=== PATIENT | female | born 1950 | race Caucasian/White ===

== ENCOUNTER 2024-04-27 13:45 | Outpatient (AMB) | payer MEDICARE, OTHER, SELFPAY ==
--- NOTE | 2024-04-27 14:27 | MHC.OFFVISPS ---
Intake Intake Visit Reasons: depression Medication List - Last Reconciled 04/27/24 by Mariana Medeiros, SANJUANITA clonazepam 1 mg PO BID PRN estradiol 0.01%(0.1mg/gram) vaginal ketoconazole 2% appl topical lisinopril 20 mg PO DAILY pantoprazole 20 mg PO BID pravastatin 40 mg PO DAILY vilazodone (Viibryd) 20 mg PO DAILY HPI- Psychiatric Chief Complaint: depression HPI Narrative: pt reports increased anxiety and depression; recently cat got outdoors and did not come back; pt is fearful that cat was killed by an animal [place]; she has not been able to stop crying; her is upset as well. she has been compliant with meds; she is exercising and connecting with social supports. she had knee replacement one year ago and is not in as much pain but one leg longer than the other. She is doing PT. no SI no HI Past Psychiatric History: Outpatient treatment with Christy Medeiros [phone] Past medication trials include: viibryd lexapro prozac zoloft wellbutrin pristiq- ineffective Past Mental Health History: PHP treatment in past [facility] 2017 no inpatient Subjective Subjective Subjective Medication Compliance: Yes Side effects from medications: No Review of Systems Medical Review of Systems: unchanged Mental Status Exam Mental Status Exam Patient Appearance: Well Grooomed and Appropriate Patient Orientation: Person, Place, Time and Situation Level of Consciousness: Awake Patient Behavior: Appropriate and Cooperative Mood Description: Depressed and Anxious Affect Description: Depressed, Anxious and Sad Patient Cognition Impaired: No Ability to Follow Directions: Good Speech Pattern: Clear Memory Description: Intact Hallucinations: None Delusions: Not Present Thought Process: Intact Thought Content: positive for Intact and positive for Preoccupation Judgement: Fair Assessment and Plan Assessment & Plan (1) Major depressive disorder, recurrent, moderate: Status: Acute Code(s): F33.1 - Major depressive disorder, recurrent, moderate (2) Generalized anxiety disorder with panic attacks: Status: Acute Code(s): F41.1 - Generalized anxiety disorder; F41.0 - Panic disorder [episodic paroxysmal anxiety] Plan continue medications Medications: New vilazodone (Viibryd) 20 mg PO DAILY 90 tabs 0RF clonazepam 1 mg PO BID PRN 60 tabs 2RF anxiety Counseling and coordination of Care Pt. Self Management counseling: Exercise, Maintenance-social rhythm, Mindfulness, Sleep hygiene, Behavior activation, General coping skills and Greif counseling Medication management counseling: Effectiveness, Side effects, Dosing range, Duration, Drug interaction and Adherence Diagnosis and Prognosis Counseling: Accuracy of diagnosis, Prognosis over time, Impact of diagnosis on life functions, Impact of family relationship, Problematic behaviors secondary to diagnosis and Adequacy of current interventions Details: I spent 45 minutes reviewing the record, seeing the patient and documenting in the medical record. Counseling provided to the patient/caregiver as outlined below. Addressed patient/caregiver concerns regarding current medication regime including effective adherence. Addressed patient/caregiver concerns regarding diagnosis and prognosis including accuracy of diagnosis, prognosis over time, impact of diagnosis. Addressed patient/caregiver concerns regarding impact of recent stressors. 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
--- OUTSIDE RECORDS SUMMARY | 2024-05-03 06:15 | XMS_ITS | Continuity of Care Document ---
Author Organization [facility] Address [address] [place] [id number]- [place] [facility] [place] [facility] [address] [place] [id number] Attending Physician: Tomas Ibrahim Admitting Physician: Tomas Ibrahim Referring Physician: AdmtrTomas Allergies, Adverse Reactions, Alerts Substance Reaction Severity Status Prevacid Active Vagifem Active Erythro Active PriLOSEC Active Medications acetaminophen 325 mg oral tablet 650 mg, By Mouth, Every 6 hours, May take OTC not to exceed 3000 mg/day, Refills 0, Maintenance, 01/12/23 7:46:00 EDT, Partial fill upon patient request if the prescription is for a schedule II opioid drug. Start Date: 01/12/23 Status: Ordered Aspirin Tablet 325 mg, By Mouth, 2 times a day, Refills 0, Maintenance, 01/12/23 7:46:00 EDT, Partial fill upon patient request if the prescription is for a schedule II opioid drug. Start Date: 01/12/23 Status: Ordered celecoxib 200 mg oral capsule 1 capsule = 200 mg, By Mouth, Daily, 0 Refills, Maintenance, 01/12/23 7:47:00 EDT, Capsule, Partialfill upon patient request if the prescription is for a schedule II opioid drug. Start Date: 01/12/23 Status: Ordered clonazePAM 1 mg oral tablet TAKE 1/2 TABLET BY MOUTH TWO TIMES A DAY AND TAKE ONE TABLET BY MOUTH AT BEDTIME Start Date: 12/29/22 Status: Ordered Colace Capsule 100 mg, 1, capsule, By Mouth, 2 times a day, Refills 0, Maintenance, 01/12/23 7:47:00 EDT, Partial fill upon patient request if the prescription is for a schedule II opioid drug. Start Date: 01/12/23 Status: Ordered lisinopril 20 mg oral tablet TAKE ONE TABLET BY MOUTH EVERY DAY Start Date: 12/29/22 Status: Ordered MiraLax Powder 1 pack/packet = 17 Gm, By Mouth, Daily, PRN Constipation, 0 Refills, Maintenance, 01/12/23 7:47:00 EDT, Powder, Partial fill upon patient request if the prescription is for a schedule II opioid drug. Start Date: 01/12/23 Status: Ordered pantoprazole 20 mg oral delayed release tablet TAKE TWO TABLETS BY MOUTH EVERY DAY Start Date: 12/29/22 Status: Ordered pravastatin 40 mg oral tablet 1 tablet = 40 mg, By Mouth, Daily, 0 Refills, Maintenance, 01/08/23 7:35:00 EDT, Partial fill upon patient request if the prescription is for a schedule II opioid drug. Start Date: 01/08/23 Status: Ordered senna 187 mg oral tablet 1 tablet = 8.6 mg, By Mouth, Daily at bedtime, PRN as needed for constipation, 0 Refills, Maintenance, 01/12/23 7:47:00 EDT, Tablet, Partial fill upon patient request if the prescription is for a schedule II opioid drug. Start Date: 01/12/23 Status: Ordered Viibryd 20 mg oral tablet TAKE ONE TABLET BY MOUTH EVERY DAY WITH FOOD Start Date: 12/29/22 Status: Ordered Vitamin D3 By Mouth, 0 Refills, Maintenance, 02/18/18 16:05:10 EDT Start Date: 02/18/18 Status: Ordered Problem List Condition Confirmation Course Effective Dates Status Health St atus Informant Atrophic vaginitis Confirmed Active Anxiety and depression Confirmed Active Dyspareunia, female Confirmed Active Tobacco use disorder, continuous Confirmed Active Social History Social History Type Response Tobacco Use: 4 or less cigar ettes(less than 1/4 pack)/day in last 30 days. Sex Patient Care team information Care Team Related Persons Name: HAN GATICA Address: home [address] [place] [id number]
--- OUTSIDE RECORDS SUMMARY | 2024-05-03 06:16 | XMS_ITS | Continuity of Care Document ---
Author Organization [facility] Address [address] [place] [id number]- Encounter [facility] [place] Date(s): 12/29/22 - 01/28/[address] [id number] Attending Physician: Tomas Ibrahim Admitting Physician: Tomas Ibrahim Referring Physician: [id number] Allergies, Adverse Reactions, Alerts Substance Reaction Severity [...] Related Persons Name: HAN GATICA Address: home [address] [place] [id number]
--- OUTSIDE RECORDS SUMMARY | 2024-05-03 06:16 | XMS_ITS | Continuity of Care Document ---
Author Organization [facility] Address [address] [place] [id number]- Encounter [facility] [place] Date(s): 01/11/23 - 01/12/[address] [address] Discharge Disposition: A-Transfer VNA/Home Health Attending Physician: Derick Colbert MD Admitting Physician: Derick Colbert MD Referring Physician: Derick Colbert MD Allergies, Adverse Reactions, Alerts Substance Reaction Severity Status Prevacid Active Vagifem Active PriLOSEC Active Erythro Active Medications acetaminophen 325 mg oral tablet [...] opioid drug. Start Date: 01/12/23 Status: Ordered Dilaudid Tablet 2 mg, Tablet, By Mouth, Every 4 hours, PRN for Pain , Moderate, Routine, 01/11/23 13:01:00 EDT Start Date: 01/11/23 Stop Date: 01/12/23 Status: Discontinued HYDROmorphone 2 mg oral tablet See Instructions, PRN Pain , Severe, Take 1-2 tablets By Mouth Every 4 hours, # 84 tablet, 0 Refills, Acute 01/19/23 7:42:00 EDT, 01/12/23 7:41:00 EDT, Tablet, [facility], Partial fill upon patient request if the prescription is for a sc... Start Date: 01/12/23 Stop Date: 01/19/23 Status: Ordered lisinopril 20 mg oral tablet [...] opioid drug. Start Date: 01/12/23 Status: Ordered traMADol 50 mg oral tablet See Instructions, PRN Pain , Mild, 1-2 tablet By Mouth Every 6 hours not to exceed 400 mg/day, # 56tablet, 0 Refills, Acute 01/19/23 7:41:00 EDT, 01/12/23 7:40:00 EDT, Tablet, [facility], Partial fill upon patient request if the presc... Start Date: 01/12/23 Stop Date: 01/19/23 Status: Ordered Viibryd 20 mg oral tablet [...] Active Tobacco use disorder, continuous Confirmed Active Results Radiology Reports * Exam Date Time Procedure Performing Provider Status 01/11/23 1:30 PM Knee 1 or 2 Views Left Teresa Stevenson; Vinicio (Verified) Notes: (Knee 1 or 2 Views Left) Reason For Exam: Postop RESULT: Knee 1 or 2 Views Left Knee 1 or 2 Views Left, 2 views Reason: Postop; Clinical Question(s): Other:; Implant Position; Special Instructions: To be done inPACU, No flexed knee in the lateral position. Keep leg straight; 2 Views COMPARISON: None. FINDINGS: Immediate postoperative findings following left total knee arthroplasty. Soft tissue swelling and overlying gas. No fracture. Alignment of the prosthesis appears anatomic. 2 mm of lucency between the most medial edge of the femoral prosthesis and adjacent medial femoral condyle. Overlapping external immobilizer device. IMPRESSION: Immediate postoperative findings following left total knee arthroplasty. WSN: [id number] Ordering Physician: Kenny Jerry Dictated By: Jonathan Tyler MD Dictated Date/Time: 01/11/23 4:30 pm Reviewed By: Jonathan Tyler MD Signed By: Jonathan Tyler MD Signed Date/Time: 01/11/23 4:30 pm Transcribed By: BERRY Transcribed Date/Time: 01/11/23 4:27 pm Vital Signs Most recent to oldest [Reference Range]: 1 2 3 Height 160 cm (01/12/23 10:32 AM) 160 cm (01/12/23 6:34 AM) 160 cm (01/12/23 4:18 AM) Weight 62.9 kg (01/11/23 3:55 PM) Oxygen Saturation [94-100 %] 98 % (01/12/23 10:32 AM) 99 % (01/12/23 6:34 AM) 98 % (01/12/23 4:18 AM) Pulse Rate [55-90 bpm] 62 bpm (01/12/23 10:32 AM) 62 bpm (01/12/23 6:34 AM) 62 bpm (01/12/23 4:18 AM) Body Mass Index [18.5-24.99 kg/m2] 24.57 kg/m2 (01/11/23 3:55 PM) Blood Pressure [90-138/55-84 mm Hg] 117/64mm Hg (01/12/23 10:32 AM) 153/80mm Hg *H* (01/12/23 6:34 AM) 120/72mm Hg (01/12/23 4:18 AM) Respiratory Rate [16-30 br/min] 18 br/min (01/12/23 11:11 AM) 17 br/min (01/12/23 10:32 AM) 18 br/min (01/12/23 10:27 AM) Temperature [96.8-100.4 DegF] 97.8 DegF (01/12/23 10:32 AM) 97.9 DegF (01/12/23 6:34 AM) 98.4 DegF (01/12/23 4:18 AM) Liters per Minute 6 L/min (01/11/23 12:30 PM) Mode of Delivery (Oxygen) Room air (01/12/23 10:32 AM) Room air (01/12/23 6:34 AM) Room air (01/12/23 4:18 AM) Blood pressure sites Arm, right (01/12/23 10:32 AM) Arm, right (01/12/23 6:34 AM) Arm, right (01/12/23 4:18 AM) Temperature Route Oral (01/12/23 10:32 AM) Oral (01/12/23 6:34 AM) Oral (01/12/23 4:18 AM) Dry Weight 62.9 kg (01/11/23 3:55 PM) 62.9 kg (01/11/23 9:28 AM) Dry Weight Obtained Via Standing scale (01/11/23 9:28 AM) Social History Social History Type Response Tobacco Use: 4 or less cigar ettes(less than 1/4 pack)/day in last 30 days. Sex History and physical note * Event Display: History and Physical Hospital Authored Date: [id number] * Jono PABON, Rodgerya: MODIFY Event Display: History and Physical Hospital Authored Date: [id number] SURGICAL HISTORY AND PHYSICAL DATE: 01/11/2023 PRIMARY DIAGNOSIS: Osteoarthritis of her left knee. REASON FOR ADMISSION: The patient is being admitted for left total knee arthroplasty with Dr. Trujillo 01/11/2023. HISTORY OF PRESENT ILLNESS: The patient is a 72-year-old female presenting today with left-sided knee pain. Her pain and discomfort started in 1971, where she injured her knee. She has been having anongoing pain ever since; however, significantly worse within the past 10 years. Her pain level is 4/10 in intensity at rest, increasing to 10/10 in intensity with weightbearing activities. She reports significant activity limitations, which include difficulty walking any prolonged distances, pivoting and stairs. She has difficulty getting in and out of the car and chair and transitioning from sitto stand. She does not ambulate with any assistive device at this time. She has been taking Aleve in order to manage her symptoms unfortunately with minimal effect. She is unable to kneel or squat. She has had corticosteroid injections in the past, which helped her with diminishing returns. She hasnot had any viscosupplementation. The patient uses knee strap at times in order to manage her symptoms. She states that she is now ready for left total knee arthroplasty with Dr. Colbert on 01/11/2023. PAST MEDICAL HISTORY: 1. Osteoarthritis of the left knee. 2. Hyperlipidemia. 3. Depression. 4. Anxiety. 5. Hypertension. 6. Atrophic vaginitis. 7. Dyspareunia. 8. Continuous tobacco abuse. 9. Prediabetes with preoperative A1c 6.0. PAST SURGICAL HISTORY: 1. Left knee arthroscopy. 2. Rotator cuff repair in 2004. 3. Appendectomy in 2008. CURRENT MEDICATION LIST: 1. Pravastatin 40 mg daily at bedtime. 2. Viibryd 20 mg daily in the morning, which the patient was instructed to take the morning of surgery and bring with her to the hospital. 3. Pantoprazole 20 mg daily in the morning. 4. Lisinopril 20 mg daily in the morning. 5. Vitamin D 2000 International Units daily in the morning. 6. Clonazepam 0.5 mg in the morning and 1 mg at bedtime. 7. Advil as needed for pain, which the patient has stopped in preparation for the surgery. ALLERGIES: The patient is allergic to ERYTHROMYCIN, PREVACID, PRILOSEC and VAGIFEM. 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 She is and lives at home with her . She drinks alcoholic beverages socially. She denies any use of illicit drugs. She smokes 4-5 cigarettes daily. PHYSICIANS: Her primary care provider is at [facility]. REVIEW OF SYSTEMS: The patient denies headache, dizziness or syncope. Denies fever, chills, unexplained weight loss or fatigue. Denies rash or lesions. Denies rhinorrhea, earache, sore throat or swollen glands. Denies cough, shortness of breath or wheezing. Denies chest pain, pressure, palpitationsor edema. Denies nausea, vomiting, diarrhea, constipation, or abdominal pain. Denies dysuria, urinary urgency or frequency. Denies calf pain. Denies history of blood clots in her legs. Denies numbness or tingling. Denies bruising or bleeding tendencies. PHYSICAL EXAMINATION: VITAL SIGNS: Height 63.5 inches tall, weight 137 pounds, temperature 97.3, blood pressure 115/81, pulse 77. GENERAL: The patient is alert and oriented. Normal insight, affect, and grooming. HEENT: Normocephalic. Conjunctivae pink. Sclerae are anicteric. SKIN: Intact without rash or lesions. Nails without clubbing or cyanosis. NECK: Supple. Trachea midline. No lymphadenopathy. CHEST: Lungs are clear to auscultation bilaterally. Breathing is unlabored. CARDIOVASCULAR: Heart has a regular rate and rhythm with normal S1, S2. No murmurs, rubs or gallopsappreciated. No JVD. Carotid pulses without bruits. ABDOMEN: Soft, nontender with normal bowel sounds. No hepatosplenomegaly or masses noted. No bruitsappreciated. EXTREMITIES: The patient has negative straight leg raise test bilaterally. Bilateral hips have fullrange of motion with no pain, no trochanteric tenderness. Left knee range of motion is 2-110 degrees. She has a clear valgus deformity. Knee is stable to varus and valgus stresses, anterior and posterior drawer testing, Jose L testing. No erythema, no redness. There is moderate subpatellar crepitus. Motor sensation screening is intact. Calves are supple, nontender. Ankle motion is satisfactory. Pedal pulse palpable bilaterally. Skin on her feet is intact. PREOPERATIVE DIAGNOSTIC DATA: EKG reads normal sinus rhythm at 68 beats per minute. Orthopedic x-rays demonstrate end-stage osteoarthritis of the left knee. There is [id number] articulation, subchondral sclerosis and osteophyte formation. LABORATORY DATA: CBC, coagulation studies and electrolytes within normal limits. A1c is 6.0. ASSESSMENT AND PLAN: The patient has advanced osteoarthritis of the left knee and is now scheduled for left total knee arthroplasty with Dr. Colbert on 01/11/2023. The patient was seen by the medical consultative preoperative clinic, who stated that the patient is at low risk for perioperative cardiov ascular and pulmonary complications. The patient will receive intravenous tranexamic acid. She willbe on aspirin postoperatively for DVT prophylaxis. We will monitor her point of cares and order sign scale insulin. Discharge plans will be to home the next day. The patient has been counseled regarding the risks and benefits of proposed surgery. Her questions have been answered and she acknowledges understanding. The patient wishes to proceed with surgery and has signed the consents. Prescriptions for aspirin and Celebrex were given to her at this office visit. The patient will require prescriptions for pain medications filled at [facility] upon discharge. She will receive 1 week of in-home physical therapy postoperatively. CONTACTS: Her , Jeffery, with a cell phone number of [phone]. Dictated by: Candy De La Cruz N.P. Signing Clinician: Derick Colbert M.D. Dictated: 01/06/2023 12:54:34 Transcribed: 09:10:22 AM Transcribed by: SAGE DocID: [id number] PRELIMINARY REPORT UNLESS MANUALLY/ELECTRONICALLY SIGNED Note * Event Display: Adult Preadmission Health Questionnaire Authored Date: * Event Display: Cardiac Rhythm Strips Authored Date: [id number] * Shikha Baldwin RN, I: PERFORM Event Display: Discharge/Transfer Note Hospital Authored Date: [id number] Nursing Discharge Note Entered On: 01/12/2023 13:02 EDT Performed On: 01/12/2023 13:01 EDT by Shikha Baldwin RN, I Nursing Discharge Note 2 Discharge Time : 01/12/2023 13:01 EDT Discharge Level of Care at Discharge : Homehealth/VNA Patient Left Unit Via : Wheelchair Patient Accompanied Off Unit with : Significant other DC Instructions Provided & Signed by Pt : Yes Patient Understands D/C Instructions : Yes Patient Instructions Discharge Signed : Yes Did Pt have Specialty Bed or Wound Vac : No Shikha Baldwin RN, I - 01/12/2023 13:01 EDT * Candy De La Cruz NP: VERIFY, PERFORM, SIGN Event Display: Discharge/Transfer Note Hospital Authored Date: [id number] Patient: MARIN GATICA Age: 72 years Sex: Female : 1950 Associated Diagnoses: None Author: Candy De La Cruz NP Discharge Summary Admission Date: 01/11/2023 Discharge Date: 01/12/2023 Admitting Diagnosis: Left knee osteoarthritis Discharge Diagnosis: Left knee osteoarthritis Final Diagnosis: Left knee osteoarthritis Procedure: Left total knee arthroplasty Surgeon: Dr. Derick Colbert Past Medical History: 1. Osteoarthritis of the left knee. 2. Hyperlipidemia. 3. Depression. 4. Anxiety. 5. Hypertension. 6. Atrophic vaginitis. 7. Dyspareunia. 8. Continuous tobacco abuse. 9. Prediabetes with preoperative A1c 6.0. Orthopedics: The patient is status post left knee arthroplasty. It is anticipated that she will be discharged home today pending PT, OT clearance. The patient is doing well from a surgical standpoint. Her incision is healing well. Neurovascular status is intact. Calves are supple and nontender. Thepatient is weight bearing as tolerated. Making good progress with Physical Therapy and Occupationaltherapy. Supervision with ambulation walking 30 feet, ambulating with a walker. Pain is well controlled on her current regimen, Acetaminophen 650 mg every 6 hours, Celebrex, tramadol and Dilaudid 2-4mg every 4 hours as needed . Patient is tolerating this well. She will be sent home with a prescription for this medication. Prescription: Tramadol 50 mg tablets, take 1 to 2 tablets every 6 hours as needed for mild pain, 7 days, #56 Dilaudid 2 mg tablet, 1-2 tablets every 4 hours as needed for severe pain, 7 days # 84 Hospital course: Relatively uneventful medically. Patient is voiding spontaneously. + bowel sounds. all morning bowel medications will be given in anticipation of a BM prior to discharge. No other issues. No calf tenderness. Current Medication List: Acetaminophen (acetaminophen 325 mg oral tablet) 650 Milligram By Mouth Every 6 hours May take OTC not to exceed 3000 mg/day Aspirin (Aspirin Tablet) 325 Milligram By Mouth 2 times a day Celecoxib (celecoxib 200 mg oral capsule) 1 capsule 200 Milligram By Mouth Daily Cholecalciferol (Vitamin D3) By Mouth Clonazepam (clonazePAM 1 mg oral tablet) TAKE 1/2 TABLET BY MOUTH TWO TIMES A DAY AND TAKE ONE TABLET BY MOUTH AT BEDTIME Docusate (Colace Capsule) 100 Milligram 1 capsule By Mouth 2 times a day Hydromorphone (HYDROmorphone 2 mg oral tablet) See Instructions as needed Pain , Severe Take 1-2 tablets By Mouth Every 4 hours Lisinopril (lisinopril 20 mg oral tablet) TAKE ONE TABLET BY MOUTH EVERY DAY Pantoprazole (pantoprazole 20 mg oral delayed release tablet) TAKE TWO TABLETS BY MOUTH EVERY DAY Polyethylene Glycol 3350 (MiraLax Powder) 1 pack/packet 17 gram By Mouth Daily as needed Constipation Pravastatin (pravastatin 40 mg oral tablet) 1 tab(s) 40 Milligram By Mouth Daily Senna (senna 187 mg oral tablet) 1 tab(s) 8.6 Milligram By Mouth Daily at bedtime as needed as needed for constipation Tramadol (traMADol 50 mg oral tablet) See Instructions as needed Pain , Mild 1-2 tablet By Mouth Every 6 hours not to exceed 400 mg/day vilazodone (Viibryd 20 mg oral tablet) TAKE ONE TABLET BY MOUTH EVERY DAY WITH FOOD Allergies (Active and Proposed Allergies Only) PriLOSEC (Severity: Unknown severity, Onset: Unknown) Prevacid (Severity: Unknown severity, Onset: Unknown) Vagifem (Severity: Unknown severity, Onset: Unknown) Erythro (Severity: Unknown severity, Onset: Unknown) Current Labs: Last 24 Hours Basic Metabolic Panel: Hematology: Sodium: 142 mmol/L (01/12/23) Hgb: 11.0 Gm/dL (01/12/23) Potassium (POC): 4.5 mmol/L (01/12/23) Hemoglobin A1C (Monitoring): ------ Phosphorus: ------ WBC: 10.2 k/mm3 (01/12/23) Magnesium: ------ Platelets: 296 k/mm3 (01/12/23) BUN (POC) POC Cartridge: 17 mg/dL (01/12/23) INR Level: ------ Creatinine-Blood: 0.6 mg/dL (01/12/23) Creatinine Clearance: ------ Additional - Last 24 Hours Abs. NRBC: 0.0 k/mm3 (01/12/23) Anion Gap: 10 (01/12/23) Bicarbonate Level: 26 mmol/L (01/12/23) BUN: BUN (01/12/23) Chloride: 106 mmol/L (01/12/23) Creatinine, Blood: Creatinine, Blood (01/12/23) Est Creatinine Clearance: 72.15 (01/12/23) Estimated GFR Creatinine: 95 ML/MIN/1.73 M2 (01/12/23) Glucose, POC: Glucose, POC (01/12/23) Hct: 33.5 % (01/12/23) MCH: 29.2 pg (01/12/23) MCHC: 32.8 g/dL (01/12/23) MCV: 88.9 femtoliters (01/12/23) MPV: 9.5 femtoliters (01/12/23) Nucleated RBC (Automated): 0.0 #/100 WBC'S (01/12/23) RBC: 3.77 m/mm3 (01/12/23) RDW-SD: 44.8 femtoliters (01/12/23) DVT prophylaxis ASA EC 325 mg po bid x 30 days Disposition: Anticipates being discharged today to home. Follow up at [facility] on 01/25/2023 at 10:30 am, patient is aware of this. The patient has an Aquacel dressing in place. She may shower with it and the dressing can be discontinued on POD 7. Discharge Plan Discharge Disposition Discharge: home with VNA. Home Health Face to Face I certify that this patient is under my care and that I or an allowed non- physician practitioner working with me, had a pnzu-sn-efva encounter with the patient on this date: 01/12/2023. The encounter with the patient was in whole, or in part, for the following medical condition, whichis the primary reason for home health care: Osteoarthritis of left knee. Physical Therapy: Functional mobility training, Home exercise program to strengthen, increase ROM, Falls prevention training. Homebound due to: Inability to leave home without assistance/supervision, Inability to ambulate without assistance, Pain, decreased strength, and endurance, Unsteady gait, Impaired transfers, Inability to negotiate stairs. Physician Signature: Lillian VAUGHN, Derick Baldwin RN, Shikha Roth: PERFORM Event Display: Patient Education/Instruction Authored Date: [id number] Inpatient Adult Discharge Instructions [address] [address] Name: MARIN GATICA : 1950 Visit: 01/11/2023 13:12:00 Current Date: 01/12/2023 10:39 Account: [id number] Inpatient Adult Discharge Instructions We would like to thank you for allowing us to assist you with your healthcare needs. The following includes patient education materials and information regarding your injury/illness. Our entire staffstrives to provide an excellent experience for our patients and their families. PLEASE ENSURE YOU FOLLOW-UP PER THE INSTRUCTIONS BELOW! ?? YOUR OPINION IS IMPORTANT TO US! Please complete the survey you may receive by mail or email. Your feedback will be used to make improvements to the healthcare experiences of our patients and their families. Surveys are administered by [employer] ?? If further treatment with your primary care physician or another doctor is recommended, it is important for you to keep the appointment. Call your primary care physician or return to the Emergency Department immediately if your condition worsens, fails to improve, or new symptoms develop. If you need to find a doctor, you can call [facility] for a referral at [phone] or toll free at [phone]) or log in to [email or web address].. ?? You can view and manage your care through the patient portal or by using a health care yaritza of your choosing. [employer] is a website that allows you to securely view your medical information including your hospital discharge summary, office visit summaries, medications and follow-up visits. You can also request appointments, renew medications, and request access to your medical information using a health care yaritza of your choosing, or just ask a question. You can enroll at [email or web address] or register during your next office visit. You have been discharged from [facility], Patient Care Unit: SW7. If you have any questions regarding these instructions after you leave, please call us and we will be happy to assist you. [facility] Your Care Team Attending Physician Lillian VAUGHN, Derick New Discharging Providers Jono PABON, Candy Reason for Your Visit OA LEFT KNEE AGUSTIN Your Diagnosis Osteoarthritis Osteoarthritis of left knee Tests Performed Below is a partial list of the tests performed during your hospitalization. You may have had other tests and procedures not included in this list. Please discuss all test results with your provider. BUN CBC Creatinine Electrolytes GLUCOSE POC XR Knee 1 or 2 Views Left Advance Directive . Discharge Vitals Temperature: 97.8 DegF Height: 160 cm Pulse Rate: 62 bpm Weight: 62.9 kg Respiratory Rate: 17 br/min Body Mass Index: 24.57 kg/m2 Systolic Blood Pressure: 117 mm Hg Body surface area: 1.67 Diastolic Blood Pressure: 64 mm Hg ?? Oxygen Saturation: 98 % ?? Studies Pending All tests and labs ordered during this hospital stay have been completed unless listed below. Please discuss all pending results with your provider listed above in these instructions. ?? BUN CBC COVID-19 (2019 Novel Coronavirus) PCR Creatinine Electrolytes What to do next Instructions From Your Doctor Discharge Orders You Need to Schedule the Following Appointments Follow Up with??[facility] When??Within 1 to 2 weeks Why: Pt follow-up appointments are as scheduled-01/25/2023 at 1030am, 02/10/2023 at 930am, and 05/13/2023 at 1050am Where: [address] [place] [address] [address] [place] [address]- Discharge Medications MARIN GATICA :1950 Visit Date:01/11/2023 Medications: Please continue your medications until treatment is completed or stopped by your provider. Medications not listed below should be discontinued. Discuss any questions related to medications with your provider. What How Much When Instructions Next Dose New Acetaminophen (acetaminophen 325 mg oral tablet) 650 Milligram Oral Every 6 hours May take OTC not to exceed 3000 mg/ day ?? New Aspirin (Aspirin Tablet) 325 Milligram Oral Twice a day New Celecoxib (celecoxib 200 mg oral capsule) 1 capsule Oral Daily New Docusate (Colace Capsule) 100 Milligram Oral Twice a day New Hydromorphone (HYDROmorphone 2 mg oral tablet) See instructions Take 1-2 tablets By Mouth Every 4 hours ?? Pickup at [facility] New Polyethylene Glycol 3350 (MiraLax Powder) 17 gram Oral Daily as needed for Constipation New Senna (senna 187 mg oral tablet) 1 tab(s) Oral Daily at Bedtime as needed for as needed for constipation New Tramadol (traMADol 50 mg oral tablet) See instructions 1-2 tablet By Mouth Every 6 hours not to exceed 400 mg/ day ?? Pickup at [facility] 3 Unchanged Cholecalciferol (Vitamin D3) Oral Unchanged Clonazepam (clonazePAM 1 mg oral tablet) TAKE 1/ 2 TABLET BY MOUTH TWO TIMES A DAY AND TAKE ONE TABLET BY MOUTH AT BEDTIME ?? Unchanged Lisinopril (lisinopril 20 mg oral tablet) TAKE ONE TABLET BY MOUTH EVERY DAY ?? Unchanged Pantoprazole (pantoprazole 20 mg oral delayed release tablet) TAKE TWO TABLETS BY MOUTH EVERY DAY ?? Unchanged Pravastatin (pravastatin 40 mg oral tablet) 1 tab(s) Oral Daily Unchanged vilazodone (Viibryd 20 mg oral tablet) TAKE ONE TABLET BY MOUTH EVERY DAY WITH FOOD ?? Pharmacy Information [facility]: [address], [place] [id number] [phone] ?? What When Comments Stop Taking Gabapentin (gabapentin 100 mg oral capsule) TAKE ONE CAPSULE BY MOUTH THREE TIMES A DAY ?? Stop Taking HydrOXYzine (hydrOXYzine hydrochloride 25 mg oral tablet) TAKE ONE TABLET BY MOUTH THREE TIMES A DAY NEEDED ITCHING ?? Test Results Below is a partial list of the most recent Laboratory test results done prior to this discharge. You may have had other tests and procedures not included in this list. Please discuss all test resultswith your provider. Est Creatinine Clearance - 72.15 mL/min (01/12/2023) BUN (01/12/2023) ???BUN - 17 mg/dL CBC (01/12/2023) ???WBC - 10.2 k/mm3???RBC - 3.77 m/mm3???Hgb - 11.0 Gm/dL???Hct - 33.5 %???MCV - 88.9 femtoliters???MCH - 29.2 pg???MCHC - 32.8 g/dL???Platelet Count - 296 k/mm3???RDW-SD - 44.8 femtoliters???MPV - 9.5 femtoliters???Nucleated RBC (Automated) - 0.0 #/100 WBC'S???Abs. NRBC - 0.0 k/mm3 Creatinine (01/12/2023) ???Creatinine-Blood - 0.6 mg/dL???Estimated GFR Creatinine - 95 ML/MIN/1.73 M2 Electrolytes (01/12/2023) ???Sodium - 142 mmol/L???Potassium - 4.5 mmol/L???Chloride - 106 mmol/L???Bicarbonate Level - 26 mmol/L???Anion Gap - 10 GLUCOSE POC (01/12/2023) ???Glucose, POC - 126 mg/dL Allergies (NKA means No Known Allergies) Erythro Prevacid PriLOSEC Vagifem Problems Active Problems??(4) Anxiety and depression?? Atrophic vaginitis?? Dyspareunia, female?? Tobacco use disorder, continuous?? Education Materials Below is the list of Educational Leaflet Providered with your Discharge Instructions. Total Knee Replacement Discharge Instructions?? Aspirin Oral Tablet?? Valuables and Belongings I fully understand and agree that [facility] accepts no responsibility for all my personal property including clothing, toilet articles, radios, jewelry, dentures, hearing aids, rings, money, or any other property that is in my possession or is brought to me after admission. I understand certain valuables may be placed in a hospital safe for a short period of time. I understand that the hospital is not liable for loss or damage due to accident, fire, or other natural occurrence while said property is in the safe. I accept full responsibility for any personal property that I keep with me, and will not hold the hospital responsible in case of loss or disappearance. I acknowledge that i have been encouraged to send valuables and belongings home. ?? Review of Valuable and Belonging List: With patient Disposition of Belongings: Other: To PACU Date for Pt to Sign Valuables/Belongings: 01/11/23 16:04:00 ?? Other Discharge Information ? Case Management Discharge Plan?? Discharge Plan?? Discharge Agency Information?? Discharge Level of Care at Discharge: Homehealth/VNA Name of Agency #1: Mike IGLESIAS ?? Agency [facility]1: [phone] ?? Service Categories #1: Physical Therapy ?? Service Comments #1: Mike IGLESIAS will contact you to set up a visit time after discharge. Please call [phone] if you don't hear form them. ?? Pulmonary Rehab Status?? Pulmonary Rehab Discharge Status?? CPAP/BiPAP Mask Type: Pillows CPAP/BiPAP Mask Size: Small Respiratory Rate: 17 br/min ? Common Emergency Awareness Tips IS IT A STROKE? Act FAST and Check for these signs: FACE Does the face look uneven? ARM Does one arm drift down? SPEECH Does their speech sound strange? TIME Call at any sign of stroke ?? Heart Attack Signs Chest discomfort: Most heart attacks involve discomfort in the center of the chest and lasts more than a few minutes, or goes away and comes back. It can feel like uncomfortable pressure, squeezing, fullness or pain. Discomfort in upper body: Symptoms can include pain or discomfort in one or both arms, back, neck, jaw or stomach. Shortness of breath: With or without discomfort. Other signs: Breaking out in a cold sweat, nausea, or lightheaded. Remember, MINUTES DO MATTER. If you experience any of these heart attack warning signs, call to get immediate medical attention! ?? Smoking can increase your chances of developing chronic health problems and can cause harmful effects to other family members in your house. If you smoke, you are strongly encouraged to quit. Please call [facility] Link at [phone] or [phone] ([phone]) or log in to [email or web address] for referrals to smoking cessation programs. ?? 291 Suicide & Crisis Lifeline is available 05/04 if you or someone you know needs to find a reason to keep living. By calling 133 you'll be connected to a skilled, trained counselor at a crisis center in your area. INPATIENT DISCHARGE INSTRUCTIONS SIGNATURE PAGE MARIN GATICA Location:[facility] Registration Date and Time:01/11/2023 13:12 EDT I MARIN GATICA, have received the above patient education materials/instructions and have verbalized understanding. If ambulance or transport services are being used I further acknowledge being given a choice of service. ?? If you need to contact me, please call me at this number: . Patient/Director Of Development And Marketing Name: Patient/Director Of Development And Marketing Signature: Relationship to Patient: Witness Name/Signature: Date: * Baldwin RN, Shikha Roth: PERFORM Event Display: Patient Education Leaflets Authored Date: Total Knee Replacement Discharge Instructions ?? 667 Total Knee Replacement Discharge Instructions ??? Please read and review your Total Knee Replacement Book for detailed information ??? Your appetite may be decreased but try to maintain a good balanced diet ?? Ice and elevation ?Ice is important to help keep swelling down. ?Keep elevated as much as possible. ?Ice the knee 4 times a day for 20 minutes each time. Be sure not to put the ice/ice pack directly on your skin. Use a dish towel or something similar between the ice and your skin. ??? Moving ? Get up and walk frequently. ??? Do 20 ankle pumps every hour. ??? Complete your exercises 4times a day, bending and straightening your knee ??? Begin exercises the evening you go home ??? Moving is especially important. This helps to prevent blood clots. Take short frequent walks. ? Wear your knee brace when walking until your surgeon or physical therapist tells you to stop. ??? You may sleep with or without the brace and sleep anyway you are comfortable. ??? Place a pillow underthe ankle/lower leg when lying down to help with extension of your knee. ??? Do not put a pillow under your knee ??? Continue to move your foot up and down, this exercise helps to prevent blood clotsand to help reduce swelling in your knee ??? No driving until approved by your surgeon ?? Incision ?Your incision is closed with absorbable stitches and surgical glue. ?The dressing iswaterproof. You may shower the next day. ??? You may develop some discoloration around your incision (yellowish or bruising) ??? Your dressing will stay on for 1-2 weeks ?You cannot go in a bath, pool, ocean, pond, gordillo or jacuzzi for 6 weeks. This is to reduce your risk of infection ? You may have some numbness around the incision. This is normal and will improve with time. Some patients have numbness that does not completely go away. ?? When to call the Surgeon?CALL [phone] ?If you have shortness of breath or chest pain, call 911 or go to the nearest emergency department. ??? If you have drainage and/or redness around your wound. ?If you have a fever greater than 101.5 (38.5 degrees Celsius). ?If you have persistent calf pain or swelling (This couldbe a blood clot). ??? If your pain is worsening. ? If you have any difficulty with urination or burning with urination ? * Denny GARZA, Shikha Roth: PERFORM Event Display: Patient Education Leaflets Authored Date: [id number] Aspirin Oral Tablet ?? 15953-0 Aspirin Oral Tablet Brands: [employer] Aspirin, [employer] Aspirin Uses This medicine is used for the following purposes: ??? fever ??? heart attack ??? heart disease ??? inflammatory disease ??? pain ??? prevent blood clots ??? prevent stroke ??? stroke ??? prevent heart attack ?? Instructions Sit or stand upright for 10 minutes after taking the medicine. Do not lie down. Swallow with a full glass (8 oz) of water unless your doctor gives you different instructions. You may take with food to prevent stomach upset. Keep the medicine at room temperature. Avoid heat and direct light. If you are using this medicine regularly, it is important to take each dose of medicine on time. Keep taking the medicine even if you feel well. If you forget to take a dose on time, take it as soon as you remember. If it is almost time for thenext dose, do not take the missed dose. Return to your normal schedule. Do not take 2 doses at one time. Drug interactions can change how medicines work or increase risk for side effects. Tell your healthcare providers about all medicines taken. Include prescription and [id number] medicines, vitamins, and herbal medicines. Speak with your doctor or pharmacist before starting or stopping any medicine. Tell your doctor if symptoms do not get better or if they get worse. Talk to your doctor before taking other medicines, including aspirins and ibuprofen containing products. Speak to your doctor about which medicines are safe to use while you are on this medicine. ?? Cautions IMPORTANT: Children and teenagers should not use medications containing aspirin for cold and flu symptoms or chickenpox. Tell your doctor and pharmacist if you ever had an allergic reaction to a medicine. There is an increased risk of bleeding while on this medicine, please tell your doctor or nurse if you notice any excessive bleeding or bruising. Do not use the medication any more than instructed. If you drink more than a few alcoholic beverages each day, ask your doctor whether you should be onthis medicine. Avoid smoking while on this medicine. Smoking may increase your risk for stomach bleeding. Contact your doctor if you notice a change in the amount or darkening of your urine. Tell the doctor or pharmacist if you are , planning to be , or . Do not breastfeed while on this medicine. This medicine can pass through breast milk to the baby. This medicine can hurt a new baby in the womb. If you become while on this medicine, tell your doctor immediately. Your doctor may switch you to a different medicine. ?? Side Effects The following is a list of some common side effects from this medicine. Please speak with your doctor about what you should do if you experience these or other side effects. ??? stomach upset or abdominal pain If you have any of the following side effects, you may be getting too much medicine. Please contactyour doctor to let them know about these side effects. ??? ringing in the ears Call your doctor or get medical help right away if you notice any of these more serious side effects: ??? severe or persistent abdominal pain ??? bleeding that is severe or takes longer to stop ??? coughing up blood or vomit that looks like coffee grounds ??? fever ??? swelling in the neck or throat ??? shortness of breath ??? dark, tarry stool ??? urinating less often A few people may have an allergic reaction to this medicine. Symptoms can include difficulty breathing, skin rash, itching, swelling, or severe dizziness. If you notice any of these symptoms, seek medical help quickly. ?? Extra Please speak with your doctor, nurse, or pharmacist if you have any questions about this medicine. ?? [email or web address].Delpor/[email or web address]/fdbpem/3 IMPORTANT NOTE: This document tells you briefly how to take your medicine, but it does not tell youall there is to know about it. Your doctor or pharmacist may give you other documents about your medicine. Please talk to them if you have any questions. Always follow their advice. There is a more complete description of this medicine available in [place]. Scan this code on your smartphone or tablet or use the web address below. You can also ask your pharmacist for a printout. If you have any questions, please ask your pharmacist. The display and use of this drug information is subject to Terms of Use. Copyright(c) 2022 [employer]. ?? [employer]. All rights reserved. This information is not intended as a substitute for professional medical care. Always follow your healthcare professional's instructions. ?? Hospital Progress note * Shikha Baldwin RN, I: PERFORM, SIGN, VERIFY Event Display: Progress Note Hospital Authored Date: [id number] Patient: MARIN GATICA Age: 72 years Sex: Female : 1950 Associated Diagnoses: None Author: Shikha Baldwin RN, I Findings Problem Related to Alteration in Comfort : Alteration in Comfort/new 01/12/2023 8:00 EDT Alteration in Comfort Related to Surgery Goals & Outcomes: Comfort Pt will report acceptable level of comfort & pain control, Pt will state importance of adhering to pain strategy regime, Pt will demonstrate necessary skills to manage pain, Non-verbal indicators will indicate comfort/pain control Interventions Implemented: Comfort Assess pain using appropriate pain scale/tools Goals/Interventions, Comfort Yes Comfort, Problem Start 01/11/2023 20:00 Reviewed plan with, Comfort Patient Patient Progression, Comfort Pt progressing according to plan Comfort, Problem Ongoing Yes . Alteration in Musculoskeletal : Alteration in Musculoskeletal Func/new 01/12/2023 8:00 EDT Alteration in Musculoskeletal Related to Mobility, Orthopedic Procedure, Total joint replacement, Other: LEFT TOTAL KNEE REPLACEMENT DR COLBERT 01/11/23 Goals & Outcomes, Musculoskeletal Affected extremity will maintain color/motion/sensation, Pt able to perform ADL's to best of ability, Pt demonstrates precautions/exercise/ transfers per protocol, Pt will ambulate safely with assistive device, Pt will be free from complications of immobility, Pt will demonstrate ability to participate in ADL's, Pt will report acceptable level of comfort/painrelief Interventions, Musculoskeletal Monitor patients ambulation status, monitor Color/Motion/Sensation, Assist with repositioning, Encourage deep breathing & coughing exercises, Notify MD immediately if tissue perfusion deteriorates, Obtain assistive devices as needed, Teach & Encourage use of Incentive spirometer, Teach Pt/caregiver on ADL's & adaptive equipment, Teach Pt/caregiver on exercises, Teach pt/caregiver on use of pain scale, Teach Pt/caregiver complications of immobility, Teach Pt/caregiver techniques to increase mobility Goals/Interventions, Musculoskeletal Yes Musculoskeletal, Problem Start 01/11/2023 16:13 Reviewed Plan with, Musculoskeletal Patient Patient Progression, Musculoskeletal Pt progressing according to plan . Narrative/Incidental Pt alert and oriented x3. Lungs cta and pt using incentive spirometer as instructed. Abdomen soft, non-tender with +bs, tolerating po well, LBM 4/30, +flatus. Pt voiding large amounts cyu in bathroom. Will continue to monitor pain level and musculoskeletal status. Refer to biophysical assessment for further details.. Evaluation P#1-Left total knee replacement surgery I: as per plan of care E: Pt reporting pain /10 this am, dilaudid 2mg po and tylenol as per orders, + effect on pain. Immobilizer on and ice applied. Left knee with aquacel dressing intact, +pp, +cms and strong d/p flexion. Compression boots and ASA for DVT proph. OOB with min assist and walker. Plan home when cleared by OT/PT. . * Jaydon Soto: PERFORM, SIGN, VERIFY, SIGN, MODIFY Event Display: Progress Note Hospital Authored Date: Patient: MARIN GATICA Age: 72 years Sex: Female : 1950 Associated Diagnoses: None Author: Jaydon Soto Findings Problem Related to Alteration in Comfort : Alteration in Comfort/new 01/11/2023 20:00 EDT Alteration in Comfort Related to Surgery Goals & Outcomes: Comfort Pt will report acceptable level of comfort & pain control, Pt will state importance of adhering to pain strategy regime, Pt will demonstrate necessary skills to manage pain, Non-verbal indicators will indicate comfort/pain control Interventions Implemented: Comfort Assess pain using appropriate pain scale/tools, Assess aggravating factors & prevent them accordingly, Assess alleviating factors & promote them accordingly Goals/Interventions, Comfort Yes Comfort, Problem Start 01/11/2023 20:00 Reviewed plan with, Comfort Patient Patient Progression, Comfort Pt progressing according to plan Comfort, Problem Ongoing Yes . Alteration in Musculoskeletal : Alteration in Musculoskeletal Func/new 01/11/2023 20:00 EDT Alteration in Musculoskeletal Related to Mobility, Orthopedic Procedure, Total joint replacement, Other: LEFT TOTAL KNEE REPLACEMENT DR COLBERT 01/11/23 Goals & Outcomes, Musculoskeletal Affected extremity will maintain color/motion/sensation, Pt able to perform ADL's to best of ability, Pt demonstrates precautions/exercise/ transfers per protocol, Pt will ambulate safely with assistive device, Pt will be free from complications of immobility, Pt will demonstrate ability to participate in ADL's, Pt will report acceptable level of comfort/painrelief Interventions, Musculoskeletal Monitor patients ambulation status, monitor Color/Motion/Sensation, Assist with repositioning, Encourage deep breathing & coughing exercises, Notify MD immediately if tissue perfusion deteriorates, Obtain assistive devices as needed, Teach & Encourage use of Incentive spirometer, Teach Pt/caregiver on ADL's & adaptive equipment, Teach Pt/caregiver on exercises, Teach pt/caregiver on use of pain scale, Teach Pt/caregiver complications of immobility, Teach Pt/caregiver techniques to increase mobility, Teach Pt/caregiver on safety precautions, Apply iceto injured extremity for first 48 hours, monitor CMS of injured extremity, Elevate injured extremity, Maintain proper alignment of injured extremity, Ezequiel location of distal pulse, rebeca. if doppler used, Incision care as ordered, Mcneal Pt/caregiver to Total Knee Replacement protocol Goals/Interventions, Musculoskeletal Yes Musculoskeletal, Problem Start 01/11/2023 16:13 Reviewed Plan with, Musculoskeletal Patient Patient Progression, Musculoskeletal Pt progressing according to plan . Nursing Data Vital Signs : VITAL SIGNS SECTION 01/11/2023 18:32 EDT Temperature 98.4 DegF Temperature Route Oral Pulse Rate 66 bpm Respiratory Rate 18 br/min Systolic Blood Pressure 147 mm Hg H Diastolic Blood Pressure 81 mm Hg Blood pressure sites Arm, left Mean Arterial Pressure 103 mm Hg Pulse Pressure 66 mm Hg Oxygen Saturation 95 % Mode of Delivery (Oxygen) Room air . Evaluation P: As per nursing care plan(s) listed above: I: See interventions listed in care plan above E: Patient A&Ox4, denies any chest pain or SOB. Lung clear throughout, saturating in the 90s onRA. Reports 5/10 left knee pain, PRN 2mg PO Dilaudid administered along with PO Tylenol with positive effect. +CMS, +D/P, and +PP noted to both lower extremities. Aquacel dressing to left knee remains c/d/i, ice applied to knee on/off throughout shift. Voiding clear urine without difficulty, last BM 01/11. CPAP used while asleep. OOB with 1 assist using walker, immobilizer used during ambulation.Patient educated and encouraged to use IS and perform D/P exercises throughout shift. C-boots applied to both lower extremities, on ASA for DVT prophylaxis. BED alarm activated for safety. Fall prevention & safety education provided to patient. Patient educated on how to use call walter and instructed to not get out of bed without calling for assistance first using call walter. Bed in a low-locked position. Call walter along with personal belongings are within patient reach. Will continue to monitor and report any changes to MD.... * Shikha Baldwin RN, I: PERFORM, SIGN, VERIFY Event Display: Progress Note Hospital Authored Date: Patient: MARIN GATICA Age: 72 years Sex: Female : 1950 Associated Diagnoses: None Author: Shikha Baldwin RN, I Findings Problem Related to Alteration in Musculoskeletal : Alteration in Musculoskeletal Func/new 01/11/2023 16:00 EDT Alteration in Musculoskeletal Related to Orthopedic Procedure, Total joint replacement Goals & Outcomes, Musculoskeletal Affected extremity will maintain color/motion/sensation, Pt able to perform ADL's to best of ability, Pt demonstrates precautions/exercise/ transfers per protocol, Pt will ambulate safely with assistive device, Pt will be free from complications of immobility, Pt will demonstrate ability to participate in ADL's, Pt will report acceptable level of comfort/painrelief Interventions, Musculoskeletal Monitor patients ambulation status, monitor Color/Motion/Sensation, Assist with repositioning, Encourage deep breathing & coughing exercises, Notify MD immediately if tissue perfusion deteriorates, Obtain assistive devices as needed, Teach & Encourage use of Incentive spirometer, Teach Pt/caregiver on ADL's & adaptive equipment, Teach Pt/caregiver on exercises, Teach pt/caregiver on use of pain scale, Teach Pt/caregiver complications of immobility BH Goals/Interventions, Musculoskeletal Yes Musculoskeletal, Problem Start 01/11/2023 16:13 Reviewed Plan with, Musculoskeletal Patient Patient Progression, Musculoskeletal Pt progressing according to plan . Narrative/Incidental Pt admitted from pacu alert and oriented x3. Lungs cta and pt using incentive spirometer as instructed with good effort, pt reports use of CPAP at home, will order and place pt on capnography at night. Abdomen soft, non-tender with +bs, tolerating po well, LBM 4/30. Pt voiding large amounts cyu without difficulty in bathroom. Will continue to monitor pain level and musculoskeletal status. Refer to biophysical assessment for further details. . Evaluation Pt rating pain on arrival from pacu, ice applied and pt refusing pain medication at this time. Leftknee with aquacel dressing intact, +pp, +cms and strong dorsi/plantar flexion noted, pt ambulated from stretcher to bathroom/bed without difficulty, steady with walker. Compression boots and ASA for DVT proph. . XR Knee - left 1 or 2 Views * BHSPowerscribe , CIS S: TRANSCRIBE Jonathan Tyler MD: VERIFY Event Display: Result: Authored Date: Knee 1 or 2 Views Left, 2 views Reason: Postop; Clinical Question(s): Other:; Implant Position; Special Instructions: To be done inPACU, No flexed knee in the lateral position. Keep leg straight; 2 Views COMPARISON: None. FINDINGS: Immediate postoperative findings following left total knee arthroplasty. Soft tissue swelling and overlying gas. No fracture. Alignment of the prosthesis appears anatomic. 2 mm of lucency between the most medial edge of the femoral prosthesis and adjacent medial femoral condyle. Overlapping external immobilizer device. IMPRESSION: Immediate postoperative findings following left total knee arthroplasty. WSN: [id number] Ordering Physician: Kenny Jerry Dictated By: Jonathan Tyler MD Dictated Date/Time: 01/11/23 4:30 pm Reviewed By: Jonathan Tyler MD Signed By: Jonathan Tyler MD Signed Date/Time: 01/11/23 4:30 pm Transcribed By: BERRY Transcribed Date/Time: 01/11/23 4:27 pm Patient Care team information Care Team Related Persons Name: JEFFERY GATICA Address: home [address] [place] [id number]
== END 2024-04-27 14:35 | disposition home or self-care (01) ==
LOC: HO.HOP 13:45
PROVIDERS: PCP Nurse Practitioner Primary Care; Visit Provider Clinical Nurse Specialist Psychiatric/Mental Health
DX: F33.1 Major depressive disorder, recurrent, moderate (principal); F41.1 Generalized anxiety disorder; F41.0 Panic disorder [episodic paroxysmal anxiety]
CPT/HCPCS: 90833; 99214

== ENCOUNTER → 2024-04-27 13:45 | Outpatient (BNVA) | payer MEDICARE, OTHER, SELFPAY | PROVIDERS: PCP Nurse Practitioner Primary Care; Visit Provider Clinical Nurse Specialist Psychiatric/Mental Health | DX: F33.1 Major depressive disorder, recurrent, moderate (principal); F41.1 Generalized anxiety disorder; F41.0 Panic disorder [episodic paroxysmal anxiety] | CPT/HCPCS: 99212 ==

== ENCOUNTER 2024-05-25 13:36 | Outpatient (AMB) | payer MEDICARE, OTHER, SELFPAY ==
--- NOTE | 2024-05-25 13:40 | MHC.OFFVISPS ---
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 she continues to exercise; many of her friends are not available right now which effects her mood. she is sleeping 7 hours most nights. Past Psychiatric History: Outpatient treatment with Christy Medeiros [id number] Past medication trials include: viibryd lexapro prozac zoloft wellbutrin pristiq- ineffective Past Mental Health History: PHP treatment in past [facility] 2017 no inpatient Subjective Subjective Subjective Medication Compliance: Yes Side effects from medications: No Review of Systems Medical Review of Systems: unchanged Mental Status Exam Mental Status Exam Patient Appearance: Well Grooomed and Appropriate Patient Orientation: Person, Place, Time and Situation Level of Consciousness: Awake, Appropriate and Alert Patient Behavior: Appropriate and Cooperative Mood Description: Calm Affect Description: Calm Patient Cognition Impaired: No Ability to Follow Directions: Good Speech Pattern: Clear and Coherent Memory Description: Intact Hallucinations: None Delusions: Not Present Thought Process: Intact and Goal Oriented Thought Content: positive for Intact and positive for Goal Oriented Judgement: Good Assessment and Plan Assessment & Plan (1) Generalized anxiety disorder with panic attacks: Status: Acute Code(s): F41.1 - Generalized anxiety disorder; F41.0 - Panic disorder [episodic paroxysmal anxiety] (2) Major depressive disorder, recurrent, moderate: Status: Acute Code(s): F33.1 - Major depressive disorder, recurrent, moderate Plan conintue medications as is no refills needed today CBT to address anxiety and depression problem solving ther apy to increase social supports/activities Counseling and coordination of Care Pt. Self Management counseling: Maintenance-social rhythm, Mindfulness, Mod caffeine/ETOH intake, Sleep hygiene, Behavior activation, General coping skills and Problem solving Medication management counseling: Effectiveness, Side effects, Dosing range, Duration, Drug interaction and Adherence Diagnosis and Prognosis Counseling: Accuracy of diagnosis, Prognosis over time, Impact of diagnosis on life functions, Impact of family relationship, Problematic behaviors secondary to diagnosis and Adequacy of current interventions Details: I spent 45 minutes reviewing the record, seeing the patient and documenting in the medical record. Counseling provided to the patient/caregiver as outlined below. Addressed patient/caregiver concerns regarding current medication regime including effective adherence. Addressed patient/caregiver concerns regarding diagnosis and prognosis including accuracy of diagnosis, prognosis over time, impact of diagnosis. Addressed patient/caregiver concerns regarding impact of recent stressors. 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
== END 2024-05-25 14:15 | disposition home or self-care (01) ==
LOC: HO.HOP 13:36
PROVIDERS: PCP Nurse Practitioner Primary Care; Visit Provider Clinical Nurse Specialist Psychiatric/Mental Health
DX: F41.1 Generalized anxiety disorder (principal); F41.0 Panic disorder [episodic paroxysmal anxiety]; F33.1 Major depressive disorder, recurrent, moderate
CPT/HCPCS: 90833; 99214

== ENCOUNTER → 2024-05-25 13:36 | Outpatient (BNVA) | payer MEDICARE, OTHER, SELFPAY | PROVIDERS: PCP Nurse Practitioner Primary Care; Visit Provider Clinical Nurse Specialist Psychiatric/Mental Health | DX: F33.1 Major depressive disorder, recurrent, moderate (principal); F41.1 Generalized anxiety disorder; F41.0 Panic disorder [episodic paroxysmal anxiety] | CPT/HCPCS: 99212 ==

== ENCOUNTER 2024-06-22 13:38 | Outpatient (AMB) | payer MEDICARE, OTHER, SELFPAY ==
--- NOTE | 2024-06-22 14:00 | MHC.OFFVISPS ---
Intake Intake Visit Reasons: depression Design Specialist Required: No Medication List - Last Reconciled 06/22/24 by Mariana Medeiros, SANJUANITA clonazepam 1 mg PO BID PRN estradiol 0.01%(0.1mg/gram) vaginal ketoconazole 2% appl topical lisinopril 20 mg PO DAILY pantoprazole 20 mg PO BID pravastatin 40 mg PO DAILY vilazodone (Viibryd) 20 mg PO DAILY HPI- Psychiatric Chief Complaint: depression HPI Narrative: Patient is struggling with some anxiety and depression but feels it is manageable she is staying busy she is making sure she exercises daily and socializing frequently. This time of year is difficult for her given the holidays and still grieving the loss of her parents she is compliant with meds no SI or HI and she is functioning well. Past Psychiatric History: Outpatient treatment with Christy Medeiros [id number] Past medication trials include: viibryd lexapro prozac zoloft wellbutrin pristiq- ineffective Past Mental Health History: PHP treatment in past [facility] 2017 no inpatient Subjective Subjective Subjective Medication Compliance: Yes Side effects from medications: No Review of Systems Medical Review of Systems: unchanged Mental Status Exam Mental Status Exam Patient Appearance: Well Grooomed Patient Orientation: Person, Place, Time and Situation Level of Consciousness: Awake and Alert Patient Behavior: Appropriate and Cooperative Mood Description: Anxious and Sad Affect Description: Anxious Patient Cognition Impaired: No Ability to Follow Directions: Good Speech Pattern: Clear Memory Description: Intact Hallucinations: None Delusions: Not Present Thought Process: Intact Thought Content: positive for Intact Judgement: Good Assessment and Plan Assessment & Plan (1) Generalized anxiety disorder with panic attacks: Status: Acute Code(s): F41.1 - Generalized anxiety disorder; F41.0 - Panic disorder [episodic paroxysmal anxiety] (2) Major depressive disorder, recurrent, moderate: Status: Acute Code(s): F33.1 - Major depressive disorder, recurrent, moderate Plan continue current meeication no changes Counseling and coordination of Care Pt. Self Management counseling: Exercise, Maintenance-social rhythm, Nutrition education and improvement, Sleep hygiene, Behavior activation and General coping skills Diagnosis and Prognosis Counseling: Accuracy of diagnosis, Prognosis over time, Impact of diagnosis on life functions, Impact of family relationship, Problematic behaviors secondary to diagnosis and Adequacy of current interventions Details: I spent [] minutes reviewing the record, seeing the patient and documenting in the medical record. Counseling provided to the patient/caregiver as outlined below. Addressed patient/caregiver concerns regarding current medication regime including effective adherence. Addressed patient/caregiver concerns regarding diagnosis and prognosis including accuracy of diagnosis, prognosis over time, impact of diagnosis. Addressed patient/caregiver concerns regarding impact of recent stressors. 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
== END 2024-06-22 14:15 | disposition home or self-care (01) ==
LOC: HO.HOP 13:38
PROVIDERS: PCP Nurse Practitioner Primary Care; Visit Provider Clinical Nurse Specialist Psychiatric/Mental Health
DX: F41.1 Generalized anxiety disorder (principal); F41.0 Panic disorder [episodic paroxysmal anxiety]; F33.1 Major depressive disorder, recurrent, moderate
CPT/HCPCS: 90833; 99214

== ENCOUNTER → 2024-06-22 13:38 | Outpatient (BNVA) | payer MEDICARE, OTHER, SELFPAY | PROVIDERS: PCP Nurse Practitioner Primary Care; Visit Provider Clinical Nurse Specialist Psychiatric/Mental Health | DX: F44.1 Dissociative fugue (principal); F41.0 Panic disorder [episodic paroxysmal anxiety]; F33.1 Major depressive disorder, recurrent, moderate | CPT/HCPCS: 99212 ==

== ENCOUNTER 2024-07-27 11:27 | Outpatient (AMB) | payer MEDICARE, OTHER, SELFPAY ==
--- NOTE | 2024-07-27 12:06 | A.OFFPSYCH_ITS ---
Intake Intake Visit Reasons: depression Supervisor Travel Information Center Required: No Medication List - Last Reconciled 07/27/24 by Mariana Medeiros, SANJUANITA clonazepam 1 mg PO BID PRN estradiol 0.01%(0.1mg/gram) vaginal ketoconazole 2% appl topical lisinopril 20 mg PO DAILY pantoprazole 20 mg PO BID pravastatin 40 mg PO DAILY vilazodone (Viibryd) 20 mg PO DAILY HPI- Psychiatric Chief Complaint: depression HPI Narrative: stable overall'some increased sadness as this is season her father ; she frequently has more sadness in July. pt is active socially and with family; exercises 5-7 days a week. takes meds consistently; no SI or Hi Past Psychiatric History: Outpatient treatment with Christy Medeiros [phone] Past medication trials include: viibryd lexapro prozac zoloft wellbutrin pristiq- ineffective Past Mental Health History: PHP treatment in past [facility] 2017 no inpatient Subjective Subjective Subjective Medication Compliance: Yes Side effects from medications: No Review of Systems Medical Review of Systems: unchanged Mental Status Exam Mental Status Exam Patient Appearance: Well Grooomed and Appropriate Patient Orientation: Person, Place, Time and Situation Level of Consciousness: Awake, Appropriate and Alert Patient Behavior: Appropriate, Cooperative and Good Eye Contact Mood Description: Sad Affect Description: Sad Patient Cognition Impaired: No Ability to Follow Directions: Good Speech Pattern: Clear Memory Description: Intact Hallucinations: None Delusions: Not Present Thought Process: Intact and Goal Oriented Thought Content: positive for Goal Oriented Judgement: Good Assessment and Plan Assessment & Plan (1) Generalized anxiety disorder with panic attacks: Status: Acute Code(s): F41.1 - Generalized anxiety disorder; F41.0 - Panic disorder [episodic paroxysmal anxiety] (2) Major depressive disorder, recurrent, moderate: Status: Acute Code(s): F33.1 - Major depressive disorder, recurrent, moderate Plan continue vilazodone and clonazepam return in 4 weeks Medications: Refilled vilazodone (Viibryd) 20 mg PO DAILY 90 tabs 1RF Counseling and coordination of Care Pt. Self Management counseling: Exercise, Maintenance-social rhythm, Mod caffeine/ETOH intake, Sleep hygiene, Behavior activation, General coping skills and Problem solving Medication management counseling: Effectiveness, Side effects, Dosing range, Duration, Drug interaction and Adherence Diagnosis and Prognosis Counseling: Accuracy of diagnosis, Prognosis over time, Impact of diagnosis on life functions, Impact of family relationship, Problematic behaviors secondary to diagnosis and Adequacy of current interventions Details: I spent 40 minutes reviewing the record, seeing the patient and documenting in the medical record. Counseling provided to the patient/caregiver as outlined below. Addressed patient/caregiver concerns regarding current medication regime including effective adherence. Addressed patient/caregiver concerns regarding diagnosis and prognosis including accuracy of diagnosis, prognosis over time, impact of diagnosis. Addressed patient/caregiver concerns regarding impact of recent stressors. 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
== END 2024-07-27 12:11 | disposition home or self-care (01) ==
LOC: HO.HOP 11:27
PROVIDERS: PCP Nurse Practitioner Primary Care; Visit Provider Clinical Nurse Specialist Psychiatric/Mental Health
DX: F41.1 Generalized anxiety disorder (principal); F41.0 Panic disorder [episodic paroxysmal anxiety]; F33.1 Major depressive disorder, recurrent, moderate
CPT/HCPCS: 90833; 99214

== ENCOUNTER → 2024-07-27 11:27 | Outpatient (BNVA) | payer MEDICARE, OTHER, SELFPAY | PROVIDERS: PCP Nurse Practitioner Primary Care; Visit Provider Clinical Nurse Specialist Psychiatric/Mental Health | DX: F41.1 Generalized anxiety disorder (principal); F41.0 Panic disorder [episodic paroxysmal anxiety]; F33.1 Major depressive disorder, recurrent, moderate; Z71.89 Other specified counseling | CPT/HCPCS: 99212 ==

== ENCOUNTER 2024-08-25 13:40 | Outpatient (AMB) | payer MEDICARE, OTHER, SELFPAY ==
--- NOTE | 2024-08-25 13:47 | MHC.OFFVISPS ---
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: No Medication List - Last Reconciled 08/25/24 by Mariana Medeiros, SANJUANITA clonazepam 1 mg PO BID PRN estradiol 0.01%(0.1mg/gram) vaginal ketoconazole 2% appl topical lisinopril 20 mg PO DAILY pantoprazole 20 mg PO BID pravastatin 40 mg PO DAILY Viibryd (vilazodone) 20 mg PO DAILY NS HPI- Psychiatric Chief Complaint: depression HPI Narrative: Pt reports mood stable; she has had some down days but overall coping well; she has had someincreased anxiety episodically; approximately 3 days a week she wakes with anxiety; she says it doesn't last long and goes away once she gets out of bed and gets busy. She is exercising regularly. she is sleeping well. 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 she is using magnesium cream which helps. PHQ9= 4 and GAD7 = 5. No SI or HI Past Psychiatric History: Outpatient treatment with Christy Medeiros [phone] Past medication trials include: viibryd lexapro prozac zoloft wellbutrin pristiq- ineffective Past Mental Health History: PHP treatment in past [facility] 2017 no inpatient Subjective Subjective Subjective Medication Compliance: Yes Side effects from medications: No Review of Systems Medical Review of Systems: unchanged Mental Status Exam Mental Status Exam Patient Appearance: Well Grooomed and Appropriate Patient Orientation: Person, Place, Time and Situation Level of Consciousness: Awake and Appropriate Patient Behavior: Appropriate, Cooperative and Anxious Mood Description: Happy and Anxious Affect Description: Cheerful and Anxious Patient Cognition Impaired: No Ability to Follow Directions: Good Speech Pattern: Clear and Appropriate Memory Description: Intact Hallucinations: None Delusions: Not Present Thought Process: Intact Thought Content: positive for Intact Judgement: Good Assessment and Plan Assessment & Plan (1) Generalized anxiety disorder with panic attacks: Status: Acute Code(s): F41.1 - Generalized anxiety disorder; F41.0 - Panic disorder [episodic paroxysmal anxiety] (2) Major depressive disorder, recurrent, moderate: Status: Acute Code(s): F33.1 - Major depressive disorder, recurrent, moderate Plan continue medications below return in 6 weeks Medications: Refilled clonazepam 1 mg PO BID PRN 60 tabs 2RF anxiety Viibryd (vilazodone) brand medically necessary/no substitutions 20 mg PO DAILY 90 tabs 1RF NS clonazepam 1 mg PO BID PRN 60 tabs 2RF anxiety Counseling and coordination of Care Details: I spent [] minutes reviewing the record, seeing the patient and documenting in the medical record. Counseling provided to the patient/caregiver as outlined below. Addressed patient/caregiver concerns regarding current medication regime including effective adherence. Addressed patient/caregiver concerns regarding diagnosis and prognosis including accuracy of diagnosis, prognosis over time, impact of diagnosis. Addressed patient/caregiver concerns regarding impact of recent stressors. 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
== END 2024-08-25 15:14 | disposition home or self-care (01) ==
LOC: HO.HOP 13:40
PROVIDERS: PCP Nurse Practitioner Primary Care; Visit Provider Clinical Nurse Specialist Psychiatric/Mental Health
DX: F41.1 Generalized anxiety disorder (principal); F41.0 Panic disorder [episodic paroxysmal anxiety]; F33.1 Major depressive disorder, recurrent, moderate
CPT/HCPCS: 99214

== ENCOUNTER → 2024-08-25 13:40 | Outpatient (BNVA) | payer MEDICARE, OTHER, SELFPAY | PROVIDERS: PCP Nurse Practitioner Primary Care; Visit Provider Clinical Nurse Specialist Psychiatric/Mental Health | DX: F41.1 Generalized anxiety disorder (principal); F41.0 Panic disorder [episodic paroxysmal anxiety]; F33.1 Major depressive disorder, recurrent, moderate; Z71.89 Other specified counseling | CPT/HCPCS: 99212 ==

== ENCOUNTER → 2024-10-06 13:33 | Outpatient (BNVA) | payer MEDICARE, OTHER, SELFPAY | PROVIDERS: PCP Nurse Practitioner Primary Care; Visit Provider Clinical Nurse Specialist Psychiatric/Mental Health | DX: F41.1 Generalized anxiety disorder (principal); F41.0 Panic disorder [episodic paroxysmal anxiety]; F33.1 Major depressive disorder, recurrent, moderate | CPT/HCPCS: 99212 ==

== ENCOUNTER 2024-11-03 11:04 | Outpatient (AMB) | payer MEDICARE, OTHER, SELFPAY ==
--- NOTE | 2024-11-03 11:10 | A.OFFPSYCH_ITS ---
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 Worried about family memebers. coping well overall; med compliant. no side effects. Past Psychiatric History: Outpatient treatment with Christy Medeiros [phone] Past medication trials include: viibryd lexapro prozac zoloft wellbutrin pristiq- ineffective Past Mental Health History: PHP treatment in past [facility] 2017 no inpatient Subjective Subjective Subjective Medication Compliance: Yes Side effects from medications: No Review of Systems Medical Review of Systems: unchanged Mental Status Exam Mental Status Exam Patient Appearance: Well Grooomed and Appropriate Patient Orientation: Person, Place, Time and Situation Level of Consciousness: Awake, Appropriate and Alert Patient Behavior: Appropriate and Cooperative Mood Description: Anxious Affect Description: Anxious Patient Cognition Impaired: No Ability to Follow Directions: Good Speech Pattern: Clear and Appropriate Hallucinations: None Delusions: Not Present Thought Process: Intact and Goal Oriented Thought Content: positive for Intact and positive for Goal Oriented Judgement: Good Assessment and Plan Assessment & Plan (1) Generalized anxiety disorder with panic attacks: Status: Acute Code(s): F41.1 - Generalized anxiety disorder; F41.0 - Panic disorder [episodic paroxysmal anxiety] (2) Major depressive disorder, recurrent, moderate: Status: Acute Code(s): F33.1 - Major depressive disorder, recurrent, moderate Plan continue viibryd and clonazepam return in 6-8 weeks Counseling and coordination of Care Pt. Self Management counseling: Maintenance-social rhythm, Med illness tx adherence, Mindfulness, Mod caffeine/ETOH intake, Nutrition education and improvement, Sleep hygiene, Behavior activation, General coping skills and Problem solving Medication management counseling: Effectiveness, Side effects, Dosing range, Duration, Drug interaction and Adherence Diagnosis and Prognosis Counseling: Accuracy of diagnosis, Prognosis over time, Impact of diagnosis on life functions, Impact of family relationship, Problematic behaviors secondary to diagnosis and Adequacy of current interventions Details: I spent 30 minutes reviewing the record, seeing the patient and documenting in the medical record. Counseling provided to the patient/caregiver as outlined below. Addressed patient/caregiver concerns regarding current medication regime including effective adherence. Addressed patient/caregiver concerns regarding diagnosis and prognosis including accuracy of diagnosis, prognosis over time, impact of diagnosis. Addressed patient/caregiver concerns regarding impact of recent stressors. 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
--- OUTSIDE RECORDS SUMMARY | 2024-11-03 12:11 | XMS_ITS | Data Portability ---
Author Organization [place] - [facility], , [facility] Address [address] [place] [address] Assessment No assessment recorded. Plan of Treatment Reminders Order Date Submit Date Provider Last Modified By Organization Details Last Modified Time Details Appointments None record ed. Lab None record ed. Referral None record ed. Procedures None record ed. Surgeries None record ed. Imaging None record ed. Medication Orders None record ed. Patient TargetsNo targets recorded. Patient Instructions Encounter Date Encounter Id Patient Instructions Last Modified By Organization Details Last Modified Time 12/31/2015 [id number] RX given for glasses and contact lenses Will get trials of new cl rX to insure improved vision, use readers over lenses for reading Prevention of macular degeneration discussed(family history)??includi ng UV protection, heart healthy diet and no smoking-advised to try to quit smoking jmerlin Not available 12/31/2015 17:15:10 01/12/2017 [id number] Prescription given for contact lenses Rewetting drops as needed for left eye Continue present care with contact lenses. Follow up 1 year or sooner as needed. jmerlin Not available 01/12/2017 10:51:58 Reason for Referral None Reported. Results Created Date Observation Date Name Description Value Unit Range Abnormal Flag Note LastModifiedBy Organization Detail LastModifiedTime 02/23/2002/23/2009 CBC WBC 9.7 K/??? L 4.6-10 .2 Not Available [address], [address], 02/23/2009 16:37:40 02/23/20 09 02/23/2009 CBC lymph # 1.7 K/??? L 0.6-3. 4 Not Available [address], [address], 02/23/2009 16:37:40 02/23/20 09 02/23/2009 CBC mid # 0.4 K/??? L 0.0-1. 8 Not Available [address], [address], 02/23/2009 16:37:40 02/23/20 09 02/23/2009 CBC gran # 7.6 K/??? L 2.0-6. 9 high Not Available [address], [address], 02/23/2009 16:37:40 02/23/20 09 02/23/2009 CBC lymph % 17.5 % 10.0-5 0.0 Not Available [address], [address], 02/23/2009 16:37:40 02/23/20 09 02/23/2009 CBC mid % 4.0 % 0.1-24 .0 Not Available [address], [address], 02/23/2009 16:37:40 02/23/20 09 02/23/2009 CBC gran % 78.5 % 37.0-8 0.0 Not Available [address], [address], 02/23/2009 16:37:40 02/23/20 09 02/23/2009 CBC RBC 4.74 M/??? L 4.04-5 .48 Not Available [address], [address], 02/23/2009 16:37:40 02/23/2002/23/2009 CBC HGB 13.5 g/dL 12.2-1 6.2 Not Available [address], [address], 02/23/2009 16:37:40 02/23/20 09 02/23/2009 CBC HCT 40.3 % 37.7-4 7.9 Not Available [address], [address], 02/23/2009 16:37:40 02/23/20 09 02/23/2009 CBC MCV 85.1 ???L 80.0-9 7.0 Not Available [address], [address], 02/23/2009 16:37:40 02/23/20 09 02/23/2009 CBC MCH 28.5 pg 27.0-3 1.2 Not Available [address], [address], 02/23/2009 16:37:40 02/23/20 09 02/23/2009 CBC MCHC 33.5 g/dL 31.8-3 5.4 Not Available [address], [address], 02/23/2009 16:37:40 02/23/20 09 02/23/2009 CBC plt 340.0 K/??? L 142.0- 424.0 Not Available [address], [address], 02/23/2009 16:37:40 02/23/20 09 02/23/2009 CBC RDW 12.9 % 11.6-1 4.8 Not Available [address], [address], 02/23/2009 16:37:40 02/23/20 09 02/23/2009 CBC _MPV 0.0 Not Available [address], [address], 02/23/2009 16:37:40 02/23/20 09 02/25/2009 compr ehens heath metab olic panel glucose 88 mg/dL 70-100 clini hui refer ence range s fasti ng gluco se <100 mg/dL = angella l fasti ng gluco se; 100-1 25 mg/dL = ifg (impa ired fasti ng gluco se); >126 mg/dL = provi siona l diagn osis of diabe evelyn (conf irm by celsa dickerson on A day.) Not Available [address], [address], 02/25/2009 08:42:39 02/23/20 09 02/25/2009 compr ehens heath metab olic panel BUN 7 mg/dL 7-18 Not Available [address], [address], 02/25/2009 08:42:39 02/23/20 09 02/25/2009 compr ehens heath metab olic panel creatinine 0.6 mg/dL 0.8-1. 3 low Not Available [address], [address], 02/25/2009 08:42:39 02/23/20 09 02/25/2009 compr ehens heath metab olic panel B/C 11.7 ratio Not Available [address], [address], 02/25/2009 08:42:39 02/23/20 09 02/25/2009 compr ehens heath metab olic panel GFR 115.8 mL/mi n recom richard d GFR by the natio nal kidne y found ation >60 mL/mi n/1.7 3M2 - angella l <60 mL/mi n/1.7 3M2 - chron ic kidne y disea se <15 mL/mi n/1.7 3M2 - kidne y failu re Not Available [address], [address], 02/25/2009 08:42:39 02/23/20 09 02/25/2009 compr ehens heath metab olic panel GFR - if 133.2 mL/mi n for afric an ameri can patie nts: resul ts multi plied by 1.21 Not Available [address], [address], 02/25/2009 08:42:39 02/23/20 09 02/25/2009 compr ehens heath metab olic panel sodium 142 mmol/ L 136-14 5 Not Available [address], [address], 02/25/2009 08:42:39 02/23/20 09 02/25/2009 compr ehens heath metab olic panel potassium 4.3 mmol/ L 3.5-5. 1 Not Available [address], [address], 02/25/2009 08:42:39 02/23/20 09 02/25/2009 compr ehens heath metab olic panel chloride 102 mmol/ L 96-107 Not Available [address], [address], 02/25/2009 08:42:39 02/23/20 09 02/25/2009 compr ehens heath metab olic panel _anion gap 10.0 Not Available [address], [address], 02/25/2009 08:42:39 02/23/20 09 02/25/2009 compr ehens heath metab olic panel CO2 30 mmol/ L 21-32 Not Available [address], [address], 02/25/2009 08:42:39 02/23/20 09 02/25/2009 compr ehens heath metab olic panel calcium 9.3 mg/dL 8.5-10 .3 Not Available [address], [address], 02/25/2009 08:42:39 02/23/20 09 02/25/2009 compr ehens heath metab olic panel total protein 7.6 g/dL 6.4-8. 2 Not Available [address], [address], 02/25/2009 08:42:39 02/23/20 09 02/25/2009 compr ehens heath metab olic panel albumin 4.4 g/dL 3.4-5. 0 Not Available [address], [address], 02/25/2009 08:42:39 02/23/20 09 02/25/2009 compr ehens heath metab olic panel globulin 3.2 g/dL Not Available [address], [address], 02/25/2009 08:42:39 02/23/20 09 02/25/2009 compr ehens heath metab olic panel A/G 1.4 ratio 0.8-2. 0 Not Available [address], [address], 02/25/2009 08:42:39 02/23/20 09 02/25/2009 compr ehens heath metab olic panel total bilirubin 1.00 mg/dL 0.00-1 .00 Not Available [address], [address], 02/25/2009 08:42:39 02/23/20 09 02/25/2009 compr ehens heath metab olic panel AST 19 U/L 15-37 Not Available [address], [address], 02/25/2009 08:42:39 02/23/20 09 02/25/2009 compr ehens heath metab olic panel ALT 33 U/L 30-65 Not Available [address], [address], 02/25/2009 08:42:39 02/23/20 09 02/25/2009 compr ehens heath metab olic panel alk. phos. 76 U/L 50-136 Not Available [address], [address], 02/25/2009 08:42:39 02/23/20 09 02/25/2009 amyla se amylase 43 U/L 25-115 Not Available [address], [address], 02/25/2009 08:42:44 02/23/20 09 02/25/2009 CBC w/dif f segs 72 % Not Available [address], [address], 02/25/2009 08:58:41 02/23/20 09 02/25/2009 CBC w/dif f bands 4 % Not Available [address], [address], 02/25/2009 08:58:41 02/23/20 09 02/25/2009 CBC w/dif f lymph 20 % Not Available [address], [address], 02/25/2009 08:58:41 02/23/20 09 02/25/2009 CBC w/dif f mono 2 % Not Available [address], [address], 02/25/2009 08:58:41 02/23/20 09 02/25/2009 CBC w/dif f abilio. lymph 2 % Not Available [address], [address], 02/25/2009 08:58:41 02/23/20 09 02/26/2009 trans gluta larry e Ab (iga) , tissu e tissue transglutami nase, IgA 1.5 U/mL 0.0-15 .0 Not Available [address], [address], 02/26/2009 17:57:22 02/23/20 09 02/26/2009 gliad in Ab panel anti-gliadin IgG 2 U/mL 0-45 <45 U/mL - negat heath 45-55 U/mL - equiv ocal >=55 U/mL - posit heath Not Available [address], [address], 02/26/2009 17:57:29 02/23/20 09 02/26/2009 gliad in Ab panel anti-gliadin IgA 23 U/mL 0-45 <45 U/mL - negat heath 45-55 U/mL - equiv ocal >=55 U/mL - posit heath Not Available [address], [address], 02/26/2009 17:57:29 Result Notes None recorded. 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 Procedures Surgical History Date Name Laterality Status Provider Name and Address Organization Details Recorded Time 04/01/20 22 Solomon - Colonoscopy completed Tony Carbajal MD [address] [place] [address], [phone], [facility] 04/01/2022 09:52:05 01/13/20 17 Contact Lens Re-eval completed Nabil Gould, STACY [address] [place], [address], [facility] 01/12/2017 10:51:01 12/31/19 16 Smoking cessation counseling completed Nabil Gould OD [address] [place], [address], [facility] 12/31/2015 17:18:51 12/31/19 16 Refraction completed Nabil Gould OD [address] [place], [address], [facility] 12/31/2015 16:10:21 12/31/19 16 Contact Lens Re-eval completed Nabil Gould OD [address] [facility], [place], [address], [facility] 12/31/2015 17:12:55 03/13/20 09 completed Not Available [facility] 1 06:05:52 04/11/20 08 completed Not Available [facility] 1 06:05:52 Imaging Results None recorded. Procedure Notes None recorded. Medical Equipment None Reported. Allergies Allergen ID Allergen Name Allergen Category Reaction Reaction Severity Criticality Documentation Date Start Date Code Code System Note Provider Name and Address Organization Details Recorded Time 742380 Prilosec medicatio n other Not available Not available 03/30/202227643 5 RxNorm KAYLA Perez, [facility] 2 15:52:46 164557 Prevacid medicatio n other Not available Not available 03/30/2022 20755 RxNoKAYLA Wallace, [facility] 2 15:52:00 Medications Name Sig Start Date Stop Date Status Note LastModified by Organization Details LastModified Time amoxicillin 500 mg capsule TAKE 4 CAPSULES BY MOUTH ONCE DIRECTED PRIOR TO DENTAL WORK active Not Available Not Available Not Available azithromycin 250 mg tablet active Not Available Not Available Not Available pravastatin 40 mg tablet TAKE ONE TABLET BY MOUTH EVERY EVENING active Not Available Not Available No t Available fluconazole 150 mg tablet TAKE 1 TABLET FOR 1 DOSE active Not Available Not Available No t Available lisinopril 20 mg tablet TAKE ONE TABLET BY MOUTH EVERY DAY active Not Available Not Available No t Available ondansetron HCl 4 mg tablet TAKE ONE TABLET BY MOUTH EVERY 12 HOURS NEEDED FOR NAUSEA AND VOMITING active Not Available Not Available No t Available clonazepam 0.5 mg tablet TAKE 1 TABLET BY MOUTH TWICE A DAY AND 2 TABLETS AT BEDTIME active Not Available Not Available No t Available clonazepam 1 mg tablet TAKE 1/2 TABLET BY MOUTH TWICE A DAY AND 1 TABLET AT BEDTIME active Not Available Not Available No t Available tretinoin 0.05 % topical cream APPLY TO FACE IN THE EVENING FOLLOW WITH MOISTURIZER active Not Available Not Available Not Available pantoprazole 20 mg tablet,delay ed release TAKE TWO TABLETS BY MOUTH EVERY DAY active Not Available Not Available No t Available benzonatate 100 mg capsule TAKE ONE CAPSULE BY MOUTH THREE TIMES A DAY NEEDED active Not Available Not Available No t Available pantoprazole 40 mg tablet,delay ed release TAKE ONE TABLET BY MOUTH EVERY DAY active Not Available Not Available No t Available estradiol 0.01% (0.1 mg/gram) vaginal cream PLACE 2 GRAMS VAGINALLY 2 TIMES PER WEEK active Not Available Not Available No t Available ketoconazole 2 % topical cream active Not Available Not Available Not Available amoxicillin 875 mg-potassium clavulanate 125 mg tablet TAKE ONE TABLET BY MOUTH TWICE A DAY FOR 10 DAYS active Not Available Not Available No t Available Premarin 0.625 mg/gram vaginal cream USE EXTERNALLY 2 TIMES WEEKLY active Not Available Not Available No t Available Vitamin D active Not Available Not Sofie ilable Not Available lisinopril active Not Available Not Av ailable Not Available pravastatin active Not Available Not A vailable Not Available desvenlafaxi ne succinate ER 50 mg tablet,exten ded release 24 hr TAKE 1 TABLET BY MOUTH EVERY DAY active Not Available Not Available No t Available diclofenac 1 % topical gel active Not Available Not Available Not Available Viibryd 10 mg tablet TAKE ONE TABLET BY MOUTH EVERY DAY active Not Available Not Available No t Available Viibryd 20 mg tablet TAKE ONE TABLET BY MOUTH EVERY DAY WITH FOOD active Not Available Not Available No t Available vilazodone active Not Available Not Av ailable Not Available Pristiq 25 mg tablet,exten ded release TAKE 1 TABLET BY MOUTH EVERY DAY active Not Available Not Available No t Available Vitals None Recorded Social History None recorded. Functional Status None recorded. Mental Status None recorded. Family History Nothing Reported. Medical History No medical history recorded. Gynecological HistoryNo gynecological history recorded. Obstetrics History GPAL:G 0 P 0 0 0 0 Past Encounters Encounter ID Performer Location Encounter Start Date Encounter Closed Date Diagnosis/Indication Diagnosis SNOMED-CT Code Diagnosis ICD10 Code Diagnosis Note [id number] Physical Therapy, [address] [address] 03/09/2007 11:55:52 03/09/2007 12:24:38 [id number] Physical Therapy, [address] [address] 03/23/2007 10:24:40 03/23/2007 10:36:11 [id number] Physical Therapy, [address] [address] 04/06/2007 10:05:46 04/06/2007 10:06:09 [id number] [facility], [address] [address] 04/11/2008 09:33:32 04/13/2008 07:36:05 [id number] [facility] - [address] [address] 02/22/2009 14:03:04 02/22/2009 14:03:13 [id number] [facility], [address] [address] 03/13/2009 08:14:34 03/13/2009 14:23:47 [id number] Nabil Gould, OD [facility], [address] [address] 12/31/2015 15:08:55 12/31/2015 16:15:07 Prescription, fitting and dispensing of contact lens 1665004 Z46.0 New CL RX BIOFINITY TORIC 8.7/14.5 -4.25-1.75 x010/-4.00 -1.67w608 Astigmatism 29052460 H52 .223 Myopia 38693812 H52.13 Presbyopia 17433191 H52. 4 Tobacco user 093793914 Z 72.0 [id number] Nabil Gould, OD [facility], [address] [address] 01/12/2017 09:45:54 01/12/2017 10:56:14 Fitting of contact lens 324761870 Z46.0 Good comfort fit and vision with contact lenses [id number] Sakina Mcgovern RN [facility], [address] [address] 04/01/2022 08:32:32 04/01/2022 14:14:13 [id number] Rani Jack RN Endoscopy , [address] [address] 03/15/2024 07:08:11 03/15/2024 10:41:33 Health Concerns Section Related Observation LastModified by Organization Detai ls LastModified Time None Recorded Concern Status LastModified by Organization Details LastModified Time None Recorded Advance Directives Directive None Recorded Payers Encounter Date Sequence Insurance Name Policy Number Policy Franz Covered Member ID Franz Member ID Guarantor Name 02/22/2009 2 [facility] - NAVIGATOR (PPO) [id number] Jeffery Mann [id number] Cheyenne Johnek 03/13/2009 2 [facility] [employer] - NAVIGATOR (PPO) [id number] Edward P Stahelek [id number] Cheyenne A Stahelek 12/31/2015 2 [facility] - NAVIGATOR (PPO) [id number] Edward P Stahelek [id number] Cheyenne A Stahelek 01/12/2017 2 [facility] - NAVIGATOR (PPO) [id number] Edward P Stahelek [id number] Cheyenne A Stahelek 04/01/2022 2 [facility] - NAVIGATOR (PPO) [id number] Edward P Stahelek [id number] Cheyenne A Stahelek 04/01/2022 1 MED[place]: [facility] [employer] Cheyenne Fisher Staglendaek [id number] Cheyenne Fisher Staglendaek Notes Date Note Type Note Provider Name and Address Organization Details Recorded Time 12/31/2015 text/html Comprehensive Ey e ExamReported bypatient.Quality:1 year exam; no blurred vision Location:bilateralC ontact Lens ExamReported bypatient.Current Contact Lens:Comfilcon A (Biofinity) 8.7 14.5 -4.50-2.54x078 -4.50-1.62z124 Frequency:sometimes (3-4x/week) Replacement Schedule:monthly Modifying Facotrs:does not sleep in CL Solution:Multipurpo seNotes:Used to wear RGP lenses. These are the first soft lenses' ON awakening feels FB sensation OS upper lid-goes away on its own Nabil Gould OD [address] [place] [address], [address], [facility] 12/31/2015 17:21:17 01/12/2017 text/html Contact Lens ExamReported bypatient.Current Contact Lens:Biofinity Toric OD -4.25 -1.75 X010 OS -4.00 -1.75 X170 Quality:no blurred vision with current contact lenses; comfortable Frequency:daily Replacement Schedule:monthly Modifying Facotrs:does not sleep in CL Solution:Biotrue Average Wearing Time (hrs):8 hours Nabil Gould OD [address] [place], [address], [facility] 01/12/2017 10:52:46 OBGyn Episode No OBEpisode recorded.
--- OUTSIDE RECORDS SUMMARY | 2024-11-03 12:11 | XMS_ITS | Data Portability ---
Author Organization [facility], Endoscopy, [facility] Address [address] [place] [phone] Assessment No assessment recorded. Plan of Treatment Reminders Order Date Submit Date Provider Last Modified By Organization Details Last Modified Time Details Appointments None record ed. Lab None record ed. Referral None record ed. Procedures None record ed. Surgeries None record ed. Imaging None record ed. Medication Orders None record ed. Patient TargetsNo targets recorded. Patient InstructionsNo instructions recorded. Reason for Referral None Reported. Results Created Date Observation Date Name Description Value Unit Range Abnormal Flag Note LastModifiedBy Organization Detail LastModifiedTime Result Notes None recorded. Procedures Surgical History Date Name Laterality Status Provider Name and Address Organization Details Recorded Time 4 Solomon - Upper Endoscopy completed Tony Carbajal MD [address] [place] [address], [phone] 03/15/2024 08:14:50 Imaging Results None recorded. Procedure Notes None recorded. Medical Equipment None Reported. Allergies Allergen ID Allergen Name Allergen Category Reaction Reaction Severity Criticality Documentation Date Start Date Code Code System Note Provider Name and Address Organization Details Recorded Time 521894 Prilosec medicatio n other Not available Not available 03/14/2024 84192 5 RxNorm ukn rxn Delilah Herndon RN [facility], [facility] 4 12:15:39 Medications Name Sig Start Date Stop Date Status Note LastModified by Organization Details LastModified Time lorazepam active Not Available Not Sofie ilable Not Available Vitamin D active Not Available Not Sofie ilable Not Available lisinopril active Not Available Not Av ailable Not Available pravastatin active Not Available Not A vailable Not Available Vagifem active Not Available Not Avail able Not Available Viibryd active Not Available Not Avail able Not Available prochlorperazine active Not Available Not Available Not Available Vitals None Recorded Social History None recorded. Functional Status None recorded. Mental Status None recorded. Family History Nothing Reported. Medical History No medical history recorded. Gynecological HistoryNo gynecological history recorded. Obstetrics History GPAL:G 0 P 0 0 0 0 Past Encounters Encounter ID Performer Location Encounter Start Date Encounter Closed Date Diagnosis/Indication Diagnosis SNOMED-CT Code Diagnosis ICD10 Code Diagnosis Note [id number] Physical Therapy, [address] [place] [address] 03/09/2007 11:55:52 03/09/2007 12:24:38 [id number] Physical Therapy, [address] [place] [address] 03/23/2007 10:24:40 03/23/2007 10:36:11 [id number] Physical Therapy, [address] [place] [address] 04/06/2007 10:05:46 04/06/2007 10:06:[id number] [place] [address] 04/11/2008 09:33:32 04/13/2008 07:36:05 [id number] LAB - [address] [place] [address] 02/22/2009 14:03:04 02/22/2009 14:03:[id number] [facility], [address] [place] [address] 03/13/2009 08:14:34 03/13/2009 14:23:47 [id number] Nabil Gould, OD [facility], [address] [place] [address] 12/31/2015 15:08:55 12/31/2015 16:15:07 [id number] Nabil Gould, OD [facility], [address] [place] [address] 01/12/2017 09:45:54 01/12/2017 10:56:14 [id number] [address] [facility], [address] [place] [address] 04/01/2022 08:32:32 04/01/2022 14:14:13 [id number] Rani Jack RN Endoscopy , [address] [place] [address] 03/15/2024 07:08:11 03/15/2024 10:41:33 Health Concerns Section Related Observation LastModified by Organization Detai ls LastModified Time None Recorded Concern Status LastModified by Organization Details LastModified Time None Recorded Advance Directives Directive None Recorded Payers Encounter Date Sequence Insurance Name Policy Number Policy Franz Covered Member ID Franz Member ID Guarantor Name 03/15/2024 1 [place]ICARE [place]: [employer] Cheyenne Mann [id number] Cheyenne Mann 03/15/2024 2 [facility] - PLAN 1 (MEDICARE SUPPLEMENT) [id number] Cheyenne Mann [id number] Cheyenne Mann OBGyn Episode No OBEpisode recorded.
== END 2024-11-03 16:53 | disposition home or self-care (01) ==
LOC: HO.HOP 11:04
PROVIDERS: PCP Nurse Practitioner Primary Care; Visit Provider Clinical Nurse Specialist Psychiatric/Mental Health
DX: F41.1 Generalized anxiety disorder (principal); F41.0 Panic disorder [episodic paroxysmal anxiety]; F33.1 Major depressive disorder, recurrent, moderate
CPT/HCPCS: 99214

== ENCOUNTER → 2024-11-03 11:04 | Outpatient (BNVA) | payer MEDICARE, OTHER, SELFPAY | PROVIDERS: PCP Nurse Practitioner Primary Care; Visit Provider Clinical Nurse Specialist Psychiatric/Mental Health | DX: F41.1 Generalized anxiety disorder (principal); F41.0 Panic disorder [episodic paroxysmal anxiety]; F33.1 Major depressive disorder, recurrent, moderate | CPT/HCPCS: 99212 ==

== ENCOUNTER 2024-12-11 13:08 | Outpatient (AMB) | payer MEDICARE, OTHER, SELFPAY ==
--- NOTE | 2024-12-11 13:22 | MHC.OFFVISPS ---
Intake Intake Visit Reasons: depression Policy Cancellation Clerk Required: No Medication List - Last Reconciled 12/11/24 by Mariana Medeiros, SANJUANITA clonazepam 1 mg PO BID PRN estradiol 0.01%(0.1mg/gram) vaginal ketoconazole 2% appl topical lisinopril 20 mg PO DAILY pantoprazole 20 mg PO BID pravastatin 40 mg PO DAILY Viibryd (vilazodone) 20 mg PO DAILY NS HPI- Psychiatric Chief Complaint: depression HPI Narrative: pt reports mood stable; some anxiety at times and some transient sadness in relation to others suffering. Pt also report at times has a flare up with his PTSD and he is irritable and harsh with her - she says he is seeing someone for the PTSH and his moodiness does not last long. she is socializing. she is exercising. she has chronic knee pain which is difficult . no SI or HI; sleep intact Past Psychiatric History: Outpatient treatment with Christy Medeiros [phone] Past medication trials include: viibryd lexapro prozac zoloft wellbutrin pristiq- ineffective Past Mental Health History: PHP treatment in past [facility] 2017 no inpatient Subjective Subjective Subjective Medication Compliance: Yes Side effects from medications: No Review of Systems Medical Review of Systems: unchanged Mental Status Exam Mental Status Exam Patient Appearance: Well Grooomed and Appropriate Patient Orientation: Person, Place, Time and Situation Level of Consciousness: Awake Patient Behavior: Appropriate Mood Description: Anxious Affect Description: Anxious Patient Cognition Impaired: No Ability to Follow Directions: Good Speech Pattern: Clear and Appropriate Memory Description: Intact Hallucinations: None Delusions: Not Present Thought Process: Intact and Goal Oriented Thought Content: positive for Intact and positive for Goal Oriented Judgement: Good Assessment and Plan Assessment & Plan (1) Generalized anxiety disorder with panic attacks: Status: Acute Code(s): F41.1 - Generalized anxiety disorder; F41.0 - Panic disorder [episodic paroxysmal anxiety] (2) Major depressive disorder, recurrent, moderate: Status: Acute Code(s): F33.1 - Major depressive disorder, recurrent, moderate Counseling and coordination of Care Pt. Self Management counseling: Maintenance-social rhythm, Nutrition education and improvement and General coping skills Medication management counseling: Effectiveness, Side effects, Dosing range, Duration, Drug interaction and Adherence Diagnosis and Prognosis Counseling: Accuracy of diagnosis, Impact of family relationship and Adequacy of current interventions Details: I spent 35 minutes reviewing the record, seeing the patient and documenting in the medical record. Counseling provided to the patient/caregiver as outlined below. Addressed patient/caregiver concerns regarding current medication regime including effective adherence. Addressed patient/caregiver concerns regarding diagnosis and prognosis including accuracy of diagnosis, prognosis over time, impact of diagnosis. Addressed patient/caregiver concerns regarding impact of recent stressors. 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
== END 2024-12-11 15:28 | disposition home or self-care (01) ==
LOC: HO.HOP 13:09
PROVIDERS: PCP Nurse Practitioner Primary Care; Visit Provider Clinical Nurse Specialist Psychiatric/Mental Health
DX: F41.1 Generalized anxiety disorder (principal); F41.0 Panic disorder [episodic paroxysmal anxiety]; F33.1 Major depressive disorder, recurrent, moderate
CPT/HCPCS: 99214

== ENCOUNTER → 2024-12-11 13:08 | Outpatient (BNVA) | payer MEDICARE, OTHER, SELFPAY | PROVIDERS: PCP Nurse Practitioner Primary Care; Visit Provider Clinical Nurse Specialist Psychiatric/Mental Health | DX: F33.1 Major depressive disorder, recurrent, moderate (principal); F41.1 Generalized anxiety disorder; F41.0 Panic disorder [episodic paroxysmal anxiety]; Z71.89 Other specified counseling | CPT/HCPCS: 99212 ==

== ENCOUNTER 2025-01-08 13:38 | Outpatient (AMB) | payer MEDICARE, OTHER, SELFPAY ==
--- NOTE | 2025-01-08 13:52 | A.OFFPSYCH_ITS ---
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 Medication List - Last Reconciled 01/08/25 by Mariana Medeiros, SANJUANITA clonazepam 1 mg PO BID PRN estradiol 0.01%(0.1mg/gram) vaginal ketoconazole 2% appl topical lisinopril 20 mg PO DAILY pantoprazole 20 mg PO BID pravastatin 40 mg PO DAILY Viibryd (vilazodone) 20 mg PO DAILY NS HPI- Psychiatric Chief Complaint: depression HPI Narrative: pt here for follow up on depression and anxiety symptoms are moderate; pt feels she can manage sheis excising and socializing no medical changes Past Psychiatric History: Outpatient treatment with Christy Medeiros [phone] Past medication trials include: viibryd lexapro prozac zoloft wellbutrin pristiq- ineffective Past Mental Health History: PHP treatment in past [facility] 2017 no inpatient Mental Status Exam Mental Status Exam Patient Appearance: Well Grooomed Patient Orientation: Person, Place, Time and Situation Level of Consciousness: Awake Patient Behavior: Appropriate Mood Description: Calm and Sad Affect Description: Calm and Sad Patient Cognition Impaired: No Ability to Follow Directions: Good Speech Pattern: Clear Memory Description: Intact Hallucinations: None Delusions: Not Present Thought Process: Intact Thought Content: positive for Intact Judgement: Good Assessment and Plan Assessment & Plan (1) Generalized anxiety disorder with panic attacks: Status: Acute Code(s): F41.1 - Generalized anxiety disorder; F41.0 - Panic disorder [episodic paroxysmal anxiety] (2) Major depressive disorder, recurrent, moderate: Status: Acute Code(s): F33.1 - Major depressive disorder, recurrent, moderate Plan conitnue medications as is follow up in 4 weeks Counseling and coordination of Care Pt. Self Management counseling: Exercise, Maintenance-social rhythm, Mod caffeine/ETOH intake, Nutrition education and improvement and Sleep hygiene Medication management counseling: Effectiveness, Side effects, Dosing range, Duration and Drug interaction Diagnosis and Prognosis Counseling: Accuracy of diagnosis, Prognosis over time, Impact of diagnosis on life functions, Impact of family relationship and Adequacy of current interventions Details: I spent 35 minutes reviewing the record, seeing the patient and documenting in the medical record. Counseling provided to the patient/caregiver as outlined below. Addressed patient/caregiver concerns regarding current medication regime including effective adherence. Addressed patient/caregiver concerns regarding diagnosis and prognosis including accuracy of diagnosis, prognosis over time, impact of diagnosis. Addressed patient/caregiver concerns regarding impact of recent stressors. 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
--- OUTSIDE RECORDS SUMMARY | 2025-01-08 16:18 | XMS_ITS | Data Portability ---
Author Organization [facility], Endoscopy, [facility] [place] Address [address] [place] [address] Assessment No assessment recorded. Plan of Treatment [...] - Upper Endoscopy completed Tony Carbajal MD [address] [place] [address], [phone] [place], [place] 03/15/2024 08:14:50 Imaging Results None recorded. Procedure Notes None recorded. Medical Equipment None Reported. Allergies Allergen ID Allergen Name Allergen Category Reaction Reaction Severity Criticality Documentation Date Start Date Code Code System Note Provider Name and Address Organization Details Recorded Time 554051 Prilosec medicatio n other Not available Not available 03/14/2024 01258 5 RxNorm ukn rxn Delilah Herndon RN [facility], [facility] 4 12:15:39 Medications Name Sig Start Date [...] SNOMED-CT Code Diagnosis ICD10 Code Diagnosis Note [id number] Physical Therapy, [address] [place] [address] 03/09/2007 11:55:52 03/09/2007 12:24:38 [id number] Physical Therapy, [address] [place] [address] 03/23/2007 10:24:40 03/23/2007 10:36:11 [id number] Physical Therapy, [address] [place] [address] 04/06/2007 10:05:46 04/06/2007 10:06:[id number] [place] [address] 04/11/2008 09:33:32 04/13/2008 07:36:05 [id number] LAB - [address] [place] [address] 02/22/2009 14:03:04 02/22/2009 14:03:13 [id number] [facility], [address] [place] [address] 03/13/2009 08:14:34 03/13/2009 14:23:47 [id number] Nabil Gould, OD Eye Care, [address] [place] [address] 12/31/2015 15:08:55 12/31/2015 16:15:07 [id number] Nabil Gould, OD Eye Care, [address] [place] [address] 01/12/2017 09:45:54 01/12/2017 10:56:14 [id number] Sakina Mcgovern RN [facility], [address] [place] [address] 04/01/2022 08:32:32 04/01/2022 14:14:13 [id number] Rani Jack RN Endoscopy , [address] [place] [address] 03/15/2024 07:08:11 03/15/2024 10:41:33 Health Concerns Section Related Observation LastModified by Organization Detai ls LastModified Time None Recorded Concern Status LastModified by Organization Details LastModified Time None Recorded Advance Directives Directive None Recorded Payers Encounter Date Sequence Insurance Name Policy Number Policy Franz Covered Member ID Franz Member ID Guarantor Name 03/15/2024 1 [place]: [employer] Cheyenne Mann [id number] Cheyenne Mann 03/15/2024 2 [facility] - PLAN 1 (MEDICARE SUPPLEMENT) [id number] Cheyenne Mann [id number] Cheyenne Mann OBGyn Episode No OBEpisode recorded.
--- OUTSIDE RECORDS SUMMARY | 2025-01-08 16:18 | XMS_ITS | Data Portability ---
Author Organization [facility], , [facility] Address [address] [place] [address] Assessment No assessment recorded. Plan of Treatment [...] By Organization Details Last Modified Time 12/31/2015 [id number] RX given for glasses and contact lenses Will get trials of new cl rX to insure improved vision, use readers over lenses for reading Prevention of macular degeneration discussed(family history)? ? ?including UV protection, heart healthy diet and no smoking-advised to try to quit smoking jmerlin Not available 12/31/2015 17:15:10 01/12/2017 [id number] Prescription given for contact lenses Rewetting drops as needed for left eye Continue present care with contact lenses. Follow up 1 year or sooner as needed. jmerlin Not available 01/12/2017 10:51:58 Reason for Referral None Reported. Results Created Date Observation Date Name Description Value Unit Range Abnormal Flag Note LastModifiedBy Organization Detail LastModifiedTime 02/23/2002/23/2009 CBC WBC 9.7 K/?L 4.6-10 .2 Not Available [address], [address], 02/23/2009 16:37:40 02/23/20 09 02/23/2009 CBC lymph # 1.7 K/?L 0.6-3. 4 Not Available [address], [address], 02/23/2009 16:37:40 02/23/20 09 02/23/2009 CBC mid # 0.4 K/?L 0.0-1. 8 Not Available [address], [address], 02/23/2009 16:37:40 02/23/2002/23/2009 CBC gran # 7.6 K/?L 2.0-6. 9 high Not Available [address], [address], 02/23/2009 16:37:40 02/23/2002/23/2009 CBC lymph % 17.5 % 10.0-5 0.0 Not Available [address], [address], 02/23/2009 16:37:40 02/23/2002/23/2009 CBC mid % 4.0 % 0.1-24 .0 Not Available [address], [address], 02/23/2009 16:37:40 02/23/2002/23/2009 CBC gran % 78.5 % 37.0-8 0.0 Not Available [address], [address], 02/23/2009 16:37:40 02/23/2002/23/2009 CBC RBC 4.74 M/?L 4.04-5 .48 Not Available [address], [address], 02/23/2009 16:37:40 02/23/2002/23/2009 CBC HGB 13.5 g/dL 12.2-1 6.2 Not Available [address], [address], 02/23/2009 16:37:40 02/23/2002/23/2009 CBC HCT 40.3 % 37.7-4 7.9 Not Available [address], [address], 02/23/2009 16:37:40 02/23/2002/23/2009 CBC MCV 85.1 ?L 80.0-9 7.0 Not Available [address], [address], 02/23/2009 16:37:40 02/23/2002/23/2009 CBC MCH 28.5 pg 27.0-3 1.2 Not Available [address], [address], 02/23/2009 16:37:40 02/23/2002/23/2009 CBC MCHC 33.5 g/dL 31.8-3 5.4 Not Available [address], [address], 02/23/2009 16:37:40 02/23/2002/23/2009 CBC plt 340.0 K/?L 142.0- 424.0 Not Available [address], [address], 02/23/2009 16:37:40 02/23/2002/23/2009 CBC RDW 12.9 % 11.6-1 4.8 Not Available [address], [address], 02/23/2009 16:37:40 02/23/2002/23/2009 CBC _MPV 0.0 Not Available [address], [address], 02/23/2009 16:37:40 02/23/2002/25/2009 compr ehens heath metab olic panel glucose 88 mg/dL 70-100 clini hui refer ence range s fasti ng gluco se <100 mg/dL = angella l fasti ng gluco se; 100-1 25 mg/dL = ifg (impa ired fasti ng gluco se); >126 mg/dL = provi siona l diagn osis of diabe evelyn (conf irm by celsa dickerson on A .) Not Available [address], [address], 02/25/2009 08:42:39 02/23/20 09 02/25/2009 compr ehens heath metab olic panel BUN 7 mg/dL 7-18 Not Available [address], [address], 02/25/2009 08:42:39 02/23/20 09 02/25/2009 compr ehens heath metab olic panel creatinine 0.6 mg/dL 0.8-1. 3 low Not Available [address], [address], 02/25/2009 08:42:39 02/23/2002/25/2009 compr ehens heath metab olic panel B/C 11.7 ratio Not Available [address], [address], 02/25/2009 08:42:39 02/23/20 09 02/25/2009 compr ehens heath metab olic panel GFR 115.8 mL/mi n recom richard d GFR by the natio nal kidne y found ation >60 mL/mi n/1.7 3M2 - angella l <60 mL/mi n/1.7 3M2 - chron ic kidne y disea se <15 mL/mi n/1.7 3M2 - kidne y failu re Not Available [address], [address], 02/25/2009 08:42:39 02/23/20 09 02/25/2009 compr ehens heath metab olic panel GFR - if 133.2 mL/mi n for afric an ameri can patie nts: resul ts multi plied by 1.21 Not Available [address], [address], 02/25/2009 08:42:39 02/23/20 09 02/25/2009 compr ehens heath metab olic panel sodium 142 mmol/ L 136-14 5 Not Available [address], [address], 02/25/2009 08:42:39 02/23/20 09 02/25/2009 compr ehens heath metab olic panel potassium 4.3 mmol/ L 3.5-5. 1 Not Available [address], [address], 02/25/2009 08:42:39 02/23/20 09 02/25/2009 compr ehens heath metab olic panel chloride 102 mmol/ L 96-107 Not Available [address], [address], 02/25/2009 08:42:39 02/23/20 09 02/25/2009 compr ehens heath metab olic panel _anion gap 10.0 Not Available [address], [address], 02/25/2009 08:42:39 02/23/20 09 02/25/2009 compr ehens heath metab olic panel CO2 30 mmol/ L 21-32 Not Available [address], [address], 02/25/2009 08:42:39 02/23/20 09 02/25/2009 compr ehens heath metab olic panel calcium 9.3 mg/dL 8.5-10 .3 Not Available [address], [address], 02/25/2009 08:42:39 02/23/20 09 02/25/2009 compr ehens heath metab olic panel total protein 7.6 g/dL 6.4-8. 2 Not Available [address], [address], 02/25/2009 08:42:39 02/23/20 09 02/25/2009 compr ehens heath metab olic panel albumin 4.4 g/dL 3.4-5. 0 Not Available [address], [address], 02/25/2009 08:42:39 02/23/20 09 02/25/2009 compr ehens heath metab olic panel globulin 3.2 g/dL Not Available [address], [address], 02/25/2009 08:42:39 02/23/20 09 02/25/2009 compr ehens heath metab olic panel A/G 1.4 ratio 0.8-2. 0 Not Available [address], [address], 02/25/2009 08:42:39 02/23/20 09 02/25/2009 compr ehens heath metab olic panel total bilirubin 1.00 mg/dL 0.00-1 .00 Not Available [address], [address], 02/25/2009 08:42:39 02/23/20 09 02/25/2009 compr ehens heath metab olic panel AST 19 U/L 15-37 Not Available [address], [address], 02/25/2009 08:42:39 02/23/20 09 02/25/2009 compr ehens heath metab olic panel ALT 33 U/L 30-65 Not Available [address], [address], 02/25/2009 08:42:39 02/23/20 09 02/25/2009 compr ehens heath metab olic panel alk. phos. 76 U/L 50-136 Not Available [address], [address], 02/25/2009 08:42:39 02/23/20 09 02/25/2009 amyla se amylase 43 U/L 25-115 Not Available [address], [address], 02/25/2009 08:42:44 02/23/20 09 02/25/2009 CBC w/dif f segs 72 % Not Available [address], [address], 02/25/2009 08:58:41 02/23/20 09 02/25/2009 CBC w/dif f bands 4 % Not Available [address], [address], 02/25/2009 08:58:41 02/23/20 09 02/25/2009 CBC w/dif f lymph 20 % Not Available [address], [address], 02/25/2009 08:58:41 02/23/20 09 02/25/2009 CBC w/dif f mono 2 % Not Available [address], [address], 02/25/2009 08:58:41 02/23/20 09 02/25/2009 CBC w/dif f abilio. lymph 2 % Not Available [address], [address], 02/25/2009 08:58:41 02/23/20 09 02/26/2009 trans gluta larry e Ab (iga) , tissu e tissue transglutami nase, IgA 1.5 U/mL 0.0-15 .0 Not Available [address], [address], 02/26/2009 17:57:22 02/23/20 09 02/26/2009 gliad in Ab panel anti-gliadin IgG 2 U/mL 0-45 <45 U/mL - negat heath 45-55 U/mL - equiv ocal >=55 U/mL - posit heath Not Available [address], [address], 02/26/2009 17:57:29 02/23/20 09 02/26/2009 gliad in Ab panel anti-gliadin IgA 23 U/mL 0-45 <45 U/mL - negat heath 45-55 U/mL - equiv ocal >=55 U/mL - posit heath Not Available [address], [address], 02/26/2009 17:57:29 Result Notes None recorded. 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 Procedures Surgical History Date Name Laterality Status Provider Name and Address Organization Details Recorded Time 04/01/20 22 Solomon - Colonoscopy completed Tony Carbajal MD [address] [place] [address], [phone], [facility] 04/01/2022 09:52:05 01/13/20 17 Contact Lens Re-eval completed Nabil Gould OD [address] [place] [address], [phone], [facility] 01/12/2017 10:51:01 12/31/19 16 Smoking cessation counseling completed Nabil Gould OD [address] [place] [address], [phone], [facility] 12/31/2015 17:18:51 12/31/19 16 Refraction completed Nabil Gould OD [address] [place] [address], [phone], [facility] 12/31/2015 16:10:21 12/31/19 16 Contact Lens Re-eval completed Nabil Gould, OD [address] [facility], [place], [address], [facility] 12/31/2015 17:12:55 03/13/20 09 completed Not Available [facility] 1 06:05:52 04/11/20 08 completed Not Available [facility] 1 06:05:52 Imaging Results None recorded. Procedure Notes None recorded. Medical Equipment None Reported. Allergies Allergen ID Allergen Name Allergen Category Reaction Reaction Severity Criticality Documentation Date Start Date Code Code System Note Provider Name and Address Organization Details Recorded Time 216520 Prilosec medicatio n other Not available Not available 03/30/2022 13228 5 RxNorm KAYLA Perez, [facility] 2 15:52:46 338953 Prevacid medicatio n other Not available Not available 03/30/2022 47354 RxKAYLA Mooney, [facility] 2 15:52:00 Medications Name Sig Start Date [...] SNOMED-CT Code Diagnosis ICD10 Code Diagnosis Note [id number] Physical Therapy, [address] [address] 03/09/2007 11:55:52 03/09/2007 12:24:38 [id number] Physical Therapy, [address] [address] 03/23/2007 10:24:40 03/23/2007 10:36:11 [id number] Physical Therapy, [address] [address] 04/06/2007 10:05:46 04/06/2007 10:06:09 [id number] [facility], [address] [address] 04/11/2008 09:33:32 04/13/2008 07:36:05 [id number] [facility] - [address] [address] 02/22/2009 14:03:04 02/22/2009 14:03:13 [id number] [facility], [address] [address] 03/13/2009 08:14:34 03/13/2009 14:23:47 [id number] Nabil Gould, OD Eye Care, [address] [address] 12/31/2015 15:08:55 12/31/2015 16:15:07 Prescription, fitting and dispensing of contact lens 3823910 Z46.0 New CL RX BIOFINITY TORIC 8.7/14.5 -4.25-1.75 x010/-4.00 -1.70r210 Astigmatism 33648047 H52 .223 Myopia 71079297 H52.13 Presbyopia 83205608 H52. 4 Tobacco user 799709223 Z 72.0 [id number] Nabil Gould, OD Eye Care, [address] [address] 01/12/2017 09:45:54 01/12/2017 10:56:14 Fitting of contact lens 510179637 Z46.0 Good comfort fit and vision with contact lenses [id number] Sakina Mcgovern RN [facility], [address] [address] 04/01/2022 08:32:32 04/01/2022 14:14:13 [id number] Rani Jack RN Endoscopy , [address] [address] 03/15/2024 07:08:11 03/15/2024 10:41:33 Health Concerns Section Related Observation LastModified by Organization Detai ls LastModified Time None Recorded Concern Status LastModified by Organization Details LastModified Time None Recorded Advance Directives Directive None Recorded Payers Encounter Date Sequence Insurance Name Policy Number Policy Franz Covered Member ID Franz Member ID Guarantor Name 02/22/2009 2 [facility] - NAVIGATOR (PPO) [id number] Edward P Stahelek [id number] Cheyenne A Stahelek 03/13/2009 2 [facility] PL[facility] - NAVIGATOR (PPO) [id number] Edward P Stahelek [id number] Cheyenne A Stahelek 12/31/2015 2 [facility] HEALTH PLAN - NAVIGATOR (PPO) [id number] Edward P Stahelek [id number] Cheyenne A Stahelek 01/12/2017 2 [facility] HEALTH PLAN - NAVIGATOR (PPO) [id number] Edward P Stahelek [id number] Cheyenne A Stahelek 04/01/2022 2 [facility] PLAN - NAVIGATOR (PPO) [id number] Edward P Stahelek [id number] Cheyenne A Stahelek 04/01/2022 1 MEDICARE B-[place]: [employer] Cheyenne A Stahelek [id number] Cheyenne A Stahelek Notes Date Note Type Note Provider Name and Address Organization Details Recorded Time 12/31/2015 text/html Comprehensive Ey e ExamReported bypatient.Quality:1 year exam; no blurred vision Location:bilateralC ontact Lens ExamReported bypatient.Current Contact Lens:Comfilcon A (Biofinity) 8.7 14.5 -4.50-2.04b509 -4.50-1.28z216 Frequency:sometimes (3-4x/week) Replacement Schedule:monthly Modifying Facotrs:does not sleep in CL Solution:Multipurpo seNotes:Used to wear RGP lenses. These are the first soft lenses' ON awakening feels FB sensation OS upper lid-goes away on its own Nabil Gould, OD [address] [place], [address], [facility] 12/31/2015 17:21:17 01/12/2017 text/html Contact Lens ExamReported bypatient.Current Contact Lens:Biofinity Toric OD -4.25 -1.75 X010 OS -4.00 -1.75 X170 Quality:no blurred vision with current contact lenses; comfortable Frequency:daily Replacement Schedule:monthly Modifying Facotrs:does not sleep in CL Solution:Biotrue Average Wearing Time (hrs):8 hours Nabil Gould OD [address] [facility], [place], [address], [facility] 01/12/2017 10:52:46 OBGyn Episode No OBEpisode recorded.
== END 2025-01-08 14:17 | disposition home or self-care (01) ==
LOC: HO.HOP 13:38
PROVIDERS: PCP Nurse Practitioner Primary Care; Visit Provider Clinical Nurse Specialist Psychiatric/Mental Health
DX: F41.1 Generalized anxiety disorder (principal); F41.0 Panic disorder [episodic paroxysmal anxiety]; F33.1 Major depressive disorder, recurrent, moderate
CPT/HCPCS: 99214

== ENCOUNTER → 2025-01-08 13:38 | Outpatient (BNVA) | payer MEDICARE, OTHER, SELFPAY | PROVIDERS: PCP Nurse Practitioner Primary Care; Visit Provider Clinical Nurse Specialist Psychiatric/Mental Health | DX: F41.1 Generalized anxiety disorder (principal); F41.0 Panic disorder [episodic paroxysmal anxiety]; F33.1 Major depressive disorder, recurrent, moderate; Z71.89 Other specified counseling | CPT/HCPCS: 99212 ==

== ENCOUNTER 2025-02-06 13:51 | Outpatient (AMB) | payer MEDICARE, OTHER, SELFPAY ==
--- NOTE | 2025-02-06 13:37 | MHC.OFFVISPS ---
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 Medication List - Last Reconciled 02/06/25 by Mariana Medeiros, SANJUANITA clonazepam 1 mg PO BID PRN estradiol 0.01%(0.1mg/gram) vaginal ketoconazole 2% appl topical lisinopril 20 mg PO DAILY pantoprazole 20 mg PO BID pravastatin 40 mg PO DAILY Viibryd (vilazodone) 20 mg PO DAILY NS HPI- Psychiatric Chief Complaint: depression HPI Narrative: Pt reports increase in symptomspt reports struggling with knee pain increase GI upset related to anxiety and stress no SI or HI Past Psychiatric History: Outpatient treatment with Christy Medeiros [phone] Past medication trials include: viibryd lexapro prozac zoloft wellbutrin pristiq- ineffective Past Mental Health History: PHP treatment in past [facility] 2016 no inpatient Subjective Subjective Subjective Medication Compliance: Yes Side effects from medications: No Review of Systems Medical Review of Systems: unchanged Mental Status Exam Mental Status Exam Patient Appearance: Well Grooomed Patient Orientation: Person, Place, Time and Situation Level of Consciousness: Awake and Appropriate Patient Behavior: Appropriate Mood Description: Anxious and Sad Affect Description: Anxious and Sad Patient Cognition Impaired: No Ability to Follow Directions: Good Speech Pattern: Clear Memory Description: Intact Hallucinations: None Delusions: Not Present Thought Process: Intact and Rumination Thought Content: positive for Intact and positive for Preoccupation Judgement: Fair Assessment and Plan Assessment & Plan (1) Generalized anxiety disorder with panic attacks: Status: Acute Code(s): F41.1 - Generalized anxiety disorder; F41.0 - Panic disorder [episodic paroxysmal anxiety] (2) Major depressive disorder, recurrent, moderate: Status: Acute Code(s): F33.1 - Major depressive disorder, recurrent, moderate Medications: Refilled clonazepam 1 mg PO BID PRN 60 tabs 2RF anxiety Viibryd (vilazodone) brand medically necessary/no substitutions 20 mg PO DAILY 90 tabs 1RF NS clonazepam 1 mg PO BID PRN 60 tabs 2RF anxiety Viibryd (vilazodone) brand medically necessary/no substitutions 20 mg PO DAILY 90 tabs 1RF NS Counseling and coordination of Care Pt. Self Management counseling: Exercise, Mindfulness, Nutrition education and improvement, Sleep hygiene and Problem solving Medication management counseling: Effectiveness, Side effects, Dosing range, Duration, Drug interaction and Adherence Diagnosis and Prognosis Counseling: Accuracy of diagnosis, Prognosis over time, Impact of diagnosis on life functions, Impact of family relationship, Problematic behaviors secondary to diagnosis and Adequacy of current interventions Details: 35I spent minutes reviewing the record, seeing the patient and documenting in the medical record. Counseling provided to the patient/caregiver as outlined below. Addressed patient/caregiver concerns regarding current medication regime including effective adherence. Addressed patient/caregiver concerns regarding diagnosis and prognosis including accuracy of diagnosis, prognosis over time, impact of diagnosis. Addressed patient/caregiver concerns regarding impact of recent stressors. 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
--- OUTSIDE RECORDS SUMMARY | 2025-02-06 14:06 | XMS_ITS | Data Portability ---
Author Organization [place] - [facility], , [facility] Address [address] [place] [address] Assessment No assessment recorded. Plan of Treatment [...] By Organization Details Last Modified Time 12/31/2015 [id number] RX given for glasses and contact lenses Will get trials of new cl rX to insure improved vision, use readers over lenses for reading Prevention of macular degeneration discussed(family history) including UV protection, heart healthy diet and no smoking-advised to try to quit smoking jmerlin Not available 12/31/2015 17:15:10 01/12/2017 [id number] Prescription given for contact lenses Rewetting drops as needed for left eye Continue present care with contact lenses. Follow up 1 year or sooner as needed. jmerlin Not available 01/12/2017 10:51:58 Reason for Referral None Reported. Results Created Date Observation Date Name Description Value Unit Range Abnormal Flag Note LastModifiedBy Organization Detail LastModifiedTime 02/23/20 09 02/23/2009 CBC WBC 9.7 K/?L 4.6-10 .2 Not Available [address], [address], 02/23/2009 16:37:40 02/23/20 09 02/23/2009 CBC lymph # 1.7 K/?L 0.6-3. 4 Not Available [address], [address], 02/23/2009 16:37:40 02/23/20 09 02/23/2009 CBC mid # 0.4 K/?L 0.0-1. 8 Not Available [address], [address], 02/23/2009 16:37:40 02/23/20 09 02/23/2009 CBC gran # 7.6 K/?L 2.0-6. 9 high Not Available [address], [address], 02/23/2009 16:37:40 02/23/2002/23/2009 CBC lymph % 17.5 % 10.0-5 0.0 Not Available [address], [address], 02/23/2009 16:37:40 02/23/2002/23/2009 CBC mid % 4.0 % 0.1-24 .0 Not Available [address], [address], 02/23/2009 16:37:40 02/23/2002/23/2009 CBC gran % 78.5 % 37.0-8 0.0 Not Available [address], [address], 02/23/2009 16:37:40 02/23/2002/23/2009 CBC RBC 4.74 M/?L 4.04-5 .48 Not Available [address], [address], 02/23/2009 16:37:40 02/23/2002/23/2009 CBC HGB 13.5 g/dL 12.2-1 6.2 Not Available [address], [address], 02/23/2009 16:37:40 02/23/2002/23/2009 CBC HCT 40.3 % 37.7-4 7.9 Not Available [address], [address], 02/23/2009 16:37:40 02/23/2002/23/2009 CBC MCV 85.1 ?L 80.0-9 7.0 Not Available [address], [address], 02/23/2009 16:37:40 02/23/2002/23/2009 CBC MCH 28.5 pg 27.0-3 1.2 Not Available [address], [address], 02/23/2009 16:37:40 02/23/2002/23/2009 CBC MCHC 33.5 g/dL 31.8-3 5.4 Not Available [address], [address], 02/23/2009 16:37:40 02/23/2002/23/2009 CBC plt 340.0 K/?L 142.0- 424.0 Not Available [address], [address], 02/23/2009 16:37:40 02/23/2002/23/2009 CBC RDW 12.9 % 11.6-1 4.8 Not Available [address], [address], 02/23/2009 16:37:40 02/23/2002/23/2009 CBC _MPV 0.0 Not Available [address], [address], 02/23/2009 16:37:40 02/23/2002/25/2009 compr ehens heath metab [...] celsa dickerson on A .) Not Available [address], [address], 02/25/2009 08:42:39 02/23/20 09 02/25/2009 compr ehens heath metab olic panel BUN 7 mg/dL 7-18 Not Available [address], [address], 02/25/2009 08:42:39 02/23/20 09 02/25/2009 compr ehens heath metab olic panel creatinine 0.6 mg/dL 0.8-1. 3 low Not Available [address], [address], 02/25/2009 08:42:39 02/23/2002/25/2009 compr ehens heath metab olic panel B/C 11.7 ratio Not Available [address], [address], 02/25/2009 08:42:39 02/23/20 09 02/25/2009 compr ehens heath metab olic panel GFR 115.8 mL/mi n recom richard d GFR by the natio nal kidne y found ation >60 mL/mi n/1.7 3M2 - angella l <60 mL/mi n/1.7 3M2 - chron ic kidne y disea se <15 mL/mi n/1.7 3M2 - kidne y failu re Not Available [address], [address], 02/25/2009 08:42:39 02/23/20 09 02/25/2009 compr ehens heath metab olic panel GFR - if 133.2 mL/mi n for afric an ameri can patie nts: resul ts multi plied by 1.21 Not Available [address], [address], 02/25/2009 08:42:39 02/23/20 09 02/25/2009 compr ehens heath metab olic panel sodium 142 mmol/ L 136-14 5 Not Available [address], [address], 02/25/2009 08:42:39 02/23/20 09 02/25/2009 compr ehens heath metab olic panel potassium 4.3 mmol/ L 3.5-5. 1 Not Available [address], [address], 02/25/2009 08:42:39 02/23/20 09 02/25/2009 compr ehens heath metab olic panel chloride 102 mmol/ L 96-107 Not Available [address], [address], 02/25/2009 08:42:39 02/23/20 09 02/25/2009 compr ehens heath metab olic panel _anion gap 10.0 Not Available [address], [address], 02/25/2009 08:42:39 02/23/20 09 02/25/2009 compr ehens heath metab olic panel CO2 30 mmol/ L 21-32 Not Available [address], [address], 02/25/2009 08:42:39 02/23/20 09 02/25/2009 compr ehens heath metab olic panel calcium 9.3 mg/dL 8.5-10 .3 Not Available [address], [address], 02/25/2009 08:42:39 02/23/20 09 02/25/2009 compr ehens heath metab olic panel total protein 7.6 g/dL 6.4-8. 2 Not Available [address], [address], 02/25/2009 08:42:39 02/23/20 09 02/25/2009 compr ehens heath metab olic panel albumin 4.4 g/dL 3.4-5. 0 Not Available [address], [address], 02/25/2009 08:42:39 02/23/20 09 02/25/2009 compr ehens heath metab olic panel globulin 3.2 g/dL Not Available [address], [address], 02/25/2009 08:42:39 02/23/20 09 02/25/2009 compr ehens heath metab olic panel A/G 1.4 ratio 0.8-2. 0 Not Available [address], [address], 02/25/2009 08:42:39 02/23/20 09 02/25/2009 compr ehens heath metab olic panel total bilirubin 1.00 mg/dL 0.00-1 .00 Not Available [address], [address], 02/25/2009 08:42:39 02/23/20 09 02/25/2009 compr ehens heath metab olic panel AST 19 U/L 15-37 Not Available [address], [address], 02/25/2009 08:42:39 02/23/20 09 02/25/2009 compr ehens heath metab olic panel ALT 33 U/L 30-65 Not Available [address], [address], 02/25/2009 08:42:39 02/23/20 09 02/25/2009 compr ehens heath metab olic panel alk. phos. 76 U/L 50-136 Not Available [address], [address], 02/25/2009 08:42:39 02/23/20 09 02/25/2009 amyla se amylase 43 U/L 25-115 Not Available [address], [address], 02/25/2009 08:42:44 02/23/20 09 02/25/2009 CBC w/dif f segs 72 % Not Available [address], [address], 02/25/2009 08:58:41 02/23/20 09 02/25/2009 CBC w/dif f bands 4 % Not Available [address], [address], 02/25/2009 08:58:41 02/23/20 09 02/25/2009 CBC w/dif f lymph 20 % Not Available [address], [address], 02/25/2009 08:58:41 02/23/20 09 02/25/2009 CBC w/dif f mono 2 % Not Available [address], [address], 02/25/2009 08:58:41 02/23/20 09 02/25/2009 CBC w/dif f abilio. lymph 2 % Not Available [address], [address], 02/25/2009 08:58:41 02/23/20 09 02/26/2009 trans gluta larry e Ab (iga) , tissu e tissue transglutami nase, IgA 1.5 U/mL 0.0-15 .0 Not Available [address], [address], 02/26/2009 17:57:22 02/23/20 09 02/26/2009 gliad in Ab panel anti-gliadin IgG 2 U/mL 0-45 <45 U/mL - negat heath 45-55 U/mL - equiv ocal >=55 U/mL - posit heath Not Available [address], [address], 02/26/2009 17:57:29 02/23/20 09 02/26/2009 gliad in Ab panel anti-gliadin IgA 23 U/mL 0-45 <45 U/mL - negat heath 45-55 U/mL - equiv ocal >=55 U/mL - posit heath Not Available [address], [address], 02/26/2009 17:57:29 Result Notes None recorded. 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 Procedures Surgical History Date Name Laterality Status Provider Name and Address Organization Details Recorded Time 04/01/20 22 Solomon - Colonoscopy completed Tony Carbajal MD [address] [place] [address], [address], [facility] 04/01/2022 09:52:05 01/13/20 17 Contact Lens Re-eval completed Nabil Gould OD [address] [place] [address], [address], [facility] 01/12/2017 10:51:01 12/31/19 16 Smoking cessation counseling completed Nabil Gould OD [address] [place], [address], [facility] 12/31/2015 17:18:51 12/31/19 16 Refraction completed Nabil Gould OD [address] [place] [address], [address], [facility] 12/31/2015 16:10:21 12/31/19 16 Contact Lens Re-eval completed Nabil Gould, OD [address] [place] [address], [place], [address], [facility] 12/31/2015 17:12:55 03/13/20 09 completed Not Available [facility] 1 06:05:52 04/11/20 08 completed Not Available [facility] 1 06:05:52 Imaging Results None recorded. Procedure Notes None recorded. Medical Equipment None Reported. Allergies Allergen ID Allergen Name Allergen Category Reaction Reaction Severity Criticality Documentation Date Start Date Code Code System Note Provider Name and Address Organization Details Recorded Time 184308 Prilosec medicatio n other Not available Not available 03/30/2022 51248 5 RxNorm KAYLA Perez, [facility] 2 15:52:46 020465 Prevacid medicatio n other Not available Not available 03/30/2022 [id number] KAYLA Ross, [facility] 2 15:52:00 Medications Name Sig [...] SNOMED-CT Code Diagnosis ICD10 Code Diagnosis Note [id number] Michelle Fu, OT [facility], [address] [address] 03/09/2007 11:55:52 03/09/2007 12:24:38 [id number] Michelle Fu, OT Physical Therapy, [address] [address] 03/23/2007 10:24:40 03/23/2007 10:36:11 [id number] Michelle Fu, OT Physical Therapy, [address] [address] 04/06/2007 10:05:46 04/06/2007 10:06:09 [id number] SLIME PANTOJA MD [facility], [address] [address] 04/11/2008 09:33:32 04/13/2008 07:36:05 [id number] [facility] - [address] [address] 02/22/2009 14:03:04 02/22/2009 14:03:13 [id number] ROSHNISLIME MD [facility], [address] [address] 03/13/2009 08:14:34 03/13/2009 14:23:47 [id number] Nabil Gould, OD [facility], [address] [address] 12/31/2015 15:08:55 12/31/2015 16:15:07 Prescription, fitting and dispensing of contact lens 8475164 Z46.0 New CL RX [employer] TORIC 8.7/14.5 -4.25-1.75 x010/-4.00 -1.18a027 Astigmatism 50178245 H52 .223 Myopia 04450361 H52.13 Presbyopia 68978021 H52. 4 Tobacco user 365544571 Z 72.0 [id number] Nabil Gould, OD [facility], [address] [address] 01/12/2017 09:45:54 01/12/2017 10:56:14 Fitting of contact lens 903939795 Z46.0 Good comfort fit and vision with contact lenses [id number] Tony Carbajal MD [facility], [address] [address] 04/01/2022 08:32:32 04/01/2022 14:14:13 [id number] Tony Carbajal MD Endoscopy , [address] [address] 03/15/2024 07:08:11 03/15/2024 10:41:33 Health Concerns Section Related Observation LastModified by Organization Detai ls LastModified Time None Recorded Concern Status LastModified by Organization Details LastModified Time None Recorded Advance Directives Directive None Recorded Payers Encounter Date Sequence Insurance Name Policy Number Policy Franz Covered Member ID Franz Member ID Guarantor Name 02/22/2009 2 [facility] (O) [id number] Edward P Stahelek [id number] Cheyenne A Stahelek 03/13/2009 2 [facility] (PPO) [id number] Edward P Stahelek [id number] Cheyenne A Stahelek 12/31/2015 2 [facility] (PPO) [id number] Edward P Stahelek [id number] Cheyenne A Stahelek 01/12/2017 2 [facility] (O) [id number] Edward P Stahelek [id number] Cheyenne A Stahelek 04/01/2022 2 [facility] (O) [id number] Edward P Stahelek [id number] Cheyenne A Stahelek 04/01/2022 1 MEDICARE [place]: [facility] [employer] Cheyenne Fisher Stahelek [id number] Cheyenne A Stahelek Notes Date Note Type Note Provider Name and Address Organization Details Recorded Time 12/31/2015 text/html Comprehensive Ey e ExamReported bypatient.Quality:1 year exam; no blurred vision Location:bilateralC ontact Lens ExamReported bypatient.Current Contact Lens:Comfilcon A (Biofinity) 8.7 14.5 -4.50-2.98c205 -4.50-1.09l315 Frequency:sometimes (3-4x/week) Replacement Schedule:monthly Modifying Facotrs:does not sleep in CL Solution:Multipurpo seNotes:Used to wear RGP lenses. These are the first soft lenses' ON awakening feels FB sensation OS upper lid-goes away on its own Nabil Gould, OD [address] [place] [address], [place], [address], [facility] 12/31/2015 17:21:17 01/12/2017 text/html Contact Lens ExamReported bypatient.Current Contact Lens:Biofinity Toric OD -4.25 -1.75 X010 OS -4.00 -1.75 X170 Quality:no blurred vision with current contact lenses; comfortable Frequency:daily Replacement Schedule:monthly Modifying Facotrs:does not sleep in CL Solution:Biotrue Average Wearing Time (hrs):8 hours Nabil Gould, OD [address] [place] [address], [place], [address], [facility] 01/12/2017 10:52:46 OBGyn Episode No OBEpisode recorded.
== END 2025-02-06 15:15 | disposition home or self-care (01) ==
LOC: HO.HOP 13:51
PROVIDERS: PCP Nurse Practitioner Primary Care; Visit Provider Clinical Nurse Specialist Psychiatric/Mental Health
DX: F41.1 Generalized anxiety disorder (principal); F41.0 Panic disorder [episodic paroxysmal anxiety]; F33.1 Major depressive disorder, recurrent, moderate
CPT/HCPCS: 99214

== ENCOUNTER → 2025-02-06 13:51 | Outpatient (BNVA) | payer MEDICARE, OTHER, SELFPAY | PROVIDERS: PCP Nurse Practitioner Primary Care; Visit Provider Clinical Nurse Specialist Psychiatric/Mental Health | DX: F41.1 Generalized anxiety disorder (principal); F41.0 Panic disorder [episodic paroxysmal anxiety]; F33.1 Major depressive disorder, recurrent, moderate | CPT/HCPCS: 99212 ==

== ENCOUNTER 2025-03-13 10:06 | Outpatient (AMB) | payer MEDICARE, OTHER, SELFPAY ==
--- OUTSIDE RECORDS SUMMARY | 2025-03-08 23:59 | XMS_ITS | Continuity of Care Document ---
Author Organization [facility] Address [address] [place] [address] Encounter BVT Date(s): 03/08/25 - 03/08/25 [facility] [address] [place] [address] [place] [address] Discharge Disposition: Home or Self Care Encounter Type: Historical Assessment and Plan Future Appointments
--- NOTE | 2025-03-13 10:14 | A.OFFPSYCH_ITS ---
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 difficulty with motivation. she has had more nausea; but saw her jacquard card lacer who made some changes which helped. pt reports still struggling with knee pain but has appt to see soecialist next week. denies SI or HI Past Psychiatric History: Outpatient treatment with Christy Medeiros [phone] Past medication trials include: viibryd lexapro prozac zoloft wellbutrin pristiq- ineffective Past Mental Health History: PHP treatment in past [facility] 2017 no inpatient Subjective Subjective Subjective Medication Compliance: Yes Side effects from medications: No Review of Systems Medical Review of Systems: unchanged Mental Status Exam Mental Status Exam Patient Appearance: Well Grooomed Patient Orientation: Person, Place, Time and Situation Level of Consciousness: Awake and Appropriate Patient Behavior: Appropriate Mood Description: Anxious and Sad Affect Description: Anxious and Sad Patient Cognition Impaired: No Ability to Follow Directions: Good Speech Pattern: Clear Memory Description: Intact Hallucinations: None Delusions: Not Present Thought Process: Intact and Rumination Thought Content: positive for Intact and positive for Preoccupation Judgement: Fair Assessment and Plan Assessment & Plan (1) Major depressive disorder, recurrent, moderate: Status: Acute Code(s): F33.1 - Major depressive disorder, recurrent, moderate (2) Generalized anxiety disorder with panic attacks: Status: Acute Code(s): F41.1 - Generalized anxiety disorder; F41.0 - Panic disorder [episodic paroxysmal anxiety] Plan continue meds below return in 4 weeks Medications: Refilled clonazepam 1 mg PO BID PRN 60 tabs 2RF anxiety Viibryd (vilazodone) brand medically necessary/no substitutions 20 mg PO DAILY 90 tabs 1RF NS Counseling and coordination of Care Pt. Self Management counseling: Exercise, Mindfulness, Nutrition education and improvement, Sleep hygiene and Problem solving Medication management counseling: Effectiveness, Side effects, Dosing range, Duration, Drug interaction and Adherence Diagnosis and Prognosis Counseling: Accuracy of diagnosis, Prognosis over time, Impact of diagnosis on life functions, Impact of family relationship, Problematic behaviors secondary to diagnosis and Adequacy of current interventions Details: I spent 45 minutes reviewing the record, seeing the patient and documenting in the medical record. Counseling provided to the patient/caregiver as outlined below. Addressed patient/caregiver concerns regarding current medication regime including effective adherence. Addressed patient/caregiver concerns regarding diagnosis and prognosis including accuracy of diagnosis, prognosis over time, impact of diagnosis. Addressed patient/caregiver concerns regarding impact of recent stressors. 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
--- OUTSIDE RECORDS SUMMARY | 2025-03-13 11:11 | XMS_ITS | Data Portability ---
Author Organization [place] - [facility], , [facility] Address [address] [place] [address] Assessment No assessment recorded. Plan of Treatment [...] By Organization Details Last Modified Time 12/31/2015 [id number] RX given for glasses and contact lenses Will get trials of new cl rX to insure improved vision, use readers over lenses for reading Prevention of macular degeneration discussed(family history) including UV protection, heart healthy diet and no smoking-advised to try to quit smoking jmerlin Not available 12/31/2015 17:15:10 01/12/2017 [id number] Prescription given for contact lenses Rewetting drops as needed for left eye Continue present care with contact lenses. Follow up 1 year or sooner as needed. jmerlin Not available 01/12/2017 10:51:58 Reason for Referral None Reported. Results Created Date Observation Date Name Description Value Unit Range Abnormal Flag Note LastModifiedBy Organization Detail LastModifiedTime 02/23/2002/23/2009 CBC WBC 9.7 K/ L 4.6-10 .2 Not Available [address], [address], 02/23/2009 16:37:40 02/23/20 09 02/23/2009 CBC lymph # 1.7 K/ L 0.6-3. 4 Not Available [address], [address], 02/23/2009 16:37:40 02/23/20 09 02/23/2009 CBC mid # 0.4 K/ L 0.0-1. 8 Not Available [address], [address], 02/23/2009 16:37:40 02/23/20 09 02/23/2009 CBC gran # 7.6 K/ L 2.0-6. 9 high Not Available [address], [address], 02/23/2009 16:37:40 02/23/20 09 02/23/2009 CBC lymph % 17.5 % 10.0-5 0.0 Not Available [address], [address], 02/23/2009 16:37:40 02/23/20 09 02/23/2009 CBC mid % 4.0 % 0.1-24 .0 Not Available [address], [address], 02/23/2009 16:37:40 02/23/20 09 02/23/2009 CBC gran % 78.5 % 37.0-8 0.0 Not Available [address], [address], 02/23/2009 16:37:40 02/23/20 09 02/23/2009 CBC RBC 4.74 M/ L 4.04-5 .48 Not Available [address], [address], 02/23/2009 16:37:40 02/23/20 09 02/23/2009 CBC HGB 13.5 g/dL 12.2-1 6.2 Not Available [address], [address], 02/23/2009 16:37:40 02/23/20 09 02/23/2009 CBC HCT 40.3 % 37.7-4 7.9 Not Available [address], [address], 02/23/2009 16:37:40 02/23/20 09 02/23/2009 CBC MCV 85.1 L 80.0-9 7.0 Not Available [address], [address], 02/23/2009 16:37:40 02/23/20 09 02/23/2009 CBC MCH 28.5 pg 27.0-3 1.2 Not Available [address], [address], 02/23/2009 16:37:40 02/23/20 09 02/23/2009 CBC MCHC 33.5 g/dL 31.8-3 5.4 Not Available [address], [address], 02/23/2009 16:37:40 02/23/20 09 02/23/2009 CBC plt 340.0 K/ L 142.0- 424.0 Not Available [address], [address], 02/23/2009 16:37:40 02/23/20 09 02/23/2009 CBC RDW 12.9 % 11.6-1 4.8 Not Available [address], [address], 02/23/2009 16:37:40 02/23/20 09 02/23/2009 CBC _MPV 0.0 Not Available [address], [address], 02/23/2009 16:37:40 02/23/20 09 02/25/2009 compr ehens heath metab olic panel glucose 88 mg/dL 70-100 clini hui refer ence range s fasti ng gluco se <100 mg/dL = angella l fasti ng gluco se; 100-1 25 mg/dL = ifg (impa ired fasti ng gluco se); >126 mg/dL = provi siona l diagn osis of diabe evelyn (conf irm by repea t testi ng on A diffe rent day.) Not Available [address], [address], 02/25/2009 08:42:39 02/23/20 09 02/25/2009 compr ehens heath metab olic panel BUN 7 mg/dL 7-18 Not Available [address], [address], 02/25/2009 08:42:39 02/23/20 09 02/25/2009 compr ehens heath metab olic panel creatinine 0.6 mg/dL 0.8-1. 3 low Not Available [address], [address], 02/25/2009 08:42:39 02/23/20 09 02/25/2009 compr ehens heath metab olic panel B/C 11.7 ratio Not Available [address], [address], 02/25/2009 08:42:39 02/23/20 09 02/25/2009 compr ehens heath metab olic panel GFR 115.8 mL/mi n recom richard d GFR by the natio nal kidne y found ation >60 mL/mi n/1.7 3M2 - angella l <60 mL/mi n/1.7 3M2 - chron ic kidne y disea se <15 mL/mi n/1.7 3M2 - kidne y failu re Not Available [address], [address], 02/25/2009 08:42:39 02/23/20 09 02/25/2009 compr ehens heath metab olic panel GFR - if 133.2 mL/mi n for afric an ameri can patie nts: resul ts multi plied by 1.21 Not Available [address], [address], 02/25/2009 08:42:39 02/23/20 09 02/25/2009 compr ehens heath metab olic panel sodium 142 mmol/ L 136-14 5 Not Available [address], [address], 02/25/2009 08:42:39 02/23/20 09 02/25/2009 compr ehens heath metab olic panel potassium 4.3 mmol/ L 3.5-5. 1 Not Available [address], [address], 02/25/2009 08:42:39 02/23/20 09 02/25/2009 compr ehens heath metab olic panel chloride 102 mmol/ L 96-107 Not Available [address], [address], 02/25/2009 08:42:39 02/23/2002/25/2009 compr ehens heath metab olic panel _anion gap 10.0 Not Available [address], [address], 02/25/2009 08:42:39 02/23/2002/25/2009 compr ehens heath metab olic panel CO2 30 mmol/ L 21-32 Not Available [address], [address], 02/25/2009 08:42:39 02/23/20 09 02/25/2009 compr ehens heath metab olic panel calcium 9.3 mg/dL 8.5-10 .3 Not Available [address], [address], 02/25/2009 08:42:39 02/23/2002/25/2009 compr ehens heath metab olic panel total protein 7.6 g/dL 6.4-8. 2 Not Available [address], [address], 02/25/2009 08:42:39 02/23/2002/25/2009 compr ehens heath metab olic panel albumin 4.4 g/dL 3.4-5. 0 Not Available [address], [address], 02/25/2009 08:42:39 02/23/20 09 02/25/2009 compr ehens heath metab olic panel globulin 3.2 g/dL Not Available [address], [address], 02/25/2009 08:42:39 02/23/20 09 02/25/2009 compr ehens heath metab olic panel A/G 1.4 ratio 0.8-2. 0 Not Available [address], [address], 02/25/2009 08:42:39 02/23/20 09 02/25/2009 compr ehens heath metab olic panel total bilirubin 1.00 mg/dL 0.00-1 .00 Not Available [address], [address], 02/25/2009 08:42:39 02/23/20 09 02/25/2009 compr ehens heath metab olic panel AST 19 U/L 15-37 Not Available [address], [address], 02/25/2009 08:42:39 02/23/20 09 02/25/2009 compr ehens heath metab olic panel ALT 33 U/L 30-65 Not Available [address], [address], 02/25/2009 08:42:39 02/23/20 09 02/25/2009 compr ehens heath metab olic panel alk. phos. 76 U/L 50-136 Not Available [address], [address], 02/25/2009 08:42:39 02/23/20 09 02/25/2009 amyla se amylase 43 U/L 25-115 Not Available [address], [address], 02/25/2009 08:42:44 02/23/20 09 02/25/2009 CBC w/dif f segs 72 % Not Available [address], [address], 02/25/2009 08:58:41 02/23/20 09 02/25/2009 CBC w/dif f bands 4 % Not Available [address], [address], 02/25/2009 08:58:41 02/23/20 09 02/25/2009 CBC w/dif f lymph 20 % Not Available [address], [address], 02/25/2009 08:58:41 02/23/20 09 02/25/2009 CBC w/dif f mono 2 % Not Available [address], [address], 02/25/2009 08:58:41 02/23/20 09 02/25/2009 CBC w/dif f abilio. lymph 2 % Not Available [address], [address], 02/25/2009 08:58:41 02/23/20 09 02/26/2009 trans gluta larry e Ab (iga) , tissu e tissue transglutami nase, IgA 1.5 U/mL 0.0-15 .0 Not Available [address], [address], 02/26/2009 17:57:22 02/23/20 09 02/26/2009 gliad in Ab panel anti-gliadin IgG 2 U/mL 0-45 <45 U/mL - negat heath 45-55 U/mL - equiv ocal >=55 U/mL - posit heath Not Available [address], [address], 02/26/2009 17:57:29 02/23/20 09 02/26/2009 gliad in Ab panel anti-gliadin IgA 23 U/mL 0-45 <45 U/mL - negat heath 45-55 U/mL - equiv ocal >=55 U/mL - posit heath Not Available [address], [address], 02/26/2009 17:57:29 Result Notes None recorded. 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 Procedures Surgical History Date Name Laterality Status Provider Name and Address Organization Details Recorded Time 04/01/20 22 Solomon - Colonoscopy completed Tony Carbajal MD [address] [place] [address], [phone], [facility] [place] 04/01/2022 09:52:05 01/13/20 17 Contact Lens Re-eval completed Nabil Gould OD [address] [place] [address], [phone], [facility] [place] 01/12/2017 10:51:01 12/31/19 16 Smoking cessation counseling completed Nabil Gould OD [address] [place] [address], [phone], [facility] [place] 12/31/2015 17:18:51 12/31/19 16 Refraction completed Nabil Gould OD [address] [place] [address], [phone], [facility] [place] 12/31/2015 16:10:21 12/31/19 16 Contact Lens Re-eval completed Nabil Gould OD [address] [place] [address], [phone], [facility] [place] 12/31/2015 17:12:55 03/13/20 09 completed Not Available [facility] 1 06:05:52 04/11/20 08 completed Not Available [facility] 1 06:05:52 Imaging Results None recorded. Procedure Notes None recorded. Medical Equipment None Reported. Allergies Allergen ID Allergen Name Allergen Category Reaction Reaction Severity Criticality Documentation Date Start Date Code Code System Note Provider Name and Address Organization Details Recorded Time 23160915 Prilosec medicatio n other Not available Not available 03/30/202244032 5 RxNorm jeanette Mcgovern RN null, [facility] 2 15:52:46 289770 Prevacid medicatio n other Not available Not available 03/30/2022 43553 RxNochanning Mcgovern RN null, [facility] 2 15:52:00 Medications Name Sig Start Date [...] SNOMED-CT Code Diagnosis ICD10 Code Diagnosis Note [id number] Michelle Fu, OT Physical Therapy, [address] [address] 03/09/2007 11:55:52 03/09/2007 12:24:38 [id number] Michelle Fu OT Physical Therapy, [address] [address] 03/23/2007 10:24:40 03/23/2007 10:36:11 [id number] Michelle Fu OT Physical Therapy, [address] [address] 04/06/2007 10:05:46 04/06/2007 10:06:09 [id number] SLIME PANTOJA MD ASP, [address] [address] 04/11/2008 09:33:32 04/13/2008 07:36:05 [id number] [facility] [place] [facility] - [address] [address] 02/22/2009 14:03:04 02/22/2009 14:03:13 [id number] SLIME PANTOJA MD [facility], [address] [address] 03/13/2009 08:14:34 03/13/2009 14:23:47 [id number] Nabil Gould, OD [facility] Care, [address] [address] 12/31/2015 15:08:55 12/31/2015 16:15:07 Prescription, fitting and dispensing of contact lens 1448855 Z46.0 New CL RX [employer] TORIC 8.7/14.5 -4.25-1.75 x010/-4.00 -1.12y842 Astigmatism 64297344 H52 .223 Myopia 95420523 H52.13 Presbyopia 78239766 H52. 4 Tobacco user 846067975 Z 72.0 [id number] Nabil Gould, OD [facility] Care, [address] [address] 01/12/2017 09:45:54 01/12/2017 10:56:14 Fitting of contact lens 157385842 Z46.0 Good comfort fit and vision with contact lenses [id number] Tony Carbajal MD ASP, [address] [address] 04/01/2022 08:32:32 04/01/2022 14:14:13 [id number] Tony Carbajal MD Endoscopy , [address] [address] 03/15/2024 07:08:11 03/15/2024 10:41:33 Health Concerns Section Related Observation LastModified by Organization Detai ls LastModified Time None Recorded Concern Status LastModified by Organization Details LastModified Time None Recorded Advance Directives Directive None Recorded Payers Insurance Date Sequence Insurance Name Policy Number Policy Franz Covered Member ID Franz Member ID Guarantor Name 03/21/2024 2 [facility] - PLAN 1 (MEDICARE SUPPLEMENT) [id number] Cheyenne Fisher Stahelek [id number] Cheyenne Fisher Stahelek 01/08/2017 [facility]ERLY [facility] (VISION) Jeffery Staglendaek [id number] Cheyenne Fisher Stahelek 01/08/2017 [employer] [facility] Edisis Stahelek [id number] Cheyenne Fisher Stahelek 03/15/2024 1 MEDICARE B-[place]: [facility] Cheyenne Fisher Stahelek [id number] Cheyenne Fisher Stahelek 02/23/2024 2 [facility] (PP[facility]) [id number] Jeffery Zurita Stahelek [id number] Cheyenne Fisher Staglendaek Notes Date Note Type Note Provider Name and Address Organization Details Recorded Time 12/31/2015 text/html Comprehensive Ey e ExamReported bypatient.Quality:1 year exam; no blurred vision Location:bilateralC ontact Lens ExamReported bypatient.Current Contact Lens:Comfilcon A (Biofinity) 8.7 14.5 -4.50-2.03u621 -4.50-1.94h375 Frequency:sometimes (3-4x/week) Replacement Schedule:monthly Modifying Facotrs:does not sleep in CL Solution:Multipurpo seNotes:Used to wear RGP lenses. These are the first soft lenses' ON awakening feels FB sensation OS upper lid-goes away on its own Nabil Gould OD [address] [place] [address], [phone], [facility] [place] 12/31/2015 17:21:17 01/12/2017 text/html Contact Lens ExamReported bypatient.Current Contact Lens:Biofinity Toric OD -4.25 -1.75 X010 OS -4.00 -1.75 X170 Quality:no blurred vision with current contact lenses; comfortable Frequency:daily Replacement Schedule:monthly Modifying Facotrs:does not sleep in CL Solution:Biotrue Average Wearing Time (hrs):8 hours Nabil Gould OD [address] [place], [address], [facility] [place] 01/12/2017 10:52:46 OBGyn Episode No OBEpisode recorded.
== END 2025-03-13 10:45 | disposition home or self-care (01) ==
LOC: HO.HOP 10:06
PROVIDERS: PCP Nurse Practitioner Primary Care; Visit Provider Clinical Nurse Specialist Psychiatric/Mental Health
DX: F33.1 Major depressive disorder, recurrent, moderate (principal); F41.1 Generalized anxiety disorder; F41.0 Panic disorder [episodic paroxysmal anxiety]
CPT/HCPCS: 90833; 99214

== ENCOUNTER → 2025-03-13 10:06 | Outpatient (BNVA) | payer MEDICARE, OTHER, SELFPAY | PROVIDERS: PCP Nurse Practitioner Primary Care; Visit Provider Clinical Nurse Specialist Psychiatric/Mental Health | DX: F33.1 Major depressive disorder, recurrent, moderate (principal); F41.0 Panic disorder [episodic paroxysmal anxiety]; F41.1 Generalized anxiety disorder; Z79.899 Other long term (current) drug therapy | CPT/HCPCS: 99212 ==

== ENCOUNTER 2025-04-10 10:35 | Outpatient (AMB) | payer MEDICARE, OTHER, SELFPAY ==
--- NOTE | 2025-04-10 10:43 | MHC.OFFVISPS ---
Intake Intake Visit Reasons: depression Community Outreach Director Required: No Medication List - Last Reconciled 04/10/25 by Mariana Medeiros, SAVINGS TELLER clonazepam 1 mg PO BID PRN estradiol 0.01%(0.1mg/gram) vaginal ketoconazole 2% appl topical lisinopril 20 mg PO DAILY pantoprazole 20 mg PO BID pravastatin 40 mg PO DAILY Viibryd (vilazodone) 20 mg PO DAILY NS HPI- Psychiatric Chief Complaint: depression HPI Narrative: Pt reports some anxiety but overall feeling better PHQ9=6 RADHIKA&=6. pt reports still struggling with knee pain has knee replacement scheduled fro 05/22/25 denies SI or HI Past Psychiatric History: Outpatient treatment with Christy Medeiros [phone] Past medication trials include: viibryd lexapro prozac zoloft wellbutrin pristiq- ineffective Past Mental Health History: PHP treatment in past [facility] 2016 no inpatient Subjective Subjective Subjective Medication Compliance: Yes Side effects from medications: No Review of Systems Medical Review of Systems: unchanged Mental Status Exam Mental Status Exam Patient Appearance: Well Grooomed Patient Orientation: Person, Place, Time and Situation Level of Consciousness: Awake and Appropriate Patient Behavior: Appropriate Mood Description: Anxious and Sad Affect Description: Anxious and Sad Patient Cognition Impaired: No Ability to Follow Directions: Good Speech Pattern: Clear Memory Description: Intact Hallucinations: None Delusions: Not Present Thought Process: Intact and Rumination Thought Content: positive for Intact and positive for Preoccupation Judgement: Fair Assessment and Plan Assessment & Plan (1) Major depressive disorder, recurrent, moderate: Status: Acute Code(s): F33.1 - Major depressive disorder, recurrent, moderate (2) Generalized anxiety disorder with panic attacks: Status: Acute Code(s): F41.1 - Generalized anxiety disorder; F41.0 - Panic disorder [episodic paroxysmal anxiety] Plan continue viibryd 20mg daily and clonazepam 1mg BID prn anxiety return in 4 weeks Medications: Refilled clonazepam 1 mg PO BID PRN 60 tabs 2RF anxiety Counseling and coordination of Care Pt. Self Management counseling: Exercise, Mindfulness, Nutrition education and improvement, Sleep hygiene and Problem solving Medication management counseling: Effectiveness, Side effects, Dosing range, Duration, Drug interaction and Adherence Diagnosis and Prognosis Counseling: Accuracy of diagnosis, Prognosis over time, Impact of diagnosis on life functions, Impact of family relationship, Problematic behaviors secondary to diagnosis and Adequacy of current interventions Details: I spent 45 minutes reviewing the record, seeing the patient and documenting in the medical record. Counseling provided to the patient/caregiver as outlined below. Addressed patient/caregiver concerns regarding current medication regime including effective adherence. Addressed patient/caregiver concerns regarding diagnosis and prognosis including accuracy of diagnosis, prognosis over time, impact of diagnosis. Addressed patient/caregiver concerns regarding impact of recent stressors. 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
--- OUTSIDE RECORDS SUMMARY | 2025-04-10 11:40 | XMS_ITS | Data Portability ---
Author Organization [place] - [facility], , [facility] Address [address] [place] [address] Assessment No assessment recorded. Plan of Treatment [...] By Organization Details Last Modified Time 12/31/2015 [id number] RX given for glasses and contact lenses Will get trials of new cl rX to insure improved vision, use readers over lenses for reading Prevention of macular degeneration discussed(family history) including UV protection, heart healthy diet and no smoking-advised to try to quit smoking jmerlin Not available 12/31/2015 17:15:10 01/12/2017 [id number] Prescription given for contact lenses Rewetting drops as needed for left eye Continue present care with contact lenses. Follow up 1 year or sooner as needed. jmerlin Not available 01/12/2017 10:51:58 Reason for Referral None Reported. Results Created Date Observation Date Name Description Value Unit Range Abnormal Flag Note LastModifiedBy Organization Detail LastModifiedTime 02/23/2002/23/2009 CBC WBC 9.7 K/ L 4.6-10 .2 Not Available [address], [address], 02/23/2009 16:37:40 02/23/20 09 02/23/2009 CBC lymph # 1.7 K/ L 0.6-3. 4 Not Available [address], [address], 02/23/2009 16:37:40 02/23/20 09 02/23/2009 CBC mid # 0.4 K/ L 0.0-1. 8 Not Available [address], [address], 02/23/2009 16:37:40 02/23/20 09 02/23/2009 CBC gran # 7.6 K/ L 2.0-6. 9 high Not Available [address], [address], 02/23/2009 16:37:40 02/23/20 09 02/23/2009 CBC lymph % 17.5 % 10.0-5 0.0 Not Available [address], [address], 02/23/2009 16:37:40 02/23/20 09 02/23/2009 CBC mid % 4.0 % 0.1-24 .0 Not Available [address], [address], 02/23/2009 16:37:40 02/23/20 09 02/23/2009 CBC gran % 78.5 % 37.0-8 0.0 Not Available [address], [address], 02/23/2009 16:37:40 02/23/20 09 02/23/2009 CBC RBC 4.74 M/ L 4.04-5 .48 Not Available [address], [address], 02/23/2009 16:37:40 02/23/20 09 02/23/2009 CBC HGB 13.5 g/dL 12.2-1 6.2 Not Available [address], [address], 02/23/2009 16:37:40 02/23/20 09 02/23/2009 CBC HCT 40.3 % 37.7-4 7.9 Not Available [address], [address], 02/23/2009 16:37:40 02/23/20 09 02/23/2009 CBC MCV 85.1 L 80.0-9 7.0 Not Available [address], [address], 02/23/2009 16:37:40 02/23/20 09 02/23/2009 CBC MCH 28.5 pg 27.0-3 1.2 Not Available [address], [address], 02/23/2009 16:37:40 02/23/20 09 02/23/2009 CBC MCHC 33.5 g/dL 31.8-3 5.4 Not Available [address], [address], 02/23/2009 16:37:40 02/23/20 09 02/23/2009 CBC plt 340.0 K/ L 142.0- 424.0 Not Available [address], [address], 02/23/2009 16:37:40 02/23/20 09 02/23/2009 CBC RDW 12.9 % 11.6-1 4.8 Not Available [address], [address], 02/23/2009 16:37:40 02/23/20 09 02/23/2009 CBC _MPV 0.0 Not Available [address], [address], 02/23/2009 16:37:40 02/23/20 09 02/25/2009 compr ehens [...] on A diffe rent day.) Not Available [address], [address], 02/25/2009 08:42:39 02/23/20 09 02/25/2009 compr ehens heath metab olic panel BUN 7 mg/dL 7-18 Not Available [address], [address], 02/25/2009 08:42:39 02/23/20 09 02/25/2009 compr ehens heath metab olic panel creatinine 0.6 mg/dL 0.8-1. 3 low Not Available [address], [address], 02/25/2009 08:42:39 02/23/20 09 02/25/2009 compr ehens heath metab olic panel B/C 11.7 ratio Not Available [address], [address], 02/25/2009 08:42:39 02/23/20 09 02/25/2009 compr ehens heath metab olic panel GFR 115.8 mL/mi n recom richard d GFR by the natio nal kidne y found ation >60 mL/mi n/1.7 3M2 - angella l <60 mL/mi n/1.7 3M2 - chron ic kidne y disea se <15 mL/mi n/1.7 3M2 - kidne y failu re Not Available [address], [address], 02/25/2009 08:42:39 02/23/20 09 02/25/2009 compr ehens heath metab olic panel GFR - if 133.2 mL/mi n for afric an ameri can patie nts: resul ts multi plied by 1.21 Not Available [address], [address], 02/25/2009 08:42:39 02/23/20 09 02/25/2009 compr ehens heath metab olic panel sodium 142 mmol/ L 136-14 5 Not Available [address], [address], 02/25/2009 08:42:39 02/23/20 09 02/25/2009 compr ehens heath metab olic panel potassium 4.3 mmol/ L 3.5-5. 1 Not Available [address], [address], 02/25/2009 08:42:39 02/23/20 09 02/25/2009 compr ehens heath metab olic panel chloride 102 mmol/ L 96-107 Not Available [address], [address], 02/25/2009 08:42:39 02/23/2002/25/2009 compr ehens heath metab olic panel _anion gap 10.0 Not Available [address], [address], 02/25/2009 08:42:39 02/23/2002/25/2009 compr ehens heath metab olic panel CO2 30 mmol/ L 21-32 Not Available [address], [address], 02/25/2009 08:42:39 02/23/20 09 02/25/2009 compr ehens heath metab olic panel calcium 9.3 mg/dL 8.5-10 .3 Not Available [address], [address], 02/25/2009 08:42:39 02/23/2002/25/2009 compr ehens heath metab olic panel total protein 7.6 g/dL 6.4-8. 2 Not Available [address], [address], 02/25/2009 08:42:39 02/23/2002/25/2009 compr ehens heath metab olic panel albumin 4.4 g/dL 3.4-5. 0 Not Available [address], [address], 02/25/2009 08:42:39 02/23/20 09 02/25/2009 compr ehens heath metab olic panel globulin 3.2 g/dL Not Available [address], [address], 02/25/2009 08:42:39 02/23/20 09 02/25/2009 compr ehens heath metab olic panel A/G 1.4 ratio 0.8-2. 0 Not Available [address], [address], 02/25/2009 08:42:39 02/23/20 09 02/25/2009 compr ehens heath metab olic panel total bilirubin 1.00 mg/dL 0.00-1 .00 Not Available [address], [address], 02/25/2009 08:42:39 02/23/20 09 02/25/2009 compr ehens heath metab olic panel AST 19 U/L 15-37 Not Available [address], [address], 02/25/2009 08:42:39 02/23/20 09 02/25/2009 compr ehens heath metab olic panel ALT 33 U/L 30-65 Not Available [address], [address], 02/25/2009 08:42:39 02/23/20 09 02/25/2009 compr ehens heath metab olic panel alk. phos. 76 U/L 50-136 Not Available [address], [address], 02/25/2009 08:42:39 02/23/20 09 02/25/2009 amyla se amylase 43 U/L 25-115 Not Available [address], [address], 02/25/2009 08:42:44 02/23/20 09 02/25/2009 CBC w/dif f segs 72 % Not Available [address], [address], 02/25/2009 08:58:41 02/23/20 09 02/25/2009 CBC w/dif f bands 4 % Not Available [address], [address], 02/25/2009 08:58:41 02/23/20 09 02/25/2009 CBC w/dif f lymph 20 % Not Available [address], [address], 02/25/2009 08:58:41 02/23/20 09 02/25/2009 CBC w/dif f mono 2 % Not Available [address], [address], 02/25/2009 08:58:41 02/23/20 09 02/25/2009 CBC w/dif f abilio. lymph 2 % Not Available [address], [address], 02/25/2009 08:58:41 02/23/20 09 02/26/2009 trans gluta larry e Ab (iga) , tissu e tissue transglutami nase, IgA 1.5 U/mL 0.0-15 .0 Not Available [address], [address], 02/26/2009 17:57:22 02/23/20 09 02/26/2009 gliad in Ab panel anti-gliadin IgG 2 U/mL 0-45 <45 U/mL - negat heath 45-55 U/mL - equiv ocal >=55 U/mL - posit heath Not Available [address], [address], 02/26/2009 17:57:29 02/23/20 09 02/26/2009 gliad in Ab panel anti-gliadin IgA 23 U/mL 0-45 <45 U/mL - negat heath 45-55 U/mL - equiv ocal >=55 U/mL - posit heath Not Available [address], [address], 02/26/2009 17:57:29 Result Notes None recorded. 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 Procedures Surgical History Date Name Laterality Status Provider Name and Address Organization Details Recorded Time 04/01/20 22 Solomon - Colonoscopy completed Tony Carbajal MD [address] [place] [address], [address], [facility] 04/01/2022 09:52:05 01/13/20 17 Contact Lens Re-eval completed Nabil Gould OD [address] [place] [address], [address], [facility] 01/12/2017 10:51:01 12/31/19 16 Smoking cessation counseling completed Nabil Gould OD [address] [place] [address], [address], [facility] 12/31/2015 17:18:51 12/31/19 16 Refraction completed Nabil Gould OD [address] [place] [address], [address], [facility] 12/31/2015 16:10:21 12/31/19 16 Contact Lens Re-eval completed Nabil oGuld OD [address] [place] [address], [address], [facility] 12/31/2015 17:12:55 03/13/20 09 completed Not Available [facility] 1 06:05:52 04/11/20 08 completed Not Available [facility] 1 06:05:52 Imaging Results None recorded. Procedure Notes None recorded. Medical Equipment None Reported. Allergies Allergen ID Allergen Name Allergen Category Reaction Reaction Severity Criticality Documentation Date Start Date Code Code System Note Provider Name and Address Organization Details Recorded Time 23160915 Prilosec medicatio n other Not available Not available 03/30/202250894 5 RxNorm jeanette Mcgovern RN null, [facility] 2 15:52:46 406246 Prevacid medicatio n other Not available Not available 03/30/2022 72731 RxNochanning Mcgovern RN null, [facility] 2 15:52:00 Medications Name Sig Start Date [...] SNOMED-CT Code Diagnosis ICD10 Code Diagnosis Note [id number] Michelle Fu, OT Physical Therapy, [address] [address] 03/09/2007 11:55:52 03/09/2007 12:24:38 [id number] Michelle Fu OT Physical Therapy, [address] [address] 03/23/2007 10:24:40 03/23/2007 10:36:11 [id number] Michelle Fu OT Physical Therapy, [address] [address] 04/06/2007 10:05:46 04/06/2007 10:06:09 [id number] SLIME PANTOJA MD ASP, [address] [address] 04/11/2008 09:33:32 04/13/2008 07:36:05 [id number] [facility] - [address] [address] 02/22/2009 14:03:04 02/22/2009 14:03:13 [id number] SLIME PANTOJA MD [facility], [address] [address] 03/13/2009 08:14:34 03/13/2009 14:23:47 [id number] Nabil Gould, OD [facility] Care, [address] [address] 12/31/2015 15:08:55 12/31/2015 16:15:07 Prescription, fitting and dispensing of contact lens 6583434 Z46.0 New CL RX [employer] [facility]ORIC 8.7/14.5 -4.25-1.75 x010/-4.00 -1.52e540 Astigmatism 96070128 H52 .223 Myopia 69477899 H52.13 Presbyopia 90290752 H52. 4 Tobacco user 701204232 Z 72.0 [id number] Nabil Gould, OD [facility] Care, [address] [address] 01/12/2017 09:45:54 01/12/2017 10:56:14 Fitting of contact lens 868051628 Z46.0 Good comfort fit and vision with contact lenses [id number] Tony Carbajal MD ASP, [address] [address] 04/01/2022 08:32:32 04/01/2022 14:14:13 [id number] Tony Carbajal MD Endoscopy , [address] [address] 03/15/2024 07:08:11 03/15/2024 10:41:33 Health Concerns Section Related Observation LastModified by Organization Detai ls LastModified Time None Recorded Concern Status LastModified by Organization Details LastModified Time None Recorded Advance Directives Directive None Recorded Payers Insurance Date Sequence Insurance Name Policy Number Policy Franz Covered Member ID Franz Member ID Guarantor Name 03/21/2024 2 [facility] - PLAN 1 (MEDICARE SUPPLEMENT) [id number] Cheyenne Mann [id number] Cheyenne Mann 01/08/[address] [facility] (VISION) Jeffery Mann [id number] Cheyenne Mann 01/08/2017 [employer] Jeffery Mann [id number] Cheyenne Fisher Staapoorva 03/15/2024 1 MEDICARE B-[place]: [facility] Cheyenne Mann [id number] Cheyenne Mann 02/23/[address] [facility] (PPO) [id number] Jeffery Mann [id number] Cheyenne Mann OBGyn Episode No OBEpisode recorded.
--- OUTSIDE RECORDS SUMMARY | 2025-04-10 11:40 | XMS_ITS | Clinical Summary ---
Author Organization [facility] Address [facility] [place] [address] Care Team Providers Care Slate Cutter Operator Name Role Phone Unavailable Primary Care Provider Unavailabl e Encounters Date Type Department Care Team Description 03/21/2025 Interpretation Only [address] [address] William Goodman MD Pain in right knee; Pain in right knee from Last 3 Months Social History Tobacco Use Types Packs/Day Years Used Date Smoking Tobacco: Never Assessed Comments Unknown Sex and Gender Information Value Date Recorded Sex Assigned at Not on file Legal Sex Female 1:58 PM EDT Gender Identity Not on file Sexual Orientation Not on file Plan of Treatment Health Maintenance Due Date Last Done Comments CT Colonography 1952 Colonoscopy 1952 Colorectal Cancer Screening 1952 FIT DNA 1952 FIT 1952 Sigmoidoscopy (10 year) with FIT yearly 1952 Sigmoidoscopy 1952 Hepatitis C Screening 1970 Tetanus/Diphtheria/Pertussis Vaccines (1 - Tdap) 09/03 Breast Cancer Share Decision Needed 1992 Breast Cancer screening 1992 Pneumoccocal Vaccine: 50+ (1 of 1 - PCV) 2002 Zoster vaccine (1 of 2) 2002 Advance Directive 2007 Bone Density Scan 2017 Covid-19 Vaccine (1 - 2023- season) 2024 Influenza (Flu) vaccine (1 o f 1 - Influenza standard series) 05/14/2025 Procedures Procedure Name Priority Date/Time Associated Diagnosis Comments XR KNEE 4 OR MORE VIEWS RIGHT Routine 03/21/2025 11:58 AM EDT Pain in right knee from Last 3 Months Results * XR Knee 4 or more views Right (03/21/2025 11:58 AM EDT) PT CLASS O RAD ADMITDTTM [id number] [facility] PT RAD INFO [id number]^MEREDITH Y^WILLIAM RAD EXAM DESC [id number]^XR Knee 4 Views w/ Patella Right^RIS [facility] WORKSTATION ID [id number] [facility] Anatomical Region Laterality Modality Knee Right Radiographic Debra ging 03/21/2025 11:5 8 AM EDT Impressions 03/21/2025 5:15 PM EDT Moderate osteoarthropathy of the knee. I have personally reviewed the image(s) and the resident's interpretation and agree with the findings, Christy Valdes MD at 03/21/2025 5:15 PM Thank you for letting us participate in the care of this patient. If you are a health care provider and have any questions regarding this report, please contact the number below. For patients who have questions please contact the health progressive care nurse that requested your imaging first. Electronically signed by: Christy Valdes MD, [facility] ([phone]), at 03/21/2025 5:15 PM Narrative 03/21/2025 5:15 PM EDT EXAMINATION: XR Knee 4 Views w/ Patella Right CLINICAL HISTORY: right knee pain;M25.561 Pain in right knee (as entered by ordering provider in the order requisition) TECHNIQUE: AP, lateral, sunrise, Patel views of the right knee. COMPARISON: None FINDINGS: No acute fracture. Moderate medial knee joint space narrowing with osteophytes, subchondral cysts and sclerosis. No malalignment . Small effusion. Peripheral vascular calcifications. No focal soft tissue abnormalities. Procedure Note Christy Valdes MD - 03/21/2025 EXAMINATION: XR Knee 4 Views w/ Patella Right CLINICAL HISTORY: right knee pain;M25.561 Pain in right knee (as entered by ordering provider in the order requisition) TECHNIQUE: AP, lateral, sunrise, Patel views of the right knee. COMPARISON: None FINDINGS: No acute fracture. Moderate medial knee joint space narrowing withosteophytes, subchondral cysts and sclerosis. No malalignment . Small effusion.Peripheral vascular calcifications. No focal soft tissue abnormalities. IMPRESSION Moderate osteoarthropathy of the knee. I have personally reviewed the image(s) and the resident's interpretationand agree with the findings, Christy Valdes MD at 03/21/2025 5:15 PM Thank you for letting us participate in the care of this patient. If youare a health care provider and have any questions regarding this report,please contact the number below. For patients who have questions please contactthe health progressive care nurse that requested your imaging first. Electronically signed by: Christy Valdes MD, [facility]([phone]), at 03/21/2025 5:15 PM us William Goodman MD IMG DX ORDERABLES Final Result from Last 3 Months Insurance MEDICARE [place] [id number]
--- OUTSIDE RECORDS SUMMARY | 2025-04-10 11:40 | XMS_ITS | Encounter Summary ---
Author Organization [facility] Address [address] [place] [address] Phone Care Team Providers Care Emerging Technologies Director Name Role Phone Tamika Tesfaye CNP Primary Care Provider + Tamika Villalta ANTISQUEAK APPLIER Unavailable [phone] Encounter Details Date Type Department Care Team (Late st Contact Info) Description 07/12/2024 Procedure Pass [facility] - [address] [place] [address] Social History Tobacco Use Types Packs/Day Years Used Date Smoking Tobacco: Former Cigarettes 0.3 51.4 S tarted: 12/02/1973 Smokeless Tobacco: Never Comments:was a light smoker. Quit for many years intermittently Alcohol Use Standard Drinks/Week Comments Not Currently 0 (1 standard drink = 0.6 oz pur e alcohol) occasionally Child or Family Care Answer Date Record ed Do you have problems with on e of the following making it difficult for you to work, study, or receive health care? No 09/24/2023 Education Answer Date Recorded Are you interested in more education? Not on nikos e 03/09/2023 Are you concerned about learning? Not on file 03/09/2023 No 03/09/2023 No 03/09/2023 Food Answer Date Recorded Within the past 6 months we worried whether our food would run out before we got money to buy more. Never True 09/24/2023 Within the past 6 months the food we bought just didn't last and we didn't have enough money to get more. Never True Residential Stability Answer Date Recor ded What is your housing situation today? I have lucia red 09/24/2023 How many times have you move d in the past 12 months? Zero (I did not move) 09/24/2023 Paying for Meds Answer Date Recorded Do you have trouble paying for medicines? No 09/24/2023 Paying Utility Bills Answer Date Record ed Do you have trouble paying your heating or elect ricity bill? No 09/24/2023 Transportation Answer Date Recorded Has the lack of transportati on kept you from medical appointments or from getting medications? No 09/24/2023 Unemployment Answer Date Recorded Are you currently unemployed or working on a part-time or temporary basis, and looking for work? No 02/25/2021 Digital Access Answer Date Recorded No 09/24/2023 Yes 09/24/2023 Do you have reliable internet access at home? Ye s 09/24/2023 Do you have a device (e.g., phone, tablet, computer) with a working camera? Yes 09/24/2023 Intimate Partner Violence Answer Date R ecorded Are you denied basic needs s uch as food, clothing, or medical care? No 09/24/2023 In the past 12 months have y ou been in a relationship with a person who hurts, threatens, or tries to control you? No 09/24/2023 Are you denied basic needs s uch as food, clothing, or medical care? No 09/24/2023 In the past 12 months have y ou been in a relationship with a person who hurts, threatens, or tries to control you? No 09/24/2023 Comments No Sex and Gender Information Value Date Recorded Sex Assigned at Female 11/24/2020 7:42 AM EDT Legal Sex Female 9:59 PM EDT Gender Identity Female 11/24/2020 7:42 AM EDT Sexual Orientation Not on file documented as of this encounter Plan of Treatment Upcoming Encounters Date Type Department Care Team ([facility] st Contact Info) Description 04/16/2025 2:30 PM EDT Office Visit [facility] [address] [place] [address] Tamika Villalta, TONY [address] [facility], [address] [place] [address] 05/24/2025 10:00 AM EDT Office Visit [facility] [address] [place] [address] William Goodman MD [address], [place] [id number] Jazmyn Gabriel, PT [address] [place] [address] 05/28/2025 10:15 AM EDT Office Visit [facility] [address] [place] [address] William Goodman MD [address] [place] [phone] Jazmyn Gabriel, PT [address] [place] [address] 05/31/2025 10:00 AM EDT Office Visit [facility] [address] [place] [address] William Goodman MD [address], [place] [phone] Jazmyn Gabriel, PT [address] [place] [address] 06/04/2025 10:15 AM EDT Office Visit [facility] [address] [place] [address] William Goodman MD [address] [place] [address] Jazmyn Gabriel, PT [address] [place] [address] 06/07/2025 10:00 AM EDT Office Visit [facility] [address] [place] [address] William Goodman MD [address], [place] [phone] Jazmyn Gabriel, PT [address] [place] [address] 06/11/2025 10:15 AM EDT Office Visit [facility] [address] [place] [address] William Goodman MD [address] [place] [phone] Jazmyn Gabriel, PT [address] [place] [address] 06/14/2025 10:00 AM EDT Office Visit [facility] [address] [place] [address] William Goodman MD [address] [place] [phone] Jazmyn Gabriel, PT [address] [place] [address] 06/18/2025 10:15 AM EDT Office Visit [facility] [address] [place] [address] William Goodman MD [address] [place] [id number] Jazmyn Gabriel, PT [address] [place] [address] 06/21/2025 10:00 AM EDT Office Visit [facility] [address] [place] [address] William Goodman MD [address] [place] [address] Jazmyn Gabriel, PT [address] [place] [address] 06/28/2025 10:00 AM EDT Office Visit [facility] [address] [place] [address] William Goodman MD [address] [place] [address] Jazmyn Gabriel, PT [address] [place] [address] documented as of this encounter Visit Diagnoses Not on filedocumented in this encounter Additional Health Concerns Assessment Noted Time PHQ-2 Depression Total Score: 2 09/24/19 24 7:07 AM EST documented as of this encounter Care Teams Emerging Technologies Director Relationship Specialty Start Date End Date Tamika Villalta CNP [address] [facility] [address] [place] [address] PCP - General Family Medicine 09/18/22 Tamika Villalta CNP [address] [facility] [address] [place] [address] Insurance Assigned Provider 12/17/24 documented as of this encounter Additional Source Comments The information contained in this document represents components of the legal health record. It is not the complete legal health record.[facility]
== END 2025-04-10 11:11 | disposition home or self-care (01) ==
LOC: HO.HOP 10:35
PROVIDERS: PCP Nurse Practitioner Primary Care; Visit Provider Clinical Nurse Specialist Psychiatric/Mental Health
DX: F33.1 Major depressive disorder, recurrent, moderate (principal); F41.1 Generalized anxiety disorder; F41.0 Panic disorder [episodic paroxysmal anxiety]
CPT/HCPCS: 90833; 99213

== ENCOUNTER → 2025-04-10 10:35 | Outpatient (BNVA) | payer MEDICARE, OTHER, SELFPAY | PROVIDERS: PCP Nurse Practitioner Primary Care; Visit Provider Clinical Nurse Specialist Psychiatric/Mental Health | DX: F33.1 Major depressive disorder, recurrent, moderate (principal); F41.1 Generalized anxiety disorder; F41.0 Panic disorder [episodic paroxysmal anxiety] | CPT/HCPCS: 99212 ==

== ENCOUNTER 2025-05-15 11:39 | Outpatient (AMB) | payer MEDICARE, OTHER, SELFPAY ==
--- NOTE | 2025-05-15 12:12 | MHC.OFFVISPS ---
Intake Intake Visit Reasons: depression Cap Machine Operator Required: No Medication List - Last Reconciled 05/15/25 by Mariana Medeiros, TAPPING MACHINE OPERATOR AUTOMATIC clonazepam 1 mg PO BID PRN estradiol 0.01%(0.1mg/gram) vaginal ketoconazole 2% appl topical lisinopril 20 mg PO DAILY pantoprazole 20 mg PO BID pravastatin 40 mg PO DAILY Viibryd (vilazodone) 20 mg PO DAILY NS HPI- Psychiatric Chief Complaint: depression HPI Narrative: Pt reports some anxiety but overall feeling better PHQ9=5 RADHIKA&=5 pt reports still struggling with knee pain has knee replacement scheduled fro 05/22/25 feels hopeful about surgery and increased mobility denies SI or HI Past Psychiatric History: Outpatient treatment with Christy Medeiros [phone] Past medication trials include: viibryd lexapro prozac zoloft wellbutrin pristiq- ineffective Past Mental Health History: PHP treatment in past [facility] 2017 no inpatient Subjective Subjective Subjective Medication Compliance: Yes Side effects from medications: No Review of Systems Medical Review of Systems: unchanged Mental Status Exam Mental Status Exam Patient Appearance: Well Grooomed Patient Orientation: Person, Place, Time and Situation Level of Consciousness: Awake and Appropriate Patient Behavior: Appropriate Mood Description: Anxious and Sad Affect Description: Anxious and Sad Patient Cognition Impaired: No Ability to Follow Directions: Good Speech Pattern: Clear Memory Description: Intact Hallucinations: None Delusions: Not Present Thought Process: Intact and Rumination Thought Content: positive for Intact and positive for Preoccupation Judgement: Fair Assessment and Plan Assessment & Plan (1) Major depressive disorder, recurrent, moderate: Status: Acute Code(s): F33.1 - Major depressive disorder, recurrent, moderate (2) Generalized anxiety disorder with panic attacks: Status: Acute Code(s): F41.1 - Generalized anxiety disorder; F41.0 - Panic disorder [episodic paroxysmal anxiety] Plan continue viibryd 20mg daily and clonazepam 1mg BID prn anxiety return in 4 weeks Medications: Refilled Viibryd (vilazodone) brand medically necessary/no substitutions 20 mg PO DAILY 90 tabs 1RF NS clonazepam 1 mg PO BID PRN 60 tabs 2RF anxiety Counseling and coordination of Care Pt. Self Management counseling: Exercise, Mindfulness, Nutrition education and improvement, Sleep hygiene and Problem solving Medication management counseling: Effectiveness, Side effects, Dosing range, Duration, Drug interaction and Adherence Diagnosis and Prognosis Counseling: Accuracy of diagnosis, Prognosis over time, Impact of diagnosis on life functions, Impact of family relationship, Problematic behaviors secondary to diagnosis and Adequacy of current interventions Details: I spent 45 minutes reviewing the record, seeing the patient and documenting in the medical record. Counseling provided to the patient/caregiver as outlined below. Addressed patient/caregiver concerns regarding current medication regime including effective adherence. Addressed patient/caregiver concerns regarding diagnosis and prognosis including accuracy of diagnosis, prognosis over time, impact of diagnosis. Addressed patient/caregiver concerns regarding impact of recent stressors. 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
--- OUTSIDE RECORDS SUMMARY | 2025-05-15 13:12 | XMS_ITS | Encounter Summary ---
Author Organization [facility] Address [address] [place] [address] Phone Care Team Providers Care Bus Trolley And Taxi Instructor Name Role Phone Tamika Villalta CNP Primary Care Provider + Tamika Villalta MACHINE I ENGRAVER Unavailable [phone] Reason for Referral * Physical Therapy (Routine) - Closed Specialty Diagnoses / Procedures Referred By Aleyx reid Referred To Contact Physical Therapy Diagnoses Encounter for rehabilitation Derick Snyder MD [address] [employer] [address] [address] Phone: tel: fax: [address] [address] Phone: tel: Referral ID Status Reason Start Date Expiration Date Visits Re quested Visits Authorized [id number] Closed 05/14/2023 05/13/2024 99 99 Encounter Details Date Type Department Care Team (Latest Contact Info) Description 05/14/2023 Transcribe Orders [facility] [address] [place] [address] Derick Snyder MD 300 Related Content Database (RCDb)[employer] [address] [place] [address] Encounter for rehabilitation (Primary Dx) Social History Tobacco Use Types Packs/Day Years Used Date Smoking Tobacco: Every Day Cigarettes 0.3 51.4 Started: 12/02/1973 Smokeless Tobacco: Never Comments:3 cigarettes/day Alcohol Use Standard Drinks/Week Comments Not Currently 0 (1 standard drink = 0.6 oz pur e alcohol) occasionally Child or Family Care Answer Date Record ed Do you have problems with on e of the following making it difficult for you to work, study, or receive health care? No 02/25/2021 Education Answer Date Recorded Are you interested in more education? Not on nikos e 03/09/2023 Are you concerned about learning? Not on file 03/09/2023 No 03/09/2023 No 03/09/2023 Food Answer Date Recorded Within the past 6 months we worried whether our food would run out before we got money to buy more. Never True 02/25/2021 Within the past 6 months the food we bought just didn't last and we didn't have enough money to get more. Never True Residential Stability Answer Date Recor ded What is your housing situation today? I have lucia red 02/25/2021 How many times have you move d in the past 12 months? Zero (I did not move) 02/25/2021 06 Are you worried that in t he next 2 months, you may not have your own housing to live in? No 02/25/2021 Paying for Meds Answer Date Recorded Do you have trouble paying for medicines? No 02/25/2021 Paying Utility Bills Answer Date Record ed Do you have trouble paying your heating or elect ricity bill? No 02/25/2021 Transportation Answer Date Recorded Has the lack of transportati on kept you from medical appointments or from getting medications? No 02/25/2021 Unemployment Answer Date Recorded Are you currently unemployed or working on a part-time or temporary basis, and looking for work? No 02/25/2021 Digital Access Answer Date Recorded No 02/08/2023 No 02/08/2023 Reliable internet access at home? Not on file 02/08/2023 Device with a working camera? Not on file Comments No Sex and Gender Information Value Date Recorded Sex Assigned at Female 11/24/2020 7:42 AM EDT Legal Sex Female 9:59 PM EDT Gender Identity Female 11/24/2020 7:42 AM EDT Sexual Orientation Not on file documented as of this encounter Plan of Treatment Upcoming Encounters Date Type Department Care Team (Late st Contact Info) Description 05/24/2025 10:00 AM EDT Office Visit [facility] [address] [place] [address] William Goodman MD [address] [place] [address] Jazmyn Gabriel, PT [address] [place] [address] 05/28/2025 10:15 AM EDT Office Visit [facility] [address] [place] [address] William Goodman MD [address] [place] [phone] Jazmyn Gabriel, PT [address] [place] [address] 05/31/2025 10:00 AM EDT Office Visit [facility] [address] [place] [address] William Goodman MD [address] [place], [place] [phone] Jazmyn Gabriel, PT [address] [place] [address] 06/04/2025 10:15 AM EDT Office Visit [facility] [address] [place] [address] William Goodman MD [address] [place] [address] Jazmyn Gabriel, PT [address] [place] [address] 06/07/2025 10:00 AM EDT Office Visit [facility] [address] [place] [address] William Goodman MD [address] [place], [place] [phone] Jazmyn Gabriel, PT [address] [place] [address] 06/11/2025 10:15 AM EDT Office Visit [facility] [address] [place] [address] William Goodman MD [address] [place] [phone] Jazmyn Gabriel, PT [address] [place] [address] 06/14/2025 10:00 AM EDT Office Visit [facility] [address] [place] [address] William Goodman MD [address] [place] [phone] Jazmyn Gabriel, PT [address] [place] [address] 06/18/2025 10:15 AM EDT Office Visit [facility] [address] [place] [address] William Goodman MD [address] [place] [address] Jazmyn Gabriel, PT [address] [place] [address] 06/21/2025 10:00 AM EDT Office Visit [facility] [address] [place] [address] William Godoman MD [address] [place] [address] Jazmyn Gabriel, PT [address] [place] [address] 06/28/2025 10:00 AM EDT Office Visit [facility] [address] [place] [address] William Goodman MD [address] [place] [address] Jazmyn Gabriel, PT [address] [place] [address] Scheduled Referrals Name Type Priority Associated Diagnoses Orde r Schedule Ambulatory referral to [facility] Physical Therapy Outpatient Referral Routine Encounter for rehabilitation Ordered: 05/14/2023 documented as of this encounter Visit Diagnoses Diagnosis Encounter for rehabilitation- Primary documented in this encounter Additional Health Concerns Assessment Noted Time PHQ-2 Depression Total Score: 2 11/10/19 23 7:32 AM EST documented as of this encounter Care Teams Bus Trolley And Taxi Instructor Relationship Specialty Start Date End Date Tamkia Villalta CNP [address] [place] [address] 7 [place] [address] PCP - General Family Medicine 09/18/22 Tamika Villalta CNP [address] [place] [address] 7 [place] [address] Insurance Assigned Provider 12/17/24 documented as of this encounter Additional Source Comments The information contained in this document represents components of the legal health record. It is not the complete legal health record.[facility]
--- OUTSIDE RECORDS SUMMARY | 2025-05-15 13:12 | XMS_ITS | Encounter Summary ---
Author Organization [facility] Address [address] [place] [address] Phone Care Team Providers Care Field Reporter Name Role Phone Tamika Tesfaye CNP Primary Care Provider + Tamika Villalta WET PROCESS MILLER Unavailable [phone] Encounter Details Date Type Department Care Team (Late st Contact Info) Description 07/12/2024 Procedure Pass [facility] - [address] [place] [address] Social History Tobacco Use Types Packs/Day Years [...] Description 05/24/2025 10:00 AM EDT Office Visit [facility] [address] [place] [address] William Goodman MD 17 [place] [address] Jazmyn Gabriel, PT [address] [place] [address] 05/28/2025 10:15 AM EDT Office Visit [facility] [address] [place] [address] William Goodman MD 17 [place] [address] Jazmyn Gabriel, PT [address] [place] [address] 05/31/2025 10:00 AM EDT Office Visit [facility] [address] [place] [address] William Goodman MD [address] [place] [address] Jazmyn Gabriel, PT [address] [place] [address] 06/04/2025 10:15 AM EDT Office Visit [facility] [address] [place] [address] William Goodman MD [address] [place] [address] Jazmyn Gabriel, PT [address] [place] [address] 06/07/2025 10:00 AM EDT Office Visit [facility] [address] [place] [address] William Goodman MD [address] [place] [address] Jazmyn Gabriel, PT [address] [place] [address] [email or web address] 06/11/2025 10:15 AM EDT Office Visit [facility] [address] [place] [address] William Goodman MD [address] [place] [address] Jazmyn Gabriel, PT [address] [place] [address] [email or web address] 06/14/2025 10:00 AM EDT Office Visit [facility] [address] [place] [address] William Goodman MD [address] [place] [address] Jazmyn Gabriel, PT [address] [place] [address] [email or web address] 06/18/2025 10:15 AM EDT Office Visit [facility] [address] [place] [address] William Goodman MD [address] [place] [address] Jazmyn Gabriel, PT [address] [place] [address] [email or web address] 06/21/2025 10:00 AM EDT Office Visit [facility] [address] [place] [address] William Goodman MD [address] [place] [address] Jazmyn Gabriel, PT [address] [place] [address] 06/28/2025 10:00 AM EDT Office Visit [facility] [address] [place] [address] William Goodman MD [address] [place] [address] Jazmyn Gabriel, PT [address] [place] [address] documented as of this encounter Visit Diagnoses Not on filedocumented in this encounter Additional Health Concerns Assessment Noted Time PHQ-2 Depression Total Score: 2 09/24/19 24 7:07 AM EST documented as of this encounter Care Teams Field Reporter Relationship Specialty Start Date End Date Tamika Villalta CNP [address] [place] [address], [facility] [address] [place] [address] PCP - General Family Medicine 09/18/22 Tamika Villalta CNP [address] [place] [address], [facility] [address] [place] [address] Insurance Assigned Provider 12/17/24 documented as of this encounter Additional Source Comments The information contained in this document represents components of the legal health record. It is not the complete legal health record.[facility]
--- OUTSIDE RECORDS SUMMARY | 2025-05-15 13:12 | XMS_ITS | Encounter Summary ---
Author Organization [facility] Address [address] [place] [address] Phone Care Team Providers Care Pulp Mixer Name Role Phone Josette Juarez MD Primary Care Provider Josette Juarez MD Unavailable [phone] Andreia Kincaid MD Primary Care Provider Andreia Kincaid MD Unavailable [phone] Tamika Villalta CNP Primary Care Provider + Josette Juarez MD Unavailable [phone] Tamika Villalta CNP Unavailable [phone] Encounter Details Date Type Department Care Team (Late st Contact Info) Description 06/14/2018 Transcribe Orders [address] [place] [address] Josette Juarez MD [address] [place] [address] Loss of hair (Primary Dx) Social History Tobacco Use Types Packs/Day Years Used Date Smoking Tobacco: Never Assessed Comments No Sex and Gender Information Value Date Recorded Sex Assigned at Female 11/24/2020 7:42 AM EDT Legal Sex Female 9:59 PM EDT Gender Identity Female 11/24/2020 7:42 AM EDT Sexual Orientation Not on file documented as of this encounter Plan of Treatment Upcoming Encounters Date Type Department Care Team (Late st Contact Info) Description 05/24/2025 10:00 AM EDT Office Visit [facility] [address] [place] [address] William Goodman MD [address] [place], [place] [phone] Jazmyn Gabriel, PT [address] [place] [address] 05/28/2025 10:15 AM EDT Office Visit [facility] [address] [place] [address] William Goodman MD [address] [place], [place] [phone] Jazmyn Gabriel, PT [address] [place] [address] 05/31/2025 10:00 AM EDT Office Visit [facility] [address] [place] [address] William Goodman MD [address] [place], [place] [phone] Jazmyn Gabriel, PT [address] [place] [address] 06/04/2025 10:15 AM EDT Office Visit [facility] [address] [place] [address] William Goodman MD [address] [place] [address] Jazmyn Gabriel, PT [address] [place] [address] 06/07/2025 10:00 AM EDT Office Visit [facility] [address] [place] [address] William Goodman MD [address] [place], [place] [phone] Jazmyn Gabriel, PT [address] [place] [address] 06/11/2025 10:15 AM EDT Office Visit [facility] [address] [place] [address] William Goodman MD [address] [place], [place] [phone] Jazmyn Gabriel, PT [address] [place] [address] 06/14/2025 10:00 AM EDT Office Visit [facility] [address] [place] [address] William Goodman MD [address] [place], [place] [phone] Jazmyn Gabriel, PT [address] [place] [address] 06/18/2025 10:15 AM EDT Office Visit [facility] [address] [place] [address] William Goodman MD [address] [place] [address] Jazmyn Gabriel, PT [address] [place] [address] 06/21/2025 10:00 AM EDT Office Visit [facility] [address] [place] [address] William Goodman MD [address] [place] [address] Jazmyn Gabriel, PT [address] [place] [address] [email or web address] 06/28/2025 10:00 AM EDT Office Visit [facility] [address] [place] [address] William Goodman MD [address] [place] [address] Jazmyn Gabriel, PT [address] [place] [address] [email or web address] documented as of this encounter Results * TSH with reflex (06/14/2018 1:59 PM EDT) TSH 1.46 0.27 - 4.20 uIU/mL [facility] Blood 06/14/2018 1:59 PM EDT 06/14/2018 2:01 PM EDT us Josette Juarez MD LAB BLOOD ORDERABLES Final R esult [address] [address] documented in this encounter Visit Diagnoses Diagnosis Loss of hair- Primary Unspecified alopecia documented in this encounter Additional Health Concerns Infection Onset Date Last Indicated Resolved Time CoV-Presumed 08/27/2022 08/27/2022 09/17/2022 1:22 AM EST CoV-Risk Comment:Per Ambulatory Triage Form 10/22/2022 10/22/202211/02 1:24 AM EST documented as of this encounter Care Teams Pulp Mixer Relationship Specialty Start Date End Date Josette Juarez MD [address] [place] [address] [email or web address] PCP - General Internal Medicine 09/20/17 12/24/20 Andreia Kincaid MD [address] [place] [address] [email or web address] PCP - General Family Medicine 12/25/20 09/17/22 Tamika Villalta CNP [address] [place] [address] [address] [place] [address] [email or web address] PCP - General Family Medicine 09/18/22 Josette Juarez MD [address] [place] [address] [email or web address] Insurance Assigned Provider 06/22/20 04/19/21 Andreia Kincaid MD [address] [place] [address] [email or web address] Insurance Assigned Provider 04/19/21 10/17/22 Josette Juarez MD [address] [place] [address] [email or web address] Insurance Assigned Provider 11/21/22 01/16/23 Tamika Villalta CNP [address] [place] [address] 7 [place] [address] [email or web address] Insurance Assigned Provider 12/17/24 documented as of this encounter Additional Source Comments The information contained in this document represents components of the legal health record. It is not the complete legal health record.[facility]
--- OUTSIDE RECORDS SUMMARY | 2025-05-15 13:12 | XMS_ITS | Encounter Summary ---
Author Organization [facility] Address [address] [place] [address] Phone Care Team Providers Care Nuclear Operator Name Role Phone Josette Juarez MD Primary Care Provider Josette Juarez MD Unavailable Andreia Kincaid MD Primary Care Provider [phone] Andreia Kincaid MD Unavailable [phone] Tamika Villalta CNP Primary Care Provider + Josette Juarez MD Unavailable [phone] Tamika Villalta CNP Unavailable [phone] Encounter Details Date Type Department Care Team (Latest Contact Info) Description 10/12/2017 Transcribe Orders [address] [place] [address] Josette Juarez MD [address] [place] [address] Hyperlipidemia, unspecified hyperlipidemia type (Primary Dx); Impaired fasting glucose; Vitamin D deficiency Social History Tobacco Use Types Packs/Day Years [...] Description 05/24/2025 10:00 AM EDT Office Visit [facility] [address] [place] [address] William Goodman MD 17 [place] [address] Jazmyn Gabriel, PT [address] [place] [address] 05/28/2025 10:15 AM EDT Office Visit [facility] [address] [place] [address] William Goodman MD [address] [place], [place] [phone] Jazmyn Gabriel, PT [address] [place] [address] 05/31/2025 10:00 AM EDT Office Visit [facility] [address] [place] [address] William Goodman MD [address] [place] [address] Jazmyn Gabriel, PT [address] [place] [address] 06/04/2025 10:15 AM EDT Office Visit [facility] [address] [place] [address] William Goodman MD [address] [place] [address] Jazmyn Gabriel, PT [address] [place] [address] 06/07/2025 10:00 AM EDT Office Visit [facility] [address] [place] [address] William Goodman MD [address] [place] [address] Jazmyn Gabriel, PT [address] [place] [address] 06/11/2025 10:15 AM EDT Office Visit [facility] [address] [place] [address] William Goodman MD [address] [place], [place] [phone] Jazmyn Gabriel, PT [address] [place] [address] 06/14/2025 10:00 AM EDT Office Visit [facility] [address] [place] [address] William Goodman MD [address] [place] [address] Jazmyn Gabriel, PT [address] [place] [address] 06/18/2025 10:15 AM EDT Office Visit [facility] [address] [place] [address] William Goodman MD [address] [place] [address] Jazmyn Gabriel, PT [address] [place] [address] 06/21/2025 10:00 AM EDT Office Visit [facility] [address] [place] [address] William Goodman MD [address] [place] [address] Jazmyn Gabriel, PT [address] [place] [address] [email or web address] 06/28/2025 10:00 AM EDT Office Visit [facility] [address] [place] [address] William Goodman MD [address] [place] [address] Jazmyn Gabriel, PT [address] [place] [address] [email or web address] documented as of this encounter Results * 25-OH vitamin D (10/12/2017 8:28 AM EST) 25 OH VIT D (TOTAL) 54 30 - 1,000 ng/mL [facility] Blood 10/12/2017 8:28 AM EST 10/12/2017 8:32 AM EST Josette Juarez MD LAB BLOOD ORDERABLES Final R esult [address] [address] * Comprehensive metabolic panel (10/12/2017 8:28 AM EST) SODIUM 142 133 - 146 mmol/L [facility] POTASSIUM 3.8 3.3 - 5.1 mmol/L [facility] CHLORIDE 101 96 - 108 mmol/L [facility] CO2 29 21 - 35 mmol/L [facility] BUN 13 6 - 19 mg/dL [facility] CREATININE 0.60 0.5 - 1.5 mg/dL [facility] GLUCOSE 95 70 - 99 mg/dL [facility] ALBUMIN 4.3 3.9 - 4.8 g/dL [facility] TOTAL PROTEIN 7.2 6.5 - 8.0 g/dL [facility] CALCIUM 9.3 8.4 - 10.3 mg/dL [facility] ALKALINE PHOSPHATASE 81 39 - 117 U/L [facility] TOTAL BILIRUBIN 0.7 0 - 1.2 mg/dL [facility] AST 23 0 - 37 U/L [facility] ALT 28 0 - 40 U/L [facility] GLOBULIN 2.9 1 - 4.8 g/dL [facility] EGFR >60 >60 mL/min/1.7 3m2 [facility] Comment:Abnormal if <60. If patient is -[place], multiply the result by 1.21. ANION GAP 16 10 - 20 mmol/L [facility] Blood 10/12/2017 8:28 AM EST 10/12/2017 8:32 AM EST Josette uJarez MD LAB BLOOD ORDERABLES Final R esult [facility] [address] [place], [place] [id number] * (ABNORMAL) Lipid panel (10/12/2017 8:28 AM EST) HDL 71 mg/dL [facility] Comment: Interpretation: Risk Level Females Decreased >55mg/dL Average 50-55 mg/dL Increased <50 mg/dL CHOLESTEROL 238 0 - 240 mg/dL [facility] TRIGLYCERIDES 82 30 - 160 mg/dL [facility] LDL 151(H) 50 - 129 mg/dL [facility] Comment: LDL levels in terms of risk for coronary heart disease: <100 mg/dL: Optimal 100-129 mg/dL: Near or above optimal 130-159 mg/dL: Borderline high 160-189 mg/dL: High >190 mg/dL: Very High CARDIAC RISK RATIO 3.4 3.3 - 4.4 [facility] Blood 10/12/2017 8:28 AM EST 10/12/2017 8:32 AM EST Josette Juarez MD LAB BLOOD ORDERABLES Final R esult [facility] [address] [place] [address] documented in this encounter Visit Diagnoses Diagnosis Hyperlipidemia, unspecified hyperlipidemia type- Primary Impaired fasting glucose Vitamin D deficiency documented in this encounter Additional Health Concerns Infection Onset Date Last Indicated Resolved Time CoV-Presumed 08/27/2022 08/27/2022 09/17/2022 1:22 AM EST CoV-Risk Comment:Per Ambulatory Triage Form 10/22/2022 10/22/202211/02 1:24 AM EST documented as of this encounter Care Teams Nuclear Operator Relationship Specialty Start Date End Date Josette Juarez MD [address] [place] [address] 1 [place] [address] [email or web address] PCP - General Internal Medicine 09/20/17 12/24/20 Andreia Kincaid MD [address] [place] [address] [email or web address] PCP - General Family Medicine 12/25/20 09/17/22 Tamika Villalta CNP [address] [place] [address] 7 [place] [address] [email or web address] PCP - General Family Medicine 09/18/22 Josette Juarez MD [address] [place] [address] [email or web address] Insurance Assigned Provider 06/22/20 04/19/21 Andreia Kincaid MD [address] [place] [address] [email or web address] Insurance Assigned Provider 04/19/21 10/17/22 Josette Juarez MD [address] [place] [address] [email or web address] Insurance Assigned Provider 11/21/22 01/16/23 Tamika Villalta CNP [address] [place] [address] 7 [place] [address] [email or web address] Insurance Assigned Provider 12/17/24 documented as of this encounter Additional Source Comments The information contained in this document represents components of the legal health record. It is not the complete legal health record.[facility]
--- OUTSIDE RECORDS SUMMARY | 2025-05-15 13:12 | XMS_ITS | Encounter Summary ---
Author Organization [facility] Address [address] [place] [address] Phone Care Team Providers Care Milk Truck Driver Name Role Phone Mukeshchula Tesfaye CNP Primary Care Provider + Tamika Villalta AWARD MACHINE OPERATOR Unavailable [phone] Encounter Details Date Type Department Care Team (Late st Contact Info) Description 04/17/2025 Orders Only [facility] Medicine [address] [place] [address] Provider, MD Dory [address] [place] [address] Social History Tobacco Use Types Packs/Day Years [...] Description 05/24/2025 10:00 AM EDT Office Visit [facility] [address] [place] [address] William Goodman MD 17 [place] [address] Jazmyn Gabriel, PT [address] [place] [address] [email or web address] 05/28/2025 10:15 AM EDT Office Visit [facility] [address] [place] [address] William Goodman MD [address] [place] [address] Jazmyn Gabriel, PT [address] [place] [address] [email or web address] 05/31/2025 10:00 AM EDT Office Visit [facility] [address] [place] [address] William Goodman MD [address] [place] [address] Jazmyn Gabriel, PT [address] [place] [address] [email or web address] 06/04/2025 10:15 AM EDT Office Visit [facility] [address] [place] [address] William Goodman MD [address] [place] [address] Jazmyn Gabriel, PT [address] [place] [address] [email or web address] 06/07/2025 10:00 AM EDT Office Visit [facility] [address] [place] [address] William Goodman MD [address] [place] [address] Jazmyn Gabriel, PT [address] [place] [address] [email or web address] 06/11/2025 10:15 AM EDT Office Visit [facility] [address] [place] [address] William Goodman MD [address] [place] [address] Jazmyn Gabriel, PT [address] [place] [address] [email or web address] 06/14/2025 10:00 AM EDT Office Visit [facility] [address] [place] [address] William Goodman MD [address] [place] [address] Jazmyn Gabriel, PT [address] [place] [address] [email or web address] 06/18/2025 10:15 AM EDT Office Visit [facility] [address] [place] [address] William Goodman MD [address] [place] [address] Jazmyn Gabriel, PT [address] [place] [address] [email or web address] 06/21/2025 10:00 AM EDT Office Visit [facility] [address] [place] [address] William Goodman MD [address] [place] [address] Jazmyn Gabriel, PT [address] [place] [address] [email or web address] 06/28/2025 10:00 AM EDT Office Visit [facility] [address] [place] [address] William Goodman MD [address] [place] [address] Jazmyn Gabriel, PT [address] [place] [address] [email or web address] documented as of this encounter Procedures Procedure Name Priority Date/Time Associated Diagnosis Comments OUTSIDE LAB Routine 04/17/2025 12:57 PM EDT documented in this encounter Results * Outside Lab (04/17/2025 12:57 PM EDT) us Historical Provider LAB BLOOD ORDERABLES Monica l Result documented in this encounter Visit Diagnoses Not on filedocumented in this encounter Additional Health Concerns Assessment Noted Time PHQ-2 Depression Total Score: 2 01/27/20 25 2:54 PM EDT documented as of this encounter Care Teams Milk Truck Driver Relationship Specialty Start Date End Date Tamika Villalta CNP [address] [place] [address] 7 [place] [address] PCP - General Family Medicine 09/18/22 Tamika Villalta CNP [address] [place] [address] 7 [place] [address] Insurance Assigned Provider 12/17/24 documented as of this encounter Additional Source Comments The information contained in this document represents components of the legal health record. It is not the complete legal health record.[facility]
--- OUTSIDE RECORDS SUMMARY | 2025-05-15 13:12 | XMS_ITS | Encounter Summary ---
Author Organization [facility] Address [address] [place], [place] [phone] Phone Care Team Providers Care Stitching Machine Setter Name Role Phone Josette Juarez MD Primary Care Provider Josette Juarez MD Unavailable [phone] Andreia Kincaid MD Primary Care Provider Andreia Kincaid MD Unavailable [phone] Tamika Villalta CNP Primary Care Provider + Josette Juarez MD Unavailable Tamika Villalta CNP Unavailable [phone] Encounter Details Date Type Department Care Team (Late st Contact Info) Description 09/20/[address] [facility] Department [address] [place] [address] Josette Juarez MD [address] [place] [address] [email or web address] Breast [email or web address] Social History Tobacco Use Types Packs/Day Years [...] Encounters Date Type Department Care Team (Late Contact Info) Description 05/24/2025 10:00 AM EDT Office Visit [facility] [address] [place] [address] William Goodman MD [address] [place] [address] Jazmyn Gabriel, PT [address] [place] [address] [email or web address] 05/28/2025 10:15 AM EDT Office Visit [facility] [address] [place] [address] William Goodman MD [address] [place] [address] Jazmyn Gabriel, PT [address] [place] [address] [email or web address] 05/31/2025 10:00 AM EDT Office Visit [facility] [address] [place] [address] William Goodman MD [address] [place] [address] Jazmyn Gabriel, PT [address] [place] [address] [email or web address] 06/04/2025 10:15 AM EDT Office Visit [facility] [address] [place] [address] William Goodman MD [address] [place] [address] Jazmyn Gabriel, PT [address] [place] [address] 06/07/2025 10:00 AM EDT Office Visit [facility] [address] [place] [address] William Goodman MD [address] [place] [address] Jazmyn Gabriel, PT [address] [place] [address] [email or web address] 06/11/2025 10:15 AM EDT Office Visit [facility] [address] [place] [address] William Goodman MD [address] [place], [place] [id number] Jazmyn Gabriel, PT [address] [place] [address] [email or web address] 06/14/2025 10:00 AM EDT Office Visit [facility] [address] [place] [address] William Goodman MD [address] [place] [address] Jazmyn Gabriel, PT [address] [place] [address] [email or web address] 06/18/2025 10:15 AM EDT Office Visit [facility] [address] [place] [address] William Goodman MD [address] [place] [address] Jazmyn Gabriel, PT [address] [place] [address] [email or web address] 06/21/2025 10:00 AM EDT Office Visit [facility] [address] [place] [address] William Goodman MD [address] [place] [address] Jazmyn Gabriel, PT [address] [place] [address] 06/28/2025 10:00 AM EDT Office Visit [facility] [address] [place] [address] William Goodman MD [address] [place] [address] Jazmyn Gabriel, PT [address] [place] [address] [email or web address] documented as of this encounter Results * BI MAMMOGRAM SCREENING WITH TOMOSYNTHESIS WITH CAD (BILATERAL) (10/05/2017 2:28 PM EST) Anatomical Region Laterality Modality Breast Left, Breast Right, Breast Bilateral Bila teral Mammography 10/05/2017 4:16 PM EST Impressions 10/05/2017 4:22 PM EST No mammographic signs of malignancy. Annual screening is recommended. BI-RADS CATEGORY: 1 - Negative. DENSITY: The breast tissue is heterogeneously dense, an appearance which lowers the sensitivity of mammography. POS - CDHMAMA Narrative 10/05/2017 4:22 PM EST Bilateral mammography is performed in conjunction with computed aided detection. 3-D tomography along with 2-D C view imaging was also performed. Comparison made to previous dated as far back as 11/12/2010 and as recent as 07/30/2016. No suspicious masses, areas of architectural distortion or suspicious microcalcifications. Procedure Note Tao Ontiveros MD - 10/05/2017 Bilateral mammography is performed in conjunction with computed aideddetection. 3-D tomography along with 2-D C view imaging was alsoperformed. Comparison made to previous dated as far back as 11/12/2010 andas recent as 07/30/2016. No suspicious masses, areas of architectural distortion or suspiciousmicrocalcifications. IMPRESSION: No mammographic signs of malignancy. Annual screening is recommended. BI-RADS CATEGORY: 1 - Negative. DENSITY: The breast tissue is heterogeneously dense, an appearance whichlowers the sensitivity of mammography. POS - CDHMAMA Josette Juarez MD IMG MG EXAMS Final Result documented in this encounter Visit Diagnoses Diagnosis Breast screening Breast screening, unspecified Breast screening Breast screening, unspecified documented in this encounter Additional Health Concerns Infection Onset Date Last Indicated Resolved Time CoV-Presumed 08/27/2022 08/27/2022 09/17/2022 1:22 AM EST CoV-Risk Comment:Per Ambulatory Triage Form 10/22/2022 10/22/202211/02 1:24 AM EST documented as of this encounter Care Teams Stitching Machine Setter Relationship Specialty Start Date End Date Josette Juarez MD [address] [place] [address] 1 [place] [address] [email or web address] PCP - General Internal Medicine 09/20/17 12/24/20 Andreia Kincaid MD [address] [place] [address] [email or web address] PCP - General Family Medicine 12/25/20 09/17/22 Tamika Villalta CNP [address] [place] [address] [address] [place] [address] PCP - General Family Medicine 09/18/22 Josette Juarez MD [address] [place] [address] [email or web address] Insurance Assigned Provider 06/22/20 04/19/21 Andreia Kincaid MD [address] [place] [address] [email or web address] Insurance Assigned Provider 04/19/21 10/17/22 Josette Juarez MD [address] [place] [address] [email or web address] Insurance Assigned Provider 11/21/22 01/16/23 Tamika Villalta CNP [address] [place] [address] [address] [place] [address] [email or web address] Insurance Assigned Provider 12/17/24 documented as of this encounter Additional Source Comments The information contained in this document represents components of the legal health record. It is not the complete legal health record.[facility]
--- OUTSIDE RECORDS SUMMARY | 2025-05-15 13:12 | XMS_ITS | Encounter Summary ---
Author Organization [facility] Address [address] [place] [address] Phone Care Team Providers Care Agile Scrum Coach Name Role Phone Tamika Tesfaye CNP Primary Care Provider + Tamika Villalta DOCUMENT CONTROL CLERK Unavailable [phone] Encounter Details Date Type Department Care Team (Late st Contact Info) Description 09/25/2024 Procedure Pass [facility], [address] [place] [address] Social History Tobacco Use Types Packs/Day Years Used Date Smoking Tobacco: Former Cigarettes 0.3 51.4 S tarted: 12/02/1973 Smokeless Tobacco: Never Comments:3 cigarettes/day Alcohol [...] on file documented as of this encounter Last Filed Vital Signs Vital Sign Reading Time Taken Comments Blood Pressure - - Pulse - - Temperature - - Respiratory Rate - - Oxygen Saturation - - Inhaled Oxygen Concentration - - Weight 59 kg (130 lb) 09/26/2024 6:11 PM EST Height 160 cm (5' 3 ) 09/26/2024 6:11 PM EST Body Mass Index 23.03 09/26/2024 6:11 PM EST documented in this encounter Plan of Treatment Upcoming Encounters Date Type Department Care Team (Late st Contact Info) Description 05/24/2025 10:00 AM EDT Office Visit [facility] [address] [place] [address] William Goodman MD [address] [place] [address] Jazmyn Gabriel, PT 21 [place] [address] 05/28/2025 10:15 AM EDT Office Visit [facility] [address] [place] [address] William Goodman MD [address] [place] [id number] Jazmyn Gabriel, PT [address] [place] [address] 05/31/2025 10:00 AM EDT Office Visit [facility] [address] [place] [address] William Goodman MD [address] [place] [address] Jazmyn Gabriel, PT [address] [place] [address] 06/04/2025 10:15 AM EDT Office Visit [facility] [address] [place] [address] William Goodman MD [address] [place] [address] Jazmyn Gabriel, PT [address] [place] [address] 06/07/2025 10:00 AM EDT Office Visit [facility] [address] [place] [address] William Goodman MD [address] [place] [id number] Jazmyn Gabriel, PT [address] [place] [address] 06/11/2025 10:15 AM EDT Office Visit [facility] [address] [place] [address] William Goodman MD [address] [place] [id number] Jazmyn Gabriel, PT [address] [place] [address] 06/14/2025 10:00 AM EDT Office Visit [facility] [address] [place] [address] William Goodman MD [address] [place] [id number] Jazmyn Gabriel, PT [address] [place] [address] 06/18/2025 10:15 AM EDT Office Visit [facility] [address] [place] [address] William Goodman MD [address] [place] [address] Jazmyn Gabriel, PT [address] [place] [address] 06/21/2025 10:00 AM EDT Office Visit [facility] [address] [place] [address] William Goodman MD [address] [place] [address] Jazmyn Gabriel, PT [address] [place] [address] 06/28/2025 10:00 AM EDT Office Visit [facility] [address] [place] [address] William Goodman MD [address] [place] [address] Jazmyn Gabriel, PT [address] [place] [address] documented as of this encounter Visit Diagnoses Not on filedocumented in this encounter Additional Health Concerns Assessment Noted Time PHQ-2 Depression Total Score: 2 09/24/19 24 7:07 AM EST documented as of this encounter Care Teams Agile Scrum Coach Relationship Specialty Start Date End Date Tamika Villalta CNP [address] [place] [address] 7 [place] [address] PCP - General Family Medicine 09/18/22 Tamika Villalta CNP [address] [place] [address] 7 [place] [address] Insurance Assigned Provider 12/17/24 documented as of this encounter Additional Source Comments The information contained in this document represents components of the legal health record. It is not the complete legal health record.[facility]
--- OUTSIDE RECORDS SUMMARY | 2025-05-15 13:12 | XMS_ITS | Encounter Summary ---
Author Organization [facility] Address [address] [place] [address] Phone Care Team Providers Care Supervisory Forester Name Role Phone Josette Juarez MD Primary Care Provider Josette Juarez MD Unavailable Andreia Kincaid MD Primary Care Provider [phone] Andreia Kincaid MD Unavailable [phone] Tamika Villalta CNP Primary Care Provider + Josette Juarez MD Unavailable [phone] Tamika Villalta CNP Unavailable [phone] Encounter Details Date Type Department Care Team (Late st Contact Info) Description 07/15/2018 Transcribe Orders [address] [place] [address] Josette Juarez MD [address] [place] [address] Restless legs (Primary Dx) Social History Tobacco Use Types [...] Description 05/24/2025 10:00 AM EDT Office Visit [facility] [address] [place] [address] William Goodman MD [address] [place], [place] [phone] Jazmyn Gabriel, PT [address] [place] [address] 05/28/2025 10:15 AM EDT Office Visit [facility] [address] [place] [address] William Goodman MD [address] [place], [place] [phone] Jazmyn Gabriel, PT [address] [place] [address] 05/31/2025 10:00 AM EDT Office Visit [facility] [address] [place] [address] William Goodman MD [address] [place], [place] [phone] Jazmyn Gabriel, PT [address] [place] [address] 06/04/2025 10:15 AM EDT Office Visit [facility] [address] [place] [address] William Goodman MD [address] [place] [address] Jazmyn Gabriel, PT [address] [place] [address] 06/07/2025 10:00 AM EDT Office Visit [facility] [address] [place] [address] William Goodman MD [address] [place], [place] [phone] Jazmyn Gabriel, PT [address] [place] [address] 06/11/2025 10:15 AM EDT Office Visit [facility] [address] [place] [address] William Goodman MD [address] [place], [place] [phone] Jazmyn Gabriel, PT [address] [place] [address] 06/14/2025 10:00 AM EDT Office Visit [facility] [address] [place] [address] William Goodman MD [address] [place], [place] [phone] Jazmyn Gabriel, PT [address] [place] [address] 06/18/2025 10:15 AM EDT Office Visit [facility] [address] [place] [address] William Goodman MD [address] [place] [address] Jazmyn Gabriel, PT [address] [place] [address] 06/21/2025 10:00 AM EDT Office Visit [facility] [address] [place] [address] William Goodman MD [address] [place] [address] Jazmyn Gabriel, PT [address] [place] [address] 06/28/2025 10:00 AM EDT Office Visit [facility] [address] [place] [address] William Goodman MD [address] [place] [address] Jazmyn Gabriel, PT [address] [place] [address] [email or web address] documented as of this encounter Results * Ferritin (07/15/2018 8:17 AM EDT) FERRITIN 50 13 - 150 ug/L [facility] Blood 07/15/2018 8:17 AM EDT 07/15/2018 8:19 AM EDT Josette Juarez MD LAB BLOOD ORDERABLES Final R esult [address] [address] * Basic metabolic panel (07/15/2018 8:17 AM EDT) SODIUM 143 133 - 146 mmol/L [facility] CHLORIDE 103 96 - 108 mmol/L [facility] POTASSIUM 4.1 3.3 - 5.1 mmol/L [facility] CO2 30 21 - 35 mmol/L [facility] BUN 9 6 - 19 mg/dL [facility] CREATININE 0.60 0.5 - 1.5 mg/dL [facility] GLUCOSE 96 70 - 99 mg/dL [facility] CALCIUM 9.2 8.4 - 10.3 mg/dL [facility] EGFR 96 >59 mL/min/1.7 3m2 [facility] Comment:If patient is black, multiply result by 1.159. Estimated glomerular filtration rate calculated using the CKD-EPI equation. ANION GAP 14 10 - 20 mmol/L [facility] Blood 07/15/2018 8:17 AM EDT 07/15/2018 8:19 AM EDT us Josette Juarez MD LAB BLOOD ORDERABLES Final R esult [facility] [address] [place] [address] documented in this encounter Visit Diagnoses Diagnosis Restless legs- Primary Restless legs syndrome (RLS) documented in this encounter Additional Health Concerns Infection Onset Date Last Indicated Resolved Time CoV-Presumed 08/27/2022 08/27/2022 09/17/2022 1:22 AM EST CoV-Risk Comment:Per Ambulatory Triage Form 10/22/2022 10/22/202211/02 1:24 AM EST documented as of this encounter Care Teams Supervisory Forester Relationship Specialty Start Date End Date Josette Juarez MD [address] [place] [address] 1 [place] [address] [email or web address] PCP - General Internal Medicine 09/20/17 12/24/20 Andreia Kincaid MD [address] [place] [address] [email or web address] PCP - General Family Medicine 12/25/20 09/17/22 Tamika Villalta CNP [address] [place] [address] 7 [place] [address] [email or web address] PCP - General Family Medicine 09/18/22 Josette Juarez MD [address] [place] [address] [email or web address] Insurance Assigned Provider 06/22/20 04/19/21 Andreia Kincaid MD [address] [place] [address] [email or web address] Insurance Assigned Provider 04/19/21 10/17/22 Josette Juarez MD [address] [place] [address] [email or web address] Insurance Assigned Provider 11/21/22 01/16/23 Tamika Villalta CNP [address] [place] [address] 7 [place] [address] [email or web address] Insurance Assigned Provider 12/17/24 documented as of this encounter Additional Source Comments The information contained in this document represents components of the legal health record. It is not the complete legal health record.[facility]
--- OUTSIDE RECORDS SUMMARY | 2025-05-15 13:13 | XMS_ITS | Encounter Summary ---
Author Organization [facility] Address [address] [place] [address] Phone Care Team Providers Care Painter Barrel Name Role Phone Josette Juarez MD Primary Care Provider [phone] Josette Juarez MD Unavailable [phone] Andreia Kincaid MD Primary Care Provider Andreia Kincaid MD Unavailable [phone] Tamika Villalta CNP Primary Care Provider + Josette Juarez MD Unavailable [phone] Tamika Villalta CNP Unavailable [phone] Encounter Details Date Type Department Care Team (Late Contact Info) Description 10/09/2019 Ancillary Orders [facility], X-Ray - [address] [place] [address] Josette Juarez MD [address] [place] [address] Low back pain, unspecified back pain laterality, unspecified chronicity, unspecified whether sciatica present Social History Tobacco Use Types Packs/Day Years [...] Description 05/24/2025 10:00 AM EDT Office Visit [facility] [address] [place] [address] William Goodman MD [address] [place], [place] [phone] Jazmyn Gabriel, PT [address] [place] [address] 05/28/2025 10:15 AM EDT Office Visit [facility] [address] [place] [address] William Goodman MD [address] [place] [phone] Jazmyn Gabriel, PT [address] [place] [address] 05/31/2025 10:00 AM EDT Office Visit [facility] [address] [place] [address] William Goodman MD [address] [place] [phone] Jazmyn Gabriel, PT [address] [place] [address] 06/04/2025 10:15 AM EDT Office Visit [facility] [address] [place] [address] William Goodman MD [address] [place] [address] Jazmyn Gabriel, PT [address] [place] [address] 06/07/2025 10:00 AM EDT Office Visit [facility] [address] [place] [address] William Goodman MD [address] [place] [address] Jazmyn Gabriel, PT [address] [place] [address] 06/11/2025 10:15 AM EDT Office Visit [facility] [address] [place] [address] William Goodman MD [address] [place] [phone] Jazmyn Gabriel, PT [address] [place] [address] 06/14/2025 10:00 AM EDT Office Visit [facility] [address] [place] [address] William Goodman MD [address] [place] [phone] Jazmyn Gabriel, PT [address] [place] [address] 06/18/2025 10:15 AM EDT Office Visit [facility] [address] [place] [address] William Goodman MD [address] [place] [address] Jazmyn Gabriel, PT [address] [place] [address] 06/21/2025 10:00 AM EDT Office Visit [facility] [address] [place] [address] William Goodman MD [address] [place] [address] Jazmyn Gabriel, PT [address] [place] [address] [email or web address] 06/28/2025 10:00 AM EDT Office Visit [facility] [address] [place] [address] William Goodman MD [address] [place] [address] Jazmyn Gabriel, PT [address] [place] [address] documented as of this encounter Results * XR Sacrum and Coccyx (10/09/2019 4:01 PM EST) Anatomical Region Laterality Modality L-spine Radiographic Debra ging 10/09/2019 6:49 PM EST Impressions 10/09/2019 6:52 PM EST Anterior dislocation of the third coccygeal segment. POS - [id number] Narrative 10/09/2019 6:52 PM EST EXAM: XR SACRUM AND COCCYX HISTORY: xr lumbar COMPARISON: Blank FINDINGS: On the lateral view, the third coccygeal segment appears anteriorly displaced. No definite sacral fracture. Procedure Note Sarika Rg MD - 10/09/2019 EXAM: XR SACRUM AND COCCYX HISTORY: xr lumbar COMPARISON: Blank FINDINGS: On the lateral view, the third coccygeal segment appearsanteriorly displaced. No definite sacral fracture. IMPRESSION: Anterior dislocation of the third coccygeal segment. POS - [id number] us Josette Juarez MD IMG XR SPINE Final Result * XR LUMBOSACRAL SPINE 4 OR MORE VIEWS (10/09/2019 4:00 PM EST) Anatomical Region Laterality Modality L-spine Radiographic Debra ging 10/09/2019 4:05 PM EST Impressions 10/09/2019 4:22 PM EST Overall, little change evident from 10/21/201112. Grade 1 spondylolisthesis of L4 on L5 likely due to severe facet arthropathy at L4-L5. Similar scoliosis. POS - [id number] Narrative 10/09/2019 4:22 PM EST HISTORY: Low back pain. COMPARISON: CT abdomen/pelvis 10/21/2011. VIEWS: AP, lateral and bilateral oblique views. FINDINGS: Scoliotic curvature (convexity to the left in the lumbar region, appears very similar to 10/21/2011. There is a rotary component. No compression fractures. Approximately 8 mm of spondylolisthesis of L4 on L5 which appears similar to 10/21/2011. No other subluxations. Severe facet arthropathy at L4-L5 and, to a lesser extent at the other levels. Mild disc space narrowing at L3-L4 and L4-L5. Procedure Note Tao Ontiveros MD - 10/09/2019 HISTORY: Low back pain. COMPARISON: CT abdomen/pelvis 10/21/2011. VIEWS: AP, lateral and bilateral oblique views. FINDINGS: Scoliotic curvature (convexity to the left in the lumbar region, appearsvery similar to 10/21/2011. There is a rotary component. No compression fractures. Approximately 8 mm of spondylolisthesis of L4 onL5 which appears similar to 10/21/2011. No other subluxations. Severe facet arthropathy at L4-L5 and, to a lesser extent at the otherlevels. Mild disc space narrowing at L3-L4 and L4-L5. IMPRESSION: Overall, little change evident from 10/21/201112. Grade 1 spondylolisthesis ofL4 on L5 likely due to severe facet arthropathy at L4-L5. Similarscoliosis. POS - [id number] Josette Juarez MD IMG XR SPINE Final Result documented in this encounter Visit Diagnoses Diagnosis Low back pain, unspecified back pain laterality, unspecified chronicity, unspecified whether sciatica present Low back pain, unspecified back pain laterality, unspecified chronicity, unspecified whether sciatica present Low back pain, unspecified back pain laterality, unspecified chronicity, unspecified whether sciatica present documented in this encounter Additional Health Concerns Infection Onset Date Last Indicated Resolved Time CoV-Presumed 08/27/2022 08/27/2022 09/17/2022 1:22 AM EST CoV-Risk Comment:Per Ambulatory Triage Form 10/22/2022 10/22/202211/02 1:24 AM EST documented as of this encounter Care Teams Painter Barrel Relationship Specialty Start Date End Date Josette Juarez MD [address] [place] [address] 1 [place] [address] [email or web address] PCP - General Internal Medicine 09/20/17 12/24/20 Andreia Kincaid MD [address] [place] [address] [email or web address] PCP - General Family Medicine 12/25/20 09/17/22 Tamika Villalta CNP [address] [place] [address] 7 [place] [address] [email or web address] PCP - General Family Medicine 09/18/22 Josette Juarez MD [address] [place] [address] [email or web address] Insurance Assigned Provider 06/22/20 04/19/21 Andreia Kincaid MD [address] [place] [address] [email or web address] Insurance Assigned Provider 04/19/21 10/17/22 Josette Juarez MD [address] [place] [address] [email or web address] Insurance Assigned Provider 11/21/22 01/16/23 Tamika Villalta CNP [address] [place] [address] [address] [place] [address] [email or web address] Insurance Assigned Provider 12/17/24 documented as of this encounter Additional Source Comments The information contained in this document represents components of the legal health record. It is not the complete legal health record.[facility]
--- OUTSIDE RECORDS SUMMARY | 2025-05-15 13:13 | XMS_ITS | Clinical Summary ---
Author Organization [facility] Address [facility] [place] [address] Care Team Providers Care Lacquer Spray Booth Operator Name Role Phone Unavailable Primary Care Provider Unavailabl e Encounters Date Type Department Care Team Description 05/02/2025 Interpretation Only [address] [address] William Goodman MD Unilateral primary osteoarthritis, right knee 03/21/2025 Interpretation Only [address] [place] [address] William Goodman MD Pain in right [...] Screening 1970 Tetanus/Diphtheria/Pertussis Vaccines (1 - Tdap) 1971 Breast Cancer Share Decision Needed 1992 Breast Cancer screening 1992 Pneumoccocal Vaccine: 50+ (1 of 1 - PCV) 2002 Zoster vaccine (1 of 2) 2002 Advance Directive 2007 Bone Density Scan 2017 Covid-19 Vaccine ( season) 2024, 11/27/2020 Influenza (Flu) vaccine (1 o f 1 - Influenza standard series) 05/14/2025 Procedures Procedure Name Priority Date/Time Associated Diagnosis Comments CT LOWER EXTREMITY WO CONTRAST RIGHT Routine 05/02/2025 9:19 AM EDT Unilateral primary osteoarthritis, right knee XR KNEE 4 OR MORE VIEWS RIGHT Routine 03/21/2025 11:58 AM EDT Pain in right knee from Last 3 Months Results * CT Lower Extremity wo Contrast Right (Standard) (05/02/2025 9:19 AM EDT) PT CLASS O RAD ADMITDTTM [id number] RAD PT RAD INFO [id number]^MEREDITH Y^WILLIAM RAD EXAM DESC CTLOEXWOR^CT Lower Extremity w/o Contrast Right^RIS [facility] WORKSTATION ID [id number] [facility] Anatomical Region Laterality Modality Hip, Leg, Knee, Thigh, Ankle, Foot Right Computed Tomography 05/02/2025 9:19 AM EDT Impressions 05/02/2025 5:[address] images obtained for preoperative planning 2. Right knee osteoarthritis. Thank you for letting us participate in the care of this patient. If you are a health care provider and have any questions regarding this report, please contact the number below. For patients who have questions please contact the health health care recruiter that requested your imaging first. Narrative 05/02/2025 5:00 PM EDT EXAMINATION: CT Lower Extremity w/o Contrast Right CLINICAL HISTORY: right knee DJD - preop planning;M17.11 Unilateral primary osteoarthritis, right knee TECHNIQUE: Unenhanced CT examination of the right lower extremity for preoperative planning. COMPARISON: Radiographs right knee 03/21/2025 FINDINGS: Dust Box Worker images: Left total knee arthroplasty. Bone/joints: No acute osseous abnormality. Right hip shows osteoarthropathy with joint space loss, subchondral sclerosis and osteophytes Right knee tricompartmental osteoarthritis with predominance in medial compartment. Small knee effusion. Woodward's cyst. Axial images of ankle shows no acute findings. Calcifications of the distal posterior tibialis tendon compatible with degeneration/tendinosis. There is osseous remodeling of the medial navicular bone. Soft tissues: Unremarkable. Partially imaged intrapelvic contents: Unremarkable. Procedure Note Job Sosa MD - 05/02/2025 EXAMINATION: CT Lower Extremity w/o Contrast Right CLINICAL HISTORY: right knee DJD - preop planning;M17.11 Unilateralprimary osteoarthritis, right knee TECHNIQUE: Unenhanced CT examination of the right lower extremity for preoperative planning. COMPARISON: Radiographs right knee 03/21/2025 FINDINGS: Dust Box Worker images: Left total knee arthroplasty. Bone/joints: No acute osseous abnormality. Right hip shows osteoarthropathy with joint space loss, subchondralsclerosis and osteophytes Right knee tricompartmental osteoarthritis with predominance in medial compartment. Small knee effusion. Woodward's cyst. Axial images of ankle shows no acute findings. Calcifications of thedistal posterior tibialis tendon compatible with degeneration/tendinosis. Thereis osseous remodeling of the medial navicular bone. Soft tissues: Unremarkable. Partially imaged intrapelvic contents: Unremarkable. IMPRESSION 1. CT images obtained for preoperative planning 2. Right knee osteoarthritis. Thank you for letting us participate in the care of this patient. If youare a health care provider and have any questions regarding this report,please contact the number below. For patients who have questions please contactthe health health care recruiter that requested your imaging first. us William Goodman MD IMG CT ORDERABLES Final Result * XR Knee 4 or more views Right (03/21/2025 11:58 AM EDT) PT CLASS O RAD ADMITDTTM [id number] RAD PT RAD INFO [id number]^MEREDITH Y^WILLIAM RAD EXAM DESC [id number]^XR Knee 4 Views w/ Patella Right^[facility] WORKSTATION ID [id number] DH RAD Anatomical Region Laterality Modality Knee Right Radiographic [...] who have questions please contact the health health care recruiter that requested your imaging first. Electronically signed by: Christy Valdes MD, [facility] ([phone]), at 03/21/2025 5:15 PM Narrative 03/21/2025 5:15 [...] patients who have questions please contactthe health health care recruiter that requested your imaging first. us William Goodman MD IMG DX ORDERABLES Final Result from Last 3 Months Insurance [place] [id number]
--- OUTSIDE RECORDS SUMMARY | 2025-05-15 13:13 | XMS_ITS | Encounter Summary ---
Author Organization [facility] Address [address] [place] [address] Phone Care Team Providers Care Earth Science Technician Name Role Phone Josette Juarez MD Primary Care Provider Josette Juarez MD Unavailable [phone] Andreia Kincaid MD Primary Care Provider [phone] Andreia Kincaid MD Unavailable [phone] Tamika Villalta CNP Primary Care Provider + Josette Juarez MD Unavailable [phone] Tamika Villalta CNP Unavailable [phone] Encounter Details Date Type Department Care Team (Latest Contact Info) Description 09/18/2020 Transcribe Orders [address] [place] [address] Josette Juarez MD 25 [place] [address] Hyperlipidemia, unspecified hyperlipidemia type (Primary Dx) Social History Tobacco Use Types [...] Description 05/24/2025 10:00 AM EDT Office Visit [facility] [address] [place] [address] William Goodman MD 17 [place], [place] [phone] Jazmyn Gabriel, PT 21 [place] [address] 05/28/2025 10:15 AM EDT Office Visit [facility] [address] [place] [address] William Goodman MD 17 [place], [place] [phone] Jazmyn Gabriel, PT 21 [place] [address] 05/31/2025 10:00 AM EDT Office Visit [facility] [address] [place] [address] William Goodman MD 17 [place], [place] [phone] Jazmyn Gabriel, PT 21 [place] [address] 06/04/2025 10:15 AM EDT Office Visit [facility] [address] [place] [address] William Goodman MD [address] [place] [address] Jazmyn Gabriel, PT 21 [place] [address] 06/07/2025 10:00 AM EDT Office Visit [facility] [address] [place] [address] William Goodman MD 17 [place], [place] [phone] Jazmyn Gabriel, PT 21 [place] [address] 06/11/2025 10:15 AM EDT Office Visit [facility] [address] [place] [address] William Goodman MD 17 [place], [place] [phone] Jazmyn Gabriel, PT 21 [place] [address] 06/14/2025 10:00 AM EDT Office Visit [facility] [address] [place] [address] William Goodman MD 17 [place], [place] [phone] Jazmyn Gabriel, PT 21 [place] [address] 06/18/2025 10:15 AM EDT Office Visit [facility] [address] [place] [address] William Goodman MD [address] [place] [address] Jazmyn Gabriel, PT 21 [place] [address] 06/21/2025 10:00 AM EDT Office Visit [facility] [address] [place] [address] William Goodman MD 17 [place] [address] Jazmyn Gabriel, PT 21 [place] [address] 06/28/2025 10:00 AM EDT Office Visit [facility] [address] [place] [address] William Goodman MD 17 [place] [address] Jazmyn Gabriel, PT 21 [place] [address] [email or web address] documented as of this encounter Results * (ABNORMAL) Lipid panel (09/18/2020 8:28 AM EST) HDL 73 mg/dL [facility] Comment: Interpretation <40 mg/dL: Low HDL cholesterol (major risk factor for CHD) Greater than or equal to 60 mg/dL: High HDL cholesterol ( negative risk factor for CHD) HDL - cholesterol is affected by a number of factors, e.g. smoking, excerise, hormones, sex and age. CHOLESTEROL 192 0 - 240 mg/dL [facility] TRIGLYCERIDES 74 30 - 160 mg/dL [facility] LDL 104 50 - 129 mg/dL [facility] Comment: LDL levels in terms of risk for coronary heart disease: <100 mg/dL: Optimal 100-129 mg/dL: Near or above optimal 130-159 mg/dL: Borderline high 160-189 mg/dL: High >190 mg/dL: Very High CARDIAC RISK RATIO 2.6(L) 3.3 - 4.4 C [facility] Blood 09/18/2020 8:28 AM EST 09/18/2020 8:30 AM EST us Josette Juarez MD LAB BLOOD ORDERABLES Final R esult [facility] [address] [place] [address] documented in this encounter Visit Diagnoses Diagnosis Hyperlipidemia, unspecified hyperlipidemia type- Primary documented in this encounter Additional Health Concerns Infection Onset Date Last Indicated Resolved Time CoV-Presumed 08/27/2022 08/27/2022 09/17/2022 1:22 AM EST CoV-Risk Comment:Per Ambulatory Triage Form 10/22/2022 10/22/202211/02 1:24 AM EST documented as of this encounter Care Teams Earth Science Technician Relationship Specialty Start Date End Date Josette Juarez MD [address] [place] [address] 1 [place] [address] [email or web address] PCP - General Internal Medicine 09/20/17 12/24/20 Andreia Kincaid MD [address] [place] [address] [email or web address] PCP - General Family Medicine 12/25/20 09/17/22 Tamika Villalta CNP [address] [place] [address] 7 [place] [address] [email or web address] PCP - General Family Medicine 09/18/22 Josette Juarez MD [address] [place] [address] [email or web address] Insurance Assigned Provider 06/22/20 04/19/21 Andreia Kincaid MD [address] [place] [address] [email or web address] Insurance Assigned Provider 04/19/21 10/17/22 Josette Juarez MD [address] [place] [address] [email or web address] Insurance Assigned Provider 11/21/22 01/16/23 Tamika Villalta CNP [address] [place] [address] 7 [place] [address] [email or web address] Insurance Assigned Provider 12/17/24 documented as of this encounter Additional Source Comments The information contained in this document represents components of the legal health record. It is not the complete legal health record.[facility]
--- OUTSIDE RECORDS SUMMARY | 2025-05-15 13:13 | XMS_ITS | Encounter Summary ---
Author Organization [facility] Address [address] [place] [address] Phone Care Team Providers Care Switch Adjuster Name Role Phone Josette Juarez MD Primary Care Provider Josette Juarez MD Unavailable Andreia Kincaid MD Primary Care Provider [phone] Andreia Kincaid MD Unavailable [phone] Tamika Villalta CNP Primary Care Provider + Josette Juarez MD Unavailable [phone] Tamika Villalta CNP Unavailable [phone] Encounter Details Date Type Department Care Team (Latest Contact Info) Description 04/26/2020 Transcribe Orders [address] [place] [address] Josette Juarez MD 25 [place] [address] Hypertension, unspecified type (Primary Dx); Hyperlipidemia, unspecified hyperlipidemia type; Fatigue, unspecified type; Vitamin D deficiency Social History Tobacco Use [...] Description 05/24/2025 10:00 AM EDT Office Visit [facility] [address] [place] [address] William Goodman MD 17 [place] [address] Jazmyn Gabriel, PT 21 [place] [address] 05/28/2025 10:15 AM EDT Office Visit [facility] [address] [place] [address] William Goodman MD [address] [place] [phone] Jazmyn Gabriel, PT 21 [place] [address] [email or web address] 05/31/2025 10:00 AM EDT Office Visit [facility] [address] [place] [address] William Goodman MD [address] [place] [address] Jazmyn Gabriel, PT 21 [place] [address] 06/04/2025 10:15 AM EDT Office Visit [facility] [address] [place] [address] William Goodman MD [address] [place] [address] Jazmyn Gabriel, PT 21 [place] [address] 06/07/2025 10:00 AM EDT Office Visit [facility] [address] [place] [address] William Goodman MD 17 [place] [address] Jazmyn Gabriel, PT 21 [place] [address] 06/11/2025 10:15 AM EDT Office Visit [facility] [address] [place] [address] William Goodman MD [address] [place] [phone] Jazmyn Gabriel, PT 21 [place] [address] 06/14/2025 10:00 AM EDT Office Visit [facility] [address] [place] [address] William Goodman MD [address] [place] [address] Jazmyn Gabriel, PT 21 [place] [address] 06/18/2025 10:15 AM EDT Office Visit [facility] [address] [place] [address] William Goodman MD [address] [place] [address] Jazmyn Gabriel, PT 21 [place] [address] 06/21/2025 10:00 AM EDT Office Visit [facility] [address] [place] [address] William Goodman MD 17 [place] [address] Jazmyn Gabriel, PT 21 [place] [address] 06/28/2025 10:00 AM EDT Office Visit [facility] [address] [place] [address] William Goodman MD 17 [place] [address] Jazmyn Gabriel, PT 21 [place] [address] documented as of this encounter Results * Vitamin B12 (04/26/2020 8:01 AM EDT) VITAMIN B12 553 232 - 1,245 pg/mL [facility] Blood 04/26/2020 8:01 AM EDT 04/26/2020 8:06 AM EDT Josette Juarez MD LAB BLOOD ORDERABLES Final R esult Performing Organization Address City/State/[facility] Co de Phone Number [address] [phone] * Folate (04/26/2020 8:01 AM EDT) FOLIC ACID 14.3 4.2 - 19.9 ng/mL [facility] Blood 04/26/2020 8:01 AM EDT 04/26/2020 8:06 AM EDT Josette Juarez MD LAB BLOOD ORDERABLES Final R esult Performing Organization Address City/State/[facility] Co de Phone Number [address] [address] * TSH with reflex (04/26/2020 8:01 AM EDT) Pathologist [facility] TSH 1.92 0.27 - 4.20 uIU/mL [facility] Blood 04/26/2020 8:01 AM EDT 04/26/2020 8:06 AM EDT Josette Juarez MD LAB BLOOD ORDERABLES Final R esult Performing Organization Address [facility] Co de Phone Number [address] [address] * 25-OH vitamin D (04/26/2020 8:01 AM EDT) 25 [place] VIT D (TOTAL) 47 30 - 60 ng/mL [facility] Blood 04/26/2020 8:01 AM EDT 04/26/2020 8:06 AM EDT Josette Juarez MD LAB BLOOD ORDERABLES Final R [facility] Performing Organization Address [facility] Co de Phone Number [address] [address] * (ABNORMAL) Lipid panel (04/26/2020 8:01 AM EDT) HDL 70 mg/dL [facility] Comment: Interpretation <40 mg/dL: Low HDL cholesterol (major risk factor for CHD) Greater than or equal to 60 mg/dL: High HDL cholesterol ( negative risk factor for CHD) HDL - cholesterol is affected by a number of factors, e.g. smoking, excerise, hormones, sex and age. CHOLESTEROL 238 0 - 240 mg/dL [facility] TRIGLYCERIDES 63 30 - 160 mg/dL [facility] LDL 155(H) 50 - 129 mg/dL [facility] Comment: LDL levels in terms of risk for coronary heart disease: <100 mg/dL: Optimal 100-129 mg/dL: Near or above optimal 130-159 mg/dL: Borderline high 160-189 mg/dL: High >190 mg/dL: Very High CARDIAC RISK RATIO 3.4 3.3 - 4.4 C [facility] Blood 04/26/2020 8:01 AM EDT 04/26/2020 8:06 AM EDT Josette Juarez MD LAB BLOOD ORDERABLES Final R esult Performing Organization Address City/[facility]/ZIP Co de Phone Number [address] [address] * (ABNORMAL) Comprehensive metabolic panel (04/26/2020 8:01 AM EDT) SODIUM 140 133 - 146 mmol/L [facility] POTASSIUM 4.3 3.3 - 5.1 mmol/L [facility] CHLORIDE 103 96 - 108 mmol/L [facility] CO2 27 21 - 35 mmol/L [facility] BUN 17 6 - 19 mg/dL [facility] CREATININE 0.60 0.5 - 1.5 mg/dL [facility] GLUCOSE 103(H) 70 - 99 mg/dL [facility] ALBUMIN 4.3 3.9 - 4.8 g/dL [facility] TOTAL PROTEIN 6.8 6.5 - 8.0 g/dL [facility] CALCIUM 9.2 8.4 - 10.3 mg/dL [facility] ALKALINE PHOSPHATASE 57 39 - 117 U/L [facility] TOTAL BILIRUBIN 0.6 0.0 - 1.2 mg/dL [facility] AST 24 0 - 37 U/L [facility] ALT 21 0 - 40 U/L [facility] GLOBULIN 2.5 1 - 4.8 g/dL [facility] EGFR 94 >59 mL/min/1.7 3m2 [facility] Comment:Estimated glomerular filtration rate calculated using the CKD-EPI equation. ANION GAP 14 10 - 20 mmol/L [facility] Blood 04/26/2020 8:01 AM EDT 04/26/2020 8:06 AM EDT Josette Juarez MD LAB BLOOD ORDERABLES Final R esult Performing Organization Address City/[facility] Co de Phone Number [address] [address] * CBC (04/26/2020 8:01 AM EDT) WBC 4.36 4.00 - 11.00 K/uL [facility] Comment:Note Reference Range updates to all CBC and Differential results. RBC 4.39 3.72 - 5.30 M/uL [facility] HGB 12.8 11.4 - 15.9 g/dL [facility] Comment:Note updated Referen ce Ranges for all CBC and Differential results. HCT 38.6 34.2 - 46.8 % [facility] PLT 296 140 - 430 K/uL [facility] MCV 87.9 78.0 - 97.0 fL [facility] MCH 29.2 25.0 - 33.0 pg [facility] MCHC 33.2 32.0 - 36.0 g/dL [facility] RDW 12.6 11.0 - 16.0 % [facility] MPV 9.5 8.4 - 12.8 [facility] NRBC 0.00 0 /100 WBCs [facility] ABSOLUTE NRBC 0.00 0 K/uL [facility] Blood 04/26/2020 8:01 AM EDT 04/26/2020 8:06 AM EDT Josette Juarez MD LAB BLOOD ORDERABLES Final R esult Performing Organization Address [facility] Co de Phone Number [address] [address] documented in this encounter Visit Diagnoses Diagnosis Hypertension, unspecified type- Primary Hyperlipidemia, unspecified hyperlipidemia type Fatigue, unspecified type Vitamin D deficiency documented in this encounter Additional Health Concerns Infection Onset Date Last Indicated Resolved Time CoV-Presumed 08/27/2022 08/27/2022 09/17/2022 1:22 AM EST CoV-Risk Comment:Per Ambulatory Triage Form 10/22/2022 10/22/202211/02 1:24 AM EST documented as of this encounter Care Teams Switch Adjuster Relationship Specialty Start Date End Date Josette Juarez MD [address] [place] [address] 1 [place] [address] [email or web address] PCP - General Internal Medicine 09/20/17 12/24/20 Andreia Kincaid MD [address] [place] [address] [email or web address] PCP - General Family Medicine 12/25/20 09/17/22 Tamika Villalta, MARKETING DEVELOPER [address] [place] [address] 7 [place] [address] [email or web address] PCP - General Family Medicine 09/18/22 Josette Juarez MD [address] [place] [address] [email or web address] Insurance Assigned Provider 06/22/20 04/19/21 Andreia Kincaid MD [address] [place] [address] [email or web address] Insurance Assigned Provider 04/19/21 10/17/22 Josette Juarez MD [address] [place] [address] [email or web address] Insurance Assigned Provider 11/21/22 01/16/23 Tamika Villalta, TONY [address] [place] [address] 7 [place] [address] [email or web address] Insurance Assigned Provider 12/17/24 documented as of this encounter Additional Source Comments The information contained in this document represents components of the legal health record. It is not the complete legal health record.[facility]
--- OUTSIDE RECORDS SUMMARY | 2025-05-15 13:13 | XMS_ITS | Encounter Summary ---
Author Organization [facility] Address [address] [place] [address] Phone Care Team Providers Care Nuclear Technician Name Role Phone Josette Juarez MD Primary Care Provider Josette Juarez MD Unavailable [phone] Andreia Kincaid MD Primary Care Provider Andreia Kincaid MD Unavailable [phone] Tamika Villalta CNP Primary Care Provider + Josette Juarez MD Unavailable [phone] Tamika Villalta CNP Unavailable [phone] Encounter Details Date Type Department Care Team (Late st Contact Info) Description 04/25/2019 Transcribe Orders [address] [place] [address] Josette Juarez MD [address] [place] [address] Numbness (Primary Dx) Social History Tobacco Use Types [...] Description 05/24/2025 10:00 AM EDT Office Visit [facility] [address] [place] [address] William Goodman MD 17 [place], [place] [phone] Jazmyn Gabriel, PT 21 [place] [address] 05/28/2025 10:15 AM EDT Office Visit [facility] [address] [place] [address] William Goodman MD [address] [place], [place] [phone] Jazmyn Gabriel, PT [address] [place] [address] 05/31/2025 10:00 AM EDT Office Visit [facility] [address] [place] [address] William Goodman MD [address] [place], [place] [phone] Jazmyn Gabriel, PT 21 [place] [address] 06/04/2025 10:15 AM EDT Office Visit [facility] [address] [place] [address] William Goodman MD [address] [place] [address] Jazmyn Gabriel, PT 21 [place] [address] 06/07/2025 10:00 AM EDT Office Visit [facility] [address] [place] [address] William Goodman MD [address] [place] [address] Jazmyn Gabriel, PT [address] [place] [address] 06/11/2025 10:15 AM EDT Office Visit [facility] [address] [place] [address] William Goodman MD [address] [place], [place] [phone] Jazmyn Gabriel, PT [address] [place] [address] 06/14/2025 10:00 AM EDT Office Visit [facility] [address] [place] [address] William Goodman MD [address] [place] [address] Jazmyn Gabriel, PT [address] [place] [address] 06/18/2025 10:15 AM EDT Office Visit [facility] [address] [place] [address] William Goodman MD [address] [place] [address] Jazmyn Gabriel, PT [address] [place] [address] 06/21/2025 10:00 AM EDT Office Visit [facility] [address] [place] [address] William Goodman MD 17 [facility] [place] [address] Jazmyn Gabriel, PT [address] [place] [address] 06/28/2025 10:00 AM EDT Office Visit [facility] [address] [place] [address] William Goodman MD [address] [place] [address] Jazmyn Gabriel, PT [address] [place] [address] documented as of this encounter Results * TSH with reflex (04/25/2019 2:43 PM EDT) TSH 1.74 0.27 - 4.20 uIU/mL [facility] Blood 04/25/2019 2:43 PM EDT 04/25/2019 2:46 PM EDT Josette Juarez MD LAB BLOOD ORDERABLES Final R esult [address] [address] * LFTs (hepatic panel) (04/25/2019 2:43 PM EDT) ALKALINE PHOSPHATASE 68 39 - 117 U/L [facility] TOTAL BILIRUBIN 0.5 0.0 - 1.2 mg/dL [facility] DIRECT BILIRUBIN <0.2 0 - 0.3 mg/dL [facility] Bilirubin (Indirect) NOT CALCULATED 0 - 1.5 mg/dL [facility] AST 35 0 - 37 U/L [facility] ALT 34 0 - 40 U/L [facility] TOTAL PROTEIN 7.0 6.5 - 8.0 g/dL [facility] ALBUMIN 4.5 3.9 - 4.8 g/dL [facility] GLOBULIN 2.5 1 - 4.8 g/dL [facility] A/G Ratio 1.80 1.00 - 4.80 RATIO [facility] Blood 04/25/2019 2:43 PM EDT 04/25/2019 2:46 PM EDT Josette Juarez MD LAB BLOOD ORDERABLES Final R esult [address] [address] * Magnesium (04/25/2019 2:43 PM EDT) MAGNESIUM 1.9 1.6 - 2.6 mg/dL [facility] Blood 04/25/2019 2:43 PM EDT 04/25/2019 2:46 PM EDT us Josette Juarez MD LAB BLOOD ORDERABLES Final R esult Performing Organization Address [facility]/ZIP Co de Phone Number [address] [address] * Folate (04/25/2019 2:43 PM EDT) FOLIC ACID 12.4 4.2 - 19.9 ng/mL [facility] Blood 04/25/2019 2:43 PM EDT 04/25/2019 2:46 PM EDT Josette Juarez MD LAB BLOOD ORDERABLES Final R esult Performing Organization Address City/[facility]/ZIP Co de Phone Number [address] [address] * Vitamin B12 (04/25/2019 2:43 PM EDT) VITAMIN B12 686 232 - 1,245 pg/mL [facility] Blood 04/25/2019 2:43 PM EDT 04/25/2019 2:46 PM EDT us Josette Juarez MD LAB BLOOD ORDERABLES Final R esult [facility] [address] [place] [address] * (ABNORMAL) CBC and differential (04/25/2019 2:43 PM EDT) WBC 6.57 3.40 - 11.20 K/uL [facility] RBC 4.32 3.80 - 4.80 M/uL [facility] HGB 13.1 12.0 - 15.0 g/dL [facility] HCT 38.0 36.0 - 46.0 % [facility] PLT 332 130 - 400 K/uL [facility] MCV 88.0 79.0 - 98.0 fL [facility] MCH 30.3 27.0 - 34.8 pg [facility] MCHC 34.5 31.5 - 36.0 g/dL [facility] RDW 12.7 10.8 - 14.6 % [facility] MPV 9.3(L) 9.4 - 12.4 fl [facility] NRBC 0.00 0.00 /100 WBCs [facility] ABSOLUTE NRBC 0.00 0.00 K/uL [facility] DIFF METHOD Auto [facility] NEUTS 61.2 45.30 - 77.70 % [facility] LYMPHS 29.1 12.30 - 39.70 % [facility] MONOS 8.5 4.10 - 12.80 % [facility] EOS 0.5 0 - 7.2 % [facility] BASOS 0.5 0 - 2.80 % [facility] Granulocytes, immature (%) 0.2 0.0 - 0.9 % [facility] ABSOLUTE NEUTS 4.03 1.40 - 7.70 K/uL [facility] ABSOLUTE LYMPHS 1.91 0.60 - 3.20 K/uL [facility] ABSOLUTE MONOS 0.56 0.11 - 0.59 K/uL [facility] ABSOLUTE EOS 0.03 0.01 - 0.50 K/uL [facility] ABSOLUTE BASOS 0.03 0.00 - 0.08 K/uL [facility] Granulocytes, immature 0.01 0.00 - 0.05 K/uL [facility] Blood 04/25/2019 2:43 PM EDT 04/25/2019 2:46 PM EDT us Josette Juarez MD LAB BLOOD ORDERABLES Final R esult [facility] [address] [place] [address] documented in this encounter Visit Diagnoses Diagnosis Numbness- Primary Disturbance of skin sensation documented in this encounter Additional Health Concerns Infection Onset Date Last Indicated Resolved Time CoV-Presumed 08/27/2022 08/27/2022 09/17/2022 1:22 AM EST CoV-Risk Comment:Per Ambulatory Triage Form 10/22/2022 10/22/202211/02 1:24 AM EST documented as of this encounter Care Teams Nuclear Technician Relationship Specialty Start Date End Date Josette Juarez MD [address] [place] [address] 1 [place] [address] [email or web address] PCP - General Internal Medicine 09/20/17 12/24/20 Andreia Kincaid MD [address] [place] [address] [email or web address] PCP - General Family Medicine 12/25/20 09/17/22 Tamika Villalta CNP [address] [place] [address] [address] [place] [address] [email or web address] PCP - General Family Medicine 09/18/22 Josette Juarez MD [address] [place] [address] [email or web address] Insurance Assigned Provider 06/22/20 04/19/21 Andreia Kincaid MD [address] [place] [address] [email or web address] Insurance Assigned Provider 04/19/21 10/17/22 Josette Juarez MD [address] [place] [address] [email or web address] Insurance Assigned Provider 11/21/22 01/16/23 Tamika Villalta CNP [address] [place] [address] 7 [place] [address] [email or web address] Insurance Assigned Provider 12/17/24 documented as of this encounter Additional Source Comments The information contained in this document represents components of the legal health record. It is not the complete legal health record.[facility]
--- OUTSIDE RECORDS SUMMARY | 2025-05-15 13:13 | XMS_ITS | Encounter Summary ---
Author Organization [facility] Address [address] [place] [address] Phone Care Team Providers Care Grocery Carrier Name Role Phone Andreia Kincaid MD Primary Care Provider [phone] Andreia Kincaid MD Unavailable [phone] Tamika Villalta CNP Primary Care Provider + Josette Juarez MD Unavailable [phone] Tamika Villalta CNP Unavailable [phone] Encounter Details Date Type Department Care Team (Late st Contact Info) Description 10/09/2021 Procedure Pass [facility] - [address] [place] [address] Social History Tobacco Use Types Packs/Day Years Used Date Smoking Tobacco: Every Day Cigarettes Started: 12/02/1973 Smokeless Tobacco: Never Child or Family Care Answer Date Record ed Do you have problems with on e of the following making it difficult for you to work, study, or receive health care? No 02/25/2021 Education Answer Date Recorded Are you interested in help w ith more adult education (for example, completing high school, GED, job training, learning the Finnish language, technical skills, or developing parenting skills)? No 02/25/2021 Food Answer Date Recorded Within the past [...] basis, and looking for work? No 02/25/2021 Comments No Sex and Gender Information Value Date Recorded Sex Assigned at Female 11/24/2020 7:42 AM EDT Legal Sex Female 9:59 PM EDT Gender Identity Female 11/24/2020 7:42 AM EDT Sexual Orientation Not on file documented as of this encounter Plan of Treatment Upcoming Encounters Date Type Department Care Team (Late st Contact Info) Description 05/24/2025 10:00 AM EDT Office Visit [facility] [address] [place] [address] William Goodman MD 17 [place] [address] Jazmyn Gabriel, PT 21 [place] [address] 05/28/2025 10:15 AM EDT Office Visit [facility] [address] [place] [address] William Goodman MD 17 [place] [address] Jazmyn Gabriel, PT [address] [place] [address] [email or web address] 05/31/2025 10:00 AM EDT Office Visit [facility] [address] [place] [address] William Goodman MD 17 [place], [place] [id number] Jazmyn Gabriel, PT 21 [place] [address] 06/04/2025 10:15 AM EDT Office Visit [facility] [address] [place] [address] William Goodman MD 17 [place], [place] [id number] Jazmyn Gabriel, PT [address] [place] [address] [email or web address] 06/07/2025 10:00 AM EDT Office Visit [facility] [address] [place] [address] William Goodman MD 17 [place], [place] [id number] Jazmyn Gabriel, PT [address] [place] [address] 06/11/2025 10:15 AM EDT Office Visit [facility] [address] [place] [address] William Goodman MD 17 [place] [address] Jazmyn Gabriel, PT [address] [place] [address] [email or web address] 06/14/2025 10:00 AM EDT Office Visit [facility] [address] [place] [address] William Goodman MD [address] [place], [place] [id number] Jazmyn Gabriel, PT [address] [place] [address] [email or web address] 06/18/2025 10:15 AM EDT Office Visit [facility] [address] [place] [address] William Goodman MD [address] [place] [id number] Jazmyn Gabriel, PT [address] [place] [address] [email or web address] 06/21/2025 10:00 AM EDT Office Visit [facility] [address] [place] [address] William Goodman MD 17 [place], [place] [id number] Jazmyn Gabriel, PT [address] [place] [address] 06/28/2025 10:00 AM EDT Office Visit [facility] 21 [place] [address] William Goodman MD 17 [place] [address] Jazmyn Gabriel, PT [address] [place] [address] [email or web address] documented as of this encounter Visit Diagnoses Not on filedocumented in this encounter Additional Health Concerns Infection Onset Date Last Indicated Resolved Time CoV-Presumed 08/27/2022 08/27/2022 09/17/2022 1:22 AM EST CoV-Risk Comment:Per Ambulatory Triage Form 10/22/2022 10/22/202211/02 1:24 AM EST Assessment Noted Time PHQ-2 Depression Total Score: 2 10/09/19 7:43 AM EST documented as of this encounter Care Teams Grocery Carrier Relationship Specialty Start Date End Date Andreia Kincaid MD [email or web address] PCP - General Family Medicine 12/25/20 09/17/22 Tamika Villalta CNP [address] [place] [address] 7 [place] [address] [email or web address] PCP - General Family Medicine 09/18/22 Andreia Kincaid MD [address] [place] [address] [email or web address] Insurance Assigned Provider 04/19/21 10/17/22 Josette Juarez MD [address] [place] [address] [email or web address] Insurance Assigned Provider 11/21/22 01/16/23 Tamika Villalta CNP [address] [place] [address] 7 [place] [address] [email or web address] Insurance Assigned Provider 12/17/24 documented as of this encounter Additional Source Comments The information contained in this document represents components of the legal health record. It is not the complete legal health record.[facility]
--- OUTSIDE RECORDS SUMMARY | 2025-05-15 13:13 | XMS_ITS | Encounter Summary ---
Author Organization [facility] Address [address] [place], [place] [phone] Phone Care Team Providers Care Electronic Warfare Operator Name Role Phone Josette Juarez MD Primary Care Provider Josette Juarez MD Unavailable Andreia Kincaid MD Primary Care Provider Andreia Kincaid MD Unavailable [phone] Tamika Villalta CNP Primary Care Provider + Josette Juarez MD Unavailable Tamika Villalta CNP Unavailable Encounter Details Date Type Department Care Team (Late st Contact Info) Description 02/03/2019 Ancillary Orders [facility] Scan - [address] [address] Josette Juarez MD [address] [place] [address] Social History Tobacco Use Types Packs/Day Years [...] Description 05/24/2025 10:00 AM EDT Office Visit [facility] [address] [place] [address] William Goodman MD 17 [place], [place] [phone] Jazmyn Gabriel, PT 21 [place] [address] 05/28/2025 10:15 AM EDT Office Visit [facility] [address] [place] [address] William Goodman MD 17 [place], [place] [id number] Jamzyn Gabriel, PT 21 [place] [address] 05/31/2025 10:00 AM EDT Office Visit [facility] [address] [place] [address] William Goodman MD [address] [place] [id number] Jazmyn Gabriel, PT 21 [place] [address] 06/04/2025 10:15 AM EDT Office Visit [facility] [address] [place] [address] William Goodman MD [address] [place] [address] Jazmyn Gabriel, PT 21 [place] [address] 06/07/2025 10:00 AM EDT Office Visit [facility] [address] [place] [address] William Goodman MD 17 [place], [place] [phone] Jazmyn Gabriel, PT [address] [place] [address] 06/11/2025 10:15 AM EDT Office Visit [facility] [address] [place] [address] William Goodman MD 17 [place], [place] [phone] Jazmyn Gabriel, PT 21 [place] [address] 06/14/2025 10:00 AM EDT Office Visit [facility] [address] [place] [address] William Goodman MD 17 [place], [place] [phone] Jazmyn Gabriel, PT [address] [place] [address] 06/18/2025 10:15 AM EDT Office Visit [facility] [address] [place] [address] William Goodman MD 17 [place] [address] Jazmyn Gabriel, PT 21 [place] [address] 06/21/2025 10:00 AM EDT Office Visit [facility] [address] [place] [address] William Goodman MD 17 [place] [address] Jazmyn Gabriel, PT 21 [place] [address] [email or web address] 06/28/2025 10:00 AM EDT Office Visit [facility] [address] [place] [address] William Goodman MD 17 [place] [address] Jazmyn Gabriel, PT [address] [place] [address] [email or web address] documented as of this encounter Visit Diagnoses Not on filedocumented in this encounter Additional Health Concerns Infection Onset Date Last Indicated Resolved Time CoV-Presumed 08/27/2022 08/27/2022 09/17/2022 1:22 AM EST CoV-Risk Comment:Per Ambulatory Triage Form 10/22/2022 10/22/202211/02 1:24 AM EST documented as of this encounter Care Teams Electronic Warfare Operator Relationship Specialty Start Date End Date Josette Juarez MD [address] [place] [address] 1 [place] [address] [email or web address] PCP - General Internal Medicine 09/20/17 12/24/20 Andreia Kincaid MD [address] [place] [address] [email or web address] PCP - General Family Medicine 12/25/20 09/17/22 Tamika Villalta CNP [address] [place] [address] 7 [place] [address] [email or web address] PCP - General Family Medicine 09/18/22 Josette Juarez MD [address] [place] [address] [email or web address] Insurance Assigned Provider 06/22/20 04/19/21 Andreia Kincaid MD [address] [place] [address] [email or web address] Insurance Assigned Provider 04/19/21 10/17/22 Josette Juarez MD [address] [place] [address] [email or web address] Insurance Assigned Provider 11/21/22 01/16/23 Tamika Villalta CNP [address] [place] [address] [address] [place] [address] [email or web address] Insurance Assigned Provider 12/17/24 documented as of this encounter Additional Source Comments The information contained in this document represents components of the legal health record. It is not the complete legal health record.[facility]
--- OUTSIDE RECORDS SUMMARY | 2025-05-15 13:13 | XMS_ITS | Encounter Summary ---
Author Organization [facility] Address [address] [place] [address] Phone Care Team Providers Care Anesthesia Associate Name Role Phone Josette Juarez MD Primary Care Provider Josette Juarez MD Unavailable Andreia Kincaid MD Primary Care Provider Andreia Kincaid MD Unavailable [phone] Tamika Villalta CNP Primary Care Provider + Josette Juarez MD Unavailable [phone] Tamika Villalta CNP Unavailable [phone] Encounter Details Date Type Department Care Team (Late st Contact Info) Description 11/04/2018 Transcribe Orders [address] [place] [address] Josette Juarez MD 25 [place] [address] Hypertension, unspecified type (Primary Dx) Social History Tobacco Use [...] Description 05/24/2025 10:00 AM EDT Office Visit [facility] [address] [place] [address] William Goodman MD [address] [place], [place] [phone] Jazmyn Gabriel, PT 21 [place] [address] 05/28/2025 10:15 AM EDT Office Visit [facility] [address] [place] [address] William Goodman MD [address] [place], [place] [id number] Jazmyn Gabriel, PT [address] [place] [address] 05/31/2025 10:00 AM EDT Office Visit [facility] [address] [place] [address] William Goodman MD [address] [place], [place] [phone] Jazmyn Gabriel, PT [address] [place] [address] 06/04/2025 10:15 AM EDT Office Visit [facility] [address] [place] [address] William Goodman MD [address] [place] [address] Jazmyn Gabriel, PT [address] [place] [address] 06/07/2025 10:00 AM EDT Office Visit [facility] [address] [place] [address] William Goodman MD [address] [place], [place] [phone] Jazmyn Gabriel, PT [address] [place] [address] 06/11/2025 10:15 AM EDT Office Visit [facility] [address] [place] [address] William Goodman MD [address] [place], [place] [phone] Jazmyn Gabriel, PT [address] [place] [address] 06/14/2025 10:00 AM EDT Office Visit [facility] [address] [place] [address] William Goodman MD [address] [place], [place] [phone] Jazmyn Gabriel, PT [address] [place] [address] 06/18/2025 10:15 AM EDT Office Visit [facility] [address] [place] [address] William Goodman MD [address] [place] [address] Jazmyn Gabriel, PT [address] [place] [address] 06/21/2025 10:00 AM EDT Office Visit [facility] [address] [place] [address] William Goodman MD [address] [place] [address] Jazmyn Gabriel, PT [address] [place] [address] 06/28/2025 10:00 AM EDT Office Visit [facility] [address] [place] [address] William Goodman MD [address] [place] [address] Jazmyn Gabriel, PT [address] [place] [address] [email or web address] documented as of this encounter Results * (ABNORMAL) Basic metabolic panel (11/04/2018 12:21 PM EST) SODIUM 143 133 - 146 mmol/L [facility] CHLORIDE 102 96 - 108 mmol/L [facility] POTASSIUM 4.0 3.3 - 5.1 mmol/L [facility] CO2 31 21 - 35 mmol/L [facility] BUN 13 6 - 19 mg/dL [facility] CREATININE 0.70 0.5 - 1.5 mg/dL [facility] GLUCOSE 129(H) 70 - 99 mg/dL [facility] CALCIUM 9.3 8.4 - 10.3 mg/dL [facility] EGFR 90 >59 mL/min/1.7 3m2 [facility] Comment:If patient is black, multiply result by 1.159. Estimated glomerular filtration rate calculated using the CKD-EPI equation. ANION GAP 14 10 - 20 mmol/L [facility] Blood 11/04/2018 12:2 1 PM EST 11/04/2018 12:23 PM EST Josette Juarez MD LAB BLOOD ORDERABLES Final R esult [facility] [address] [place] [address] documented in this encounter Visit Diagnoses Diagnosis Hypertension, unspecified type- Primary documented in this encounter Additional Health Concerns Infection Onset Date Last Indicated Resolved Time CoV-Presumed 08/27/2022 08/27/2022 09/17/2022 1:22 AM EST CoV-Risk Comment:Per Ambulatory Triage Form 10/22/2022 10/22/202211/02 1:24 AM EST documented as of this encounter Care Teams Anesthesia Associate Relationship Specialty Start Date End Date Josette Juarez MD [address] [place] [address] 1 [place] [address] [email or web address] PCP - General Internal Medicine 09/20/17 12/24/20 Andreia Kincaid MD [address] [place] [address] [email or web address] PCP - General Family Medicine 12/25/20 09/17/22 Tamika Villalta CNP [address] [place] [address] 7 [place] [address] [email or web address] PCP - General Family Medicine 09/18/22 Josette Juarez MD [address] [place] [address] [email or web address] Insurance Assigned Provider 06/22/20 04/19/21 Andreia Kincaid MD [address] [place] [address] [email or web address] Insurance Assigned Provider 04/19/21 10/17/22 Josette Juarez MD [address] [place] [address] [email or web address] Insurance Assigned Provider 11/21/22 01/16/23 Tamika Villalta CNP [address] [place] [address], [address] [place] [address] [email or web address] Insurance Assigned Provider 12/17/24 documented as of this encounter Additional Source Comments The information contained in this document represents components of the legal health record. It is not the complete legal health record.[facility]
--- OUTSIDE RECORDS SUMMARY | 2025-05-15 13:13 | XMS_ITS | Encounter Summary ---
Author Organization [facility] Address [address] [place] [address] Phone Care Team Providers Care Beveller Operator Name Role Phone Josette Jaurez MD Primary Care Provider Josette Juarez MD Unavailable Andreia Kincaid MD Primary Care Provider [phone] Andreia Kincaid MD Unavailable [phone] Tamika Villalta CNP Primary Care Provider + Josette Juarez MD Unavailable [phone] Tamika Villalta CNP Unavailable [phone] Encounter Details Date Type Department Care Team (Late st Contact Info) Description 06/14/2020 Procedure Pass [facility] - [address] [place] [address] Social History Tobacco Use Types Packs/Day Years [...] Description 05/24/2025 10:00 AM EDT Office Visit [facility] [address] [place] [address] William Goodman MD 17 [place] [address] Jazmyn Gabriel, PT 21 [place] [address] 05/28/2025 10:15 AM EDT Office Visit [facility] [address] [place] [address] William Goodman MD 17 [place] [address] Jazmyn Gabriel, PT [address] [place] [address] 05/31/2025 10:00 AM EDT Office Visit [facility] [address] [place] [address] William Goodman MD [address] [place] [address] Jazmyn Gabriel, PT [address] [place] [address] 06/04/2025 10:15 AM EDT Office Visit [facility] [address] [place] [address] William Goodman MD [address] [place] [address] Jazmyn Gabriel, PT [address] [place] [address] 06/07/2025 10:00 AM EDT Office Visit [facility] [address] [place] [address] William Goodman MD [address] [place] [address] Jazmyn Gabriel, PT [address] [place] [address] 06/11/2025 10:15 AM EDT Office Visit [facility] [address] [place] [address] William Goodman MD 17 [place] [address] Jazmny Gabriel, PT [address] [place] [address] 06/14/2025 10:00 AM EDT Office Visit [facility] [address] [place] [address] William Goodman MD [address] [place] [address] Jazmyn Gabriel, PT [address] [place] [address] 06/18/2025 10:15 AM EDT Office Visit [facility] [address] [place] [address] William Goodman MD [address] [place] [address] Jazmyn Gabriel, PT 21 [place] [address] 06/21/2025 10:00 AM EDT Office Visit [facility] [address] [place] [address] William Goodman MD [address] [place] [address] Jazmyn Gabriel, PT [address] [place] [address] [email or web address] 06/28/2025 10:00 AM EDT Office Visit [facility] [address] [place] [address] William Goodman MD 17 [place] [address] Jazmyn Gabriel, PT [address] [place] [address] [email or web address] documented as of this encounter Visit Diagnoses Not on filedocumented in this encounter Additional Health Concerns Infection Onset Date Last Indicated Resolved Time CoV-Presumed 08/27/2022 08/27/2022 09/17/2022 1:22 AM EST CoV-Risk Comment:Per Ambulatory Triage Form 10/22/2022 10/22/202211/02 1:24 AM EST documented as of this encounter Care Teams Beveller Operator Relationship Specialty Start Date End Date Josette Juarez MD [address] [place] [address] [email or web address] PCP - General Internal Medicine 09/20/17 12/24/20 Andreia Kincaid MD [address] [place] [address] [email or web address] PCP - General Family Medicine 12/25/20 09/17/22 Tamika Villalta CNP [address] [place] [address] [email or web address] PCP - General Family Medicine 09/18/22 Josette Juarez MD 25 [place] [address] [email or web address] Insurance Assigned Provider 06/22/20 04/19/21 Andreia Kincaid MD [address] [place] [address] [email or web address] Insurance Assigned Provider 04/19/21 10/17/22 Josette Juarez MD 25 [place] [address] [email or web address] Insurance Assigned Provider 11/21/22 01/16/23 Tamika Villalta CNP [address] [place] [address] 7 [place] [address] [email or web address] Insurance Assigned Provider 12/17/24 documented as of this encounter Additional Source Comments The information contained in this document represents components of the legal health record. It is not the complete legal health record.[facility]
--- OUTSIDE RECORDS SUMMARY | 2025-05-15 13:13 | XMS_ITS | Clinical Summary ---
Author Organization [facility] Address [address] [place] [phone] Phone Care Team Providers Care Digester Hand Name Role Phone Tamika Villalta CNP Primary Care Provider + Tamika Villalta COVERSTITCH MACHINE OPERATOR Unavailable [phone] Allergies Active Allergy Reactions Criticality Noted Date Comments Erythromycin Asthenia High 12/02/2020 Patient stated that this allergy is from a long time ago and may not be relevant any longer Lansoprazole Asthenia High 12/02/2020 Omeprazole Asthenia High 12/02/2020 Medications vilazodone (VIIBRYD) 20 mg Tab Take 20 mg by mouth daily. Active cholecalciferol (VITAMIN D3) 2,000 unit capsule Take 1,000 Units by mouth daily. Active tretinoin (RETIN-A) 0.05 % cream Apply topically 2 (two) times a week. 2 Active clonazePAM (KLONOPIN) 1 MG tablet TAKE 1/2 TABLET BY MOUTH TWO TIMES A DAY AND 1 TABLET AT BEDTIME DAILY 90 tablet 3 4 Active pravastatin (PRAVACHOL) 40 MG tabletIndication s:Hyperlipemia TAKE ONE TABLET BY MOUTH EVERY EVENING 90 tablet 3 5 Active pantoprazole (PROTONIX) 20 MG tabletIndication s:Medication refill TAKE TWO TABLETS BY MOUTH EVERY DAY 180 tablet 3 5 Active lisinopril (PRINIVIL,ZESTRI L) 20 MG tabletIndication s:Essential hypertension TAKE ONE TABLET BY MOUTH EVERY MORNING 90 tablet 3 5 Active conjugated estrogens (PREMARIN) vaginal cream Active estradioL (ESTRACE) 0.01 % (0.1 mg/gram) vaginal creamIndications :Vaginal atrophy PLACE 2 GRAMS VAGINALLY TWICE A WEEK 42.5 g 5 Active famotidine (PEPCID) 20 MG tablet Take 20 mg by mouth nightly at bedtime. Active triamcinolone acetonide 0.1 % cream APPLY TWO TIMES A DAY TO AFFECTED AREA S) OF TRUNK X 2 WEEKS, TAKE 1 WEEK OFF, FOLLOW WITH MOISTURIZER, REPEAT NEEDED - NOT FOR USE ON FA 5 Active ondansetron (ZOFRAN) 4 MG tablet Take 1 tablet (4 mg total) by mouth every 12 (twelve) hours as needed for nausea. 15 tablet 4 04/20/20 25 Discontin ued(No longer taking) ketoconazole 2 % cream Apply topically daily. 15 g 4 04/20/20 25 Discontin ued(No longer taking) benzonatate (TESSALON) 100 MG capsule 04/20/20 25 Discontin ued(No longer taking) Active Problems Problem Noted Date Diagnosed Date Gastroesophageal reflux disease without esophagi tis 04/20/2025 Tinea pedis of both feet 03/13/2024 Assessment & Plan (04/05/2024 11:12 AM EDT): Assessment & Plan Tinea Pedis: Improvement in itching and redness after three weeks of antifungal treatment. Some residual redness and moisture between toes. -Continue antifungal cream. -Encouraged to keep feet dry and change socks frequently. Assessment & Plan (03/13/2024 12:08 PM EDT): Tinea Pedis (Athlete's Foot): Red, itchy rash between toes for a couple of weeks. Some improvement with hydrocortisone. No pain, but occasional sharp sensation. Likely due to increased exercise and consistent sock use. -Prescribe Ketoconazole cream, apply once daily. -Advise to keep area dry, especially after exercise and showering. Remove sweaty socks promptly. Other insomnia 01/11/2024 Flatulence 11/30/2023 Assessment & Plan (11/30/2023 2:00 PM EDT): No alarm symptoms. We did discuss low FODMAPs diet. She can try taking a daily probiotic as well. Can continue gas-x as needed. If dietary changes not effective can refer to GI. 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 She is stopped the gabapentin and is managing this symptomatically. I gave her guidance regarding timeline on when this should improve and to call if this does not continue to improve week to week. She understands and agrees with this plan. Rash and other nonspecific skin eruption 023 Assessment & Plan (04/05/2024 11:12 AM EDT): Chest Rash: Persistent for a couple of weeks. No significant improvement with hydrocortisone. Rash worsens after showering, possibly due to water temperature or water hardness. -Advise to reduce shower water temperature and avoid direct water contact on chest. -Consider stronger steroid if no improvement. -Patient has a dermatology appointment scheduled for end of April. Assessment & Plan (12/01/2022 10:49 AM EDT): I diagnosed Cheyenne with a fungal rash of the lower abdominal fold and I wrote a prescription for nystatin powder-to be applied as directed. She will call if this does not improve or if this gets worse. Annual physical exam 11/13/2022 Assessment & Plan (09/28/2023 11:58 AM EST): In typical health. No concerning findings on exam, no care gaps to address. Assessment & Plan (11/13/2022 11:25 AM EST): Reports good health, I don't feel like I'm 72 . No care gaps to address today. Subacute cough 10/22/2022 Assessment & Plan (10/22/2022 4:27 PM EST): Cheyenne presents for a persistent cough. I believe she has a lower lung infection based on her lung sounds. I treated her with doxycycline today-to be taken as directed. I gave her guidance regarding side effects and also gave guidance regarding additional symptomatic management. She will call if things get worse or if there are any other issues or concerns. She understands and agrees. Burning tongue 09/21/2022 Assessment & Plan (09/21/2022 5:23 PM EST): Exam without evidence of thrush or stomatitis. We will check B12 and some other labs. Urged smoking cessation. Anxiety and depression 12/02/2020 Overview (05/18/2023): Followed by psychiatry On Vybrid, klonopin, hydroxyzine Assessment & Plan (05/18/2023 9:53 AM EDT): She is stable. Cont current treatment. Assessment & Plan (12/01/2022 10:48 AM EDT): Cheyenne has anxiety and depression. She is taking her medication as directed and it does help but she notes that she gets flareups from time to time. I gave her support and guidance. She sees a therapist. She will call if things get worse. She understands and agrees. Sleep apnea 12/02/2020 Overview (12/02/2020): cpap Assessment & Plan (05/18/2023 10:03 AM EDT): No acute issue. Referred to sleep medicine for gen fu as its been several yrs since evaluated and she is requesting fu. Essential hypertension 12/02/2020 Overview (05/18/2023): On lisinopril Assessment & Plan (01/26/2025 4:17 PM EDT): Continue with current regimen of lisinopril. Patient with no concerns today. BP 110/68. Assessment & Plan (09/28/2023 12:06 PM EST): Well controlled on 20mg lisinopril, would like go decrease. We did discuss her BP is likely well managed due to her medications. Continue current dosing. Assessment & Plan (05/18/2023 9:52 AM EDT): Well controlled. No side effects. Continue. Assessment & Plan (11/13/2022 11:26 AM EST): Has been having blood pressure checked at the [facility], reports she is always less than 120s/80s. Continue current management. Hyperlipemia 12/02/2020 Assessment & Plan (09/28/2023 12:14 PM EST): We did discuss that for better cardiac protection LDL should be <100 if not <70. She is not interested in changing her medication dosing at this time. Is working on diet and exercise. Will recheck lipids in 6 months. OA (osteoarthritis) of knee 12/02/2020 Assessment & Plan (11/13/2022 11:24 AM EST): Has been dealing with chronic pain. Is seeing ortho next week to discuss knee replacement. Tobacco abuse 12/02/2020 Assessment & Plan (11/13/2022 11:25 AM EST): Has been cutting down slowly. Denies that she has ever been a heavy smoker. Spondylolisthesis Scoliosis of thoracolumbar spine Resolved Problems Problem Noted Date Diagnosed Date Resolved Date Other insomnia 10/05/2023 01/11/2024 Encounters Date Type Department Care Team Description 04/20/2025 11:20 AM EDT Office Visit [facility] [address] [place] [address] Hiram England MD Pre-operative examination (Primary Dx); Primary osteoarthritis of right knee; Essential hypertension; Gastroesophageal reflux disease without esophagitis 04/17/2025 Orders Only [facility] [address] [place] [address] ProviderDory MD 04/04/2025 10:45 AM EDT Office Visit [facility] [address] [place] [address] Eminence, Kailechula Marry, COVERSTITCH MACHINE OPERATOR Dill, Walt Lise, EMERGENCY TELECOMMUNICATIONS DISPATCHER Pain in left leg (Primary Dx) 04/02/2025 1:45 PM EDT Office Visit [facility] [address] [place] [address] Pawan, Kaileen Tesfaye, COVERSTITCH MACHINE OPERATOR Laurenitis, Urbano, PT Pain in left leg (Primary Dx) 03/28/2025 1:00 PM EDT Office Visit [facility] [address] [place] [address] Eminence, Kaileen Tesfaye, COVERSTITCH MACHINE OPERATOR Dill, Walt Lise, EMERGENCY TELECOMMUNICATIONS DISPATCHER Pain in left leg (Primary Dx) 03/26/2025 3:15 PM EDT Office Visit [facility] [address] [place] [address] Pawan, Kaileen Tesfaye, COVERSTITCH MACHINE OPERATOR Laurenitis, Urbano, PT Pain in left leg (Primary Dx) 03/26/2025 Refill [facility] [address] [place] [address] Renée Suazo, [facility] Medication Refill 03/22/2025 Transcribe Orders [facility] [address] [place] [address] William Goodman MD Encounter for rehabilitation (Primary Dx) 03/21/2025 9:15 AM EDT Office Visit [facility] [address] [place] [address] Eminence, Kailechula Marry, COVERSTITCH MACHINE OPERATOR Dill, Walt Lise, EMERGENCY TELECOMMUNICATIONS DISPATCHER Pain in left leg (Primary Dx) 03/19/2025 10:00 AM EDT Office Visit [facility] [address] [place] [address] Eminence, Kailechula Marry, COVERSTITCH MACHINE OPERATOR Dill, Walt DiamondKenzie, EMERGENCY TELECOMMUNICATIONS DISPATCHER Pain in left leg (Primary Dx) 03/14/2025 11:15 AM EDT Office Visit [facility] [address] [place] [address] Tamika Villalta, COVERSTITCH MACHINE OPERATOR Urbano Guillory, PT Pain in left leg (Primary Dx) 03/02/2025 11:00 AM EDT Office Visit [facility] [address] [place] [address] Tamika Villalta, COVERSTITCH MACHINE OPERATOR Kahlil, Urbano, PT Pain in left leg (Primary Dx) 02/21/2025 9:45 AM EDT Office Visit [facility] [address] [place] [address] Tamika Villalta, COVERSTITCH MACHINE OPERATOR Urbano Guillory, PT Pain in left leg (Primary Dx) 02/21/2025 Plan of Care Documentation [facility] [address] [place] [address] from Last 3 Months Immunizations Immunization Administration Dates Next Due COVID-19 (Pre-07/05) Laurie Vaccine, rS-Ad26, PF 11/27/2020 Hepatitis A, Adult 09/18/2018 Influenza High-Dose Quadriva lent Preservative Free IM 07/21/2022 Influenza High-Dose Trivalen t Preservative Free IM 07/19/2024 Influenza Quadrivalent Adjuv anted Preservative Free IM 05/26/2023,07/02/2021,06/14/2020 Influenza Quadrivalent MDCK Preservative Free IM 07/31/2018 Influenza Quadrivalent Preservative Free IM 07/14 Influenza Trivalent Adjuvant ed Preservative free IM 07/14/2019 Influenza, Unspecified Formulation 05/17/2023 Pneumococcal conjugate PCV13 07/31/2014 Pneumococcal polysaccharide PPSV23 10/09/2021 Td (adult),2 Lf Tetanus Toxo id, PF, Adsorbed 09/21/2022,01/18/2007 Zoster recombinant 12/14/2023,06/23/2023 Family History Medical History Relation Comments Alcohol abuse Brother Heart attack Father 58 Rheumatic heart disease Father Lymphoma Mother Rheumatoid arthritis Mother Relation Status Comments Brother Father Mother Social History Tobacco Use Types Packs/Day Years Used Date Smoking Tobacco: Former Cigarettes 0.3 51.4 S tarted: 12/02/1973 Smokeless Tobacco: Never Tobacco Cessation:Counseling Given: Not Answered Comments:was a light smoker. Quit for many [...] your housing situation today? I have lucia sing 09/24/2023 How many times have you move [...] AM EDT Sexual Orientation Not on file Last Filed Vital Signs Vital Sign Reading Time Taken Comments Blood Pressure 110/64 04/20/2025 11:15 AM EDT Pulse 65 04/20/2025 11:15 AM EDT Temperature 36.2 C (97.1 F) 04/20/2025 11:15 AM EDT Respiratory Rate 18 03/13/2024 11:52 AM EDT Oxygen Saturation 98% 04/20/2025 11:15 AM EDT Inhaled Oxygen Concentration - - Weight 64 kg (141 lb) 04/20/2025 11:15 AM EDT Height 160 cm (5' 2.99 ) 04/20/2025 11:15 AM EDT Body Mass Index 24.98 04/20/2025 11:15 AM EDT Plan of Treatment Upcoming Encounters Date Type Department Care Team (Late st Contact Info) Description 05/24/2025 10:00 AM EDT Office Visit [facility] [address] [place] [address] William Goodman MD [address] [place] [address] Jazmyn Gabriel, PT [address] [place] [address] 05/28/2025 10:15 AM EDT Office Visit [facility] [address] [place] [address] William Goodman MD [address] [place] [address] Jazmyn Gabriel, PT [address] [place] [address] [email or web address] 05/31/2025 10:00 AM EDT Office Visit [facility] [address] [place] [address] William Goodman MD [address] [place], [place] [id number] Jazmyn Gabriel, PT [address] [place] [address] [email or web address] 06/04/2025 10:15 AM EDT Office Visit [facility] [address] [place] [address] William Goodman MD [address] [place] [address] Jazmyn Gabriel, PT [address] [place] [address] [email or web address] 06/07/2025 10:00 AM EDT Office Visit [facility] [address] [place] [address] William Goodman MD [address] [place] [address] Jazmyn Gabriel, PT [address] [place] [address] [email or web address] 06/11/2025 10:15 AM EDT Office Visit [facility] [address] [place] [address] William Goodman MD [address] [place], [place] [id number] Jazmyn Gabriel, PT [address] [place] [address] [email or web address] 06/14/2025 10:00 AM EDT Office Visit [facility] [address] [place] [address] William Goodman MD [address] [place], [place] [id number] Jazmyn Gabriel, PT [address] [place] [address] [email or web address] 06/18/2025 10:15 AM EDT Office Visit [facility] [address] [place] [address] William Goodman MD [address] [place] [id number] Jazmyn Gabriel, PT [address] [place] [address] [email or web address] 06/21/2025 10:00 AM EDT Office Visit [facility] [address] [place] [address] William Goodman MD [address] [place], [place] [phone] Jazmyn Gabriel, PT [address] [place] [address] [email or web address] 06/28/2025 10:00 AM EDT Office Visit [facility] [address] [place] [address] William Goodman MD [address] [place] [address] Jazmyn Gabriel, PT [address] [place] [address] [email or web address] Health Maintenance Due Date Last Done Comments SMOKING Hx and SMOKELESS TOBACCO SCREENING 1965 COLOGUARD 1997 FIT TEST 1997 FOBT 1997 SIGMOIDOSCOPY 1997 VIRTUAL COLONOSCOPY 1997 INFLUENZA VACCINE (#1) 2025 , 05/26/2023, 05/17/2023, Additional history exists COVID-19 VACCINE ( season) 2025 07/19/2024, 09/22/2023, 06/12/2022, Additional history exists CREATININE LEVEL 08/02/2025 08/02/2024, , 08/15/2023, Additional history exists POTASSIUM LEVEL 08/02/2025 08/02/2024, 04/14, 08/15/2023, Additional history exists BLOOD PRESSURE 10/21/2025 04/20/2025 DEPRESSION SCREENING 01/26/2026 01/26/2025 MAMMOGRAM 12/20/2026 12/20/2024, 03/0 09/2021, 08/26/2020, Additional history exists RSV VACCINE (1 - 1-dose 75+ series) 2027 LIPID PANEL 05/02/2029 05/02/2024, 01/0 12/2023, 10/29/2021, Additional history exists COLONOSCOPY 04/01/2032 04/01/2022, 11/12/2011 COLORECTAL CANCER SCREENING 04/01/2032 Adult Td,Tdap Booster 09/21/2032 09/21/2022, 007 HEPATITIS C SCREENING Completed 08/16/2015 OSTEOPOROSIS SCREENING INITIAL (ONE-TIME) Completed 10/13/2016 HEPATITIS A VACCINES Aged Out 09/18/2018 No long er eligible based on patient's age to complete this topic PNEUMOCOCCAL VACCINES (50+ years) Completed 10/09/2021, 07/31/2014 ZOSTER VACCINES Completed 12/14/2023, 06/23/2023 HIB VACCINES Aged Out No longer eligi ble based on patient's age to complete this topic MENINGOCOCCAL VACCINES (ACWY) Aged Out No longer eligible based on patient's age to complete this topic MENINGOCOCCAL VACCINES (B) Aged Out N o longer eligible based on patient's age to complete this topic Medical Devices Not on file Procedures Procedure Name Priority Date/Time Associated Diagnosis Comments ECG 12-LEAD Routine 04/20/2025 11:28 AM EDT Pre-operative examination Primary osteoarthritis of right knee OUTSIDE LAB Routine 04/17/2025 12:57 PM EDT BI MAMMOGRAM SCREENING WITH TOMOSYNTHESIS WITH CAD (BILATERAL) Routine 12/20/2024 2:17 PM EDT Visit for screening mammogram COMPREHENSIVE METABOLIC PANEL Routine 08/02/2024 3:19 PM EST Tingling of both feet LIPID PANEL Routine 05/02/2024 2:19 PM EDT Hyperlipidemia, unspecified hyperlipidemia type HM COLONOSCOPY FOR RESULT ENTRY ONLY Routine 04/01/2022 OUTSIDE BONE DENSITY SCREENING Routine 10/13/2016 OUTSIDE HEPATITIS C VIRUS SCREENING Routine 08/16/2015 from Last 3 Months or Most Recently Relevant to Health Maintenance Results * ECG 12-LEAD (04/20/2025 11:28 AM EDT) Narrative EXTERNAL NON-INTERFACED REF LAB - 04/20/2025 11:28 AM EDT Type of EKG: Standard. Global ([id number]). us Hiram England MD ECG ORDERABLES Final Result EXTERNAL NON-INTERFACED REF LAB * Outside Lab (04/17/2025 12:57 PM EDT) us Historical Provider LAB BLOOD ORDERABLES Monica westfall Result * BI MAMMOGRAM SCREENING WITH TOMOSYNTHESIS WITH CAD (BILATERAL) (12/20/2024 2:17 PM EDT) Anatomical Region Laterality Modality Breast Left, Breast Right, Breast Bilateral Bila teral Mammography 12/20/2024 3:16 PM EDT Impressions 12/20/2024 3:17 PM EDT No mammographic evidence of malignancy in either breast. Annual screening mammography is recommended. BI-RADS 1 NEGATIVE The patient will be notified of the results and recommendations. Narrative 12/20/2024 3:17 PM EDT BI MAMMOGRAM SCREENING WITH TOMOSYNTHESIS WITH CAD (BILATERAL) Additional patient information: Screening. COMPARISON: Comparison is made with relevant prior imaging. Breast composition: The breasts are heterogeneously dense, which may obscure small masses. FINDINGS: No abnormal masses, suspicious calcifications, or other significant findings are identified mammographically in either breast. Tamika Villalta COVERSTITCH MACHINE OPERATOR IMG MG EXAMS Final Re sult * Comprehensive metabolic panel (08/02/2024 3:19 PM EST) SODIUM 142 133 - 146 mmol/L [facility] POTASSIUM 4.2 3.3 - 5.1 mmol/L [facility] CHLORIDE 104 96 - 108 mmol/L [facility] CO2 29 21 - 35 mmol/L [facility] BUN 13 6 - 19 mg/dL [facility] CREATININE 0.80 0.5 - 1.5 mg/dL [facility] GLUCOSE 80 70 - 99 mg/dL [facility] ALBUMIN 4.5 3.9 - 4.8 g/dL [facility] TOTAL PROTEIN 7.3 6.5 - 8.0 g/dL [facility] CALCIUM 9.6 8.4 - 10.3 mg/dL [facility] ALKALINE PHOSPHATASE 85 39 - 117 U/L [facility] TOTAL BILIRUBIN 0.7 0.0 - 1.2 mg/dL [facility] AST 26 0 - 37 U/L [facility] ALT 21 0 - 40 U/L [facility] GLOBULIN 2.8 1 - 4.8 g/dL [facility] EGFR 79 >59 mL/min/1.7 3m2 [facility] Comment:Estimated glomerular filtration rate calculated using the CKD-EPI refit equation. ANION GAP 13 10 - 20 mmol/L [facility] Blood 08/02/2024 3:19 PM EST 08/02/2024 3:27 PM EST [employer]rowd[employer]y [employer] COVERSTITCH MACHINE OPERATOR LAB BLOOD ORDERABLES Fin al Result Performing Organization Address City/[facility]/ZIP Co de Phone Number [address] [address] * (ABNORMAL) Lipid panel (05/02/2024 2:19 PM EDT) HDL 67 mg/dL [facility] Comment: Interpretation <40 mg/dL: Low HDL cholesterol (major risk factor for CHD) Greater than or equal to 60 mg/dL: High HDL cholesterol ( negative risk factor for CHD) HDL - cholesterol is affected by a number of factors, e.g. smoking, excerise, hormones, sex and age. CHOLESTEROL 186 0 - 240 mg/dL [facility] TRIGLYCERIDES 103 30 - 160 mg/dL [facility] LDL 98 50 - 129 mg/dL [facility] Comment: LDL levels in terms of risk for coronary heart disease: <100 mg/dL: Optimal 100-129 mg/dL: Near or above optimal 130-159 mg/dL: Borderline high 160-189 mg/dL: High >190 mg/dL: Very High CARDIAC RISK RATIO 2.8(L) 3.3 - 4.4 C [facility] Blood 05/02/2024 2:19 PM EDT 05/02/2024 2:27 PM EDT [employer]row[employer]y [employer] COVERSTITCH MACHINE OPERATOR LAB BLOOD ORDERABLES Fin al Result Performing Organization Address City/[facility]/ZIP Co de Phone Number [address] [address] * HM COLONOSCOPY FOR RESULT ENTRY ONLY (04/01/2022) Historical Provider HEALTH MAINTENANCE Edited Result - Final * OUTSIDE BONE DENSITY SCREENING (10/13/2016) BONE DENSITY SCREENING - EXTERNAL osteopenia Historical Provider HEALTH MAINTENANCE Final Result * Outside Hepatitis C Virus Screening (08/16/2015) Hepatitis C Screening - External Neg Historical Provider LAB BLOOD ORDERABLES Monica l Result from Last 3 Months or Most Recently Relevant to Health Maintenance Insurance MEDICARE PART A & B [facility] MEDICARE SUPPLEMENT MEDICARE PART A & B MEDICARE SUPPLEMENT MEDICARE PART A & B MEDICARE PART A & B MEDICARE PART A & B MEDICARE SUPPLEMENT [facility] Address: [place] [address] MEDICARE PART A & B MEDICARE PART A & B [id number] [place] [address] MEDICARE SUPPLEMENT MEDICARE PART A & B [facility] MEDICARE SUPPLEMENT MEDICARE PART A & B [facility] MEDICARE SUPPLEMENT Care Teams Digester Hand Relationship Specialty Start Date End Date Tamika Villalta CNP [address] [place] [address] [address] [place] [address] [email or web address] PCP - General Family Medicine 09/18/22 Tamika Villalta CNP [address] [place] [address], [facility] [address] [place] [address] [email or web address] Insurance Assigned Provider 12/17/24 Additional Source Comments The information contained in this document represents components of the legal health record. It is not the complete legal health record.[facility]
--- OUTSIDE RECORDS SUMMARY | 2025-05-15 13:13 | XMS_ITS | Encounter Summary ---
Author Organization [facility] Address [address] [place] [address] Phone Care Team Providers Care Video Game Designer Name Role Phone Josette Juarez MD Primary Care Provider Josette Juarez MD Unavailable Andreia Kincaid MD Primary Care Provider [phone] Andreia Kincaid MD Unavailable [phone] Tamika Villalta CNP Primary Care Provider + Josette Juarez MD Unavailable [phone] Tamika Villalta CNP Unavailable [phone] Encounter Details Date Type Department Care Team (Latest Contact Info) Description 08/14/2020 Transcribe Orders [address] [place] [address] Josette Juarez MD [address] [place] [address] Hyperlipidemia, unspecified hyperlipidemia type (Primary Dx) Social [...] Description 05/24/2025 10:00 AM EDT Office Visit [facility] [address] [place] [address] William Goodman MD [address] [place], [place] [id number] Jazmyn Gabriel, PT [address] [place] [address] 05/28/2025 10:15 AM EDT Office Visit [facility] [address] [place] [address] William Goodman MD [address] [place], [place] [id number] Jazmyn Gabriel, PT [address] [place] [address] 05/31/2025 10:00 AM EDT Office Visit [facility] [address] [place] [address] William Goodman MD [address], [place] [id number] Jazmyn Gabriel, PT [address] [place] [address] 06/04/2025 10:15 AM EDT Office Visit [facility] [address] [place] [address] William Goodman MD [address] [place] [address] Jazmyn Gabriel, PT [address] [place] [address] 06/07/2025 10:00 AM EDT Office Visit [facility] [address] [place] [address] William Goodman MD [address] [place], [place] [phone] Jazmyn Gabriel, PT [address] [place] [address] 06/11/2025 10:15 AM EDT Office Visit [facility] [address] [place] [address] William Goodman MD [address], [place] [phone] Jazmyn Gabriel, PT [address] [place] [address] 06/14/2025 10:00 AM EDT Office Visit [facility] [address] [place] [address] William Goodman MD [address] [place], [place] [phone] Jazmyn Gabriel, PT [address] [place] [address] 06/18/2025 10:15 AM EDT Office Visit [facility] [address] [place] [address] William Goodman MD [address] [place] [address] Jazmyn Gabriel, PT [address] [place] [address] 06/21/2025 10:00 AM EDT Office Visit [facility] [address] [place] [address] William Goodman MD [address] [place] [address] Harvey Jazmyn, PT [address] [place] [address] 06/28/2025 10:00 AM EDT Office Visit [facility] [address] [place] [address] William Goodman MD [address] [place] [address] Jazmyn Gabriel, PT [address] [place] [address] [email or web address] documented as of this encounter Results * (ABNORMAL) Lipid panel (08/14/2020 7:36 AM EST) HDL 68 mg/dL [facility] Comment: Interpretation <40 mg/dL: Low HDL cholesterol (major risk factor for CHD) Greater than or equal to 60 mg/dL: High HDL cholesterol ( negative risk factor for CHD) HDL - cholesterol is affected by a number of factors, e.g. smoking, excerise, hormones, sex and age. CHOLESTEROL 201 0 - 240 mg/dL [facility] TRIGLYCERIDES 79 30 - 160 mg/dL [facility] LDL 117 50 - 129 mg/dL [facility] Comment: LDL levels in terms of risk for coronary heart disease: <100 mg/dL: Optimal 100-129 mg/dL: Near or above optimal 130-159 mg/dL: Borderline high 160-189 mg/dL: High >190 mg/dL: Very High CARDIAC RISK RATIO 3.0(L) 3.3 - 4.4 C [facility] Blood 08/14/2020 7:36 AM EST 08/14/2020 7:39 AM EST us Josette Juarez MD LAB BLOOD ORDERABLES Final R esult Performing Organization Address [facility]/ZIP Co de Phone Number [address] [address] * CPK (creatine kinase) (08/14/2020 7:36 AM EST) CREATINE KINASE 63 21 - 215 U/L [facility] Blood 08/14/2020 7:36 AM EST 08/14/2020 7:39 AM EST Josette Juarez MD LAB BLOOD ORDERABLES Final R esult Performing Organization Address [facility] Co de Phone Number [address] [address] * Aspartate aminotransferase (AST) (08/14/2020 7:36 AM EST) AST 25 0 - 37 U/L [facility] Blood 08/14/2020 7:36 AM EST 08/14/2020 7:39 AM EST Josette Juarez MD LAB BLOOD ORDERABLES Final R esult Performing Organization Address [facility] Co de Phone Number [address] [address] * Alanine aminotransferase (ALT) (08/14/2020 7:36 AM EST) ALT 16 0 - 40 U/L [facility] Blood 08/14/2020 7:36 AM EST 08/14/2020 7:39 AM EST Josette Juarez MD LAB BLOOD ORDERABLES Final R esult Performing Organization Address [facility] Co de Phone Number [address] [address] documented in this encounter Visit Diagnoses Diagnosis Hyperlipidemia, unspecified hyperlipidemia type- Primary documented in this encounter Additional Health Concerns Infection Onset Date Last Indicated Resolved Time CoV-Presumed 08/27/2022 08/27/2022 09/17/2022 1:22 AM EST CoV-Risk Comment:Per Ambulatory Triage Form 10/22/2022 10/22/202211/02 1:24 AM EST documented as of this encounter Care Teams Video Game Designer Relationship Specialty Start Date End Date Josette Juarez MD [address] [place] [address] 1 [place] [address] [email or web address] PCP - General Internal Medicine 09/20/17 12/24/20 Andreia Kincaid MD [address] [place] [address] [email or web address] PCP - General Family Medicine 12/25/20 09/17/22 Tamika Villalta, TONY [address] [place] [address] 7 [place] [address] [email or web address] PCP - General Family Medicine 09/18/22 Josette Juarez MD [address] [place] [address] [email or web address] Insurance Assigned Provider 06/22/20 04/19/21 Andreia Kincaid MD [address] [place] [address] [email or web address] Insurance Assigned Provider 04/19/21 10/17/22 Josette Juarez MD [address] [place] [address] [email or web address] Insurance Assigned Provider 11/21/22 01/16/23 Tamika Villalta, TONY [address] [place] [address] 7 [place] [address] [email or web address] Insurance Assigned Provider 12/17/24 documented as of this encounter Additional Source Comments The information contained in this document represents components of the legal health record. It is not the complete legal health record.[facility]
--- OUTSIDE RECORDS SUMMARY | 2025-05-15 13:13 | XMS_ITS | Encounter Summary ---
Author Organization [facility] Address [address] [place], [place] [phone] Phone Care Team Providers Care Windsmith Name Role Phone Josette Juarez MD Primary Care Provider Josette Juarez MD Unavailable Andreia Kincaid MD Primary Care Provider Andreia Kincaid MD Unavailable [phone] Tamika Villalta CNP Primary Care Provider + Josette Juarez MD Unavailable Tamika Villalta CNP Unavailable Encounter Details Date Type Department Care Team (Late st Contact Info) Description 06/14/2020 Ancillary Orders Virtual Department [address] [place] [address] Josette Juarez MD [address] [place] [address] Breast screening Social History Tobacco Use Types [...] Description 05/24/2025 10:00 AM EDT [facility] Visit [facility] [address] [place] [address] William Goodman MD [address] [place] [address] Jazmyn Gabriel, PT [address] [place] [address] 05/28/2025 10:15 AM EDT Office Visit [facility] [address] [place] [address] William Goodman MD [address] [place] [address] Jazmyn Gabriel, PT [address] [place] [address] 05/31/2025 10:00 AM EDT [facility] Visit [facility] [address] [place] [address] William Goodman MD [address] [place] [address] Jazmyn Gabriel, PT [address] [place] [address] 06/04/2025 10:15 AM EDT [facility] Visit [facility] [address] [place] [address] William Goodman MD [address] [place] [address] Jazmyn Gabriel, PT [address] [place] [address] 06/07/2025 10:00 AM EDT [facility] Visit [facility] [address] [place] [address] William Goodman MD [address] [place] [address] Jazmyn Gabriel, PT [address] [place] [address] 06/11/2025 10:15 AM EDT Office Visit [facility] [address] [place] [address] William Goodman MD [address] [place], [place] [id number] Jazmyn Gabriel, PT [address] [place] [address] 06/14/2025 10:00 AM EDT Office Visit [facility] [address] [place] [address] William Goodman MD [address] [place] [address] Jazmyn Gabriel, PT [address] [place] [address] 06/18/2025 10:15 AM EDT Office Visit [facility] [address] [place] [address] William Goodman MD [address] [place] [address] Jazmyn Gabriel, PT [address] [place] [address] 06/21/2025 10:00 AM EDT Office Visit [facility] [address] [place] [address] William Goodman MD [address] [place] [address] Jazmyn Gabriel, PT [address] [place] [address] 06/28/2025 10:00 AM EDT Office Visit [facility] [address] [place] [address] William Goodman MD [address] [place] [address] Jazmyn Gabriel, PT [address] [place] [address] [email or web address] documented as of this encounter Results * BI MAMMOGRAM SCREENING WITH TOMOSYNTHESIS WITH CAD (BILATERAL) (08/26/2020 8:13 AM EST) Anatomical Region Laterality Modality Breast Left, Breast Right, Breast Bilateral Bila teral Mammography 08/26/2020 8:23 AM EST Impressions 08/26/2020 8:39 AM EST No mammographic evidence of malignancy. Recommend routine annual surveillance. BI-RADS CATEGORY: 1 - Negative. DENSITY: The breast tissue is heterogeneously dense, which could obscure a lesion on mammography. Narrative 08/26/2020 8:39 AM EST 69-year-old female with no current breast symptoms. Comparison made to previous on 02/13/2019 and as far back as 04/23/2014. Interpretation made in conjunction with computer-aided detection and tomosynthesis. The breasts are heterogeneously dense, which may obscure small masses. There are no suspicious masses, areas of architectural distortion, or suspicious clusters of microcalcifications. Procedure Note Josef Mason MD - 08/26/2020 69-year-old female with no current breast symptoms. Comparison made toprevious on 02/13/2019 and as far back as 04/23/2014. Interpretation made inconjunction with computer-aided detection and tomosynthesis. The breasts are heterogeneously dense, which may obscure small masses. There are no suspicious masses, areas of architectural distortion, orsuspicious clusters of microcalcifications. IMPRESSION: No mammographic evidence of malignancy. Recommend routine annualsurveillance. BI-RADS CATEGORY: 1 - Negative. DENSITY: The breast tissue is heterogeneously dense, which could obscurea lesion on mammography. us Josette Juarez MD IMG MG EXAMS Final Result documented in this encounter Visit Diagnoses Diagnosis Breast screening Breast screening, unspecified Breast screening Breast screening, unspecified documented in this encounter Additional Health Concerns Infection Onset Date Last Indicated Resolved Time CoV-Presumed 08/27/2022 08/27/2022 09/17/2022 1:22 AM EST CoV-Risk Comment:Per Ambulatory Triage Form 10/22/2022 10/22/202211/02 1:24 AM EST documented as of this encounter Care Teams Windsmith Relationship Specialty Start Date End Date Josette Juarez MD [address] [place] [address] 1 [place] [address] [email or web address] PCP - General Internal Medicine 09/20/17 12/24/20 Andreia Kincaid MD [address] [place] [address] [email or web address] PCP - General Family Medicine 12/25/20 09/17/22 Tamika Villalta CNP [address] [place] [address] [address] [place] [address] [email or web address] PCP - General Family Medicine 09/18/22 Josette Juarez MD [address] [place] [address] [email or web address] Insurance Assigned Provider 06/22/20 04/19/21 Andreia Kincaid MD [address] [place] [address] [email or web address] Insurance Assigned Provider 04/19/21 10/17/22 Josette Juarez MD [address] [place] [address] [email or web address] Insurance Assigned Provider 11/21/22 01/16/23 Tamika Villalta CNP [address] [place] [address] 7 [place] [address] [email or web address] Insurance Assigned Provider 12/17/24 documented as of this encounter Additional Source Comments The information contained in this document represents components of the legal health record. It is not the complete legal health record.[facility]
--- OUTSIDE RECORDS SUMMARY | 2025-05-15 13:13 | XMS_ITS | Encounter Summary ---
Author Organization [facility] Address [address] [place], [place] [phone] Phone Care Team Providers Care Analysis Consultant Name Role Phone Josette Juarez MD Primary Care Provider [phone] Josette Juarez MD Unavailable [phone] Andreia Kincaid MD Primary Care Provider [phone] Andreia Kincaid MD Unavailable [phone] Tamika Villalta CNP Primary Care Provider + Josette Juarez MD Unavailable [phone] Tamika Villalta CNP Unavailable [phone] Encounter Details Date Type Department Care Team (Late st Contact Info) Description 02/03/2019 Ancillary Orders [facility] Department [address] [place] [address] Josette Juarez MD [address] [place] [address] Breast screening Social History Tobacco Use Types [...] Description 05/24/2025 10:00 AM EDT Office Visit [facility] [address] [place] [address] William Goodman MD [address] [place] [address] Jazmyn Gabriel, PT [address] [place] [address] [email or web address] 05/28/2025 10:15 AM EDT Office Visit [facility] [address] [place] [address] William Goodman MD [address] [place] [address] Jazmyn Gabriel, PT [address] [place] [address] [email or web address] 05/31/2025 10:00 AM EDT Office Visit [facility] [address] [place] [address] William Goodman MD [address] [place] [address] Jazmyn Gabriel, PT [address] [place] [address] [email or web address] 06/04/2025 10:15 AM EDT Office Visit [facility] [address] [place] [address] William Goodman MD [address] [place] [address] Jazmyn Gabriel, PT [address] [place] [address] 06/07/2025 10:00 AM EDT Office Visit [facility] [address] [place] [address] William Goodman MD [address] [place] [address] Jazmyn Gabriel, PT [address] [place] [address] [email or web address] 06/11/2025 10:15 AM EDT Office Visit [facility] [address] [place] [address] William Goodman MD [address] [place], [place] [id number] Jazmyn Gabriel, PT [address] [place] [address] [email or web address] 06/14/2025 10:00 AM EDT Office Visit [facility] [address] [place] [address] William Goodman MD [address] [place] [address] Jazmyn Gabriel, PT [address] [place] [address] [email or web address] 06/18/2025 10:15 AM EDT Office Visit [facility] [address] [place] [address] William Goodman MD [address] [place] [address] Jazmyn Gabriel, PT [address] [place] [address] [email or web address] 06/21/2025 10:00 AM EDT Office Visit [facility] [address] [place] [address] William Goodman MD [address] [place] [address] Jazmyn Gabriel, PT [address] [place] [address] 06/28/2025 10:00 AM EDT Office Visit [facility] [address] [place] [address] William Goodman MD [address] [place] [address] Jazmyn Gabriel, PT [address] [place] [address] documented as of this encounter Results * BI MAMMOGRAM SCREENING WITH TOMOSYNTHESIS WITH CAD (BILATERAL) (02/13/2019 3:53 PM EDT) Anatomical Region Laterality Modality Breast Left, Breast Right, Breast Bilateral Bila teral Mammography 02/14/2019 8:03 AM EDT Impressions 02/14/2019 8:06 AM EDT No mammographic evidence of malignancy. BI-RADS CATEGORY: 1 - Negative. DENSITY: The breast tissue is heterogeneously dense, an appearance which lowers the sensitivity of mammography. POS - CDHMAMA Narrative 02/14/2019 8:06 AM EDT Standard digital full-field 2-D C view and two-plane tomographic imaging was performed and compared with multiple prior studies, most recently 10/05/2017, with utilization of computer-aided detection. The breast parenchyma is heterogeneously dense, somewhat limiting mammographic sensitivity. The stromal markings are essentially unchanged in overall appearance and distribution. No dominant spiculated mass, suspicious clustered microcalcifications, or focal zone of pathologic skin thickening or retraction are noted to have arisen in the interim. Procedure Note Zeferino Anderson MD - 02/14/2019 Standard digital full-field 2-D C view and two-plane tomographic imagingwas performed and compared with multiple prior studies, most iszkespj22/23/2018, with utilization of computer-aided detection. The breast parenchyma is heterogeneously dense, somewhat limitingmammographic sensitivity. The stromal markings are essentially unchangedin overall appearance and distribution. No dominant spiculated mass,suspicious clustered microcalcifications, or focal zone of pathologic skinthickening or retraction are noted to have arisen in the interim. IMPRESSION: No mammographic evidence of malignancy. BI-RADS CATEGORY: 1 - Negative. DENSITY: The breast tissue is heterogeneously dense, an appearance whichlowers the sensitivity of mammography. POS - CDHMAMA us Josette Juarez MD IMG MG EXAMS [...] documented as of this encounter Care Teams Analysis Consultant Relationship Specialty Start Date End Date Josette Juarez MD [address] [place] [address] 1 [place] [address] [email or web address] PCP - General Internal Medicine 09/20/17 12/24/20 Andreia Kincaid MD [address] [place] [address] [email or web address] PCP - General Family Medicine 12/25/20 09/17/22 Tamika Villalta CNP [address] [place] [address] [address] [place] [address] PCP - General Family Medicine 09/18/22 Josette Juarez MD [address] [place] [address] [email or web address] Insurance Assigned Provider 06/22/20 04/19/21 Andreia Kincaid MD [address] [place] [address] [email or web address] Assigned Provider 04/19/21 10/17/22 Josette Juarez MD [address] [place] [address] [email or web address] Insurance Assigned Provider 11/21/22 01/16/23 Tamika Villalta CNP [address] [place] [address], [address] [place] [address] [email or web address] Insurance Assigned Provider 12/17/24 documented as of this encounter Additional Source Comments The information contained in this document represents components of the legal health record. It is not the complete legal health record.[facility]
== END 2025-05-15 12:20 | disposition home or self-care (01) ==
LOC: HO.HOP 11:39
PROVIDERS: PCP Nurse Practitioner Primary Care; Visit Provider Clinical Nurse Specialist Psychiatric/Mental Health
DX: F33.1 Major depressive disorder, recurrent, moderate (principal); F41.1 Generalized anxiety disorder; F41.0 Panic disorder [episodic paroxysmal anxiety]
CPT/HCPCS: 90833; 99213

== ENCOUNTER → 2025-05-15 11:39 | Outpatient (BNVA) | payer MEDICARE, OTHER, SELFPAY | PROVIDERS: PCP Nurse Practitioner Primary Care; Visit Provider Clinical Nurse Specialist Psychiatric/Mental Health | DX: F33.1 Major depressive disorder, recurrent, moderate (principal); F41.1 Generalized anxiety disorder; F41.0 Panic disorder [episodic paroxysmal anxiety] | CPT/HCPCS: 99212 ==

== ENCOUNTER 2025-06-26 11:16 | Outpatient (AMB) | payer MEDICARE, OTHER, SELFPAY ==
--- OUTSIDE RECORDS SUMMARY | 2025-06-21 10:00 | XMS_ITS | Encounter Summary ---
Author Organization [facility] Address [address] [place] [address] Phone Care Team Providers Care Senior Erp Consultant Name Role Phone Tamika Villalta CNP Primary Care Provider + Tamika Villalta ELEMENTARY ELL TEACHER Unavailable [phone] Reason for Visit * Physical Therapy (Routine) - Authorized Specialty Diagnoses / Procedures Referred By Alexy reid Referred To Contact Physical Therapy Diagnoses Encounter for rehabilitation William Goodman MD [address] [place] [address] Phone: tel: fax: [address] [address] Phone: tel: Referral ID Status Reason Start Date Expiration Date V isits Requested Visits Authorized [id number] Authorized 03/22/2025 03/22/2026 99 99 Encounter Details Date Type Department Care Team (Latest Contact Info) Description 06/21/2025 10:00 AM EDT Office Visit [facility] [address] [place] [address] William Goodman MD [address] [place] [address] Jazmyn Gabriel, PT [address] [place] [address] [email or web address] Acute pain of right knee (Primary Dx) Social History Tobacco Use Types Packs/Day Years Used Date Smoking Tobacco: Former Cigarettes 0.3 51.6 S tarted: 12/02/1973 Smokeless Tobacco: Never Comments:was [...] on file documented as of this encounter Progress Notes * Jazmyn Gabriel, PT - 06/21/2025 10:00 AM EDT Patient Name: Cheyenne Mann Date of : 1950 This patient has attended 9 visits since the onset Physical Therapy. Referring MD: William Goodman MD [address] [place] [address] Diagnosis: Acute pain of right knee [M25.561] Precautions/Safety: None R TKA 05/22/25 3 weeks on 06/12/25 Subjective comments: Most pain is when gets up from sitting. Pain comments pre-treatment: 3-10 -pinch knee cap of the right knee R>L ankle swelling- goes 06/27 for consult about it Objective Measures: Pt ambulates to PT with SC and compression socks on Knee flexion: On step: 115 degrees In chair: 120 Hooklying 115- no strap Knee extension: lacking 1 Interventions: Procedural Interventions Parameters THERAPEUTIC EXERCISE [x]upright bike seat # 7, full revolutions []10 inch step knee flexion stretch 6x10 sec hold R []Sitting in chair knee flexion 5x10 sec R [x] SLR x10 R, QS 1st prior to each [] LAQ R 2x10x []Hooklying heel slide on slider, with strap, 10x [x] Heel prop on yoga block/foam roller- passive knee extension 2 min [x]SAQ 20X with pause R [x]HS curl R 2x10 partial range standing [x]Calf raises B 20x [x]HS S sitting foot on 4 inch step 2x30 sec [x]4 inch step up anterior R 15x [x]4 inch step up lateral R 10x THERAPEUTIC ACTIVITIES/ SELF CARE - NEUROMUSCULAR RE-ED -[x]Heel toe, knee extension, big steps, high march [x]4 inch step taps 2x10 on R, x10 on L MANUAL THERAPY - MODALITIES []CP x 4-5 min in supine, no adverse effect-declines Home Exercise Program: From hospital: LAQ Supine hip abd Sitting knee flexion Quad set SAQ SLR Heel slide 30 minutes knee extension (bridge) 05/31/25: added SLR, Added edema wear compression for night as tolerated. Assessment: Quad weakness with SLR but no lag, full knee flexion sitting in chair. Gait very stiff this am, knee held flexed but improved by end of session. Pt compliant with HEP, full ROM. Plan: Ventura response and cont to work on ROM, strength, gait. Jazmyn Gabriel, [place] [id number] documented in this encounter Plan of Treatment Upcoming Encounters Date Type Department Care Team (Late st Contact Info) Description 06/27/2025 1:30 PM EDT Office Visit [address] [address] Jonathan Barone, [address] [address] [email or web address] 06/28/2025 10:00 AM EDT Office Visit [facility] 21 [place] [address] William Goodman MD [address] [place] [address] Jazmyn Gabriel, PT [address] [place] [address] 07/05/2025 8:45 AM EDT Office Visit [facility] [address] [place] [address] William Goodman MD [address] [place] [address] EriRobbin bowen, PT [address] [place] [address] 07/09/2025 9:30 AM EDT Office Visit [facility] [address] [place] [address] William Goodman MD [address] [place], [place] [phone] Robbin Hwang, PT [address] [place] [address] 07/18/2025 7:00 AM EST Office Visit [facility] [address] [place] [address] William Goodman MD [address] [place] [address] Walt Billings, RETAIL LEASING AGENT [address] [place] [address] 07/27/2025 2:30 PM EST Office Visit [facility] [address] [place] [address] William Goodman MD [address] [place] [address] Stefania Hernandez, PT [address] [place] [address] 07/30/2025 3:30 PM EST Office Visit [facility] [address] [place] [address] Unknown, Unknown, Helene Emanuel, ELEMENTARY ELL TEACHER [facility] [place] [address] [email or web address] documented as of this encounter Visit Diagnoses Diagnosis Acute pain of right knee- Primary documented in this encounter Additional Health Concerns Assessment Noted Time PHQ-2 Depression Total Score: 2 01/27/20 25 2:54 PM EDT documented as of this encounter Care Teams Senior Erp Consultant Relationship Specialty Start Date End Date Tamika Villalta CNP [address] [place] [address], [address] RAMESH Brooks [address] [email or web address] PCP - General Family Medicine 09/18/22 Tamika Villalta CNP [address] [place] [address], [address] [place] Brooks [address] [email or web address] Insurance Assigned Provider 12/17/24 documented as of this encounter Additional Source Comments The information contained in this document represents components of the legal health record. It is not the complete legal health record.[facility]
--- NOTE | 2025-06-26 11:38 | A.OFFPSYCH_ITS ---
Intake Intake Visit Reasons: depression Container Filler Required: No Medication List - Last Reconciled 06/26/25 by Mariana Medeiros, SANJUANITA clonazepam 1 mg PO BID PRN estradiol 0.01%(0.1mg/gram) vaginal ketoconazole 2% appl topical lisinopril 20 mg PO DAILY pantoprazole 20 mg PO BID pravastatin 40 mg PO DAILY Viibryd (vilazodone) 20 mg PO DAILY NS HPI- Psychiatric Chief Complaint: depression HPI Narrative: Pt reports some anxiety but overall feeling better;more optimistic. PHQ9=5 RADHIKA&=5 had knee replacement on 05/22/25- healing well but progress feels slow; pt active and doing PT and exercises feels hopeful about surgery and increased mobility denies SI or HI Past Psychiatric History: Outpatient treatment with Christy Medeiros [phone] Past medication trials include: viibryd lexapro prozac zoloft wellbutrin pristiq- ineffective Past Mental Health History: PHP treatment in past [facility] 2017 no inpatient Mental Status Exam Mental Status Exam Patient Appearance: Well Grooomed Patient Orientation: Person, Place, Time and Situation Level of Consciousness: Awake and Appropriate Patient Behavior: Appropriate Mood Description: Anxious and Sad Affect Description: Anxious and Sad Patient Cognition Impaired: No Ability to Follow Directions: Good Speech Pattern: Clear Memory Description: Intact Hallucinations: None Delusions: Not Present Thought Process: Intact and Rumination Thought Content: positive for Intact and positive for Preoccupation Judgement: Fair Assessment and Plan Assessment & Plan (1) Major depressive disorder, recurrent, moderate: Status: Acute Code(s): F33.1 - Major depressive disorder, recurrent, moderate (2) Generalized anxiety disorder with panic attacks: Status: Acute Code(s): F41.1 - Generalized anxiety disorder; F41.0 - Panic disorder [episodic paroxysmal anxiety] Plan continue viibryd 20mg daily and clonazepam 1mg BID prn anxiety return in 4 weeks Counseling and coordination of Care Pt. Self Management counseling: Exercise, Mindfulness, Nutrition education and improvement, Sleep hygiene and Problem solving Medication management counseling: Effectiveness, Side effects, Dosing range, Duration, Drug interaction and Adherence Diagnosis and Prognosis Counseling: Accuracy of diagnosis, Prognosis over time, Impact of diagnosis on life functions, Impact of family relationship, Problematic behaviors secondary to diagnosis and Adequacy of current interventions Details: I spent 45 minutes reviewing the record, seeing the patient and documenting in the medical record. Counseling provided to the patient/caregiver as outlined below. Addressed patient/caregiver concerns regarding current medication regime including effective adherence. Addressed patient/caregiver concerns regarding diagnosis and prognosis including accuracy of diagnosis, prognosis over time, impact of diagnosis. Addressed patient/caregiver concerns regarding impact of recent stressors. 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
--- OUTSIDE RECORDS SUMMARY | 2025-06-26 13:39 | XMS_ITS | Encounter Summary ---
Author Organization [facility] Address [address] [place] [address] Phone Care Team Providers Care Cost Estimating Clerk Name Role Phone Tamika Tesfaye CNP Primary Care Provider + Tamika Villalta APARTMENT RENTAL CLERK Unavailable [phone] Encounter Details Date Type Department Care Team (Late st Contact Info) Description 07/12/2024 Procedure Pass [facility] - [address] [place] [address] Social History Tobacco Use Types Packs/Day Years [...] Upcoming Encounters Date Type Department Care Team (Frank st Contact Info) Description 06/27/2025 1:30 PM EDT Office Visit [facility] [address] [place] [address] Jonathan Barone, [address] [address] 06/28/2025 10:00 AM EDT Office Visit [facility] [address] [place] [address] William Goodman MD [address] [place], [place] [phone] Jazmyn Gabriel, PT 21 [place] [address] 07/05/2025 8:45 AM EDT Office Visit [facility] [address] [place] [address] William Goodman MD [address] [place] [id number] Robbin Hwang, PT 21 [place] [address] 07/09/2025 9:30 AM EDT Office Visit [facility] [address] [place] [address] William Goodman MD [address] [place], [place] [phone] Robbin Hwang, PT 21 [place] [address] 07/18/2025 7:00 AM EST Office Visit [facility] [address] [place] [address] William Goodman MD [address] [place] [address] Walt Billings, HORSE RACING MANAGER [address] [place] [address] 07/27/2025 2:30 PM EST Office Visit [facility] [address] [place] [address] William Goodman MD [address] [place] [address] Stefania Hernandez, PT 21 [place] [address] 07/30/2025 3:30 PM EST Office Visit [facility] 10 [place] [address] Unknown, Unknown, MD Lamas, Helene Ford, APARTMENT RENTAL CLERK [address] [place] [address] documented as of this encounter Visit Diagnoses Not on filedocumented in this encounter Additional Health Concerns Assessment Noted Time PHQ-2 Depression Total Score: 2 09/24/19 24 7:07 AM EST documented as of this encounter Care Teams Cost Estimating Clerk Relationship Specialty Start Date End Date Tamika Villalta CNP [address] [place] [address] [address] [place] [address] PCP - General Family Medicine 09/18/22 Tamika Villalta CNP [address] [place] [address] 7 [place] [address] Insurance Assigned Provider 12/17/24 documented as of this encounter Additional Source Comments The information contained in this document represents components of the legal health record. It is not the complete legal health record.[facility]
--- OUTSIDE RECORDS SUMMARY | 2025-06-26 13:40 | XMS_ITS | Clinical Summary ---
Author Organization [facility] Address [address] [place] [address] Phone Care Team Providers Care Parts Order And Stock Clerk Name Role Phone Tamika Villalta CNP Primary Care Provider + Tamika Villalta MANAGER OF FINANCIAL REPORTING Unavailable [phone] Allergies Active Allergy Reactions Criticality Noted Date [...] 3 4 Active pravastatin (PRAVACHOL) 40 MG tabletIndications :Hyperlipemia TAKE ONE TABLET BY MOUTH EVERY EVENING 90 tablet 3 5 Active pantoprazole (PROTONIX) 20 MG tabletIndications :Medication refill TAKE TWO TABLETS BY MOUTH EVERY DAY 180 tablet 3 5 Active lisinopril (PRINIVIL,ZESTRIL ) 20 MG tabletIndications :Essential hypertension TAKE ONE TABLET BY MOUTH EVERY MORNING 90 tablet 3 5 Active conjugated estrogens (PREMARIN) vaginal cream Active estradioL (ESTRACE) 0.01 % (0.1 mg/gram) vaginal creamIndications: Vaginal atrophy PLACE 2 GRAMS VAGINALLY TWICE A WEEK 42.5 g 5 Active famotidine (PEPCID) 20 MG tablet Take 20 mg by mouth nightly at bedtime. Active triamcinolone acetonide 0.1 % cream APPLY TWO TIMES A DAY TO AFFECTED AREA S) OF TRUNK X 2 WEEKS, TAKE 1 WEEK OFF, FOLLOW WITH MOISTURIZER, REPEAT NEEDED - NOT FOR USE ON FA 5 Active Active Problems Problem Noted Date Diagnosed Date [...] has a dermatology appointment scheduled for end april. Assessment & Plan (12/01/2022 10:49 AM EDT): [...] been having blood pressure checked at the [facility], reports she is always less than [...] Encounters Date Type Department Care Team Description 06/21/2025 10:00 AM EDT Office Visit [facility] [address] [place] [address] William Goodman MD Dejnak, Rebecca, PT Acute pain of right knee (Primary Dx) 06/18/2025 10:15 AM EDT Office Visit [facility] [address] [place] [address] William Goodman MD Dejnak, Rebecca, PT Acute pain of right knee (Primary Dx) 06/14/2025 10:00 AM EDT Office Visit [facility] [address] [place] [address] William Goodman MD Dejnak, Rebecca, PT Acute pain of right knee (Primary Dx) 06/11/2025 10:00 AM EDT Office Visit [facility] [address] [place] [address] William Goodman MD Dill, Jordan McKenzie, CARRIER WASHER Acute pain of right knee (Primary Dx) 06/07/2025 10:00 AM EDT Office Visit [facility] [address] [place] [address] William Goodman MD Dejnak, Jazmyn, PT Acute pain of right knee (Primary Dx) 06/04/2025 10:15 AM EDT Office Visit [facility] [address] [place] [address] William Goodman MD Dejnak, Jazmyn, PT Acute pain of right knee (Primary Dx) 05/31/2025 3:45 PM EDT Office Visit [facility] [address] [place] [address] William Goodman MD McKeon, Terrance, PT Acute pain of right knee (Primary Dx) 05/28/2025 10:15 AM EDT Office Visit [facility] [address] [place] [address] William Goodman MD Dejnak, Jazmyn, PT Acute pain of right knee (Primary Dx) 05/24/2025 10:00 AM EDT Office Visit [facility] [address] [place] [address] William Goodman MD Dejnak, Jazmyn, PT Acute pain of right knee (Primary Dx) 05/24/2025 Plan of Care Documentation [facility] [address] [place] [address] 04/20/2025 11:20 AM EDT Office Visit [address] [address] Hiram England MD Pre-operative examination (Primary Dx); Primary osteoarthritis of right knee; Essential hypertension; Gastroesophageal reflux disease without esophagitis 04/17/2025 Orders Only [facility] [address] [place] [address] Provider, MD Dory 04/04/2025 10:45 AM EDT Office Visit [facility] [address] [place] [address] [place], Kaileen Tesfaye, MANAGER OF FINANCIAL REPORTING Dill, Walt Lise, CARRIER WASHER Pain in left leg (Primary Dx) 04/02/2025 1:45 PM EDT Office Visit [facility] [address] [place] [address] Pawan, Kaileen Tesfaye, MANAGER OF FINANCIAL REPORTING Efrainenitis, Urbano, PT Pain in left leg (Primary Dx) 03/28/2025 1:00 PM EDT Office Visit [facility] [address] [place] [address] [place], Kaileen Tesfaye, MANAGER OF FINANCIAL REPORTING Dill, Walt Lise, CARRIER WASHER Pain in left leg (Primary Dx) 03/26/2025 3:15 PM EDT Office Visit [facility] [address] [place] [address] [place], Kaileen Tesfaye, MANAGER OF FINANCIAL REPORTING Kahlil, Urbano, PT Pain in left leg (Primary Dx) 03/26/2025 Refill [facility] [address] [place] [address] Renée Suazo, [facility] Medication Refill from Last 3 Months Immunizations Immunization Administration [...] 51.6 S tarted: 12/02/1973 Smokeless Tobacco: Never Tobacco [...] Description 06/27/2025 1:30 PM EDT Office Visit [facility] [address] [place], [place] [phone] Jonathan Barone, [address] [place] [address] 06/28/2025 10:00 AM EDT Office Visit [facility] [address] [place] [address] William Goodman MD [address] [place], [place] [phone] Jazmyn Gabriel, PT [address] [place] [address] 07/05/2025 8:45 AM EDT Office Visit [facility] [address] [place] [address] William Goodman MD [address] [place], [place] [phone] Robbin Hwang, PT [address] [place] [address] 07/09/2025 9:30 AM EDT Office Visit [facility] [address] [place] [address] William Goodman MD [address] [place], [place] [phone] Robbin Hwang, PT [address] [place] [address] 07/18/2025 7:00 AM EST Office Visit [facility] [address] [place] [address] William Goodman MD [address] [place], [place] [phone] Walt Billings, CARRIER WASHER [address] [place] [address] 07/27/2025 2:30 PM EST Office Visit [facility] [address] [place] [address] William Goodman MD [address] [place] [address] Stefania Hernandez, PT [address] [place] [address] 07/30/2025 3:30 PM EST Office Visit [facility] [address] [place] [address] Unknown, Unknown, MD Lamas, Helene Ford, MANAGER OF FINANCIAL REPORTING [address] [place] [address] [email or web address] Health Maintenance Due Date Last Done Comments SMOKING Hx and SMOKELESS TOBACCO SCREENING 1965 COLOGUARD 1997 FIT TEST 1997 FOBT 1997 SIGMOIDOSCOPY 1997 VIRTUAL COLONOSCOPY 1997 INFLUENZA VACCINE (#1) 2025 , 05/26/2023, 05/17/2023, Additional history exists COVID-19 VACCINE ( season) 2025 07/19/2024, 09/22/2023, 06/12/2022, Additional history exists CREATININE LEVEL 08/02/2025 08/02/2024, , 08/15/2023, Additional history exists POTASSIUM LEVEL 08/02/2025 08/02/2024, 08, 08/15/2023, Additional history exists BLOOD PRESSURE 10/21/2025 04/20/2025 DEPRESSION SCREENING 01/26/2026 01/26/2025 MAMMOGRAM 12/20/2026 12/20/2024, 03/0 09/2021, 08/26/2020, Additional history exists RSV VACCINE (1 - 1-dose 75+ series) 2027 LIPID PANEL 05/02/2029 05/02/2024, 12/2023, 10/29/2021, Additional history exists COLONOSCOPY 04/01/2032 [...] Procedure Name Priority Date/Time Associated Diagnosis Comments AMB REFERRAL TO [facility] PHYSICAL THERAPY Routine 05/24/2025 12:18 PM EDT Encounter for rehabilitation ECG 12-LEAD Routine 04/20/2025 11:28 AM EDT [...] Recently Relevant to Health Maintenance Results * Ambulatory referral to [facility] Physical Therapy (05/24/2025 12:18 PM EDT) Other William Goodman MD AMB [facility] REFERRALS Final Result * ECG 12-LEAD (04/20/2025 11:28 AM EDT) Narrative EXTERNAL NON-INTERFACED REF LAB - 04/20/2025 11:28 AM EDT Type of EKG: Standard. Global (11197). Hiram England MD ECG ORDERABLES Final Result EXTERNAL NON-INTERFACED REF LAB * Outside Lab (04/17/2025 12:57 PM EDT) Historical Provider LAB BLOOD ORDERABLES Monica l Result * BI MAMMOGRAM SCREENING WITH TOMOSYNTHESIS [...] identified mammographically in either breast. Tamika Villalta MANAGER OF FINANCIAL REPORTING IMG MG EXAMS Final Re sult * Comprehensive metabolic panel (08/02/2024 3:19 PM EST) SODIUM 142 133 - 146 mmol/L [facility] POTASSIUM 4.2 3.3 - 5.1 mmol/L [facility] CHLORIDE 104 96 - 108 mmol/L [facility] CO2 29 21 - 35 mmol/L [facility] BUN 13 6 - 19 mg/dL [facility] CREATININE 0.80 0.5 - 1.5 mg/dL [facility] GLUCOSE 80 70 - 99 mg/dL [facility] ALBUMIN 4.5 3.9 - 4.8 g/dL [facility] TOTAL PROTEIN 7.3 6.5 - 8.0 g/dL [facility] CALCIUM 9.6 8.4 - 10.3 mg/dL [facility] ALKALINE PHOSPHATASE 85 39 - 117 U/L [facility] TOTAL BILIRUBIN 0.7 0.0 - 1.2 mg/dL [facility] AST 26 0 - 37 U/L [facility] ALT 21 0 - 40 U/L [facility] GLOBULIN 2.8 1 - 4.8 g/dL [facility] EGFR 79 >59 mL/min/1.7 3m2 [facility] Comment:Estimated glomerular filtration rate calculated using the CKD-EPI refit equation. ANION GAP 13 10 - 20 mmol/L [facility] Blood 08/02/2024 3:19 PM EST 08/02/2024 3:27 PM EST Tamika Villalta [facility] LAB BLOOD ORDERABLES Fin al Result Performing Organization Address City/State/[facility] Co de Phone Number [address] [address] * (ABNORMAL) Lipid panel (05/02/2024 2:19 PM EDT) HDL 67 mg/dL [facility] Comment: Interpretation <40 mg/dL: Low HDL cholesterol (major risk factor for CHD) Greater than or equal to 60 mg/dL: High HDL cholesterol ( negative risk factor for CHD) HDL - cholesterol is affected by a number of factors, e.g. smoking, excerise, hormones, sex and age. CHOLESTEROL 186 0 - 240 mg/dL [facility] TRIGLYCERIDES 103 30 - 160 mg/dL [facility] LDL 98 50 - 129 mg/dL [facility] Comment: LDL levels in terms of risk for coronary heart disease: <100 mg/dL: Optimal 100-129 mg/dL: Near or above optimal 130-159 mg/dL: Borderline high 160-189 mg/dL: High >190 mg/dL: Very High CARDIAC RISK RATIO 2.8(L) 3.3 - 4.4 [facility] Blood 05/02/2024 2:19 PM EDT 05/02/2024 2:27 PM EDT Tamika Villalta CNP LAB BLOOD ORDERABLES Fin al Result [facility] [address] [place] [address] * COLONOSCOPY FOR RESULT ENTRY ONLY (04/01/2022) Historical [...] Maintenance Insurance MEDICARE PART A & B [facility] MEDICARE SUPPLEMENT MEDICARE PART A & B MEDICARE SUPPLEMENT MEDICARE PART A & B MEDICARE PART A & B MEDICARE PART A & B MEDICARE SUPPLEMENT MEDICARE PART A & B MEDICARE PART A & B MEDICARE SUPPLEMENT MEDICARE PART A & B Member Subscriber Plan / Payer (Ef fective 2017-Present) Name:Cheyenne Mann Member ID:[id number] Relation to Subscriber:Self Name:Cheyenne Mann Subscriber ID:[id number] Payer ID:[id number] Group ID:Not on file Type:Medicare Address: [employer] [address] [place] [id number] [place] [address] MEDICARE SUPPLEMENT MEDICARE PART A & B [id number] [place] [address] MEDICARE SUPPLEMENT Care Teams Parts Order And Stock Clerk Relationship Specialty Start Date End Date Tamika Villalta CNP [address] [place] [address], [facility] [address] [place] [address] [email or web address] PCP - General Family Medicine 09/18/22 Tamika Villalta CNP [address] [place] [address], [facility] [address] [place] [address] Insurance Assigned Provider 12/17/24 Additional Source Comments The information contained in this document represents components of the legal health record. It is not the complete legal health record.[facility]
--- OUTSIDE RECORDS SUMMARY | 2025-06-26 13:40 | XMS_ITS | Encounter Summary ---
Author Organization [facility] Address [address] [place] [address] Phone Care Team Providers Care Appliance Repairer Name Role Phone Josette Juarez MD Primary Care Provider Josette Juarez MD Unavailable Andreia Kincaid MD Primary Care Provider Andreia Kincaid MD Unavailable [phone] Tamika Villalta CNP Primary Care Provider + Josette Juarez MD Unavailable Tamika Villalta CNP Unavailable Encounter Details Date Type Department Care Team (Late st Contact Info) Description 06/14/2020 Ancillary Orders Virtual Department 30 [place] [address] Josette Juarez MD 25 [place] [address] Breast screening Social History Tobacco Use Types [...] Department Care Team (Late Contact Info) Description 06/27/2025 1:30 PM EDT Office Visit [facility] [address] [place] [address] Jonathan Barone, DO 22 [facility] [address] [place] [address] [email or web address] 06/28/2025 10:00 AM EDT Office Visit [facility] [address] [place] [address] William Goodman MD 17 [place], [place] [id number] Jazmyn Gabriel, PT 21 [place] [address] [email or web address] 07/05/2025 8:45 AM EDT Office Visit [facility] [address] [place] [address] William Goodman MD [address] [place] [id number] Robbin Hwang, PT 21 [place] [address] [email or web address] 07/09/2025 9:30 AM EDT Office Visit [facility] [address] [place] [address] William Goodman MD [address] [place] [address] Robbin Hwang, PT 21 [place] [address] [email or web address] 07/18/2025 7:00 AM EST Office Visit [facility] [address] [place] [address] William Goodman MD 17 [place] [address] Walt Billings, DINKEY DISPATCHER 380 [place] [address] [email or web address] 07/27/2025 2:30 PM EST Office Visit [facility] [address] [place] [address] William Goodman MD 17 [place] [address] Stefania Hernandez, PT 21 [place] [address] 07/30/2025 3:30 PM EST Office Visit [facility] 10 [place] [address] Unknown, Unknown, Helene Emanuel, GIFT PACKER 10 [place] [address] [email or web address] documented as of this encounter Results * [...] documented as of this encounter Care Teams Appliance Repairer Relationship Specialty Start Date End Date Josette Juarez MD [address] [place] [address] 1 [place] [address] [email or web address] PCP - General Internal Medicine 09/20/17 12/24/20 Andreia Kincaid MD [address] [place] [address] [email or web address] PCP - General Family Medicine 12/25/20 09/17/22 Tamika Villalta CNP [address] [place] [address] [address] [place] [address] [email or web address] PCP - General Family Medicine 09/18/22 Josette Juarez MD 25 [place] [address] [email or web address] Insurance Assigned Provider 06/22/20 04/19/21 Andreia Kincaid MD [address] [place] [address] [email or web address] Insurance Assigned Provider 04/19/21 10/17/22 Josette Juarez MD 25 [place] [address] [email or web address] Insurance Assigned Provider 11/21/22 01/16/23 Tamika Villalta CNP [address] [place] [address], [address] [place] [address] [email or web address] Insurance Assigned Provider 12/17/24 documented as of this encounter Additional Source Comments The information contained in this document represents components of the legal health record. It is not the complete legal health record.[facility]
--- OUTSIDE RECORDS SUMMARY | 2025-06-26 13:40 | XMS_ITS | Encounter Summary ---
Author Organization [facility] Address [address] [place] [address] Phone Care Team Providers Care Corn Shucker Name Role Phone Josette Juarez MD Primary Care Provider Josette Juarez MD Unavailable Andreia Kincaid MD Primary Care Provider Andreia Kincaid MD Unavailable [phone] Tamika Villalta CNP Primary Care Provider + Josette Juarez MD Unavailable [phone] Tamika Villalta CNP Unavailable Encounter Details Date Type Department Care Team (Latest Contact Info) Description 08/14/2020 Transcribe Orders [address] [place] [address] Josette Juarez MD 25 [place] [address] Hyperlipidemia, unspecified hyperlipidemia type (Primary Dx) Social [...] Description 06/27/2025 1:30 PM EDT Office Visit [facility] 234 [place] [address] Jonathan Barone, DO [address] [address] 06/28/2025 10:00 AM EDT Office Visit [facility] [address] [place] [address] William Goodman MD 17 [place] [address] Jazmyn Gabriel, PT 21 [place] [address] 07/05/2025 8:45 AM EDT Office Visit [facility] [address] [place] [address] William Goodman MD 17 [place] [address] Robbin Hwang, PT 21 [place] [address] 07/09/2025 9:30 AM EDT Office Visit [facility] [address] [place] [address] William Goodman MD 17 [place] [address] Robbin Hwang, PT 21 [place] [address] 07/18/2025 7:00 AM EST Office Visit [facility] [address] [place] [address] William Goodman MD 17 [place] [address] Walt Billings, PLUG MAKING OPERATOR 380 [place] [address] [email or web address] 07/27/2025 2:30 PM EST Office Visit [facility] [address] [place] [address] William Goodman MD 17 [place] [address] Stefania Hernandez, PT 21 [place] [address] 07/30/2025 3:30 PM EST Office Visit [facility] 10 [place] [address] Unknown, Unknown, Helene Emanuel, CLINICAL TEAM MANAGER 10 [place] [address] [email or web address] documented as of this encounter Results * (ABNORMAL) Lipid panel (08/14/2020 7:36 AM EST) HDL 68 mg/dL [facility] Comment: Interpretation <40 mg/dL: Low HDL cholesterol (major risk factor for CHD) Greater than or equal to 60 mg/dL: High HDL cholesterol ( negative risk factor for CHD) HDL - cholesterol is affected by a number of factors, e.g. smoking, excerise, hormones, sex and age. CHOLESTEROL 201 0 - 240 mg/dL [facility] TRIGLYCERIDES 79 30 - 160 mg/dL [facility] LDL 117 50 - 129 mg/dL [facility] Comment: LDL levels in terms of risk for coronary heart disease: <100 mg/dL: Optimal 100-129 mg/dL: Near or above optimal 130-159 mg/dL: Borderline high 160-189 mg/dL: High >190 mg/dL: Very High CARDIAC RISK RATIO 3.0(L) 3.3 - 4.4 C [facility] Blood 08/14/2020 7:36 AM EST 08/14/2020 7:39 AM EST us Josette Juarez MD LAB BLOOD ORDERABLES Final R esult Performing Organization Address City/[facility]/ZIP Co de Phone Number [address] [address] * CPK (creatine kinase) (08/14/2020 7:36 AM EST) CREATINE KINASE 63 21 - 215 U/L [facility] Blood 08/14/2020 7:36 AM EST 08/14/2020 7:39 AM EST us Josette Juarez MD LAB BLOOD ORDERABLES Final R esult Performing Organization Address [facility] Co de Phone Number [address] [address] * Aspartate aminotransferase (AST) (08/14/2020 7:36 AM EST) AST 25 0 - 37 U/L [facility] Blood 08/14/2020 7:36 AM EST 08/14/2020 7:39 AM EST us Josette Juarez MD LAB BLOOD ORDERABLES Final R esult Performing Organization Address [facility] Co de Phone Number [address] [address] * Alanine aminotransferase (ALT) (08/14/2020 7:36 AM EST) ALT 16 0 - 40 U/L [facility] Blood 08/14/2020 7:36 AM EST 08/14/2020 7:39 AM EST us Josette Juarez MD LAB BLOOD ORDERABLES Final R esult Performing Organization Address [facility] Co de Phone Number [address] [address] documented in this encounter Visit Diagnoses Diagnosis Hyperlipidemia, unspecified hyperlipidemia type- Primary documented in this encounter Additional Health Concerns Infection Onset Date Last Indicated Resolved Time CoV-Presumed 08/27/2022 08/27/2022 09/17/2022 1:22 AM EST CoV-Risk Comment:Per Ambulatory Triage Form 10/22/2022 10/22/202211/02 1:24 AM EST documented as of this encounter Care Teams Corn Shucker Relationship Specialty Start Date End Date Josette Juarez MD [address] [place] [address] 1 [place] [address] [email or web address] PCP - General Internal Medicine 09/20/17 12/24/20 Andreia Kincaid MD 25 [place] [address] [email or web address] PCP - General Family Medicine 12/25/20 09/17/22 Tamika Villalta, TONY [address] [place] [address] 7 [place] [address] [email or web address] PCP - General Family Medicine 09/18/22 Josette Juarez MD 25 [place] [address] [email or web address] Insurance Assigned Provider 06/22/20 04/19/21 Andreia Kincaid MD [address] [place] [address] [email or web address] Insurance Assigned Provider 04/19/21 10/17/22 Josette Juarez MD 25 [place] [address] [email or web address] Insurance Assigned Provider 11/21/22 01/16/23 Tamika Villalta, TONY [address] [place] [address], [address] [place] [address] [email or web address] Insurance Assigned Provider 12/17/24 documented as of this encounter Additional Source Comments The information contained in this document represents components of the legal health record. It is not the complete legal health record.[facility]
--- OUTSIDE RECORDS SUMMARY | 2025-06-26 13:40 | XMS_ITS | Encounter Summary ---
Author Organization [facility] Address [address] [place] [address] Phone Care Team Providers Care Corrugated Box Machine Operator Name Role Phone Josette Juarez MD Primary Care Provider Josette Juarez MD Unavailable [phone] Andreia Kincaid MD Primary Care Provider Andreia Kincaid MD Unavailable [phone] Tamika Villalta CNP Primary Care Provider + Josette Juarez MD Unavailable [phone] Tamika Villalta CNP Unavailable Encounter Details Date Type Department Care Team (Late st Contact Info) Description 06/14/2018 Transcribe Orders [address] [place] [address] Josette Juarez MD 25 [place] [address] Loss of hair (Primary Dx) Social History [...] Description 06/27/2025 1:30 PM EDT Office Visit [facility] 234 [place] [address] Jonathan Barone, DO [address] [address] 06/28/2025 10:00 AM EDT Office Visit [facility] [address] [place] [address] William Goodman MD 17 [place] [address] Jazmyn Gabriel, PT 21 [place] [address] 07/05/2025 8:45 AM EDT Office Visit [facility] [address] [place] [address] William Goodman MD [address] [place] [address] Robbin Hwang, PT 21 [place] [address] 07/09/2025 9:30 AM EDT Office Visit [facility] [address] [place] [address] William Goodman MD 17 [place] [address] Robbin Hwang, PT 21 [place] [address] 07/18/2025 7:00 AM EST Office Visit [facility] [address] [place] [address] William Goodman MD 17 [place] [address] Walt Billings, DEALER CARD ROOM 380 [place] [address] [email or web address] 07/27/2025 2:30 PM EST Office Visit [facility] [address] [place] [address] William Goodman MD 17 [place] [address] Stefania Hernandez, PT 21 [place] [address] [email or web address] 07/30/2025 3:30 PM EST Office Visit [facility] 10 [place] [address] Unknown, Unknown, Helene Emanuel, TIRE SORTER 10 [place] [address] [email or web address] documented as of this encounter Results * TSH with reflex (06/14/2018 1:59 PM EDT) TSH 1.46 0.27 - 4.20 uIU/mL [facility] Blood 06/14/2018 1:59 PM EDT 06/14/2018 2:01 PM EDT us Josette Juarez MD LAB BLOOD ORDERABLES Final R esult [facility] 30 [place] [address] documented in this encounter Visit Diagnoses Diagnosis Loss of hair- Primary Unspecified alopecia documented in this encounter Additional Health Concerns Infection Onset Date Last Indicated Resolved Time CoV-Presumed 08/27/2022 08/27/2022 09/17/2022 1:22 AM EST CoV-Risk Comment:Per Ambulatory Triage Form 10/22/2022 10/22/202211/02 1:24 AM EST documented as of this encounter Care Teams Corrugated Box Machine Operator Relationship Specialty Start Date End Date Josette Juarez MD [address] [place] [address] 1 [place] [address] [email or web address] PCP - General Internal Medicine 09/20/17 12/24/20 Andreia Kincaid MD 25 [place] [address] [email or web address] PCP - General Family Medicine 12/25/20 09/17/22 Tamika Villalta CNP [address] [place] [address] 7 [place] [address] [email or web address] PCP - General Family Medicine 09/18/22 Josette Juarez MD 25 [place] [address] [email or web address] Insurance Assigned Provider 06/22/20 04/19/21 Andreia Kincaid MD [address] [place] [address] [email or web address] Insurance Assigned Provider 04/19/21 10/17/22 Josette Juarez MD 25 [place] [address] Insurance Assigned Provider 11/21/22 01/16/23 Tamika Villalta CNP [address] [place] [address] 7 [place] [address] [email or web address] Insurance Assigned Provider 12/17/24 documented as of this encounter Additional Source Comments The information contained in this document represents components of the legal health record. It is not the complete legal health record.[facility]
--- OUTSIDE RECORDS SUMMARY | 2025-06-26 13:40 | XMS_ITS | Encounter Summary ---
Author Organization [facility] Address [address] [place] [address] Phone Care Team Providers Care Outside Salesperson Name Role Phone Tamika Villalta CNP Primary Care Provider + Tamika Villalta TRANSLATOR DEAF Unavailable [phone] Reason for Referral * Physical Therapy (Routine) - Closed Specialty Diagnoses / Procedures Referred By Alexy reid Referred To Contact Physical Therapy Diagnoses Encounter for rehabilitation Derick Snyder MD [address] [address] Phone: tel: fax: [address] [address] Phone: tel: Referral ID Status Reason Start Date Expiration Date Visits Re quested Visits Authorized [id number] Closed 05/14/2023 05/13/2024 99 99 Encounter Details Date Type Department Care Team (Latest Contact Info) Description 05/14/2023 Transcribe Orders [facility] 21 [place] [address] Derick Snyder MD [email or web address] [facility] 201 [place] [address] Encounter for rehabilitation (Primary Dx) Social History Tobacco Use Types Packs/Day Years Used Date Smoking Tobacco: Every Day Cigarettes 0.3 51.6 Started: 12/02/1973 Smokeless Tobacco: Never Comments:3 cigarettes/day [...] Description 06/27/2025 1:30 PM EDT Office Visit [facility] 234 [place] [address] Jonathan Barone, DO [address] [address] 06/28/2025 10:00 AM EDT Office Visit [facility] [address] [place] [address] William Goodman MD 17 [place], [place] [address] Jazmyn Gabriel, PT 21 [place] [address] 07/05/2025 8:45 AM EDT Office Visit [facility] [address] [place] [address] William Goodman MD [address] [place] [address] Robbin Hwang, PT 21 [place] [address] 07/09/2025 9:30 AM EDT Office Visit [facility] [address] [place] [address] William Goodman MD [address] [place] [id number] Robbin Hwang, PT 21 [place] [address] 07/18/2025 7:00 AM EST Office Visit [facility] [address] [place] [address] William Goodman MD 17 [place] [address] Walt Billings, CUSTOMER SUPPORT MANAGER 380 [place] [address] [email or web address] 07/27/2025 2:30 PM EST Office Visit [facility] [address] [place] [address] William Goodman MD 17 [place] [address] Stefania Hernandez, PT 21 [place] [address] [email or web address] 07/30/2025 3:30 PM EST Office Visit [facility] 10 [place] [address] Unknown, Unknown, Helene Emanuel, TRANSLATOR DEAF 10 [place] [address] [email or web address] Scheduled Referrals Name Type Priority Associated Diagnoses Orde r Schedule Ambulatory referral to [facility] Physical Therapy Outpatient Referral Routine Encounter for rehabilitation Ordered: 05/14/2023 documented as of this encounter Visit Diagnoses Diagnosis Encounter for rehabilitation- Primary documented in this encounter Additional Health Concerns Assessment Noted Time PHQ-2 Depression Total Score: 2 11/10/19 23 7:32 AM EST documented as of this encounter Care Teams Outside Salesperson Relationship Specialty Start Date End Date Tamika Villalta CNP 234 [facility] 7 [place] [address] PCP - General Family Medicine 09/18/22 Tamika Villalta CNP 234 [facility] 7 [place] [address] [email or web address] Insurance Assigned Provider 12/17/24 documented as of this encounter Additional Source Comments The information contained in this document represents components of the legal health record. It is not the complete legal health record.[facility]
--- OUTSIDE RECORDS SUMMARY | 2025-06-26 13:40 | XMS_ITS | Encounter Summary ---
Author Organization [facility] Address [address] [place] [address] Phone Care Team Providers Care Bead Wrapper Name Role Phone Josette Juarez MD Primary Care Provider [phone] Josette Juarez MD Unavailable Andreia Kincaid MD Primary Care Provider Andreia Kincaid MD Unavailable [phone] Tamika Villalta CNP Primary Care Provider + Josette Juarez MD Unavailable [phone] Tamika Villalta CNP Unavailable Encounter Details Date Type Department Care Team (Late st Contact Info) Description 07/15/2018 Transcribe Orders [address] [place] [address] Josette Juarez MD 25 [place] [address] Restless legs (Primary Dx) Social History Tobacco [...] Description 06/27/2025 1:30 PM EDT Office Visit [facility] 234 [place] [address] Jonathan Barone, DO [address] [address] 06/28/2025 10:00 AM EDT Office Visit [facility] [address] [place] [address] William Goodman MD 17 [place] [address] Jazmyn Gabriel, PT 21 [place] [address] 07/05/2025 8:45 AM EDT Office Visit [facility] [address] [place] [address] William Goodman MD [address] [place] [address] Robbin Hwang, PT 21 [place] [address] 07/09/2025 9:30 AM EDT Office Visit [facility] [address] [place] [address] William Goodman MD 17 [place] [address] Robbin Hwang, PT 21 [place] [address] 07/18/2025 7:00 AM EST Office Visit [facility] [address] [place] [address] William Goodman MD 17 [place] [address] Walt Billings, RV MECHANIC 380 [place] [address] [email or web address] 07/27/2025 2:30 PM EST Office Visit [facility] [address] [place] [address] William Goodman MD 17 [place] [address] Stefania Hernandez, PT 21 [place] [address] [email or web address] 07/30/2025 3:30 PM EST Office Visit [facility] 10 [place] [address] Unknown, Unknown, Helene Emanuel, SEQUENCING MACHINE OPERATOR 10 [place] [address] [email or web address] documented as of this encounter Results * Ferritin (07/15/2018 8:17 AM EDT) FERRITIN 50 13 - 150 ug/L [facility] Blood 07/15/2018 8:17 AM EDT 07/15/2018 8:19 AM EDT Josette Juarez MD LAB BLOOD ORDERABLES Final R esult [facility] 30 [place], [place] [address] * Basic metabolic panel (07/15/2018 8:17 AM EDT) SODIUM 143 133 - 146 mmol/L [facility] CHLORIDE 103 96 - 108 mmol/L [facility] POTASSIUM 4.1 3.3 - 5.1 mmol/L [facility] CO2 30 21 - 35 mmol/L [facility] BUN 9 6 - 19 mg/dL [facility] CREATININE 0.60 0.5 - 1.5 mg/dL [facility] GLUCOSE 96 70 - 99 mg/dL [facility] CALCIUM 9.2 8.4 - 10.3 mg/dL [facility] EGFR 96 >59 mL/min/1.7 3m2 [facility] Comment:If patient is black, multiply result by 1.159. Estimated glomerular filtration rate calculated using the CKD-EPI equation. ANION GAP 14 10 - 20 mmol/L [facility] Blood 07/15/2018 8:17 AM EDT 07/15/2018 8:19 AM EDT us Josette Juarez MD LAB BLOOD ORDERABLES Final R esult [facility] 30 [place] [address] documented in this encounter Visit Diagnoses Diagnosis Restless legs- Primary Restless legs syndrome (RLS) documented in this encounter Additional Health Concerns Infection Onset Date Last Indicated Resolved Time CoV-Presumed 08/27/2022 08/27/2022 09/17/2022 1:22 AM EST CoV-Risk Comment:Per Ambulatory Triage Form 10/22/2022 10/22/202211/02 1:24 AM EST documented as of this encounter Care Teams Bead Wrapper Relationship Specialty Start Date End Date Josette Juarez MD [address] [place] [address] 1 [place] [address] [email or web address] PCP - General Internal Medicine 09/20/17 12/24/20 Andreia Kincaid MD [address] [place] [address] PCP - General Family Medicine 12/25/20 09/17/22 Tamika Villalta CNP [address] [place] [address] 7 [place] [address] [email or web address] PCP - General Family Medicine 09/18/22 Josette Juarez MD [address] [place] [address] [email or web address] Insurance Assigned Provider 06/22/20 04/19/21 Andreia Kincaid MD [address] [place] [address] [email or web address] Insurance Assigned Provider 04/19/21 10/17/22 Josette Juarez MD [address] [place] [address] [email or web address] Insurance Assigned Provider 11/21/22 01/16/23 Tamika Villalta CNP [address] [place] [address], [address] [place] [address] [email or web address] Insurance Assigned Provider 12/17/24 documented as of this encounter Additional Source Comments The information contained in this document represents components of the legal health record. It is not the complete legal health record.[facility]
--- OUTSIDE RECORDS SUMMARY | 2025-06-26 13:40 | XMS_ITS | Encounter Summary ---
Author Organization [facility] Address [address] [place] [address] Phone Care Team Providers Care Tire Debeader Name Role Phone Tamika Tesfaye CNP Primary Care Provider + Tamika Villalta DIRECTOR OF MARKETING COMMUNICATIONS Unavailable [phone] Encounter Details Date Type Department Care Team (Late st Contact Info) Description 09/25/2024 Procedure Pass [facility], [address] [place] [address] Social History Tobacco Use Types Packs/Day Years Used Date Smoking Tobacco: Former Cigarettes 0.3 51.6 S tarted: 12/02/1973 Smokeless Tobacco: Never Comments:3 [...] is your housing situation today? I have ulcia red 09/24/2023 How many times have you [...] Description 06/27/2025 1:30 PM EDT Office Visit [facility] 234 [place] [address] Jonathan Barone, DO [address] [address] 06/28/2025 10:00 AM EDT Office Visit [facility] 21 [place] [address] William Goodman MD [address] [place] [address] [id number] Jazmyn Gabriel, PT 21 [place] [address] 07/05/2025 8:45 AM EDT Office Visit [facility] [address] [place] [address] William Goodman MD [address] [place] [address] [id number] Robbin Hwang, PT 21 [place] [address] 07/09/2025 9:30 AM EDT Office Visit [facility] 21 [place] [address] William Goodman MD [address] [place] [address] Robbin Hwang, PT 21 [place] [address] 07/18/2025 7:00 AM EST Office Visit [facility] [address] [place] [address] William Goodman MD 17 [place] [address] Walt Billingse, PROPERTY MAN 380 [place] [address] 07/27/2025 2:30 PM EST Office Visit [facility] [address] [place] [address] William Goodman MD 17 [place] [address] Stefania Hernandez, PT 21 [place] [address] 07/30/2025 3:30 PM EST Office Visit [facility] 10 [place] [address] Unknown, Unknown, Helene Emanuel, DIRECTOR OF MARKETING COMMUNICATIONS 10 [place] [address] documented as of this encounter Visit Diagnoses Not on filedocumented in this encounter Additional Health Concerns Assessment Noted Time PHQ-2 Depression Total Score: 2 09/24/19 24 7:07 AM EST documented as of this encounter Care Teams Tire Debeader Relationship Specialty Start Date End Date Tamika Villalta CNP [address] [place] [address] 7 [place] [address] PCP - General Family Medicine 09/18/22 Tamika Villalta CNP [address] [place] [address] 7 [place] [address] Insurance Assigned Provider 12/17/24 documented as of this encounter Additional Source Comments The information contained in this document represents components of the legal health record. It is not the complete legal health record.[facility]
--- OUTSIDE RECORDS SUMMARY | 2025-06-26 13:40 | XMS_ITS | Encounter Summary ---
Author Organization [facility] Address [address] [place] [address] Phone Care Team Providers Care Caster Operator Name Role Phone Josette Juarez MD Primary Care Provider Josette Juarez MD Unavailable Andreia Kincaid MD Primary Care Provider Andreia Kincaid MD Unavailable [phone] Tamika Villalta CNP Primary Care Provider + Josette Juarez MD Unavailable [phone] Tamika Villalta CNP Unavailable [phone] Encounter Details Date Type Department Care Team (Latest Contact Info) Description 10/12/2017 Transcribe Orders [address] [place] [address] Josette Juarez MD 25 [place] [address] Hyperlipidemia, unspecified hyperlipidemia type (Primary Dx); Impaired [...] Description 06/27/2025 1:30 PM EDT Office Visit [facility] 234 [place] [address] Jonathan Barone, DO [address] [address] [email or web address] 06/28/2025 10:00 AM EDT Office Visit [facility] 21 [place] [address] William Goodman MD 17 [place], [place] [phone] Jazmyn Gabriel, PT 21 [place] [address] [email or web address] 07/05/2025 8:45 AM EDT Office Visit [facility] [address] [place] [address] William Goodman MD 17 [place], [place] [phone] Robbin Hwang, PT 21 [place] [address] [email or web address] 07/09/2025 9:30 AM EDT Office Visit [facility] [address] [place] [address] William Goodman MD 17 [place] [address] Robbin Hwang, PT 21 [place] [address] 07/18/2025 7:00 AM EST Office Visit [facility] [address] [place] [address] William Goodman MD 17 [place] [address] Walt Billings, PAPER CONE DRYING MACHINE OPERATOR 380 [place] [address] [email or web address] 07/27/2025 2:30 PM EST Office Visit [facility] [address] [place] [address] William Goodman MD 17 [place] [address] Stefania Hernandez, PT 21 [place] [address] [email or web address] 07/30/2025 3:30 PM EST Office [facility] 10 [place] [address] Unknown, Unknown, Helene Emanuel, STATE FARM AGENT TEAM MEMBER 10 [place] [address] [email or web address] documented as of this encounter Results * 25-OH vitamin D (10/12/2017 8:28 AM EST) 25 OH VIT D (TOTAL) 54 30 - 1,000 ng/mL [facility] Blood 10/12/2017 8:28 AM EST 10/12/2017 8:32 AM EST us Josette Juarez MD LAB BLOOD ORDERABLES Final R esult [facility] 30 [place] [address] * Comprehensive metabolic panel (10/12/2017 8:28 AM EST) SODIUM 142 133 - 146 mmol/L [facility] POTASSIUM 3.8 3.3 - 5.1 mmol/L [facility] CHLORIDE 101 96 - 108 mmol/L [facility] CO2 29 21 - 35 mmol/L [facility] BUN 13 6 - 19 mg/dL [facility] CREATININE 0.60 0.5 - 1.5 mg/dL [facility] GLUCOSE 95 70 - 99 mg/dL [facility] ALBUMIN 4.3 3.9 - 4.8 g/dL [facility] TOTAL PROTEIN 7.2 6.5 - 8.0 g/dL [facility] CALCIUM 9.3 8.4 - 10.3 mg/dL [facility] ALKALINE PHOSPHATASE 81 39 - 117 U/L [facility] TOTAL BILIRUBIN 0.7 0 - 1.2 mg/dL [facility] AST 23 0 - 37 U/L [facility] ALT 28 0 - 40 U/L [facility] GLOBULIN 2.9 1 - 4.8 g/dL [facility] EGFR >60 >60 mL/min/1.7 3m2 [facility] Comment:Abnormal if <60. If patient is -Montserratian, multiply the result by 1.21. ANION GAP 16 10 - 20 mmol/L [facility] Blood 10/12/2017 8:28 AM EST 10/12/2017 8:32 AM EST Josette Juarez MD LAB BLOOD ORDERABLES Final R esult [facility] 30 [place] [address] * (ABNORMAL) Lipid panel (10/12/2017 8:28 AM EST) HDL 71 mg/dL [facility] Comment: Interpretation: Risk Level Females Decreased >55mg/dL Average 50-55 mg/dL Increased <50 mg/dL CHOLESTEROL 238 0 - 240 mg/dL [facility] TRIGLYCERIDES 82 30 - 160 mg/dL [facility] LDL 151(H) 50 - 129 mg/dL [facility] Comment: LDL levels in terms of risk for coronary heart disease: <100 mg/dL: Optimal 100-129 mg/dL: Near or above optimal 130-159 mg/dL: Borderline high 160-189 mg/dL: High >190 mg/dL: Very High CARDIAC RISK RATIO 3.4 3.3 - 4.4 C [facility] Blood 10/12/2017 8:28 AM EST 10/12/2017 8:32 AM EST us Josette Juarez MD LAB BLOOD ORDERABLES Final R esult [facility] 30 [place] [address] documented in this encounter Visit Diagnoses Diagnosis Hyperlipidemia, unspecified hyperlipidemia type- Primary Impaired fasting glucose Vitamin D deficiency documented in this encounter Additional Health Concerns Infection Onset Date Last Indicated Resolved Time CoV-Presumed 08/27/2022 08/27/2022 09/17/2022 1:22 AM EST CoV-Risk Comment:Per Ambulatory Triage Form 10/22/2022 10/22/202211/02 1:24 AM EST documented as of this encounter Care Teams Caster Operator Relationship Specialty Start Date End Date Josette Juarez MD [address] [place] [address] [email or web address] PCP - General Internal Medicine 09/20/17 12/24/20 Andreia Kincaid MD [address] [place] [address] [email or web address] PCP - General Family Medicine 12/25/20 09/17/22 Tamika Villalta CNP [address] [place] [address] 7 [place] [address] [email or web address] PCP - General Family Medicine 09/18/22 Josette Juarez MD 25 [place] [address] [email or web address] Insurance Assigned Provider 06/22/20 04/19/21 Andreia Kincaid MD [address] [place] [address] [email or web address] Insurance Assigned Provider 04/19/21 10/17/22 Josette Juarez MD [address] [place] [address] [email or web address] Insurance Assigned Provider 11/21/22 01/16/23 Tamika Villalta CNP [address] [place] [address] 7 [place] [address] [email or web address] Insurance Assigned Provider 12/17/24 documented as of this encounter Additional Source Comments The information contained in this document represents components of the legal health record. It is not the complete legal health record.[facility]
--- OUTSIDE RECORDS SUMMARY | 2025-06-26 13:40 | XMS_ITS | Encounter Summary ---
Author Organization [facility] Address [address] [place], [place] [address] Phone Care Team Providers Care Patient Account Liaison Name Role Phone Josette Juarez MD Primary Care Provider Josette Juarez MD Unavailable Andreia Kincaid MD Primary Care Provider Andreia Kincaid MD Unavailable [phone] Tamika Villalta CNP Primary Care Provider + Josette Juarez MD Unavailable [phone] Tamika Villalta CNP Unavailable [phone] Encounter Details Date Type Department Care Team (Late st Contact Info) Description 09/20/2017 Ancillary Orders Virtual Department 30 [place] [address] Josette Juarez MD 25 [place] [address] Breast screening Social History Tobacco Use Types [...] Description 06/27/2025 1:30 PM EDT Office Visit [facility] 234 [place] [address] Jonathan Barone, DO 22 [facility] [address] [place] [address] [email or web address] 06/28/2025 10:00 AM EDT Office Visit [facility] [address] [place] [address] William Goodman MD 17 [place], [place] [phone] Jazmyn Gabriel, PT 21 [place] [address] [email or web address] 07/05/2025 8:45 AM EDT Office Visit [facility] [address] [place] [address] William Goodman MD [address] [place] [address] [id number] Robbin Hwang, PT 21 [place] [address] [email or web address] 07/09/2025 9:30 AM EDT Office Visit [facility] [address] [place] [address] William Goodman MD [address] [place] [address] Robbin Hwang, PT 21 [place] [address] [email or web address] 07/18/2025 7:00 AM EST Office Visit [facility] [address] [place] [address] William Goodman MD 17 [place] [address] Walt Billings, GLAZIER SUPERVISOR 380 [place] [address] 07/27/2025 2:30 PM EST Office Visit [facility] [address] [place] [address] William Goodman MD 17 [place] [address] Stefania Hernandez, PT 21 [place] [address] 07/30/2025 3:30 PM EST Office Visit [facility] 10 [place] [address] Unknown, Unknown, Helene Emanuel, BOILER COVERER HELPER 10 [place] [address] [email or web address] documented as [...] documented as of this encounter Care Teams Patient Account Liaison Relationship Specialty Start Date End Date Josette Juarez MD [address] [place] [address] 1 [place] [address] [email or web address] PCP - General Internal Medicine 09/20/17 12/24/20 Andreia Kincaid MD [address] [place] [address] [email or web address] PCP - General Family Medicine 12/25/20 09/17/22 Tamika Villalta CNP [address] [place] [address] 7 [place] [address] [email or web address] PCP - General Family Medicine 09/18/22 Josette Juarez MD 25 [place] [address] [email or web address] Insurance Assigned Provider 06/22/20 04/19/21 Andreia Kincaid MD [address] [place] [address] [email or web address] Insurance Assigned Provider 04/19/21 10/17/22 Josette Juarez MD 25 [place] [address] [email or web address] Insurance Assigned Provider 11/21/22 01/16/23 Tamika Villalta CNP [address] [place] [address] 7 [place] [address] [email or web address] Insurance Assigned Provider 12/17/24 documented as of this encounter Additional Source Comments The information contained in this document represents components of the legal health record. It is not the complete legal health record.[facility]
--- OUTSIDE RECORDS SUMMARY | 2025-06-26 13:41 | XMS_ITS | Encounter Summary ---
Author Organization [facility] Address [address] [place] [address] Phone Care Team Providers Care Electronics Manufacturer Name Role Phone Josette Juarez MD Primary Care Provider Josette Juarez MD Unavailable Andreia Kincaid MD Primary Care Provider Andreia Kincaid MD Unavailable [phone] Tamika Villalta CNP Primary Care Provider + Josette Juarez MD Unavailable [phone] Tamika Villalta CNP Unavailable Encounter Details Date Type Department Care Team (Latest Contact Info) Description 09/18/2020 Transcribe Orders [address] [place] [address] Josette Juarez MD 25 [place] [address] Hyperlipidemia, unspecified hyperlipidemia type (Primary Dx) Social [...] Description 06/27/2025 1:30 PM EDT Office Visit [facility] 234 [place] [address] Jonathan Barone, DO [address] [address] 06/28/2025 10:00 AM EDT Office Visit [facility] 21 [place] [address] William Goodman MD 17 [place] [address] Jazmyn Gabriel, PT 21 [place] [address] 07/05/2025 8:45 AM EDT Office Visit [facility] [address] [place] [address] William Goodman MD 17 [place] [address] Robbin Hwang, PT 21 [place] [address] 07/09/2025 9:30 AM EDT Office Visit [facility] [address] [place] [address] William Goodman MD 17 [place] [address] Robbin Hwang, PT 21 [place] [address] 07/18/2025 7:00 AM EST Office Visit [facility] [address] [place] [address] William Goodman MD 17 [place] [address] Walt Billings, NETWORK PLANNER [address] [place] [address] [email or web address] 07/27/2025 2:30 PM EST Office Visit [facility] [address] [place] [address] William Goodman MD [address] [place] [address] Stefania Hernandez, PT 21 [place] [address] 07/30/2025 3:30 PM EST Office Visit [facility] 10 [place] [address] Unknown, Unknown, Helene Emanuel, WELDING ROBOT OPERATOR 10 [place] [address] [email or web address] documented as of this encounter Results * (ABNORMAL) Lipid panel (09/18/2020 8:28 AM EST) HDL 73 mg/dL [facility] Comment: Interpretation <40 mg/dL: Low HDL cholesterol (major risk factor for CHD) Greater than or equal to 60 mg/dL: High HDL cholesterol ( negative risk factor for CHD) HDL - cholesterol is affected by a number of factors, e.g. smoking, excerise, hormones, sex and age. CHOLESTEROL 192 0 - 240 mg/dL [facility] TRIGLYCERIDES 74 30 - 160 mg/dL [facility] LDL 104 50 - 129 mg/dL [facility] Comment: LDL levels in terms of risk for coronary heart disease: <100 mg/dL: Optimal 100-129 mg/dL: Near or above optimal 130-159 mg/dL: Borderline high 160-189 mg/dL: High >190 mg/dL: Very High CARDIAC RISK RATIO 2.6(L) 3.3 - 4.4 C [facility] Blood 09/18/2020 8:28 AM EST 09/18/2020 8:30 AM EST us Josette Juarez MD LAB BLOOD ORDERABLES Final R esult [facility] 30 [place] [address] documented in this encounter Visit Diagnoses Diagnosis Hyperlipidemia, unspecified hyperlipidemia type- Primary documented in this encounter Additional Health Concerns Infection Onset Date Last Indicated Resolved Time CoV-Presumed 08/27/2022 08/27/2022 09/17/2022 1:22 AM EST CoV-Risk Comment:Per Ambulatory Triage Form 10/22/2022 10/22/202211/02 1:24 AM EST documented as of this encounter Care Teams Electronics Manufacturer Relationship Specialty Start Date End Date Josette Juarez MD [address] [place] [address] 1 [place] [address] [email or web address] PCP - General Internal Medicine 09/20/17 12/24/20 Andreia Kincaid MD 25 [place] [address] [email or web address] PCP - General Family Medicine 12/25/20 09/17/22 Tamika Villalta CNP [address] [place] [address] 7 [place] [address] [email or web address] PCP - General Family Medicine 09/18/22 Josette Juarez MD 25 [place] [address] [email or web address] Insurance Assigned Provider 06/22/20 04/19/21 Andreia Kincaid MD [address] [place] [address] [email or web address] Insurance Assigned Provider 04/19/21 10/17/22 Josette Juarez MD [address] [place] [address] [email or web address] Insurance Assigned Provider 11/21/22 01/16/23 Tamika Villalta CNP [address] [place] [address] 7 [place] [address] [email or web address] Insurance Assigned Provider 12/17/24 documented as of this encounter Additional Source Comments The information contained in this document represents components of the legal health record. It is not the complete legal health record.[facility]
--- OUTSIDE RECORDS SUMMARY | 2025-06-26 13:41 | XMS_ITS | Encounter Summary ---
Author Organization [facility] Address [address] [place], [place] [phone] Phone Care Team Providers Care Central Office Worker Name Role Phone Josette Juarez MD Primary Care Provider Josette Juarez MD Unavailable Andreia Kincaid MD Primary Care Provider Andreia Kincaid MD Unavailable [phone] Tamika Villalta CNP Primary Care Provider + Josette Juarez MD Unavailable Tamika Villalta CNP Unavailable Encounter Details Date Type Department Care Team (Late st Contact Info) Description 02/03/2019 Ancillary Orders Virtual Department 30 [place] [address] Josette Juarez MD 25 [place] [address] Breast screening Social History Tobacco Use Types [...] Description 06/27/2025 1:30 PM EDT Office Visit [facility] 234 [place] [address] Jonathan Barone, DO 22 [facility] [address] [place] [address] [email or web address] 06/28/2025 10:00 AM EDT Office Visit [facility] [address] [place] [address] William Goodman MD 17 [place], [place] [phone] Jazmyn Gabriel, PT 21 [place] [address] [email or web address] 07/05/2025 8:45 AM EDT Office Visit [facility] [address] [place] [address] William Goodman MD [address] [place] [id number] Robbin Hwang, PT 21 [place] [address] [email or web address] 07/09/2025 9:30 AM EDT Office Visit [facility] [address] [place] [address] William Goodman MD [address] [place] [address] Robbin Hwang, PT 21 [place] [address] [email or web address] 07/18/2025 7:00 AM EST Office Visit [facility] [address] [place] [address] William Goodman MD 17 [place] [address] Walt Billings, UTILITY SALES REPRESENTATIVE 380 [place] [address] 07/27/2025 2:30 PM EST Office Visit [facility] [address] [place] [address] William Goodman MD 17 [place] [address] Stefania Hernandez, PT 21 [place] [address] 07/30/2025 3:30 PM EST Office Visit [facility] 10 [place] [address] Unknown, Unknown, Helene Emanuel, JEWELER APPRENTICE 10 [place] [address] [email or web address] documented as [...] and compared with multiple prior studies, most iyxlcnuj91/23/2018, with utilization of computer-aided detection. The breast [...] documented as of this encounter Care Teams Central Office Worker Relationship Specialty Start Date End Date Josette Juarez MD [address] [place] [address] [email or web address] PCP - General Internal Medicine 09/20/17 12/24/20 Andreia Kincaid MD [address] [place] [address] PCP - General Family Medicine 12/25/20 09/17/22 Tamika Villalta, JEWELER APPRENTICE [address] [place] [address] 7 [place] [address] [email or web address] PCP - General Family Medicine 09/18/22 Josette Juarez MD [address] [place] [address] [email or web address] Insurance Assigned Provider 06/22/20 04/19/21 Andreia Kincaid MD [address] [place] [address] [email or web address] Insurance Assigned Provider 04/19/21 10/17/22 Josette Juarez MD [address] [place] [address] [email or web address] Insurance Assigned Provider 11/21/22 01/16/23 Tamika Villalta CNP [address] [place] [address] 7 [place] [address] [email or web address] Insurance Assigned Provider 12/17/24 documented as of this encounter Additional Source Comments The information contained in this document represents components of the legal health record. It is not the complete legal health record.[facility]
--- OUTSIDE RECORDS SUMMARY | 2025-06-26 13:41 | XMS_ITS | Encounter Summary ---
Author Organization [facility] Address [address] [place] [address] Phone Care Team Providers Care Auto Rebuilder Name Role Phone Josette Juarez MD Primary Care Provider Josette Juarez MD Unavailable Andreia Kincaid MD Primary Care Provider [phone] Andreia Kincaid MD Unavailable [phone] Tamika Villalta CNP Primary Care Provider + Josette Juarez MD Unavailable [phone] Tamika Villalta CNP Unavailable [phone] Encounter Details Date Type Department Care Team (Latest Contact Info) Description 04/26/2020 Transcribe Orders [address] [place] [address] Josette Juarez MD [address] [place] [address] Hypertension, unspecified type (Primary Dx); Hyperlipidemia, unspecified [...] Description 06/27/2025 1:30 PM EDT Office Visit [facility] [address] [place] [address] Jonathan Barone, DO [address] [address] [email or web address] 06/28/2025 10:00 AM EDT Office Visit [facility] [address] [place] [address] William Goodman MD 17 [place], [place] [id number] Jazmyn Gabriel, PT 21 [place] [address] [email or web address] 07/05/2025 8:45 AM EDT Office Visit [facility] [address] [place] [address] William Goodman MD [address] [place], [place] [id number] Robbin Hwang, PT 21 [place] [address] 07/09/2025 9:30 AM EDT Office Visit [facility] [address] [place] [address] William Goodman MD [address] [place], [place] [id number] Robbin Hwang, PT 21 [place] [address] 07/18/2025 7:00 AM EST Office Visit [facility] [address] [place] [address] William Goodman MD 17 [place] [address] Walt Billings, VENEER DRIER FEEDER [address] [place] [address] 07/27/2025 2:30 PM EST Office Visit [facility] [address] [place] [address] William Goodman MD 17 [place] [address] Stefania Hernandez, PT 21 [place] [address] 07/30/2025 3:30 PM EST Office Visit [facility] [address] [place] [address] Unknown, Unknown, Helene Emanuel, FRONT OFFICE ASSISTANT [address] [place] [address] [email or web address] documented as of this encounter Results * Vitamin B12 (04/26/2020 8:01 AM EDT) VITAMIN B12 553 232 - 1,245 pg/mL [facility] Blood 04/26/2020 8:01 AM EDT 04/26/2020 8:06 AM EDT us Josette Juarez MD LAB BLOOD ORDERABLES Final R esult [facility] [address] [place] [address] * Folate (04/26/2020 8:01 AM EDT) FOLIC ACID 14.3 4.2 - 19.9 ng/mL [facility] Blood 04/26/2020 8:01 AM EDT 04/26/2020 8:06 AM EDT Josette Juarez MD LAB BLOOD ORDERABLES Final R esult Performing Organization Address City/[facility]/ZIP Co de Phone Number [address] [address] * TSH with reflex (04/26/2020 8:01 AM EDT) TSH 1.92 0.27 - 4.20 uIU/mL [facility] Blood 04/26/2020 8:01 AM EDT 04/26/2020 8:06 AM EDT Josette Juarez MD LAB BLOOD ORDERABLES Final R esult Performing Organization Address [facility] Co de Phone Number [address] [address] * 25-OH vitamin D (04/26/2020 8:01 AM EDT) 25 [place] VIT D (TOTAL) 47 30 - 60 ng/mL [facility] Blood 04/26/2020 8:01 AM EDT 04/26/2020 8:06 AM EDT Josette Juarez MD LAB BLOOD ORDERABLES Final R esult Performing Organization Address [facility] Co de Phone Number [address] [address] * (ABNORMAL) Lipid panel (04/26/2020 8:01 AM EDT) HDL 70 mg/dL [facility] Comment: Interpretation <40 mg/dL: Low HDL cholesterol (major risk factor for CHD) Greater than or equal to 60 mg/dL: High HDL cholesterol ( negative risk factor for CHD) HDL - cholesterol is affected by a number of factors, e.g. smoking, excerise, hormones, sex and age. CHOLESTEROL 238 0 - 240 mg/dL [facility] TRIGLYCERIDES 63 30 - 160 mg/dL [facility] LDL 155(H) 50 - 129 mg/dL [facility] Comment: LDL levels in terms of risk for coronary heart disease: <100 mg/dL: Optimal 100-129 mg/dL: Near or above optimal 130-159 mg/dL: Borderline high 160-189 mg/dL: High >190 mg/dL: Very High CARDIAC RISK RATIO 3.4 3.3 - 4.4 C [facility] Blood 04/26/2020 8:01 AM EDT 04/26/2020 8:06 AM EDT us Josette Juarez MD LAB BLOOD ORDERABLES Final R esult [facility] [address] [place] [address] * (ABNORMAL) Comprehensive metabolic panel (04/26/2020 8:01 AM EDT) SODIUM 140 133 - 146 mmol/L [facility] POTASSIUM 4.3 3.3 - 5.1 mmol/L [facility] CHLORIDE 103 96 - 108 mmol/L [facility] CO2 27 21 - 35 mmol/L [facility] BUN 17 6 - 19 mg/dL [facility] CREATININE 0.60 0.5 - 1.5 mg/dL [facility] GLUCOSE 103(H) 70 - 99 mg/dL [facility] ALBUMIN 4.3 3.9 - 4.8 g/dL [facility] TOTAL PROTEIN 6.8 6.5 - 8.0 g/dL [facility] CALCIUM 9.2 8.4 - 10.3 mg/dL [facility] ALKALINE PHOSPHATASE 57 39 - 117 U/L [facility] TOTAL BILIRUBIN 0.6 0.0 - 1.2 mg/dL [facility] AST 24 0 - 37 U/L [facility] ALT 21 0 - 40 U/L [facility] GLOBULIN 2.5 1 - 4.8 g/dL [facility] EGFR 94 >59 mL/min/1.7 3m2 [facility] Comment:Estimated glomerular filtration rate calculated using the CKD-EPI equation. ANION GAP 14 10 - 20 mmol/L [facility] Blood 04/26/2020 8:01 AM EDT 04/26/2020 8:06 AM EDT Josette Juarez MD LAB BLOOD ORDERABLES Final R esult Performing Organization Address [facility] Co de Phone Number [address] [address] * CBC (04/26/2020 8:01 AM EDT) WBC 4.36 4.00 - 11.00 K/uL [facility] Comment:Note Reference Range updates to all CBC and Differential results. RBC 4.39 3.72 - 5.30 M/uL [facility] HGB 12.8 11.4 - 15.9 g/dL [facility] Comment:Note updated Referen ce Ranges for all CBC and Differential results. HCT 38.6 34.2 - 46.8 % [facility] PLT 296 140 - 430 K/uL [facility] MCV 87.9 78.0 - 97.0 fL [facility] MCH 29.2 25.0 - 33.0 pg [facility] MCHC 33.2 32.0 - 36.0 g/dL [facility] RDW 12.6 11.0 - 16.0 % [facility] MPV 9.5 8.4 - 12.8 [facility] NRBC 0.00 0 /100 WBCs [facility] ABSOLUTE NRBC 0.00 0 K/uL [facility] Blood 04/26/2020 8:01 AM EDT 04/26/2020 8:06 AM EDT us Josette Juarez MD LAB BLOOD ORDERABLES Final R esult [address] [address] documented in this encounter Visit Diagnoses Diagnosis Hypertension, unspecified type- Primary Hyperlipidemia, unspecified hyperlipidemia type Fatigue, unspecified type Vitamin D deficiency documented in this encounter Additional Health Concerns Infection Onset Date Last Indicated Resolved Time CoV-Presumed 08/27/2022 08/27/2022 09/17/2022 1:22 AM EST CoV-Risk Comment:Per Ambulatory Triage Form 10/22/2022 10/22/2022 02/20 /2023 1:24 AM EST documented as of this encounter Care Teams Auto Rebuilder Relationship Specialty Start Date End Date Josette Juarez MD [address] [place] [address] 1 [place] [address] [email or web address] PCP - General Internal Medicine 09/20/17 12/24/20 Andreia Kincaid MD [address] [place] [address] [email or web address] PCP - General Family Medicine 12/25/20 09/17/22 Tamika Villalta CNP [address] [place] [address] 7 [place] [address] [email or web address] PCP - General Family Medicine 09/18/22 Josette Juarez MD [address] [place] [address] [email or web address] Insurance Assigned Provider 06/22/20 04/19/21 Andreia Kincaid MD [address] [place] [address] [email or web address] Insurance Assigned Provider 04/19/21 10/17/22 Josette Juarez MD [address] [place] [address] Insurance Assigned Provider 11/21/22 01/16/23 Tamika Villalta, TONY [address] [place] [address] 7 [place] [address] [email or web address] Insurance Assigned Provider 12/17/24 documented as of this encounter Additional Source Comments The information contained in this document represents components of the legal health record. It is not the complete legal health record.[facility]
--- OUTSIDE RECORDS SUMMARY | 2025-06-26 13:41 | XMS_ITS | Clinical Summary ---
Author Organization [facility] Address [facility] [place] [address] Care Team Providers Care Concrete Journeyman Name Role Phone Unavailable Primary Care Provider Unavailabl e Encounters Date Type Department Care Team Description 05/22/2025 Interpretation Only [address] [phone] Abimael Sparrow PA 05/02/2025 Interpretation Only [address] [address] William Goodman MD Unilateral primary osteoarthritis, right knee from Last 3 Months Social [...] 2007 Bone Density Scan 2017 Covid-19 Vaccine (3 - season) 2025, 11/27/2020 Influenza (Flu) vaccine (1 o f 1 - Influenza standard series) 05/14/2025 Procedures Procedure Name Priority Date/Time Associated Diagnosis Comments XR KNEE AP & LAT RIGHT Routine 05/22/2025 10:[address] LOWER EXTREMITY WO CONTRAST RIGHT Routine 05/02/2025 9:19 AM EDT Unilateral primary osteoarthritis, right knee from Last 3 Months Results * XR Knee 1-2 Views Right (Standard) (05/22/2025 10:57 AM EDT) PT CLASS O RAD ADMITDTTM [id number] RAD PT RAD INFO [id number]^Kyara ^Abimael RAD EXAM DESC [id number]^XR Knee 2 Views Right^RIS [facility] WORKSTATION ID [id number] RAD Anatomical Region Laterality Modality Knee Right Radiographic Debra ging 05/22/2025 10:5 7 AM EDT Impressions 05/23/2025 8:17 AM EDT Status post total right knee arthroplasty. Thank you for letting us participate in the care of this patient. If you are a health care provider and have any questions regarding this report, please contact the number below. For patients who have questions please contact the health career specialist that requested your imaging first. Electronically signed by: Maurice Mobley [facility] ([phone]), at 05/23/2025 8:17 AM Narrative 05/23/2025 8:17 AM EDT EXAMINATION: XR Knee 2 Views Right CLINICAL HISTORY: s/p right total knee FINDINGS: Frontal and lateral non weight-bearing views of the right knee were obtained and compared to the prior exam of 03/21/2025. The patient is post total right knee arthroplasty. There is no evidence of fracture or dislocation. The femoral and tibial components are well positioned. There is postsurgical air in soft tissues. Procedure Note Maurice Mobley MD - 05/23/2025 EXAMINATION: XR Knee 2 Views Right CLINICAL HISTORY: s/p right total knee FINDINGS: Frontal and lateral non weight-bearing views of the right kneewere obtained and compared to the prior exam of 03/21/2025. The patient is posttotal right knee arthroplasty. There is no evidence of fracture or dislocation.The femoral and tibial components are well positioned. There is postsurgicalair in soft tissues. IMPRESSION Status post total right knee arthroplasty. Thank you for letting us participate in the care of this patient. If youare a health care provider and have any questions regarding this report,please contact the number below. For patients who have questions please contactthe health career specialist that requested your imaging first. Electronically signed by: Maurice Mobley [facility]([phone]), at 05/23/2025 8:17 AM us Abimael DIALLO IM DX ORDERABLES Final Result * CT Lower Extremity wo Contrast Right (Standard) (05/02/2025 9:19 AM EDT) PT CLASS O RAD ADMITDTTM [id number] [facility] PT [facility] INFO [id number]^MEREDITH Y^WILLIAM RAD EXAM DESC CTLOEXWOR^CT Lower Extremity w/o Contrast Right^RIS [facility] WORKSTATION ID [id number] [facility] Anatomical Region Laterality Modality Hip, [...] who have questions please contact the health career specialist that requested your imaging first. Electronically signed by: Job Sosa MD, [facility] ([phone]), at 05/02/2025 5:00 PM Narrative 05/02/2025 5:00 PM EDT EXAMINATION: CT Lower Extremity w/o Contrast Right CLINICAL HISTORY: right knee DJD - preop planning;M17.11 Unilateral primary osteoarthritis, right knee TECHNIQUE: Unenhanced CT examination of the right lower extremity for preoperative planning. COMPARISON: Radiographs right knee 03/21/2025 FINDINGS: Computator images: Left total knee arthroplasty. Bone/joints: No [...] planning. COMPARISON: Radiographs right knee 03/21/2025 FINDINGS: Computator images: Left total knee arthroplasty. Bone/joints: No [...] patients who have questions please contactthe health career specialist that requested your imaging first. Electronically signed by: Job Sosa MD, [facility]([phone]), at 05/02/2025 5:00 PM William Goodman MD IMG CT ORDERABLES Final Result from Last 3 Months Insurance MEDICARE
--- OUTSIDE RECORDS SUMMARY | 2025-06-26 13:41 | XMS_ITS | Encounter Summary ---
Author Organization [facility] Address [address] [place] [address] Phone Care Team Providers Care Outreach Director Name Role Phone Josette Juarez MD Primary Care Provider Josette Juarez MD Unavailable Andreia Kincaid MD Primary Care Provider [phone] Andreia Kincaid MD Unavailable [phone] Tamika Villalta CNP Primary Care Provider + Josette Juarez MD Unavailable [phone] Tamika Villalta CNP Unavailable [phone] Encounter Details Date Type Department Care Team (Late st Contact Info) Description 06/14/2020 Procedure Pass [facility] - [address] [place] [address] Social History Tobacco Use Types Packs/Day Years [...] Description 06/27/2025 1:30 PM EDT Office Visit [address] [address] Jonathan Barone DO 22 [facility] [address] [place] [address] [email or web address] 06/28/2025 10:00 AM EDT Office Visit [facility] [address] [place] [address] William Goodman MD [address] [place], [place] [id number] Jazmyn Gabriel, PT [address] [place] [address] 07/05/2025 8:45 AM EDT Office Visit [facility] [address] [place] [address] William Goodman MD [address] [place], [place] [id number] Robbin Hwang, PT [address] [place] [address] 07/09/2025 9:30 AM EDT Office Visit [facility] [address] [place] [address] William Goodman MD [address] [place], [place] [id number] Robbin Hwang, PT [address] [place] [address] [email or web address] 07/18/2025 7:00 AM EST Office Visit [facility] [address] [place] [address] William Goodman MD [address] [place] [phone] Walt Billings, TUBE MAN [address] [place] [address] [email or web address] 07/27/2025 2:30 PM EST Office Visit [facility] [address] [place] [address] William Goodman MD [address] [place] [address] Stefania Hernandez, PT [address] [place] [address] 07/30/2025 3:30 PM EST Office Visit [facility] [address] [place] [address] Unknown, Unknown, Helene Emanuel, MAINTENANCE HELPER UTILITY ENGINEER 10 [place] [address] documented as of this encounter Visit Diagnoses Not on filedocumented in this encounter Additional Health Concerns Infection Onset Date Last Indicated Resolved Time CoV-Presumed 08/27/2022 08/27/2022 09/17/2022 1:22 AM EST CoV-Risk Comment:Per Ambulatory Triage Form 10/22/2022 10/22/202211/02 1:24 AM EST documented as of this encounter Care Teams Outreach Director Relationship Specialty Start Date End Date Josette Juarez MD [address] [place] [address] 1 [place] [address] PCP - General Internal Medicine 09/20/17 12/24/20 Andreia Kincaid MD [address] [place] [address] [email or web address] PCP - General Family Medicine 12/25/20 09/17/22 Tamika Villalta, MAINTENANCE HELPER UTILITY ENGINEER [address] [place] [address] 7 [place] [address] [email or web address] PCP - General Family Medicine 09/18/22 Josette Juarez MD [address] [place] [address] [email or web address] Insurance Assigned Provider 06/22/20 04/19/21 Andreia Kincaid MD [address] [place] [address] [email or web address] Insurance Assigned Provider 04/19/21 10/17/22 Josette Juarez MD [address] [place] [address] [email or web address] Insurance Assigned Provider 11/21/22 01/16/23 Tamika Villalta CNP [address] [place] [address] 7 [place] [address] [email or web address] Insurance Assigned Provider 12/17/24 documented as of this encounter Additional Source Comments The information contained in this document represents components of the legal health record. It is not the complete legal health record.[facility]
--- OUTSIDE RECORDS SUMMARY | 2025-06-26 13:42 | XMS_ITS | Encounter Summary ---
Author Organization [facility] Address [address] [place] [address] Phone Care Team Providers Care Hogshead Roller Name Role Phone Josette Juarez MD Primary Care Provider Josette Juarez MD Unavailable Andreia Kincaid MD Primary Care Provider Andreia Kincaid MD Unavailable [phone] Tamika Villalta CNP Primary Care Provider + Josette Juarez MD Unavailable [phone] Tamika Villalta CNP Unavailable Encounter Details Date Type Department Care Team (Late st Contact Info) Description 04/25/2019 Transcribe Orders [address] [place] [address] Josette Juarez MD 25 [place] [address] Numbness (Primary Dx) Social History Tobacco Use [...] Description 06/27/2025 1:30 PM EDT Office Visit [facility] [address] [place] [address] Jonathan Barone, DO 22 [facility] [address] [place] [address] [email or web address] 06/28/2025 10:00 AM EDT Office Visit [facility] [address] [place] [address] William Goodman MD 17 [place] [address] Jazmyn Gabriel, PT 21 [place] [address] 07/05/2025 8:45 AM EDT Office Visit [facility] [address] [place] [address] William Goodman MD 17 [place] [address] Robbin Hwang, PT 21 [place] [address] 07/09/2025 9:30 AM EDT Office Visit [facility] [address] [place] [address] William Goodman MD 17 [place] [address] Robbin Hwang, PT 21 [place] [address] 07/18/2025 7:00 AM EST Office Visit [facility] [address] [place] [address] William Goodman MD 17 [place] [address] Walt Billings, SCHEDULING MANAGER [address] [place] [address] 07/27/2025 2:30 PM EST Office Visit [facility] [address] [place] [address] William Goodman MD 17 [place] [address] Stefania Hernandez, PT 21 [place] [address] 07/30/2025 3:30 PM EST Office Visit [facility] 10 [place] [address] Unknown, Unknown, Helene Emanuel, BANKING PARALEGAL 10 [place] [address] [email or web address] documented as of this encounter Results * TSH with reflex (04/25/2019 2:43 PM EDT) Pathologist [facility] TSH 1.74 0.27 - 4.20 uIU/mL [facility] Blood 04/25/2019 2:43 PM EDT 04/25/2019 2:46 PM EDT us Josette Juarez MD LAB BLOOD ORDERABLES Final R esult [facility] [address] [place] [address] * LFTs (hepatic panel) (04/25/2019 2:43 PM EDT) ALKALINE PHOSPHATASE 68 39 - 117 U/L [facility] TOTAL BILIRUBIN 0.5 0.0 - 1.2 mg/dL [facility] DIRECT BILIRUBIN <0.2 0 - 0.3 mg/dL [facility] Bilirubin (Indirect) NOT CALCULATED 0 - 1.5 mg/dL [facility] AST 35 0 - 37 U/L [facility] ALT 34 0 - 40 U/L [facility] TOTAL PROTEIN 7.0 6.5 - 8.0 g/dL [facility] ALBUMIN 4.5 3.9 - 4.8 g/dL [facility] GLOBULIN 2.5 1 - 4.8 g/dL [facility] A/G Ratio 1.80 1.00 - 4.80 RATIO [facility] Blood 04/25/2019 2:43 PM EDT 04/25/2019 2:46 PM EDT us Josette Juarez MD LAB BLOOD ORDERABLES Final R esult Performing Organization Address City/[facility]/ZIP Co de Phone Number [address] [address] * Magnesium (04/25/2019 2:43 PM EDT) MAGNESIUM 1.9 1.6 - 2.6 mg/dL [facility] Blood 04/25/2019 2:43 PM EDT 04/25/2019 2:46 PM EDT us Josette Juarez MD LAB BLOOD ORDERABLES Final R esult Performing Organization Address City/[facility]/ZIP Co de Phone Number [address] [address] * Folate (04/25/2019 2:43 PM EDT) FOLIC ACID 12.4 4.2 - 19.9 ng/mL [facility] Blood 04/25/2019 2:43 PM EDT 04/25/2019 2:46 PM EDT us Josette Juarez MD LAB BLOOD ORDERABLES Final R esult Performing Organization Address City/[facility]/ZIP Co de Phone Number [address] [address] * Vitamin B12 (04/25/2019 2:43 PM EDT) VITAMIN B12 686 232 - 1,245 pg/mL [facility] Blood 04/25/2019 2:43 PM EDT 04/25/2019 2:46 PM EDT Josette Juarez MD LAB BLOOD ORDERABLES Final R esult [facility] [address] [place] [address] * (ABNORMAL) CBC and differential (04/25/2019 2:43 PM EDT) WBC 6.57 3.40 - 11.20 K/uL [facility] RBC 4.32 3.80 - 4.80 M/uL [facility] HGB 13.1 12.0 - 15.0 g/dL [facility] HCT 38.0 36.0 - 46.0 % [facility] PLT 332 130 - 400 K/uL [facility] MCV 88.0 79.0 - 98.0 fL [facility] MCH 30.3 27.0 - 34.8 pg [facility] MCHC 34.5 31.5 - 36.0 g/dL [facility] RDW 12.7 10.8 - 14.6 % [facility] MPV 9.3(L) 9.4 - 12.4 fl [facility] NRBC 0.00 0.00 /100 WBCs [facility] ABSOLUTE NRBC 0.00 0.00 K/uL [facility] DIFF METHOD Auto [facility] NEUTS 61.2 45.30 - 77.70 % [facility] LYMPHS 29.1 12.30 - 39.70 % [facility] MONOS 8.5 4.10 - 12.80 % [facility] EOS 0.5 0 - 7.2 % [facility] BASOS 0.5 0 - 2.80 % [facility] Granulocytes, immature (%) 0.2 0.0 - 0.9 % [facility] ABSOLUTE NEUTS 4.03 1.40 - 7.70 K/uL [facility] ABSOLUTE LYMPHS 1.91 0.60 - 3.20 K/uL [facility] ABSOLUTE MONOS 0.56 0.11 - 0.59 K/uL [facility] ABSOLUTE EOS 0.03 0.01 - 0.50 K/uL [facility] ABSOLUTE BASOS 0.03 0.00 - 0.08 K/uL [facility] Granulocytes, immature 0.01 0.00 - 0.05 K/uL [facility] Blood 04/25/2019 2:43 PM EDT 04/25/2019 2:46 PM EDT us Josette Juarez MD LAB BLOOD ORDERABLES Final R esult [facility] [address] [place] [address] documented in this encounter Visit Diagnoses Diagnosis Numbness- Primary Disturbance of skin sensation documented in this encounter Additional Health Concerns Infection Onset Date Last Indicated Resolved Time CoV-Presumed 08/27/2022 08/27/2022 09/17/2022 1:22 AM EST CoV-Risk Comment:Per Ambulatory Triage Form 10/22/2022 10/22/202211/02 1:24 AM EST documented as of this encounter Care Teams Hogshead Roller Relationship Specialty Start Date End Date Josette Juarez MD [address] [place] [address] 1 [place] [address] [email or web address] PCP - General Internal Medicine 09/20/17 12/24/20 Andreia Kincaid MD [address] [place] [address] PCP - General Family Medicine 12/25/20 09/17/22 Tamika Villalta CNP [address] [place] [address] 7 [place] [address] [email or web address] PCP - General Family Medicine 09/18/22 Josette Juarez MD 25 [place] [address] [email or web address] Insurance Assigned Provider 06/22/20 04/19/21 Andreia Kincaid MD [address] [place] [address] [email or web address] Insurance Assigned Provider 04/19/21 10/17/22 Josette Juarez MD 25 [place] [address] [email or web address] Insurance Assigned Provider 11/21/22 01/16/23 Tamika Villalta CNP [address] [place] [address] 7 [place] [address] [email or web address] Insurance Assigned Provider 12/17/24 documented as of this encounter Additional Source Comments The information contained in this document represents components of the legal health record. It is not the complete legal health record.[facility]
--- OUTSIDE RECORDS SUMMARY | 2025-06-26 13:42 | XMS_ITS | Encounter Summary ---
Author Organization [facility] Address [address] [place] [address] Phone Care Team Providers Care Sales Enablement Specialist Name Role Phone Josette Juarez MD Primary Care Provider Josette Juarez MD Unavailable [phone] Andreia Kincaid MD Primary Care Provider Andreia Kincaid MD Unavailable [phone] Tamika Villalta CNP Primary Care Provider + Josette Juarez MD Unavailable [phone] Tamika Villalta CNP Unavailable [phone] Encounter Details Date Type Department Care Team (Late st Contact Info) Description 11/04/2018 Transcribe Orders [address] [place] [address] Josette Juarez MD [address] [place] [address] Hypertension, unspecified type (Primary Dx) Social History [...] Description 06/27/2025 1:30 PM EDT Office Visit [facility] [address] [place] [address] Jonathan Barone, DO [address] [address] 06/28/2025 10:00 AM EDT Office Visit [facility] [address] [place] [address] William Goodman MD 17 [place] [address] Jazmyn Gabriel, PT 21 [place] [address] 07/05/2025 8:45 AM EDT Office Visit [facility] [address] [place] [address] William Goodman MD 17 [place] [address] Robbin Hwang, PT 21 [place] [address] 07/09/2025 9:30 AM EDT Office Visit [facility] [address] [place] [address] William Goodman MD 17 [place] [address] Robbin Hwang, PT 21 [place] [address] 07/18/2025 7:00 AM EST Office Visit [facility] [address] [place] [address] William Goodman MD 17 [place] [address] Walt iBllings, MEDIA LIBRARIAN [address] [place] [address] [email or web address] 07/27/2025 2:30 PM EST Office Visit [facility] [address] [place] [address] William Goodman MD 17 [place] [address] Stefania Hernandez, PT 21 [place] [address] 07/30/2025 3:30 PM EST Office Visit [facility] 10 [place] [address] Unknown, Unknown, Helene Emanuel, APPLICATIONS SPECIALIST 10 [place] [address] [email or web address] documented as of this encounter Results * (ABNORMAL) Basic metabolic panel (11/04/2018 12:21 PM EST) SODIUM 143 133 - 146 mmol/L [facility] CHLORIDE 102 96 - 108 mmol/L [facility] POTASSIUM 4.0 3.3 - 5.1 mmol/L [facility] CO2 31 21 - 35 mmol/L [facility] BUN 13 6 - 19 mg/dL [facility] CREATININE 0.70 0.5 - 1.5 mg/dL [facility] GLUCOSE 129(H) 70 - 99 mg/dL [facility] CALCIUM 9.3 8.4 - 10.3 mg/dL [facility] EGFR 90 >59 mL/min/1.7 3m2 [facility] Comment:If patient is black, multiply result by 1.159. Estimated glomerular filtration rate calculated using the CKD-EPI equation. ANION GAP 14 10 - 20 mmol/L [facility] Blood 11/04/2018 12:2 1 PM EST 11/04/2018 12:23 PM EST us Josette Juarez MD LAB BLOOD ORDERABLES Final R esult [facility] 30 [place] [address] documented in this encounter Visit Diagnoses Diagnosis Hypertension, unspecified type- Primary documented in this encounter Additional Health Concerns Infection Onset Date Last Indicated Resolved Time CoV-Presumed 08/27/2022 08/27/2022 09/17/2022 1:22 AM EST CoV-Risk Comment:Per Ambulatory Triage Form 10/22/2022 10/22/202211/02 1:24 AM EST documented as of this encounter Care Teams Sales Enablement Specialist Relationship Specialty Start Date End Date Josette Juarez MD [address] [place] [address] 1 [place] [address] [email or web address] PCP - General Internal Medicine 09/20/17 12/24/20 Andreia Kincaid MD [address] [place] [address] [email or web address] PCP - General Family Medicine 12/25/20 09/17/22 Tamika Villalta CNP [address] [place] [address] 7 [place] [address] [email or web address] PCP - General Family Medicine 09/18/22 Josette Juarez MD [address] [place] [address] [email or web address] Insurance Assigned Provider 06/22/20 04/19/21 Andreia Kincaid MD [address] [place] [address] [email or web address] Insurance Assigned Provider 04/19/21 10/17/22 Josette Juarez MD [address] [place] [address] [email or web address] Insurance Assigned Provider 11/21/22 01/16/23 Tamika Villalta CNP [address] [place] [address] 7 [place] [address] [email or web address] Insurance Assigned Provider 12/17/24 documented as of this encounter Additional Source Comments The information contained in this document represents components of the legal health record. It is not the complete legal health record.[facility]
--- OUTSIDE RECORDS SUMMARY | 2025-06-26 13:42 | XMS_ITS | Encounter Summary ---
Author Organization [facility] Address [address] [place] [address] Phone Care Team Providers Care Search Engineer Name Role Phone Josette Juarez MD Primary Care Provider Josette Juarez MD Unavailable Andreia Kincaid MD Primary Care Provider Andreia Kincaid MD Unavailable [phone] Tamika Villalta CNP Primary Care Provider + Josette Juarez MD Unavailable [phone] Tamika Villalta CNP Unavailable [phone] Encounter Details Date Type Department Care Team (Late Contact Info) Description 10/09/2019 Ancillary Orders [facility], X-Ray - [address] [place] [address] Josette Juarez MD [address] [place] [address] Low back pain, unspecified back pain laterality, [...] Description 06/27/2025 1:30 PM EDT Office Visit [facility] [address] [place] [address] Jonathan Barone, DO [address] [address] 06/28/2025 10:00 AM EDT Office Visit [facility] [address] [place] [address] William Goodman MD 17 [place], [place] [address] Jazmyn Gabriel, PT 21 [place] [address] 07/05/2025 8:45 AM EDT Office Visit [facility] [address] [place] [address] William Goodman MD 17 [place] [address] Robbin Hwang, PT 21 [place] [address] 07/09/2025 9:30 AM EDT Office Visit [facility] [address] [place] [address] William Goodman MD 17 [place] [address] Robbin Hwang, PT 21 [place] [address] 07/18/2025 7:00 AM EST Office Visit [facility] [address] [place] [address] William Goodman MD 17 [place], [place] [address] Walt Billings, BOARD CERTIFIED MUSIC THERAPIST [address] [place] [address] [email or web address] 07/27/2025 2:30 PM EST Office Visit [facility] [address] [place] [address] William Goodman MD 17 [place] [address] Stefania Hernandez, PT 21 [place] [address] [email or web address] 07/30/2025 3:30 PM EST Office Visit [facility] 10 [place] [address] Unknown, Unknown, Helene Emanuel, ASPHALT PAVING SUPERINTENDENT 10 [place] [address] [email or web address] documented as of this encounter Results * XR Sacrum and Coccyx (10/09/2019 4:01 PM EST) Anatomical Region Laterality Modality L-spine Radiographic Debra ging 10/09/2019 6:49 PM EST Impressions 10/09/2019 6:52 PM EST Anterior dislocation of the third coccygeal segment. POS - [id number] Narrative 10/09/2019 6:52 PM EST EXAM: XR SACRUM AND COCCYX HISTORY: xr lumbar COMPARISON: Blank FINDINGS: On the lateral view, the third coccygeal segment appears anteriorly displaced. No definite sacral fracture. Procedure Note Gamal Rg MD - 10/09/2019 EXAM: XR SACRUM AND COCCYX HISTORY: xr lumbar COMPARISON: Blank FINDINGS: On the lateral view, the third coccygeal segment appearsanteriorly displaced. No definite sacral fracture. IMPRESSION: Anterior dislocation of the third coccygeal segment. POS - [id number] Josette Juarez MD IMG XR SPINE Final [...] documented as of this encounter Care Teams Search Engineer Relationship Specialty Start Date End Date Josette Juarez MD [address] [place] [address] 1 [place] [address] [email or web address] PCP - General Internal Medicine 09/20/17 12/24/20 Andreia Kincaid MD [address] [place] [address] [email or web address] PCP - General Family Medicine 12/25/20 09/17/22 Tamika Villalta CNP [address] [place] [address] [address] [place] [address] PCP - General Family Medicine 09/18/22 Josette Juarez MD [address] [place] [address] [email or web address] Insurance Assigned Provider 06/22/20 04/19/21 Andreia Kincaid MD [address] [place] [address] [email or web address] Insurance Assigned Provider 04/19/21 10/17/22 Josette Juarez MD [address] [place] [address] [email or web address] Insurance Assigned Provider 11/21/22 01/16/23 Tamika Villalta CNP [address] [place] [address] 7 [place] [address] [email or web address] Insurance Assigned Provider 12/17/24 documented as of this encounter Additional Source Comments The information contained in this document represents components of the legal health record. It is not the complete legal health record.[facility]
--- OUTSIDE RECORDS SUMMARY | 2025-06-26 13:42 | XMS_ITS | Encounter Summary ---
Author Organization [facility] Address [address] [place] [address] Phone Care Team Providers Care Auto Former Machine Operator Name Role Phone Andreia Kincaid MD Primary Care Provider [phone] Andreia Kincaid MD Unavailable [phone] Tamika Villalta CNP Primary Care Provider + Josette Juarez MD Unavailable [phone] Tamika Villalta CNP Unavailable [phone] Encounter Details Date Type Department Care Team (Late st Contact Info) Description 10/09/2021 Procedure Pass [facility] - [address] [place] [address] Social History Tobacco Use Types Packs/Day Years [...] high school, GED, job training, learning the Scottish language, technical skills, or developing parenting skills)? [...] Description 06/27/2025 1:30 PM EDT Office Visit [facility] [address] [place] [address] Jonathan Barone, DO 22 [facility] [address] [place] [address] [email or web address] 06/28/2025 10:00 AM EDT Office Visit [facility] 21 [place] [address] William Goodman MD 17 [place] [address] Jazmyn Gabriel, PT 21 [place] [address] 07/05/2025 8:45 AM EDT Office Visit [facility] [address] [place] [address] William Goodman MD 17 [place] [address] Robbin Hwang, PT 21 [place] [address] 07/09/2025 9:30 AM EDT Office Visit [facility] [address] [place] [address] William Goodman MD [address] [place] [address] Robbin Hwang, PT 21 [place] [address] 07/18/2025 7:00 AM EST Office Visit [facility] [address] [place] [address] William Goodman MD [address] [place] [address] Walt Billings, AVIATION ELECTRONIC WARFARE OPERATOR [address] [place] [address] 07/27/2025 2:30 PM EST Office Visit [facility] [address] [place] [address] William Goodman MD [address] [place] [address] Stefania Hernandez, PT 21 [place] [address] 07/30/2025 3:30 PM EST Office Visit [facility] 10 [place] [address] Unknown, Unknown, Helene Emanuel CNP 10 [place] [address] [email or web address] documented as of this encounter Visit Diagnoses Not on filedocumented in this encounter Additional Health Concerns Infection Onset Date Last Indicated Resolved Time CoV-Presumed 08/27/2022 08/27/2022 09/17/2022 1:22 AM EST CoV-Risk Comment:Per Ambulatory Triage Form 10/22/2022 10/22/202211/02 1:24 AM EST Assessment Noted Time PHQ-2 Depression Total Score: 2 10/09/19 7:43 AM EST documented as of this encounter Care Teams Auto Former Machine Operator Relationship Specialty Start Date End Date Andreia Kincaid MD [email or web address] PCP - General Family Medicine 12/25/20 09/17/22 Tamika Villalta CNP [address] [place] [address], [address] [place] [address] [email or web address] PCP - General Family Medicine 09/18/22 Andreia Kincaid MD [address] [place] [address] [email or web address] Insurance Assigned Provider 04/19/21 10/17/22 Josette Juarez MD [address] [place] [address] [email or web address] Insurance Assigned Provider 11/21/22 01/16/23 Tamika Villalta CNP [address] [place] [address], [address] [place] [address] [email or web address] Insurance Assigned Provider 12/17/24 documented as of this encounter Additional Source Comments The information contained in this document represents components of the legal health record. It is not the complete legal health record.[facility]
--- OUTSIDE RECORDS SUMMARY | 2025-06-26 13:42 | XMS_ITS | Encounter Summary ---
Author Organization [facility] Address [address] [place] [address] Phone Care Team Providers Care Stem Frazer Name Role Phone Josette Juarez MD Primary Care Provider Josette Juarez MD Unavailable Andreia Kincaid MD Primary Care Provider Andreia Kincaid MD Unavailable [phone] Tamika Villalta CNP Primary Care Provider + Josette Juarez MD Unavailable [phone] Tamika Villalta CNP Unavailable Encounter Details Date Type Department Care Team (Late st Contact Info) Description 02/03/2019 Ancillary Orders [facility] Scan - [address] [address] Josette Juarez MD [address] [place] [address] Social History Tobacco Use Types Packs/Day Years [...] Description 06/27/2025 1:30 PM EDT Office Visit [facility] [address] [place] [address] Jonathan Barone, DO [address] [address] 06/28/2025 10:00 AM EDT Office Visit [facility] [address] [place] [address] William Goodman MD [address] [place] [address] Jazmyn Gabriel, PT [address] [place] [address] 07/05/2025 8:45 AM EDT Office Visit [facility] [address] [place] [address] William Goodman MD [address] [place] [address] Robbin Hwang, PT [address] [place] [address] 07/09/2025 9:30 AM EDT Office Visit [facility] [address] [place] [address] William Goodman MD [address] [place] [address] Robbin Hwang, PT [address] [place] [address] 07/18/2025 7:00 AM EST Office Visit [facility] [address] [place] [address] William Goodman MD [address] [place] [address] Walt Billings, BARMAID [address] [place] [address] [email or web address] 07/27/2025 2:30 PM EST Office Visit [facility] [address] [place] [address] William Goodman MD [address] [place] [address] Stefania Hernandez, PT [address] [place] [address] [email or web address] 07/30/2025 3:30 PM EST Office Visit [facility] 10 [place] [address] Unknown, Unknown, Helene Emanuel, PIPELINE TECHNICIAN [address] [place] [address] [email or web address] documented as of this encounter Visit Diagnoses Not on filedocumented in this encounter Additional Health Concerns Infection Onset Date Last Indicated Resolved Time CoV-Presumed 08/27/2022 08/27/2022 09/17/2022 1:22 AM EST CoV-Risk Comment:Per Ambulatory Triage Form 10/22/2022 10/22/202211/02 1:24 AM EST documented as of this encounter Care Teams Stem Frazer Relationship Specialty Start Date End Date Josette Juarez MD [address] [place] [address] 1 [place] [address] [email or web address] PCP - General Internal Medicine 09/20/17 12/24/20 Andreia Kincaid MD [address] [place] [address] [email or web address] PCP - General Family Medicine 12/25/20 09/17/22 Tamika Villalta CNP [address] [place] [address] 7 [place] [address] [email or web address] PCP - General Family Medicine 09/18/22 Josette Juarez MD [address] [place] [address] [email or web address] Insurance Assigned Provider 06/22/20 04/19/21 Andreia Kincaid MD [address] [place] [address] [email or web address] Insurance Assigned Provider 04/19/21 10/17/22 Josette Juarez MD [address] [place] [address] [email or web address] Insurance Assigned Provider 11/21/22 01/16/23 Tamika Villalta CNP [address] [place] [address] 7 [place] [address] [email or web address] Insurance Assigned Provider 12/17/24 documented as of this encounter Additional Source Comments The information contained in this document represents components of the legal health record. It is not the complete legal health record.[facility]
== END 2025-06-26 12:06 | disposition home or self-care (01) ==
LOC: HO.HOP 11:16
PROVIDERS: PCP Nurse Practitioner Primary Care; Visit Provider Clinical Nurse Specialist Psychiatric/Mental Health
DX: F33.1 Major depressive disorder, recurrent, moderate (principal); F41.1 Generalized anxiety disorder; F41.0 Panic disorder [episodic paroxysmal anxiety]
CPT/HCPCS: 90833; 99213

== ENCOUNTER → 2025-06-26 11:16 | Outpatient (BNVA) | payer MEDICARE, OTHER, SELFPAY | PROVIDERS: PCP Nurse Practitioner Primary Care; Visit Provider Clinical Nurse Specialist Psychiatric/Mental Health | DX: F33.1 Major depressive disorder, recurrent, moderate (principal); F41.1 Generalized anxiety disorder; F41.0 Panic disorder [episodic paroxysmal anxiety] | CPT/HCPCS: 99212 ==

== ENCOUNTER 2025-07-31 11:40 | Outpatient (AMB) | payer MEDICARE, OTHER, SELFPAY ==
--- NOTE | 2025-07-31 11:49 | MHC.OFFVISPS ---
Intake Intake Visit Reasons: depression Economic Research Analyst Required: No Allergies tramadol Adverse Reaction (Verified 07/31/25 11:54) excessive urination Medication List - Last Reconciled 07/31/25 by Mariana Medeiros APRN clonazepam 1 mg PO BID PRN estradiol 0.01%(0.1mg/gram) vaginal ketoconazole 2% appl topical lisinopril 20 mg PO DAILY pantoprazole 20 mg PO BID pravastatin 40 mg PO DAILY Viibryd (vilazodone) 20 mg PO DAILY NS HPI- Psychiatric Chief Complaint: depression HPI Narrative: pt stable; med compliant; no side effects; struggling with mobility after knee surgery; doing PT. frustrated at slow recovery. NO SI or HI Past Psychiatric History: Outpatient treatment with Christy Medeiros [phone] Past medication trials include: viibryd lexapro prozac zoloft wellbutrin pristiq- ineffective Past Mental Health History: PHP treatment in past [facility] 2017 no inpatient Subjective Subjective Medication Compliance: Yes Side effects from medications: No Review of Systems Medical Review of Systems: unchanged Mental Status Exam Mental Status Exam Patient Appearance: Well Grooomed Patient Orientation: Person, Place, Time and Situation Level of Consciousness: Awake and Appropriate Patient Behavior: Appropriate Mood Description: Anxious and Sad Affect Description: Anxious and Sad Patient Cognition Impaired: No Ability to Follow Directions: Good Speech Pattern: Clear Memory Description: Intact Hallucinations: None Delusions: Not Present Thought Process: Intact and Rumination Thought Content: positive for Intact and positive for Preoccupation Judgement: Fair Assessment and Plan Assessment & Plan (1) Major depressive disorder, recurrent, moderate: Status: Acute Code(s): F33.1 - Major depressive disorder, recurrent, moderate (2) Generalized anxiety disorder with panic attacks: Status: Acute Code(s): F41.1 - Generalized anxiety disorder; F41.0 - Panic disorder [episodic paroxysmal anxiety] Plan continue meds below retrun in 1 month Medications: Refilled Viibryd (vilazodone) brand medically necessary/no substitutions 20 mg PO DAILY 90 tabs 1RF NS clonazepam 1 mg PO BID PRN 60 tabs 2RF anxiety Counseling and coordination of Care Pt. Self Management counseling: Exercise, Mindfulness, Nutrition education and improvement, Sleep hygiene and General coping skills Medication management counseling: Effectiveness, Side effects, Dosing range, Duration, Drug interaction and Adherence Diagnosis and Prognosis Counseling: Impact of diagnosis on life functions and Adequacy of current interventions Details: I spent 34 minutes reviewing the record, seeing the patient and documenting in the medical record. Counseling provided to the patient/caregiver as outlined below. Addressed patient/caregiver concerns regarding current medication regime including effective adherence. Addressed patient/caregiver concerns regarding diagnosis and prognosis including accuracy of diagnosis, prognosis over time, impact of diagnosis. Addressed patient/caregiver concerns regarding impact of recent stressors. 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
== END 2025-07-31 12:10 | disposition home or self-care (01) ==
LOC: HO.HOP 11:40
PROVIDERS: PCP Nurse Practitioner Primary Care; Visit Provider Clinical Nurse Specialist Psychiatric/Mental Health
DX: F33.1 Major depressive disorder, recurrent, moderate (principal); F41.1 Generalized anxiety disorder; F41.0 Panic disorder [episodic paroxysmal anxiety]
CPT/HCPCS: 99214

== ENCOUNTER → 2025-07-31 11:40 | Outpatient (BNVA) | payer MEDICARE, OTHER, SELFPAY | PROVIDERS: PCP Nurse Practitioner Primary Care; Visit Provider Clinical Nurse Specialist Psychiatric/Mental Health | DX: F33.1 Major depressive disorder, recurrent, moderate (principal); F41.1 Generalized anxiety disorder; F41.0 Panic disorder [episodic paroxysmal anxiety]; Z79.899 Other long term (current) drug therapy | CPT/HCPCS: 99212 ==

== ENCOUNTER 2025-08-30 10:28 | Outpatient (AMB) | payer MEDICARE, OTHER, SELFPAY ==
--- NOTE | 2025-08-30 13:03 | A.OFFPSYCH_ITS ---
Intake Intake Visit Reasons: depression Certified Executive Chef Required: No Allergies tramadol Adverse Reaction (Verified 07/31/25 11:54) excessive urination Medication List - Last Reconciled 08/30/25 by Mariana Medeiros APRN clonazepam 1 mg PO BID PRN estradiol 0.01%(0.1mg/gram) vaginal ketoconazole 2% appl topical lisinopril 20 mg PO DAILY pantoprazole 20 mg PO BID pravastatin 40 mg PO DAILY Viibryd (vilazodone) 20 mg PO DAILY NS HPI- Psychiatric Chief Complaint: depression HPI Narrative: Pt here for follow up re: depression and anxiety; pt reports stable mood; med compliant; no side effects; still struggling with mobility after knee surgery; has bursitis in knee now and stopped doing PT. Needing to rest and ice kneee. frustrated at slow recovery. NO SI or HI. Looking forward to spending time with family. Past Psychiatric History: Outpatient treatment with Christy Medeiros [phone] Past medication trials include: viibryd lexapro prozac zoloft wellbutrin pristiq- ineffective Past Mental Health History: PHP treatment in past [facility] 2017 no inpatient Subjective Subjective Medication Compliance: Yes Side effects from medications: No Review of Systems Medical Review of Systems: unchanged Mental Status Exam Mental Status Exam Patient Appearance: Well Grooomed Patient Orientation: Person, Place, Time and Situation Level of Consciousness: Awake and Appropriate Patient Behavior: Appropriate Mood Description: Cheerful Affect Description: Cheerful Patient Cognition Impaired: No Ability to Follow Directions: Good Speech Pattern: Clear Memory Description: Intact Hallucinations: None Delusions: Not Present Thought Process: Intact and Rumination Thought Content: positive for Intact and positive for Preoccupation Judgement: Fair Assessment and Plan Assessment & Plan (1) Major depressive disorder, recurrent, moderate: Status: Acute Code(s): F33.1 - Major depressive disorder, recurrent, moderate (2) Generalized anxiety disorder with panic attacks: Status: Acute Code(s): F41.1 - Generalized anxiety disorder; F41.0 - Panic disorder [episodic paroxysmal anxiety] Plan continue meds below return in 1 month Medications: Refilled clonazepam 1 mg PO BID PRN 60 tabs 2RF anxiety Viibryd (vilazodone) brand medically necessary/no substitutions 20 mg PO DAILY 90 tabs 1RF NS Counseling and coordination of Care Pt. Self Management counseling: Exercise, Mindfulness, Nutrition education and improvement, Sleep hygiene and General coping skills Medication management counseling: Effectiveness, Side effects, Dosing range, Duration, Drug interaction and Adherence Diagnosis and Prognosis Counseling: Impact of diagnosis on life functions and Adequacy of current interventions Details: I spent 35 minutes reviewing the record, seeing the patient and documenting in the medical record. Counseling provided to the patient/caregiver as outlined below. Addressed patient/caregiver concerns regarding current medication regime including effective adherence. Addressed patient/caregiver concerns regarding diagnosis and prognosis including accuracy of diagnosis, prognosis over time, impact of diagnosis. Addressed patient/caregiver concerns regarding impact of recent stressors. 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
--- OUTSIDE RECORDS SUMMARY | 2025-08-30 13:09 | XMS_ITS | Encounter Summary ---
Author Organization [facility] Address [address] [place] [address] Phone Care Team Providers Care Corrosion Control Technician Name Role Phone Tamika Villalta CNP Primary Care Provider + Tamika Villalta INTEGRATED CIRCUIT LAYOUT DESIGNER Unavailable [phone] Reason for Referral * Physical Therapy (Routine) - Closed Specialty Diagnoses / Procedures Referred By Alexy reid Referred To Contact Physical Therapy Diagnoses Encounter for rehabilitation Derick Snyder MD [address] [employer] [address] Phone: tel: fax: [address] [address] Phone: tel: Referral ID Status Reason Start Date Expiration Date Visits Re quested Visits Authorized [id number] Closed 05/14/2023 05/13/2024 99 99 Encounter Details Date Type Department Care Team (Latest Contact Info) Description 05/14/2023 Transcribe Orders [facility] [address] [place] [address] Derick Snyder MD [address] [facility] [address] [place] [address] Encounter for rehabilitation (Primary Dx) Social History Tobacco Use Types Packs/Day Years Used Date Smoking Tobacco: Every Day Cigarettes 0.3 51.7 Started: 12/02/1973 Smokeless Tobacco: Never Comments:3 cigarettes/day [...] Care Team (Late st Contact Info) Description 09/11/2025 10:00 AM EST Office Visit [facility] [address] [place] [address] Jonathan Barone, DO [address] [place] [address] 09/26/2025 1:00 PM EST Office Visit [facility] [address] [place] [address] Jonathan Barone DO [address] [place] [address] Jazmyn Gabirel, PT [address] [place] [address] 09/28/2025 1:45 PM EST Office Visit [facility] Physical Therapy [facility] [address] [place] [address] Jonathan Barone, DO [address] [place] [address] Jazmyn Gabriel, PT [address] [place] [address] 10/02/2025 10:00 AM EST Office Visit [facility] Physical Therapy [facility] [address] [place] [address] Jonathan Barone, DO [address] [place] [address] Jazmyn Gabriel, PT [address] [place] [address] 10/04/2025 12:15 PM EST Office Visit [facility] [address] [place] [address] Jonathan Barone, DO [address] [place] [address] Jazmyn Gabriel, PT [address] [place] [address] 10/09/2025 1:45 PM EST Office Visit [facility] Physical Therapy [facility] [address] [place] [address] Jonathan Barone, DO [address] [place] [address] Jazmyn Gabriel, PT [address] [place] [address] 10/11/2025 12:15 PM EST Office Visit [facility] Physical Therapy [facility] [address] [place] [address] Jonathan Barone, DO [address] [place] [address] Jazmyn Gabriel, PT [address] [place] [address] 10/16/2025 1:00 PM EST Office Visit [facility] Physical Therapy [facility] [address] [place] [address] Jonathan Barone, DO [address] [place] [address] Jazmyn Gabriel, PT [address] [place] [address] 10/18/2025 10:00 AM EST Office [facility] [address] [place] [address] Jonathan Barone, DO [address] [place] [address] Jazmyn Gabriel, PT [address] [place] [address] Scheduled Referrals Name Type Priority Associated Diagnoses Orde r Schedule Ambulatory referral to [facility] Physical Therapy Outpatient Referral Routine Encounter for rehabilitation Ordered: 05/14/2023 documented as of this encounter Visit Diagnoses Diagnosis Encounter for rehabilitation- Primary documented in this encounter Additional Health Concerns Assessment Noted Time PHQ-2 Depression Total Score: 2 11/10/19 23 7:32 AM EST documented as of this encounter Care Teams Corrosion Control Technician Relationship Specialty Start Date End Date Tamika Villalta CNP [address] [facility] [address] [place] [address] PCP - General Family Medicine 09/18/22 Tamika Villalta CNP 234 [facility] [address] [place] [address] Insurance Assigned Provider 12/17/24 documented as of this encounter Additional Source Comments The information contained in this document represents components of the legal health record. It is not the complete legal health record.[facility]
--- OUTSIDE RECORDS SUMMARY | 2025-08-30 13:09 | XMS_ITS | Encounter Summary ---
Author Organization [facility] Address [address] [place] [address] Phone Care Team Providers Care Dressmaking Teacher Name Role Phone Tamika Tesfaye CNP Primary Care Provider + Tamika Villalta COMMUNICATION AND OUTREACH MANAGER Unavailable [phone] Encounter Details Date Type Department Care Team (Late st Contact Info) Description 07/12/2024 Procedure Pass [facility] - [address] [place] [address] Social History Tobacco Use Types Packs/Day Years Used Date Smoking Tobacco: Former Cigarettes 0.3 51.7 S tarted: 12/02/1973 Smokeless Tobacco: Never Comments:was [...] Upcoming Encounters Date Type Department Care Team ([facility] st Contact Info) Description 09/11/2025 10:00 AM EST Office Visit [facility] [address] [place] [address] Jonathan Barone, DO [address] [place] [address] 09/26/2025 1:00 PM EST Office Visit [facility] Physical Therapy [facility] [address] [place] [address] Abisai Jonathan Shen, DO [address] [place] [address] Jazmyn Gabriel, PT [address] [place] [address] 09/28/2025 1:45 PM EST Office Visit [facility] Physical Therapy [facility] [address] [place] [address] RamiroshondaJonathan, DO [address] [place] [address] Jazmyn Gabriel, PT [address] [place] [address] 10/02/2025 10:00 AM EST Office Visit [facility] Physical Therapy [facility] [address] [place] [address] AbisaiJontahan, DO [address] [place] [address] Jazmyn Gabriel, PT [address] [place] [address] 10/04/2025 12:15 PM EST Office Visit [facility] Physical Therapy [facility] [address] [place] [address] RamiroshondaJonathan, DO [address] [place] [address] Jazmyn Gabriel, PT [address] [place] [address] 10/09/2025 1:45 PM EST Office Visit [facility] Physical Therapy [facility] [address] [place] [address] Jonathan Barone, DO [address] [place] [address] Jazmyn Gabriel, PT [address] [place] [address] 10/11/2025 12:15 PM EST Office Visit [facility] Physical Therapy [facility] [address] [place] [address] Jonathan Barone, DO [address] [place] [address] Jazmyn Gabriel, PT [address] [place] [address] 10/16/2025 1:00 PM EST Office Visit [facility] Physical Therapy [facility] [address] [place] [address] Jonathan Barone, DO [address] [place] [address] Jazmyn Gabriel, PT [address] [place] [address] 10/18/2025 10:00 AM EST Office Visit [facility] Physical Therapy [facility] [address] [place] [address] Jonathan Barone, DO [address] [place] [address] [email or web address] Jazmyn Gabriel, PT [address] [place] [address] [email or web address] documented as of this encounter Visit Diagnoses Not on filedocumented in this encounter Additional Health Concerns Assessment Noted Time PHQ-2 Depression Total Score: 2 09/24/19 24 7:07 AM EST documented as of this encounter Care Teams Dressmaking Teacher Relationship Specialty Start Date End Date Tamika Villalta CNP [address] [place] [address] 7 [place] [address] PCP - General Family Medicine 09/18/22 Tamika Villalta CNP [address] [place] [address] [address] [place] [address] [email or web address] Insurance Assigned Provider 12/17/24 documented as of this encounter Additional Source Comments The information contained in this document represents components of the legal health record. It is not the complete legal health record.[facility]
--- OUTSIDE RECORDS SUMMARY | 2025-08-30 13:09 | XMS_ITS | Encounter Summary ---
Author Organization [facility] Address [address] [place] [address] Phone Care Team Providers Care Bagging Salvager Name Role Phone Josette Juarez MD Primary Care Provider Josette Juarez MD Unavailable [phone] Andreia Kincaid MD Primary Care Provider Andreia Kincaid MD Unavailable [phone] Tamika Villalta CNP Primary Care Provider + Josette Juarez MD Unavailable [phone] Tamika Villalta CNP Unavailable [phone] Encounter Details Date Type Department Care Team (Late st Contact Info) Description 07/15/2018 Transcribe Orders [address] [place] [address] Josette Juarez MD [address] [place] [address] Restless legs (Primary Dx) Social History Tobacco [...] Department Care Team (Late Contact Info) Description 09/11/2025 10:00 AM EST Office Visit [facility] Primary Care [facility] [address] [place] [address] Jonathan Barone, DO [address] [place] [address] 09/26/2025 1:00 PM EST Office Visit [facility] [address] [place] [address] Jonathan Barone, DO [address] [place] [address] Jazmyn Gabriel, PT [address] [place] [address] 09/28/2025 1:45 PM EST Office Visit [facility] Physical Therapy [facility] [address] [place] [address] Jonathan Barone, DO [address] [place] [address] Jazmyn Gabriel, PT [address] [place] [address] 10/02/2025 10:00 AM EST Office Visit [facility] Physical Therapy [facility] [address] [place] [address] Jonathan Barone, DO [address] [place] [address] Jazmyn Gabriel, PT [address] [place] [address] 10/04/2025 12:15 PM EST Office Visit [facility] Physical Therapy [facility] [address] [place] [address] Jonathan Barone Ac, DO [address] [place] [address] [email or web address] Jazmyn Gabriel, PT [address] [place] [address] 10/09/2025 1:45 PM EST Office Visit [facility] Physical Therapy [facility] [address] [place] [address] Abisai Jonathan Shen, DO [address] [place] [address] Jazmyn Gabriel, PT [address] [place] [address] 10/11/2025 12:15 PM EST Office Visit [facility] Physical Therapy [facility] [address] [place] [address] AbisaiJonathan, DO [address] [place] [address] Jazmyn Gabriel, PT [address] [place] [address] 10/16/2025 1:00 PM EST Office Visit [facility] Physical Therapy [facility] [address] [place] [address] AbisaiJonathan, DO [address] [place] [address] Jazmyn Gabriel, PT [address] [place] [address] 10/18/2025 10:00 AM EST Office Visit [facility] [address] [place] [address] Jonathan Barone, DO [address] [place] [address] [email or web address] Jazmyn Gabriel, PT [address] [place] [address] documented as of this encounter Results * Ferritin (07/15/2018 8:17 AM EDT) FERRITIN 50 13 - 150 ug/L [facility] Blood 07/15/2018 8:17 AM EDT 07/15/2018 8:19 AM EDT us Josette Juarez MD LAB BLOOD BKR ORDERABLES Fin al Result [facility] [address] [place] [address] * Basic metabolic panel (07/15/2018 8:17 AM EDT) SODIUM 143 133 - 146 mmol/L [facility] CHLORIDE 103 96 - 108 mmol/L [facility] POTASSIUM 4.1 3.3 - 5.1 mmol/L [facility] CO2 30 21 - 35 mmol/L [facility] BUN 9 6 - 19 mg/dL [facility] CREATININE 0.60 0.5 - 1.5 mg/dL [facility] GLUCOSE 96 70 - 99 mg/dL [facility] CALCIUM 9.2 8.4 - 10.3 mg/dL [facility] EGFR 96 >59 mL/min/1.7 3m2 [facility] Comment:If patient is black, multiply result by 1.159. Estimated glomerular filtration rate calculated using the CKD-EPI equation. ANION GAP 14 10 - 20 mmol/L [facility] Blood 07/15/2018 8:17 AM EDT 07/15/2018 8:19 AM EDT us Josette Juarez MD LAB BLOOD BKR ORDERABLES Fin al Result [facility] [address] [place] [address] documented in this encounter Visit Diagnoses Diagnosis Restless legs- Primary Restless legs syndrome (RLS) documented in this encounter Additional Health Concerns Infection Onset Date Last Indicated Resolved Time CoV-Presumed 08/27/2022 08/27/2022 09/17/2022 1:22 AM EST CoV-Risk Comment:Per Ambulatory Triage Form 10/22/2022 10/22/202211/02 1:24 AM EST documented as of this encounter Care Teams Bagging Salvager Relationship Specialty Start Date End Date Josette Juarez MD [address] [place] [address] 1 [place] [address] [email or web address] PCP - General Internal Medicine 09/20/17 12/24/20 Andreia Kincaid MD [address] [place] [address] [email or web address] PCP - General Family Medicine 12/25/20 09/17/22 Tamika Villalta CNP [address] [place] [address] [address] [place] [address] [email or web address] PCP - General Family Medicine 09/18/22 Josette Juarez MD [address] [place] [address] [email or web address] Insurance Assigned Provider 06/22/20 04/19/21 Andreia Kincaid MD [address] [place] [address] [email or web address] Insurance Assigned Provider 04/19/21 10/17/22 Josette Juarez MD [address] [place] [address] [email or web address] Insurance Assigned Provider 11/21/22 01/16/23 Tamika Villalta CNP [address] [place] [address] 7 [place] [address] [email or web address] Insurance Assigned Provider 12/17/24 documented as of this encounter Additional Source Comments The information contained in this document represents components of the legal health record. It is not the complete legal health record.[facility]
--- OUTSIDE RECORDS SUMMARY | 2025-08-30 13:09 | XMS_ITS | Encounter Summary ---
Author Organization [facility] Address [address] [place] [address] Phone Care Team Providers Care Kitchen Porter Name Role Phone Josette Juarez MD Primary Care Provider Josette Juarez MD Unavailable Andreia Kincaid MD Primary Care Provider [phone] Andreia Kincaid MD Unavailable [phone] Tamika Villalta CNP Primary Care Provider + Josette Juarez MD Unavailable Tamika Villalta CNP Unavailable [phone] Encounter Details Date Type Department Care Team (Late st Contact Info) Description 09/20/2017 Ancillary Orders Virtual Department [address] [place] [address] Josette Juarez MD [address] [place] [address] Breast screening Social History Tobacco Use Types [...] Description 09/11/2025 10:00 AM EST Office Visit [facility] Primary Care Clinic [address] [place] [address] Jonathan Barone, DO [address] [place] [address] 09/26/2025 1:00 PM EST Office Visit [facility] Physical Therapy [facility] [address] [place] [address] Jonathan Barone, DO [address] [place] [address] Jazmyn Gabriel, PT [address] [place] [address] 09/28/2025 1:45 PM EST Office Visit [facility] [address] [place] [address] Jonathan Barone, DO [address] [place] [address] Jazmyn Gabriel, PT [address] [place] [address] 10/02/2025 10:00 AM EST Office Visit [facility] [address] [place] [address] Jonathan Barone, DO [address] [place] [address] Jazmyn Gabriel, PT [address] [place] [address] 10/04/2025 12:15 PM EST Office Visit [facility] Therapy [facility] [address] [place] [address] Jonathan Barone, DO [address] [place] [address] Jazmyn Gabriel, PT [address] [place] [address] 10/09/2025 1:45 PM EST Office Visit [facility] Physical Therapy [facility] [address] [place] [address] Jonathan Barone, DO [address] [place] [address] Jazmyn Gabriel, PT [address] [place] [address] 10/11/2025 12:15 PM EST Office Visit [facility] Physical Therapy [address] [address] Jonathan Barone, DO [address] [place] [address] Jazmyn Gabriel, PT [address] [place] [address] 10/16/2025 1:00 PM EST Office Visit [facility] Physical Therapy [facility] [address] [place] [address] Jonathan Barone, DO [address] [place] [address] Jazmyn Gabriel, PT [address] [place] [address] 10/18/2025 10:00 AM EST Office Visit [facility] Physical Therapy [address] [address] Jonathan Barone, DO [address] [place] [address] [email or web address] Jazmyn Gabriel, PT [address] [place] [address] [email or web address] documented as of this encounter Results * [...] documented as of this encounter Care Teams Kitchen Porter Relationship Specialty Start Date End Date Josette Juarez MD [address] [place] [address] 1 [place] [address] [email or web address] PCP - General Internal Medicine 09/20/17 12/24/20 Andreia Kincaid MD [address] [place] [address] [email or web address] PCP - General Family Medicine 12/25/20 09/17/22 Tamika Villalta, TONY [address] [place] [address] 7 [place] [address] [email or web address] PCP - General Family Medicine 09/18/22 Josette Juarez MD [address] [place] [address] [email or web address] Insurance Assigned Provider 06/22/20 04/19/21 Andreia Kincaid MD [address] [place] [address] [email or web address] Insurance Assigned Provider 04/19/21 10/17/22 Josette Juarez MD [address] [place] [address] [email or web address] Insurance Assigned Provider 11/21/22 01/16/23 Tamika Villalta, TONY [address] [place] [address], [address] [place] [address] [email or web address] Insurance Assigned Provider 12/17/24 documented as of this encounter Additional Source Comments The information contained in this document represents components of the legal health record. It is not the complete legal health record.[facility]
--- OUTSIDE RECORDS SUMMARY | 2025-08-30 13:10 | XMS_ITS | Encounter Summary ---
Author Organization [facility] Address [address] [place] [address] Phone Care Team Providers Care Inspector Mechanical Name Role Phone Josette Juarez MD Primary Care Provider Josette Juarez MD Unavailable Andreia Kincaid MD Primary Care Provider [phone] Andreia Kincaid MD Unavailable [phone] Tamika Villalta CNP Primary Care Provider + Josette Juarez MD Unavailable [phone] Tamika Villalta CNP Unavailable [phone] Encounter Details Date Type Department Care Team (Latest Contact Info) Description 10/12/2017 Transcribe Orders [address] [place] [address] Josette Juarez MD [address] [place] [address] Hyperlipidemia, unspecified hyperlipidemia type (Primary Dx); Impaired [...] Description 09/11/2025 10:00 AM EST Office Visit [facility] Care Clinic [address] [place] [address] Abisai Brettjeremías Ac, DO [address] [place] [address] 09/26/2025 1:00 PM EST Office Visit [facility] Physical Therapy Clinic [address] [place] [address] FunmilayoshondaJonathan, DO [address] [place] [address] Jazmyn Gabriel, PT [address] [place] [address] 09/28/2025 1:45 PM EST Office Visit [facility] Physical Therapy [facility] [address] [place] [address] Jonathan Barone, DO [address] [place] [address] Jazmyn Gabriel, PT [address] [place] [address] 10/02/2025 10:00 AM EST Office Visit [facility] Physical Therapy [facility] [address] [place] [address] Jonathan Barone, DO [address] [place] [address] Jazmyn Gabriel, PT [address] [place] [address] 10/04/2025 12:15 PM EST Office Visit [facility] Physical Therapy Clinic [address] [place] [address] RamiromatthewJonathan, DO [address] [place] [address] [email or web address] Jazmyn Gabriel, PT [address] [place] [address] 10/09/2025 1:45 PM EST Office Visit [facility] Physical Therapy Clinic [address] [place] [address] FunmilayoshondaJonathan, DO [address] [place] [address] Jazmyn Gabriel, PT [address] [place] [address] 10/11/2025 12:15 PM EST Office Visit [facility] Physical Therapy [facility] [address] [place] [address] FunmilayoshondaJonathan, DO [address] [place] [address] [email or web address] Jazmyn Gabriel, PT [address] [place] [address] 10/16/2025 1:00 PM EST Office Visit [facility] Physical Therapy [facility] [address] [place] [address] FunmilayoshondaJonathan, DO [address] [place] [address] Jazmyn Gabriel, PT [address] [place] [address] 10/18/2025 10:00 AM EST Office Visit [facility] Physical Therapy [facility] [address] [place] [address] Jonathan Barone, DO [address] [place] [address] [email or web address] Lester Gabrielca, PT [address] [place] [address] [email or web address] documented as of this encounter Results * 25-OH vitamin D (10/12/2017 8:28 AM EST) 25 [place] VIT D (TOTAL) 54 30 - 1,000 ng/mL [facility] Blood 10/12/2017 8:28 AM EST 10/12/2017 8:32 AM EST us Josette Juarez MD LAB BLOOD BKR ORDERABLES Fin al Result Performing Organization Address City/State/[facility] Co de Phone Number [facility] [address] [place] [address] * Comprehensive metabolic panel (10/12/2017 8:28 AM EST) SODIUM 142 133 - 146 mmol/L [facility] POTASSIUM 3.8 3.3 - 5.1 mmol/L [facility] CHLORIDE 101 96 - 108 mmol/L [facility] CO2 29 21 - 35 mmol/L [facility] BUN 13 6 - 19 mg/dL [facility] CREATININE 0.60 0.5 - 1.5 mg/dL [facility] GLUCOSE 95 70 - 99 mg/dL [facility] ALBUMIN 4.3 3.9 - 4.8 g/dL [facility] TOTAL PROTEIN 7.2 6.5 - 8.0 g/dL [facility] CALCIUM 9.3 8.4 - 10.3 mg/dL [facility] ALKALINE PHOSPHATASE 81 39 - 117 U/L [facility] TOTAL BILIRUBIN 0.7 0 - 1.2 mg/dL [facility] AST 23 0 - 37 U/L [facility] ALT 28 0 - 40 U/L [facility] GLOBULIN 2.9 1 - 4.8 g/dL [facility] EGFR >60 >60 mL/min/1.7 3m2 [facility] Comment:Abnormal if <60. If patient is -Tristanian, multiply the result by 1.21. ANION GAP 16 10 - 20 mmol/L [facility] Blood 10/12/2017 8:28 AM EST 10/12/2017 8:32 AM EST Josette Juarez MD LAB BLOOD BKR ORDERABLES Fin al Result [address] [address] * (ABNORMAL) Lipid panel (10/12/2017 8:28 AM EST) HDL 71 mg/dL [facility] Comment: Interpretation: Risk Level Females Decreased >55mg/dL Average 50-55 mg/dL Increased <50 mg/dL CHOLESTEROL 238 0 - 240 mg/dL [facility] TRIGLYCERIDES 82 30 - 160 mg/dL [facility] LDL 151(H) 50 - 129 mg/dL [facility] Comment: LDL levels in terms of risk for coronary heart disease: <100 mg/dL: Optimal 100-129 mg/dL: Near or above optimal 130-159 mg/dL: Borderline high 160-189 mg/dL: High >190 mg/dL: Very High CARDIAC RISK RATIO 3.4 3.3 - 4.4 C [facility] Blood 10/12/2017 8:28 AM EST 10/12/2017 8:32 AM EST us Josette Juarez MD LAB BLOOD BKR ORDERABLES Fin al Result Performing Organization Address [facility]/ZIP Co de Phone Number [address] [address] documented in this encounter Visit Diagnoses Diagnosis Hyperlipidemia, unspecified hyperlipidemia type- Primary Impaired fasting glucose Vitamin D deficiency documented in this encounter Additional Health Concerns Infection Onset Date Last Indicated Resolved Time CoV-Presumed 08/27/2022 08/27/2022 09/17/2022 1:22 AM EST CoV-Risk Comment:Per Ambulatory Triage Form 10/22/2022 10/22/202211/02 1:24 AM EST documented as of this encounter Care Teams Inspector Mechanical Relationship Specialty Start Date End Date Josette Juarez MD [address] [place] [address] 1 [place] [address] [email or web address] PCP - General Internal Medicine 09/20/17 12/24/20 Andreia Kincaid MD [address] [place] [address] [email or web address] PCP - General Family Medicine 12/25/20 09/17/22 Tamika Villalta CNP [address] [place] [address] 7 [place] [address] [email or web address] PCP - General Family Medicine 09/18/22 Josette Juarez MD [address] [place] [address] Insurance Assigned Provider 06/22/20 04/19/21 Andreia Kincaid MD [address] [place] [address] [email or web address] Insurance Assigned Provider 04/19/21 10/17/22 Josette Juarez MD [address] [place] [address] Insurance Assigned Provider 11/21/22 01/16/23 Tamkia Villalta, TONY [address] [place] [address] 7 [place] [address] [email or web address] Insurance Assigned Provider 12/17/24 documented as of this encounter Additional Source Comments The information contained in this document represents components of the legal health record. It is not the complete legal health record.[facility]
--- OUTSIDE RECORDS SUMMARY | 2025-08-30 13:10 | XMS_ITS | Clinical Summary ---
Author Organization [facility] Address [address] [place] [address] Phone Care Team Providers Care Retail And Promotions Coordinator Name Role Phone Tamika Villalta CNP Primary Care Provider + Tamika Villalta [employer] Unavailable [phone] Allergies Active Allergy Reactions Criticality Noted Date Comments Erythromycin Asthenia High 12/02/2020 Patient stated that this allergy is from a long time ago and may not be relevant any longer Lansoprazole Asthenia High 12/02/2020 Omeprazole Asthenia High 12/02/2020 Tramadol High 06/27/2025 Medications vilazodone (VIIBRYD) 20 mg Tab Take [...] EVERY MORNING 90 tablet 3 5 Active estradioL (ESTRACE) 0.01 % (0.1 mg/gram) [...] Active Problems Problem Noted Date Diagnosed Date Foot pain, right 06/27/2025 Assessment & Plan (06/27/2025 1:52 PM EDT): Exam forefoot is essentially unremarkable other than slight tenderness on the medial aspect next to surgical scar. - Plan to order x-ray of the right foot looking for occult fracture or arthritis - If x-ray otherwise normal may benefit from podiatry follow-up patient will call Gastroesophageal reflux disease without esophagi tis 04/20/2025 Assessment & Plan (07/30/2025 4:04 PM EST): 74-year-old female presenting for follow-up regarding GERD and intermittent nausea. She will continue pantoprazole 40 mg taken 30-60 minutes before breakfast for optimal acid suppression and add Pepcid AC at bedtime for additional nocturnal control. We reviewed GERD dietary and lifestyle modifications, and she was advised to limit caffeine intake and to minimize NSAID use as these may contribute to gastric irritation; she was also instructed to avoid taking NSAIDs on an empty stomach. Stress-reduction practices were discussed given their role in triggering her symptoms. She will monitor her symptoms and contact the clinic if her nausea worsens or if new concerns arise. Other insomnia 01/11/2024 Flatulence 11/30/2023 Assessment & [...] She understands and agrees with this plan. Annual physical exam 11/13/2022 Assessment & Plan (07/27/2025 7:27 AM EST): 74 yo with PE today - influenza shot today - Labs up to date - Smoking cessation discussed and pt has been almost 1yr smoking free - Pt does not want Covid 19 vaccine this year - Assessment & Plan (09/28/2023 11:58 AM EST): In typical health. No concerning findings on exam, no care gaps to address. Assessment & Plan (11/13/2022 11:25 AM EST): Reports good health, I don't feel like I'm 72 . No care gaps to address today. Anxiety and depression 12/02/2020 Overview (05/18/2023): Followed [...] Overview (05/18/2023): On lisinopril Assessment & Plan (07/26/2025 1:18 PM EST): Stable. On lisinopril - bmp needs to be done Assessment & Plan (01/26/2025 4:17 PM EDT): [...] been having blood pressure checked at the [facility], reports she is always less than [...] to discuss knee replacement. Tobacco abuse 12/02/2020 Overview (07/26/2025): Quit in 2024 Assessment & Plan (07/26/2025 1:19 PM EST): Quit almost 1 year ago Assessment & Plan (11/13/2022 11:25 AM EST): Has been cutting down slowly. Denies that she has ever been a heavy smoker. Spondylolisthesis Scoliosis of thoracolumbar spine Assessment & Plan (07/26/2025 1:32 PM EST): With recurrent pain. Recommend we have visit to physiotherapy to see what kind of resolution we can have if no help we will consider physiatry or contracting specialist Resolved Problems Problem Noted Date Diagnosed Date Resolved Date Tinea pedis of both feet 03/13/2024 Assessment [...] showering. Remove sweaty socks promptly. Other insomnia 10/05/2023 01/11/2024 Rash and other nonspecific skin eruption 12/01/2022 06/27/2025 Assessment & Plan (04/05/2024 11:12 AM EDT): [...] not improve or if this gets worse. Subacute cough 10/22/2022 07/26/2025 Assessment & Plan (10/22/2022 4:27 PM EST): [...] She understands and agrees. Burning tongue 09/21/2022 07/26/2025 Assessment & Plan (09/21/2022 5:23 PM EST): Exam without evidence of thrush or stomatitis. We will check B12 and some other labs. Urged smoking cessation. Encounters Date Type Department Care Team Description 08/16/2025 9:30 AM EST Office Visit [facility] [address] [place] [address] William Goodman MD McKeon, Terrance, PT Acute pain of right knee (Primary Dx) 07/31/2025 12:45 PM EST Office Visit [facility] [address] [place] [address] William Goodman MD McKeon, Terrance, PT Acute pain of right knee (Primary Dx) 07/30/2025 3:30 PM EST Office Visit [facility] [address] [place] [address] Unknown, Unknown, Helene Emanuel, TONY Gastroesophageal reflux disease without esophagitis (Primary Dx) 07/27/2025 2:30 PM EST Office Visit [facility] [address] [place] [address] William Goodman MD Shankweiler, Catherine L, PT Acute pain of right knee (Primary Dx) 07/26/2025 1:00 PM EST Office Visit [facility] [address] [place] [address] Jonathan Barone DO Essential hypertension (Primary Dx); Tobacco abuse; Annual physical exam; Juvenile idiopathic scoliosis of thoracolumbar region 07/24/2025 2:30 PM EST Office Visit [facility] [address] [place] [address] William Goodman MD Shankweiler, Catherine L, PT Acute pain of right knee (Primary Dx) 07/18/2025 7:00 AM EST Office Visit [facility] [address] [place] [address] William Goodman MD Dill, Jordan McKenzie, HOG MAN Acute pain of right knee (Primary Dx) 07/11/2025 10:00 AM EDT Office Visit [facility] [address] [place] [address] William oGodman MD Dill, Jordan McKenzie, HOG MAN Acute pain of right knee (Primary Dx) 07/09/2025 9:30 AM EDT Office Visit [facility] [address] [place] [address] William Goodman MD McKeon, Terrance, PT Acute pain of right knee (Primary Dx) 07/05/2025 8:45 AM EDT Office Visit [facility] [address] [place] [address] William Goodman MD McKeon, Terrance, PT Acute pain of right knee (Primary Dx) 07/02/2025 4:45 PM EDT Office Visit [facility] [address] [place] [address] William Goodman MD Dill, Jordan McKenzie, HOG MAN Acute pain of right knee (Primary Dx) 06/29/2025 10:51 AM EDT - 06/29/2025 11:59 PM EDT Hospital Encounter [facility], X-Ray - [address] [place] [address] Jonathan Barone, Discharge Disposition: Home or Self Care 06/29/2025 Telephone [facility] [address] [place] [address] Tamika Villalta CNP Care Coordination ([facility] Virtual AWV Outreach/) 06/28/2025 10:00 AM EDT Office Visit [facility] [address] [place] [address] William Goodman MD Dejnak, Rebecca, PT Acute pain of right knee (Primary Dx) 06/27/2025 1:30 PM EDT Office Visit [facility] [address] [place] [address] Jonathan Barone, DO Foot pain, right (Primary Dx) 06/21/2025 10:00 AM EDT Office Visit [facility] [address] [place] [address] William Goodman MD Dejnak, Rebecca, PT Acute pain of right knee (Primary Dx) 06/18/2025 10:15 AM EDT Office Visit [facility] [address] [place] [address] William Goodman MD Dejnak, Rebecca, PT Acute pain of right knee (Primary Dx) 06/14/2025 10:00 AM EDT Office Visit [facility] [address] [place] [address] William Goodman MD Dejnak, Rebecca, PT Acute pain of right knee (Primary Dx) 06/11/2025 10:00 AM EDT Office Visit [facility] [address] [place] [address] William Goodman MD Dill, Walt Lezama, HOG MAN Acute pain of right knee (Primary Dx) 06/07/2025 10:00 AM EDT Office Visit [facility] [address] [place] [address] William Goodman MD Dejnak, Jazmyn, PT Acute pain of right knee (Primary Dx) 06/04/2025 10:15 AM EDT Office Visit [facility] [address] [place] [address] William Goodman MD Dejnak, Jazmyn, PT Acute pain of right knee (Primary Dx) 05/31/2025 3:45 PM EDT Office Visit [facility] [address] [place] [address] William Goodman MD McKeon, Terrance, PT Acute pain of right knee (Primary Dx) from Last 3 Months Immunizations Immunization Administration Dates Next Due COVID-19 (Pre-07/05) Laurie Vaccine, [id number], PF 11/27/2020 Hepatitis A, Adult 09/18/2018 Influenza High-Dose Quadriva lent Preservative Free IM 07/21/2022 Influenza High-Dose Trivalen t Preservative Free IM 07/26/2025,07/19/2024 Influenza Quadrivalent Adjuv anted Preservative Free IM [...] 51.7 S tarted: 12/02/1973 Smokeless Tobacco: Never Tobacco [...] Intimate Partner Violence Answer Date R ecorded Denied Basic Needs Not on file 07/22/2025 In the past 12 months have y ou been in a relationship with a person who hurts, threatens, or tries to control you? No 07/22/2025 Worried food would run out Not on file 07/22 In the past 12 months have y ou been in a relationship with a person who hurts, threatens, or tries to control you? No 07/22/2025 Comments No Sex and Gender Information Value Date Recorded Sex Assigned at Female 11/24/2020 7:42 AM EDT Legal Sex Female 9:59 PM EDT Gender Identity Female 11/24/2020 7:42 AM EDT Sexual Orientation Not on file Last Filed Vital Signs Vital Sign Reading Time Taken Comments Blood Pressure 124/74 07/30/2025 3:41 PM EST Pulse 68 07/30/2025 3:41 PM EST Temperature 36.1 C (97 F) 07/26/2025 1:01 PM EST Respiratory Rate 18 03/13/2024 11:5 2 AM EDT Oxygen Saturation 95% 07/26/2025 1:01 PM EST Inhaled Oxygen Concentration - - Weight 65.7 kg (144 lb 12.8 oz) 07/30/2025 3:41 PM EST Height 160 cm (5' 3 ) 07/30/2025 3:41 PM EST Body Mass Index 25.65 07/30/2025 3:41 PM EST Plan of Treatment Upcoming Encounters Date Type Department Care Team (Late st Contact Info) Description 09/11/2025 10:00 AM EST Office Visit [facility] [address] [place] [address] Jonathan Barone DO [address] [place] [address] 09/26/2025 1:00 PM EST [facility] Visit [facility] [address] [place] [address] Jonathan Barone DO [address] [place] [address] Jazmyn Gabriel, PT [address] [place] [address] 09/28/2025 1:45 PM EST Office Visit [facility] [address] [place] [address] Kris Baroneevelinajeremías TrevinoAc, DO [address] [place] [address] Jazmyn Gabriel, PT [address] [place] [address] 10/02/2025 10:00 AM EST Office Visit [facility] [address] [place] [address] Abisai Jonathan Shen, DO [address] [place] [address] Jazmyn Gabriel, PT [address] [place] [address] 10/04/2025 12:15 PM EST Office Visit [facility] [address] [place] [address] Abisai Jonathan Shen, DO [address] [place] [address] Jazmyn Gabriel, PT [address] [place] [address] 10/09/2025 1:45 PM EST Office Visit [facility] [address] [place] [address] AbisaiJonathan, DO [address] [place] [address] Jazmyn Gabriel, PT [address] [place] [address] 10/11/2025 12:15 PM EST Office Visit [facility] [address] [place] [address] AbisaiJonathan, DO [address] [place] [address] Jazmyn Gabriel, PT [address] [place] [address] 10/16/2025 1:00 PM EST Office Visit [facility] [address] [place] [address] [facility] DO [address] [place] [address] Jazmyn Gabriel, PT [address] [place] [address] 10/18/2025 10:00 AM EST Office Visit [facility] [place] [address] [place] [address] RamiroshondaJonathan, DO [address] [place] [address] Jazmyn Gabriel, PT [address] [place] [address] Health Maintenance Due Date Last Done Comments SMOKING Hx and SMOKELESS TOBACCO SCREENING 1965 COLOGUARD 1997 FIT TEST 1997 FOBT 1997 SIGMOIDOSCOPY 1997 VIRTUAL COLONOSCOPY 1997 COVID-19 VACCINE ( season) 2025 07/19/2024, 09/22/2023, 06/12/2022, Additional history exists CREATININE LEVEL 08/02/2025 08/02/2024, , 08/15/2023, Additional history exists POTASSIUM LEVEL 08/02/2025 08/02/2024, 04/14, 08/15/2023, Additional history exists BLOOD PRESSURE 01/27/2026 07/30/2025 DEPRESSION SCREENING 07/22/2026 07/22/2025 MAMMOGRAM 12/20/2026 12/20/2024, 09/2021, 08/26/2020, Additional history exists RSV VACCINE [...] 10/09/2021, 07/31/2014 ZOSTER VACCINES Completed 12/14/2023, 06/23/2023 INFLUENZA VACCINE Completed 07/26/2025, , 05/26/2023, Additional history exists HIB VACCINES Aged Out No longer eligi ble based on patient's age to complete this topic MENINGOCOCCAL VACCINES (ACWY) Aged Out No longer eligible based on patient's age to complete this topic MENINGOCOCCAL VACCINES (B) Aged Out N o longer eligible based on patient's age to complete this topic Medical Devices Not on file Procedures Procedure Name Priority Date/Time Associated Diagnosis Comments XR FOOT 3 OR MORE VIEWS (RIGHT) Routine 06/29/2025 11:17 AM EDT Foot pain, right BI MAMMOGRAM SCREENING WITH TOMOSYNTHESIS WITH CAD (BILATERAL) Routine 12/20/2024 2:17 PM EDT Visit for screening mammogram COMPREHENSIVE METABOLIC PANEL (CMP) Routine 08/02/2024 3:19 PM EST Tingling of both feet LIPID PANEL Routine 05/02/2024 2:19 PM EDT Hyperlipidemia, unspecified hyperlipidemia type HM COLONOSCOPY FOR RESULT ENTRY ONLY Routine 04/01/2022 OUTSIDE BONE DENSITY SCREENING Routine 10/13/2016 OUTSIDE HEPATITIS C VIRUS SCREENING Routine 08/16/2015 from Last 3 Months or Most Recently Relevant to Health Maintenance Results * XR FOOT 3 OR MORE VIEWS (RIGHT) (06/29/2025 11:17 AM EDT) Anatomical Region Laterality Modality Foot Right Computed Radiogr aphy 06/30/2025 3:13 PM EDT Impressions 06/30/2025 3:13 PM EDT No fracture or dislocation. Narrative 06/30/2025 3:13 PM EDT XR FOOT 3 OR MORE VIEWS (RIGHT) Referring clinician's provided indication for this examination in [facility]: Pain COMPARISON: None FINDINGS: No fracture. Multiple hammertoe deformities. Mild IP joint osteoarthritis. Small calcaneal osteophyte. Procedure Note César Churchill MD, ADAN - 06/30/2025 XR FOOT 3 OR MORE VIEWS (RIGHT) Referring clinician's provided indication for this examination in [facility]:Pain COMPARISON: None FINDINGS: No fracture. Multiple hammertoe deformities. Mild IP joint osteoarthritis.Small calcaneal osteophyte. IMPRESSION: No fracture or dislocation. Jonathan Barone DO IMG XR LOWER E XTREMITY Final Result * BI MAMMOGRAM SCREENING WITH TOMOSYNTHESIS [...] findings are identified mammographically in either breast. us Tamika Villalta [employer] IMG MG EXAMS Final Re sult * Comprehensive metabolic panel (08/02/2024 3:19 PM EST) SODIUM 142 133 - 146 mmol/L [facility] POTASSIUM 4.2 3.3 - 5.1 mmol/L [facility] CHLORIDE 104 96 - 108 mmol/L [facility] CO2 29 21 - 35 mmol/L [facility] BUN 13 6 - 19 mg/dL [facility] CREATININE 0.80 0.5 - 1.5 mg/dL [facility] GLUCOSE 80 70 - 99 mg/dL [facility] ALBUMIN 4.5 3.9 - 4.8 g/dL [facility] TOTAL PROTEIN 7.3 6.5 - 8.0 g/dL [facility] CALCIUM 9.6 8.4 - 10.3 mg/dL [facility] ALKALINE PHOSPHATASE 85 39 - 117 U/L [facility] TOTAL BILIRUBIN 0.7 0.0 - 1.2 mg/dL [facility] AST 26 0 - 37 U/L [facility] ALT 21 0 - 40 U/L [facility] GLOBULIN 2.8 1 - 4.8 g/dL [facility] EGFR 79 >59 mL/min/1.7 3m2 [facility] Comment:Estimated glomerular filtration rate calculated using the CKD-EPI refit equation. ANION GAP 13 10 - 20 mmol/L [facility] Blood 08/02/2024 3:19 PM EST 08/02/2024 3:27 PM EST Tamika Tesfaye Pawan [employer] LAB BLOOD BKR ORDERABLES Final Result Performing Organization Address City/[facility]/ZIP Co de Phone Number [address] [address] * (ABNORMAL) Lipid panel (05/02/2024 2:19 PM EDT) HDL 67 mg/dL [facility] Comment: Interpretation <40 mg/dL: Low HDL cholesterol (major risk factor for CHD) Greater than or equal to 60 mg/dL: High HDL cholesterol ( negative risk factor for CHD) HDL - cholesterol is affected by a number of factors, e.g. smoking, excerise, hormones, sex and age. CHOLESTEROL 186 0 - 240 mg/dL [facility] TRIGLYCERIDES 103 30 - 160 mg/dL [facility] LDL 98 50 - 129 mg/dL [facility] Comment: LDL levels in terms of risk for coronary heart disease: <100 mg/dL: Optimal 100-129 mg/dL: Near or above optimal 130-159 mg/dL: Borderline high 160-189 mg/dL: High >190 mg/dL: Very High CARDIAC RISK RATIO 2.8(L) 3.3 - 4.4 [facility] Blood 05/02/2024 2:19 PM EDT 05/02/2024 2:27 PM EDT us Tamika Tesfaye [place] [employer] LAB BLOOD BKR ORDERABLES Final Result Performing Organization Address City/[facility]/ZIP Co de Phone Number [address] [address] * HM COLONOSCOPY FOR RESULT ENTRY ONLY [...] Maintenance Insurance MEDICARE PART A & B [facility] MEDICARE SUPPLEMENT [facility] Address: [place] [address] MEDICARE PART A & B Member Subscriber Plan / Payer (Ef fective 2017-Present) Name:Cheyenne Mann Member ID:[id number] Relation to Subscriber:Self Name:GenesisglendaAngela pulidocy Subscriber ID:[id number] Payer ID:[id number] Group ID:Not on file Type:Medicare Address: [employer]. [address] MEDICARE SUPPLEMENT MEDICARE PART A & B MEDICARE PART A & B Member Subscriber Plan / Payer (Ef fective 2017-Present) Name:Cheyenne Mann Member ID:[id number] Relation to Subscriber:Self Name:Cheyenne Mann Subscriber ID:[id number] Payer ID:[id number] Group ID:Not on file Type:Medicare Address: [employer] [id number] MEDICARE PART A & B [facility] MEDICARE SUPPLEMENT MEDICARE PART A & B MEDICARE PART A & B MEDICARE SUPPLEMENT MEDICARE PART A & B MEDICARE SUPPLEMENT MEDICARE PART A & B [facility] MEDICARE SUPPLEMENT Care Teams Retail And Promotions Coordinator Relationship Specialty Start Date End Date Tamika Villalta CNP [address] [place] [address] [address] [place] [address] PCP - General Family Medicine 09/18/22 Tamika Villalta CNP [address] [place] [address], [facility] [address] [place] [address] Insurance Assigned Provider 12/17/24 Additional Source Comments The information contained in this document represents components of the legal health record. It is not the complete legal health record.[facility]
--- OUTSIDE RECORDS SUMMARY | 2025-08-30 13:10 | XMS_ITS | Encounter Summary ---
Author Organization [facility] Address [address] [place] [address] Phone Care Team Providers Care Group Underwriter Name Role Phone Josette Juarez MD Primary Care Provider [phone] Josette Juarez MD Unavailable [phone] Andreia Kincaid MD Primary Care Provider Andreia Kincaid MD Unavailable [phone] Tamika Villalta CNP Primary Care Provider + Josette Juarez MD Unavailable [phone] Tamika Villalta CNP Unavailable [phone] Encounter Details Date Type Department Care Team (Late st Contact Info) Description 06/14/2020 Ancillary Orders Virtual Department [address] [place] [address] Josette Juarez MD [address] [place] [address] Breast screening Social History Tobacco Use Types [...] Description 09/11/2025 10:00 AM EST Office Visit [facility] [address] [place] [address] Jonathan Barone, DO [address] [place] [address] 09/26/2025 1:00 PM EST Office Visit [facility] Physical Therapy [facility] [address] [place] [address] Jonathan Barone, DO [address] [place] [address] Jazmyn Gabriel, PT [address] [place] [address] 09/28/2025 1:45 PM EST Office Visit [facility] [address] [place] [address] Jonathan Barone, DO [address] [place] [address] Jazmyn Gabriel, PT [address] [place] [address] 10/02/2025 10:00 AM EST Office Visit [facility] [address] [place] [address] Jonathan Barone, DO [address] [place] [address] Jazmyn Gabriel, PT [address] [place] [address] 10/04/2025 12:15 PM EST Office Visit [facility] [address] [place] [address] Jonathan Barone, DO [address] [place] [address] Jazmyn Gabriel, PT [address] [place] [address] 10/09/2025 1:45 PM EST Office Visit [facility] Physical Therapy [facility] [address] [place] [address] Jonathan Barone, DO [address] [place] [address] Jazmyn Gabriel, PT [address] [place] [address] 10/11/2025 12:15 PM EST Office Visit [facility] Physical Therapy [address] [address] Jonathan Barone, DO [address] [place] [address] Jazmyn Gabriel, PT [address] [place] [address] 10/16/2025 1:00 PM EST Office Visit [facility] Physical Therapy [facility] [address] [place] [address] Jonathan Barone, DO [address] [place] [address] Jazmyn Gabriel, PT [address] [place] [address] 10/18/2025 10:00 AM EST Office Visit [facility] Physical Therapy [address] [address] Jonathan Barone, DO [address] [place] [address] [email or web address] Jazmyn Gabriel, PT [address] [place] [address] [email or web address] documented as of this encounter Results * [...] dense, which could obscurea lesion on mammography. Josette Juarez MD IMG MG EXAMS Final Result documented in this encounter Visit Diagnoses Diagnosis Breast screening Breast screening, unspecified Breast screening Breast screening, unspecified documented in this encounter Additional Health Concerns Infection Onset Date Last Indicated Resolved Time CoV-Presumed 08/27/2022 08/27/2022 09/17/2022 1:22 AM EST CoV-Risk Comment:Per Ambulatory Triage Form 10/22/2022 10/22/202211/02 1:24 AM EST documented as of this encounter Care Teams Group Underwriter Relationship Specialty Start Date End Date Josette Juarez MD [address] [place] [address] 1 [place] [address] [email or web address] PCP - General Internal Medicine 09/20/17 12/24/20 Andreia Kincaid MD [address] [place] [address] [email or web address] PCP - General Family Medicine 12/25/20 09/17/22 Tamika Villalta CNP [address] [place] [address] [address] [place] [address] [email or web address] PCP - General Family Medicine 09/18/22 Josette Juarez MD [address] [place] [address] [email or web address] Insurance Assigned Provider 06/22/20 04/19/21 Andreia Kincaid MD [address] [place] [address] [email or web address] Insurance Assigned Provider 04/19/21 10/17/22 Josette Juarez MD [address] [place] [address] [email or web address] Insurance Assigned Provider 11/21/22 01/16/23 Tamika Villalta CNP [address] [place] [address], [address] [place] [address] [email or web address] Insurance Assigned Provider 12/17/24 documented as of this encounter Additional Source Comments The information contained in this document represents components of the legal health record. It is not the complete legal health record.[facility]
--- OUTSIDE RECORDS SUMMARY | 2025-08-30 13:10 | XMS_ITS | Encounter Summary ---
Author Organization [facility] Address [address] [place] [address] Phone Care Team Providers Care Practice Managers Name Role Phone Josette Juarez MD Primary Care Provider Josette Juarez MD Unavailable Andreia Kincaid MD Primary Care Provider [phone] Andreia Kincaid MD Unavailable [phone] Tamika Villalta CNP Primary Care Provider + Josette Juarez MD Unavailable [phone] Tamika Villalta CNP Unavailable [phone] Encounter Details Date Type Department Care Team (Late st Contact Info) Description 06/14/2018 Transcribe Orders [address] [place] [address] Josette Juarez MD [address] [place] [address] Loss of hair (Primary Dx) Social History [...] Description 09/11/2025 10:00 AM EST Office Visit [facility] Primary Care [facility] [address] [place] [address] Jonathan Barone, DO [address] [place] [address] 09/26/2025 1:00 PM EST Office Visit [facility] [address] [place] [address] Jonathan Barone, DO [address] [place] [address] Jazmyn Gabriel, PT 21 [place] [address] 09/28/2025 1:45 PM EST Office Visit [facility] Physical Therapy [facility] [address] [place] [address] Jonathan Barone, DO [address] [place] [address] Jazmyn Gabriel, PT 21 [place] [address] 10/02/2025 10:00 AM EST Office Visit [facility] Physical Therapy [facility] [address] [place] [address] Jonathan Barone, DO [address] [place] [address] Jazmyn Gabriel, PT 21 [place] [address] 10/04/2025 12:15 PM EST Office Visit [facility] Physical Therapy [facility] [address] [place] [address] Jonathan Barone Ac, DO [address] [place] [address] [email or web address] Jazmyn Gabriel, PT 21 [place] [address] 10/09/2025 1:45 PM EST Office Visit [facility] Physical Therapy [facility] [address] [place] [address] Abisai Jonathan Shen, DO [address] [place] [address] Jazmyn Gabriel, PT 21 [place] [address] 10/11/2025 12:15 PM EST Office Visit [facility] Physical Therapy [facility] [address] [place] [address] AbisaiJonathan, DO [address] [place] [address] Jazmyn Gabriel, PT 21 [place] [address] 10/16/2025 1:00 PM EST Office Visit [facility] Physical Therapy [facility] [address] [place] [address] AbisaiJonathan, DO [address] [place] [address] Jazmyn Gabriel, PT 21 [place] [address] 10/18/2025 10:00 AM EST Office Visit [facility] [address] [place] [address] Jonathan Barone, DO [address] [place] [address] [email or web address], PT 21 [place] [address] [email or web address] documented as of this encounter Results * TSH with reflex (06/14/2018 1:59 PM EDT) TSH 1.46 0.27 - 4.20 uIU/mL [facility] Blood 06/14/2018 1:59 PM EDT 06/14/2018 2:01 PM EDT us Josette Juarez MD LAB BLOOD BKR ORDERABLES Fin al Result Performing Organization Address City/State/[facility] Co de Phone Number [facility] [address] [place] [address] documented in this encounter Visit Diagnoses Diagnosis Loss of hair- Primary Unspecified alopecia documented in this encounter Additional Health Concerns Infection Onset Date Last Indicated Resolved Time CoV-Presumed 08/27/2022 08/27/2022 09/17/2022 1:22 AM EST CoV-Risk Comment:Per Ambulatory Triage Form 10/22/2022 10/22/202211/02 1:24 AM EST documented as of this encounter Care Teams Practice Managers Relationship Specialty Start Date End Date Josette Juarez MD [address] [place] [address] [email or web address] PCP - General Internal Medicine 09/20/17 12/24/20 Andreia Kincaid MD [address] [place] [address] [email or web address] PCP - General Family Medicine 12/25/20 09/17/22 Tamika Villalta, WATER CONSERVATIONIST [address] [place] [address] [address] [place] [address] [email or web address] PCP - General Family Medicine 09/18/22 Josette Juarez MD [address] [place] [address] [email or web address] Insurance Assigned Provider 06/22/20 04/19/21 Andreia Kincaid MD [address] [place] [address] [email or web address] Insurance Assigned Provider 04/19/21 10/17/22 Josette Juarez MD [address] [place] [address] [email or web address] Insurance Assigned Provider 11/21/22 01/16/23 Tamika Villalta CNP [address] [place] [address] 7 [place] [address] [email or web address] Insurance Assigned Provider 12/17/24 documented as of this encounter Additional Source Comments The information contained in this document represents components of the legal health record. It is not the complete legal health record.[facility]
--- OUTSIDE RECORDS SUMMARY | 2025-08-30 13:10 | XMS_ITS | Encounter Summary ---
Author Organization [facility] Address [address] [place] [address] Phone Care Team Providers Care Arboriculturist Name Role Phone Josette Juarez MD Primary Care Provider Josette Juarez MD Unavailable [phone] Andreia Kincaid MD Primary Care Provider [phone] Andreia Kincaid MD Unavailable [phone] Tamika Villalta CNP Primary Care Provider + Josette Juarez MD Unavailable [phone] Tamika Villalta CNP Unavailable [phone] Encounter Details Date Type Department Care Team (Latest Contact Info) Description 04/26/2020 Transcribe Orders [address] [place] [address] Josette Juarez MD [address] [place] [address] Hypertension, unspecified type (Primary Dx); Hyperlipidemia, unspecified [...] Description 09/11/2025 10:00 AM EST Office Visit [facility] [address] [place] [address] Funmil[employer]onda Jonathan Shen, DO [address] [place] [address] 09/26/2025 1:00 PM EST Office Visit [facility] [address] [place] [address] Jonathan Barone, DO [address] [place] [address] Jazmyn Gabriel, PT 21 [place] [address] 09/28/2025 1:45 PM EST Office Visit [facility] [address] [place] [address] Jonathan Barone, DO [address] [place] [address] Jazmyn Gabriel, PT 21 [place] [address] 10/02/2025 10:00 AM EST Office Visit [facility] [address] [place] [address] Jonathan Barone, DO [address] [place] [address] Jazmyn Gabriel, PT 21 [place] [address] 10/04/2025 12:15 PM EST Office Visit [facility] [address] [place] [address] FunmilayoshondaJonathan, DO [address] [place] [address] [email or web address] Jazmyn Gabriel, PT [address] [place] [address] 10/09/2025 1:45 PM EST Office Visit [facility] Physical [facility] [address] [place] [address] Jonathan Barone, DO [address] [place] [address] Jazmyn Gabriel, PT [address] [place] [address] 10/11/2025 12:15 PM EST Office Visit [facility] Physical [facility] [address] [place] [address] Jonathan Barone, DO [address] [place] [address] [email or web address] Jazmyn Gabriel, PT [address] [place] [address] 10/16/2025 1:00 PM EST Office Visit [facility] Physical [facility] [address] [place] [address] Jonathan Barone, DO [address] [place] [address] Jazmyn Gabriel, PT [address] [place] [address] 10/18/2025 10:00 AM EST Office Visit [facility] [address] [place] [address] Jonathan Barone, DO [address] [place] [address] [email or web address] Jazmyn Gabriel, PT [address] [place] [address] [email or web address] documented as of this encounter Results * Vitamin B12 (04/26/2020 8:01 AM EDT) VITAMIN B12 553 232 - 1,245 pg/mL [facility] Blood 04/26/2020 8:01 AM EDT 04/26/2020 8:06 AM EDT us Josette Juarez MD LAB BLOOD BKR ORDERABLES Fin al Result [address] [address] * Folate (04/26/2020 8:01 AM EDT) FOLIC ACID 14.3 4.2 - 19.9 ng/mL [facility] Blood 04/26/2020 8:01 AM EDT 04/26/2020 8:06 AM EDT us Josette Juarez MD LAB BLOOD BKR ORDERABLES Fin al Result [address] [address] * TSH with reflex (04/26/2020 8:01 AM EDT) TSH 1.92 0.27 - 4.20 uIU/mL [facility] Blood 04/26/2020 8:01 AM EDT 04/26/2020 8:06 AM EDT us Josette Juarez MD LAB BLOOD BKR ORDERABLES Fin al Result Performing Organization Address City/[facility]/ZIP Co de Phone Number [address] [address] * 25-OH vitamin D (04/26/2020 8:01 AM EDT) 25 [place] VIT D (TOTAL) 47 30 - 60 ng/mL [facility] Blood 04/26/2020 8:01 AM EDT 04/26/2020 8:06 AM EDT Josette Juarez MD LAB BLOOD BKR ORDERABLES Fin al Result Performing Organization Address [facility] Co de Phone Number [address] [address] * (ABNORMAL) Lipid panel (04/26/2020 8:01 AM EDT) HDL 70 mg/dL [facility] Comment: Interpretation <40 mg/dL: Low HDL cholesterol (major risk factor for CHD) Greater than or equal to 60 mg/dL: High HDL cholesterol ( negative risk factor for CHD) HDL - cholesterol is affected by a number of factors, e.g. smoking, excerise, hormones, sex and age. CHOLESTEROL 238 0 - 240 mg/dL [facility] TRIGLYCERIDES 63 30 - 160 mg/dL [facility] LDL 155(H) 50 - 129 mg/dL [facility] Comment: LDL levels in terms of risk for coronary heart disease: <100 mg/dL: Optimal 100-129 mg/dL: Near or above optimal 130-159 mg/dL: Borderline high 160-189 mg/dL: High >190 mg/dL: Very High CARDIAC RISK RATIO 3.4 3.3 - 4.4 C [facility] Blood 04/26/2020 8:01 AM EDT 04/26/2020 8:06 AM EDT Josette Juarez MD LAB BLOOD BKR ORDERABLES Fin al Result Performing Organization Address City/[facility] Co de Phone Number [address] [address] * (ABNORMAL) Comprehensive metabolic panel (04/26/2020 8:01 AM EDT) SODIUM 140 133 - 146 mmol/L [facility] POTASSIUM 4.3 3.3 - 5.1 mmol/L [facility] CHLORIDE 103 96 - 108 mmol/L [facility] CO2 27 21 - 35 mmol/L [facility] BUN 17 6 - 19 mg/dL [facility] CREATININE 0.60 0.5 - 1.5 mg/dL [facility] GLUCOSE 103(H) 70 - 99 mg/dL [facility] ALBUMIN 4.3 3.9 - 4.8 g/dL [facility] TOTAL PROTEIN 6.8 6.5 - 8.0 g/dL [facility] CALCIUM 9.2 8.4 - 10.3 mg/dL [facility] ALKALINE PHOSPHATASE 57 39 - 117 U/L [facility] TOTAL BILIRUBIN 0.6 0.0 - 1.2 mg/dL [facility] AST 24 0 - 37 U/L [facility] ALT 21 0 - 40 U/L [facility] GLOBULIN 2.5 1 - 4.8 g/dL [facility] EGFR 94 >59 mL/min/1.7 3m2 [facility] Comment:Estimated glomerular filtration rate calculated using the CKD-EPI equation. ANION GAP 14 10 - 20 mmol/L [facility] Blood 04/26/2020 8:01 AM EDT 04/26/2020 8:06 AM EDT Josette Juarez MD LAB BLOOD BKR ORDERABLES Fin al Result [facility] [address] [place] [address] * CBC (04/26/2020 8:01 AM EDT) WBC 4.36 4.00 - 11.00 K/uL [facility] Comment:Note Reference Range updates to all CBC and Differential results. RBC 4.39 3.72 - 5.30 M/uL [facility] HGB 12.8 11.4 - 15.9 g/dL [facility] Comment:Note updated Referen ce Ranges for all CBC and Differential results. HCT 38.6 34.2 - 46.8 % [facility] PLT 296 140 - 430 K/uL [facility] MCV 87.9 78.0 - 97.0 [facility] MCH 29.2 25.0 - 33.0 pg [facility] MCHC 33.2 32.0 - 36.0 g/dL [facility] RDW 12.6 11.0 - 16.0 % [facility] MPV 9.5 8.4 - 12.8 [facility] NRBC 0.00 0 /100 WBCs [facility] ABSOLUTE NRBC 0.00 0 K/uL [facility] Blood 04/26/2020 8:01 AM EDT 04/26/2020 8:06 AM EDT us Josette Juarez MD LAB BLOOD BKR ORDERABLES Fin al Result Performing Organization Address City/State/[facility] Co de Phone Number [address] [address] documented in this encounter Visit Diagnoses Diagnosis Hypertension, unspecified type- Primary Hyperlipidemia, unspecified hyperlipidemia type Fatigue, unspecified type Vitamin D deficiency documented in this encounter Additional Health Concerns Infection Onset Date Last Indicated Resolved Time CoV-Presumed 08/27/2022 08/27/2022 09/17/2022 1:22 AM EST CoV-Risk Comment:Per Ambulatory Triage Form 10/22/2022 10/22/202211/02 1:24 AM EST documented as of this encounter Care Teams Arboriculturist Relationship Specialty Start Date End Date Josette Juarez MD [address] [place] [address] [email or web address] PCP - General Internal Medicine 09/20/17 12/24/20 Andreia Kincaid MD [address] [place] [address] [email or web address] PCP - General Family Medicine 12/25/20 09/17/22 Tamika Villalta CNP [address] [place] [address] [address] [place] [address] [email or web address] PCP - General Family Medicine 09/18/22 Josetet Juarez MD [address] [place] [address] [email or web address] Insurance Assigned Provider 06/22/20 04/19/21 Andreia Kincaid MD [address] [place] [address] [email or web address] Insurance Assigned Provider 04/19/21 10/17/22 Josette Juarez MD [address] [place] [address] [email or web address] Insurance Assigned Provider 11/21/22 01/16/23 Tamika Villalta CNP [address] [place] [address] [address] [place] [address] [email or web address] Insurance Assigned Provider 12/17/24 documented as of this encounter Additional Source Comments The information contained in this document represents components of the legal health record. It is not the complete legal health record.[facility]
--- OUTSIDE RECORDS SUMMARY | 2025-08-30 13:10 | XMS_ITS | Encounter Summary ---
Author Organization [facility] Address [address] [place] [address] Phone Care Team Providers Care Carbonation Equipment Tender Name Role Phone Josette Juarez MD Primary Care Provider Josette Juarez MD Unavailable [phone] Andreia Kincaid MD Primary Care Provider [phone] Andreia Kincaid MD Unavailable [phone] Tamika Villalta CNP Primary Care Provider + Josette Juarez MD Unavailable [phone] Tamika Villalta CNP Unavailable [phone] Encounter Details Date Type Department Care Team (Latest Contact Info) Description 08/14/2020 Transcribe Orders [address] [place] [address] Josette Juarez MD [address] [place] [address] Hyperlipidemia, unspecified hyperlipidemia type (Primary Dx) Social [...] Description 09/11/2025 10:00 AM EST Office Visit [facility] [address] [place] [address] Jonathan Barone, DO [address] [place] [address] 09/26/2025 1:00 PM EST Office Visit [facility] [address] [place] [address] Jonathan Barone, DO [address] [place] [address] Jazmyn Gabriel, PT [address] [place] [address] 09/28/2025 1:45 PM EST Office Visit [facility] Physical Therapy [facility] [address] [place] [address] Jonathan Barone, DO [address] [place] [address] Jazmyn Gabriel, PT [address] [place] [address] 10/02/2025 10:00 AM EST Office Visit [facility] Physical Therapy [facility] [address] [place] [address] Jonathan Barone, DO [address] [place] [address] Jazmyn Gabriel, PT [address] [place] [address] 10/04/2025 12:15 PM EST Office Visit [facility] [address] [place] [address] HeathertonJonathan, DO [address] [place] [address] [email or web address] Jazmyn Gabriel, PT [address] [place] [address] 10/09/2025 1:45 PM EST Office Visit [facility] [address] [place] [address] Jonathan Barone, DO [address] [place] [address] Jazmyn Gabriel, PT [address] [place] [address] 10/11/2025 12:15 PM EST Office Visit [facility] Physical Therapy [facility] [address] [place] [address] FunmilayoshondaJonathan, DO [address] [place] [address] Jazymn Gabriel, PT [address] [place] [address] 10/16/2025 1:00 PM EST Office Visit [facility] Physical Therapy [facility] [address] [place] [address] FunmilayoshondaJonathan, DO [address] [place] [address] Jazmyn Gabriel, PT [address] [place] [address] 10/18/2025 10:00 AM EST Office Visit [facility] [address] [place] [address] Jonathan Barone, DO [address] [place] [address] [email or web address] aponte, PT [address] [place] [address] documented as of this encounter Results * (ABNORMAL) Lipid panel (08/14/2020 7:36 AM EST) HDL 68 mg/dL [facility] Comment: Interpretation <40 mg/dL: Low HDL cholesterol (major risk factor for CHD) Greater than or equal to 60 mg/dL: High HDL cholesterol ( negative risk factor for CHD) HDL - cholesterol is affected by a number of factors, e.g. smoking, excerise, hormones, sex and age. CHOLESTEROL 201 0 - 240 mg/dL [facility] TRIGLYCERIDES 79 30 - 160 mg/dL [facility] LDL 117 50 - 129 mg/dL [facility] Comment: LDL levels in terms of risk for coronary heart disease: <100 mg/dL: Optimal 100-129 mg/dL: Near or above optimal 130-159 mg/dL: Borderline high 160-189 mg/dL: High >190 mg/dL: Very High CARDIAC RISK RATIO 3.0(L) 3.3 - 4.4 C [facility] Blood 08/14/2020 7:36 AM EST 08/14/2020 7:39 AM EST us Josette Juarez MD LAB BLOOD BKR ORDERABLES Fin al Result [facility] [address] [place] [address] * CPK (creatine kinase) (08/14/2020 7:36 AM EST) CREATINE KINASE 63 21 - 215 U/L [facility] Blood 08/14/2020 7:36 AM EST 08/14/2020 7:39 AM EST Josette Juarez MD LAB BLOOD BKR ORDERABLES Fin al Result Performing Organization Address [facility]/ZIP Co de Phone Number [address] [address] * Aspartate aminotransferase (AST) (08/14/2020 7:36 AM EST) AST 25 0 - 37 U/L [facility] Blood 08/14/2020 7:36 AM EST 08/14/2020 7:39 AM EST Josette Juarez MD LAB BLOOD BKR ORDERABLES Fin al Result Performing Organization Address [facility] Co de Phone Number [address] [address] * Alanine aminotransferase (ALT) (08/14/2020 7:36 AM EST) ALT 16 0 - 40 U/L [facility] Blood 08/14/2020 7:36 AM EST 08/14/2020 7:39 AM EST Josette Juarez MD LAB BLOOD BKR ORDERABLES Fin al Result Performing Organization Address [facility] de Phone Number [address] [address] documented in this encounter Visit Diagnoses Diagnosis Hyperlipidemia, unspecified hyperlipidemia type- Primary documented in this encounter Additional Health Concerns Infection Onset Date Last Indicated Resolved Time CoV-Presumed 08/27/2022 08/27/2022 09/17/2022 1:22 AM EST CoV-Risk Comment:Per Ambulatory Triage Form 10/22/2022 10/22/202211/02 1:24 AM EST documented as of this encounter Care Teams Carbonation Equipment Tender Relationship Specialty Start Date End Date Josette Juarez MD [address] [place] [address] PCP - General Internal Medicine 09/20/17 12/24/20 Andreia Kincaid MD [address] [place] [address] [email or web address] PCP - General Family Medicine 12/25/20 09/17/22 Tamika Villalta CNP [address] [place] [address], [address] [place] [address] [email or web address] PCP - General Family Medicine 09/18/22 Josette Juarez MD [address] [place] [address] [email or web address] Insurance Assigned Provider 06/22/20 04/19/21 Andreia Kincaid MD [address] [place] [address] [email or web address] Insurance Assigned Provider 04/19/21 10/17/22 Josette Juarez MD [address] [place] [address] Insurance Assigned Provider 11/21/22 01/16/23 Tamika Vilallta CNP [address] [place] [address] [address] [place] [address] [email or web address] Insurance Assigned Provider 12/17/24 documented as of this encounter Additional Source Comments The information contained in this document represents components of the legal health record. It is not the complete legal health record.[facility]
--- OUTSIDE RECORDS SUMMARY | 2025-08-30 13:11 | XMS_ITS | Encounter Summary ---
Author Organization [facility] Address [address] [place] [address] Phone Care Team Providers Care Associate Media Director Name Role Phone Josette Juarez MD Primary Care Provider Josette Juarez MD Unavailable Andreia Kincaid MD Primary Care Provider [phone] Andreia Kincaid MD Unavailable [phone] Tamika Villalta CNP Primary Care Provider + Josette Juarez MD Unavailable [phone] Tamika Villalta CNP Unavailable [phone] Encounter Details Date Type Department Care Team (Latest Contact Info) Description 09/18/2020 Transcribe Orders [address] [place] [address] Josette Juarez MD [address] [place] [address] Hyperlipidemia, unspecified hyperlipidemia type (Primary Dx) Social [...] 09/11/2025 10:00 AM EST Office Visit [facility] [address] [place] [address] FunmilayoshondaJonathan, DO [address] [place] [address] 09/26/2025 1:00 PM EST Office Visit [facility] [address] [place] [address] Jonathan Barone, DO [address] [place] [address] Jazmyn Gabriel, PT [address] [place] [address] 09/28/2025 1:45 PM EST Office Visit [facility] Physical Therapy [facility] [address] [place] [address] Jonathan Barone, DO [address] [place] [address] Jazmyn Gabriel, PT [address] [place] [address] 10/02/2025 10:00 AM EST Office Visit [facility] Physical Therapy [facility] [address] [place] [address] Jonathan Barone, DO [address] [place] [address] Jazmyn Gabriel, PT [address] [place] [address] 10/04/2025 12:15 PM EST Office Visit [facility] [address] [place] [address] HeathertonJonathan, DO [address] [place] [address] [email or web address] Jazmyn Gabriel, PT [address] [place] [address] 10/09/2025 1:45 PM EST Office Visit [facility] [address] [place] [address] Jonathan Barone, DO [address] [place] [address] Jazmyn Gabriel, PT [address] [place] [address] 10/11/2025 12:15 PM EST Office Visit [facility] Physical Therapy [facility] [address] [place] [address] RamiroshondaJonathan, DO [address] [place] [address] Jazmyn Gabriel, PT [address] [place] [address] 10/16/2025 1:00 PM EST Office Visit [facility] Physical Therapy [facility] [address] [place] [address] Funmilayoselect at bellevilleJonathan, DO [address] [place] [address] Jazmyn Gabriel, PT [address] [place] [address] 10/18/2025 10:00 AM EST Office Visit [facility] [address] [place] [address] Ramiromatthew Brettjeremías Shen, DO [address] [place] [address] [email or web address] Harvey Jazmyn, PT [address] [place] [address] [email or web address] documented as of this encounter Results * (ABNORMAL) Lipid panel (09/18/2020 8:28 AM EST) HDL 73 mg/dL [facility] Comment: Interpretation <40 mg/dL: Low HDL cholesterol (major risk factor for CHD) Greater than or equal to 60 mg/dL: High HDL cholesterol ( negative risk factor for CHD) HDL - cholesterol is affected by a number of factors, e.g. smoking, excerise, hormones, sex and age. CHOLESTEROL 192 0 - 240 mg/dL [facility] TRIGLYCERIDES 74 30 - 160 mg/dL [facility] LDL 104 50 - 129 mg/dL [facility] Comment: LDL levels in terms of risk for coronary heart disease: <100 mg/dL: Optimal 100-129 mg/dL: Near or above optimal 130-159 mg/dL: Borderline high 160-189 mg/dL: High >190 mg/dL: Very High CARDIAC RISK RATIO 2.6(L) 3.3 - 4.4 C [facility] Blood 09/18/2020 8:28 AM EST 09/18/2020 8:30 AM EST us Josette Juarez MD LAB BLOOD BKR ORDERABLES Fin al Result [facility] [address] [place] [address] documented in this encounter Visit Diagnoses Diagnosis Hyperlipidemia, unspecified hyperlipidemia type- Primary documented in this encounter Additional Health Concerns Infection Onset Date Last Indicated Resolved Time CoV-Presumed 08/27/2022 08/27/2022 09/17/2022 1:22 AM EST CoV-Risk Comment:Per Ambulatory Triage Form 10/22/2022 10/22/202211/022023 1:24 AM EST documented as of this encounter Care Teams Associate Media Director Relationship Specialty Start Date End Date Josette Juarez MD [address] [place] [address] 1 [place] [address] [email or web address] PCP - General Internal Medicine 09/20/17 12/24/20 Andreia Kincaid MD [address] [place] [address] [email or web address] PCP - General Family Medicine 12/25/20 09/17/22 Tamika Villalta CNP [address] [place] [address] 7 [place] [address] [email or web address] PCP - General Family Medicine 09/18/22 Josette Juarez MD [address] [place] [address] [email or web address] Insurance Assigned Provider 06/22/20 04/19/21 Andreia Kincaid MD [address] [place] [address] [email or web address] Insurance Assigned Provider 04/19/21 10/17/22 Josette Juarez MD [address] [place] [address] Insurance Assigned Provider 11/21/22 01/16/23 Tamika Villalta CNP [address] [place] [address] 7 [place] [address] [email or web address] Insurance Assigned Provider 12/17/24 documented as of this encounter Additional Source Comments The information contained in this document represents components of the legal health record. It is not the complete legal health record.[facility]
--- OUTSIDE RECORDS SUMMARY | 2025-08-30 13:11 | XMS_ITS | Clinical Summary ---
Author Organization [facility] Address [address] [facility] [place] [place] [address] Care Team Providers Care Database Administration Manager Name Role Phone Unavailable Primary Care Provider Unavailabl e Encounters Date Type Department Care Team Description 08/23/2025 Interpretation Only [address] [id number] William Goodman MD Presence of right artificial knee joint; Presence of right artificial knee joint from Last 3 Months Social History Tobacco [...] KNEE 4 OR MORE VIEWS RIGHT Routine 08/23/2025 10:58 AM EST Presence of right artificial knee joint from Last 3 Months Results * XR Knee 4 or more views Right (08/23/2025 10:58 AM EST) PT CLASS O [facility] ADMITDTTM [id number] [facility] PT [facility] INFO [id number]^MEREDITH Y^WILLIAM RAD EXAM DESC [id number]^XR Knee 4 Views w/ Patella Right^RIS [facility] WORKSTATION ID [id number] [facility] Anatomical Region Laterality Modality Knee Right Radiographic Debra ging 08/23/2025 10:5 8 AM EST Impressions 08/23/2025 11:01 AM EST Status post total right knee arthroplasty. Thank you for letting us participate in the care of this patient. If you are a health care provider and have any questions regarding this report, please contact the number below. For patients who have questions please contact the health career services representative that requested your imaging first. Narrative 08/23/2025 11:01 AM EST EXAMINATION: XR Knee 4 Views w/ Patella Right CLINICAL HISTORY: right TKR;Z96.651 Presence of right artificial knee joint FINDINGS: 4 weight-bearing views of the right knee were obtained and compared to the prior exam of 05/22/2025. The patient is post total right knee arthroplasty. There is no evidence of fracture or dislocation. The femoral and tibial components are well positioned. There is no evidence of hardware failure, no evidence of loosening. Procedure Note Maurice Mobley MD - 08/23/2025 EXAMINATION: XR Knee 4 Views w/ Patella Right CLINICAL HISTORY: right TKR;Z96.651 Presence of right artificial kneejoint FINDINGS: 4 weight-bearing views of the right knee were obtained andcompared to the prior exam of 05/22/2025. The patient is post total right kneearthroplasty. There is no evidence of fracture or dislocation. The femoral and tibial components are well positioned. There is no evidence of hardware failure,no evidence of loosening. IMPRESSION Status post total right knee arthroplasty. Thank you for letting us participate in the care of this patient. If youare a health care provider and have any questions regarding this report,please contact the number below. For patients who have questions please contactthe health career services representative that requested your imaging first. us William Goodman MD IMG DX ORDERABLES Final Result from Last 3 Months [place] [phone]
--- OUTSIDE RECORDS SUMMARY | 2025-08-30 13:11 | XMS_ITS | Encounter Summary ---
Author Organization [facility] Address [address] [place] [address] Phone Care Team Providers Care Shallot Packer Name Role Phone Josette Juarez MD Primary Care Provider Josette Juarez MD Unavailable [phone] Andreia Kincaid MD Primary Care Provider [phone] Andreia Kincaid MD Unavailable [phone] Tamika Villalta CNP Primary Care Provider + Josette Juarez MD Unavailable [phone] Tamika Villalta CNP Unavailable [phone] Encounter Details Date Type Department Care Team (Late st Contact Info) Description 06/14/2020 Procedure Pass [address] [place] [address] Social History Tobacco Use Types Packs/Day Years [...] Description 09/11/2025 10:00 AM EST Office Visit [facility] [address] [place] [address] Jonathan Barone, DO [address] [place] [address] 09/26/2025 1:00 PM EST Office Visit [facility] Physical Therapy [facility] [address] [place] [address] AbisaiJonathan, DO [address] [place] [address] Jazmyn Gabriel, PT [address] [place] [address] 09/28/2025 1:45 PM EST Office Visit [facility] Physical Therapy [facility] [address] [place] [address] Jonathan Barone, DO [address] [place] [address] Jazmyn Gabriel, PT [address] [place] [address] 10/02/2025 10:00 AM EST Office Visit [facility] Physical Therapy [facility] [address] [place] [address] Jonathan Barone, DO [address] [place] [address] Jazmyn Gabriel, PT [address] [place] [address] 10/04/2025 12:15 PM EST Office Visit [facility] Physical Therapy [facility] [address] [place] [address] Jonathan Barone, DO [address] [place] [address] Jazmyn Gabriel, PT [address] [place] [address] 10/09/2025 1:45 PM EST Office Visit [facility] Physical Therapy [facility] [address] [place] [address] Jonathan Barone, DO [address] [place] [address] Jazmyn Gabriel, PT 21 [place] [address] 10/11/2025 12:15 PM EST Office Visit [facility] Physical Therapy [facility] 21 [place] [address] Jonathan Barone, DO [address] [place] [address] Jazmyn Gabriel, PT [address] [place] [address] 10/16/2025 1:00 PM EST Office Visit [facility] Physical Therapy [facility] [address] [place] [address] Jonathan Barone, DO [address] [place] [address] Jazmyn Gabriel, PT [address] [place] [address] 10/18/2025 10:00 AM EST Office Visit [facility] Physical Therapy [facility] [address] [place] [address] Jonathan Barone, DO [address] [place] [address] [email or web address] Jazmyn, PT [address] [place] [address] [email or web address] documented as of this encounter Visit Diagnoses Not on filedocumented in this encounter Additional Health Concerns Infection Onset Date Last Indicated Resolved Time CoV-Presumed 08/27/2022 08/27/2022 09/17/2022 1:22 AM EST CoV-Risk Comment:Per Ambulatory Triage Form 10/22/2022 10/22/202211/02 1:24 AM EST documented as of this encounter Care Teams Shallot Packer Relationship Specialty Start Date End Date Josette Juarez MD [address] [place] [address] [email or web address] PCP - General Internal Medicine 09/20/17 12/24/20 Andreia Kincaid MD [address] [place] [address] [email or web address] PCP - General Family Medicine 12/25/20 09/17/22 Tamika Villalta CNP [address] [place] [address] 7 [place] [address] [email or web address] PCP - General Family Medicine 09/18/22 Josette Juarez MD [address] [place] [address] [email or web address] Insurance Assigned Provider 06/22/20 04/19/21 Andreia Kincaid MD [address] [place] [address] [email or web address] Insurance Assigned Provider 04/19/21 10/17/22 Josette Juarez MD [address] [place] [phone] Insurance Assigned Provider 11/21/22 01/16/23 Tamika Villalta CNP [address] [place] [address] 7 [place] [address] Insurance Assigned Provider 12/17/24 documented as of this encounter Additional Source Comments The information contained in this document represents components of the legal health record. It is not the complete legal health record.[facility]
--- OUTSIDE RECORDS SUMMARY | 2025-08-30 13:11 | XMS_ITS | Encounter Summary ---
Author Organization [facility] Address [address] [place] [address] Phone Care Team Providers Care Branch Lead Name Role Phone Josette Juarez MD Primary Care Provider Josette Juarez MD Unavailable Andreia Kincaid MD Primary Care Provider Andreia Kincaid MD Unavailable [phone] Tamika Villalta CNP Primary Care Provider + Josette Juarez MD Unavailable Tamika Villalta CNP Unavailable Encounter Details Date Type Department Care Team (Late st Contact Info) Description 02/03/2019 Ancillary Orders Virtual Department [address] [place] [address] Josette Juarez MD [address] [place] [address] Breast screening Social History Tobacco Use Types [...] Description 09/11/2025 10:00 AM EST Office Visit [facility] [address] [place] [address] Jonathan Barone, DO [address] [place] [address] 09/26/2025 1:00 PM EST Office Visit [facility] Physical Therapy [facility] [address] [place] [address] Jonathan Barone, DO [address] [place] [address] Jazmyn Gabriel, PT 21 [place] [address] 09/28/2025 1:45 PM EST Office Visit [facility] [address] [place] [address] Jonathan Barone, DO [address] [place] [address] Jazmyn Gabriel, PT [address] [place] [address] 10/02/2025 10:00 AM EST Office Visit [facility] [address] [place] [address] Jonathan Barone, DO [address] [place] [address] Jazmyn Gabriel, PT [address] [place] [address] 10/04/2025 12:15 PM EST Office Visit [facility] [address] [place] [address] Jonathan Barone, DO [address] [place] [address] Jazmyn Gabriel, PT [address] [place] [address] 10/09/2025 1:45 PM EST Office Visit [facility] Physical Therapy [facility] [address] [place] [address] Jonathan Barone, DO [address] [place] [address] Jazmyn Gabriel, PT [address] [place] [address] 10/11/2025 12:15 PM EST Office Visit [facility] Physical Therapy [address] [address] Jonathan Barone, DO [address] [place] [address] Jazmyn Gabriel, PT [address] [place] [address] 10/16/2025 1:00 PM EST Office Visit [facility] Physical Therapy [facility] [address] [place] [address] Jonathan Barone, DO [address] [place] [address] Jazmyn Gabriel, PT [address] [place] [address] 10/18/2025 10:00 AM EST Office Visit [facility] Physical Therapy [address] [address] Jonathan Barone, DO [address] [place] [address] CruzJazmyn wagoner, PT [address] [place] [address] [email or web address] documented as of this encounter Results * [...] and compared with multiple prior studies, most hmkodiur93/23/2018, with utilization of computer-aided detection. The breast [...] documented as of this encounter Care Teams Branch Lead Relationship Specialty Start Date End Date Josette Juarez MD [address] [place] [address] 1 [place] [address] [email or web address] PCP - General Internal Medicine 09/20/17 12/24/20 Andreia Kincaid MD [address] [place] [address] [email or web address] PCP - General Family Medicine 12/25/20 09/17/22 Tamika Villalta CNP [address] [place] [address] 7 [place] [address] [email or web address] PCP - General Family Medicine 09/18/22 Josette Juarez MD [address] [place] [address] [email or web address] Insurance Assigned Provider 06/22/20 04/19/21 Andreia Kincaid MD [address] [place] [address] [email or web address] Insurance Assigned Provider 04/19/21 10/17/22 Josette Juarez MD [address] [place] [id number] Insurance Assigned Provider 11/21/22 01/16/23 Tamika Villalta CNP [address] [place] [address] [address] [place] [address] [email or web address] Insurance Assigned Provider 12/17/24 documented as of this encounter Additional Source Comments The information contained in this document represents components of the legal health record. It is not the complete legal health record.[facility]
--- OUTSIDE RECORDS SUMMARY | 2025-08-30 13:11 | XMS_ITS | Encounter Summary ---
Author Organization [facility] Address [address] [place] [address] Phone Care Team Providers Care Balloon Dipper Name Role Phone Josette Juarez MD Primary Care Provider Josette Juarez MD Unavailable [phone] Andreia Kincaid MD Primary Care Provider [phone] Andreia Kincaid MD Unavailable [phone] Tamika Villalta CNP Primary Care Provider + Josette Juarez MD Unavailable [phone] Tamika Villalta CNP Unavailable [phone] Encounter Details Date Type Department Care Team (Late st Contact Info) Description 11/04/2018 Transcribe Orders [address] [place] [address] Josette Juarez MD [address] [place] [address] Hypertension, unspecified type (Primary Dx) Social History [...] Description 09/11/2025 10:00 AM EST Office Visit [facility] [address] [place] [address] Jonathan Barone, DO [address] [place] [address] 09/26/2025 1:00 PM EST Office Visit [facility] [address] [place] [address] Jonathan Barone, DO [address] [place] [address] Jazmyn Gabriel, PT 21 [place] [address] 09/28/2025 1:45 PM EST Office Visit [facility] Physical Therapy [facility] [address] [place] [address] Jonathan Barone, DO [address] [place] [address] Jazmyn Gabriel, PT [address] [place] [address] 10/02/2025 10:00 AM EST Office Visit [facility] Physical Therapy [facility] [address] [place] [address] Jonathan Barone, DO [address] [place] [address] Jazmyn Gabriel, PT [address] [place] [address] 10/04/2025 12:15 PM EST Office Visit [facility] [address] [place] [address] HeathertonJonathan, DO [address] [place] [address] [email or web address] Jazmyn Gabriel, PT [address] [place] [address] 10/09/2025 1:45 PM EST Office Visit [facility] [address] [place] [address] Jonathan Barone, DO [address] [place] [address] Jazmyn Gabriel, PT [address] [place] [address] 10/11/2025 12:15 PM EST Office Visit [facility] Physical Therapy [facility] [address] [place] [address] FunmilayoshondaJonathan, DO [address] [place] [address] Jazmyn Gabriel, PT [address] [place] [address] 10/16/2025 1:00 PM EST Office Visit [facility] Physical Therapy [facility] [address] [place] [address] FunmilayoshondaJonathan, DO [address] [place] [address] Jazmyn Gabriel, PT [address] [place] [address] 10/18/2025 10:00 AM EST Office Visit [facility] [address] [place] [address] Jonathan Barone, DO [address] [place] [address] [email or web address] [email or web address] wagoner, PT [address] [place] [address] [email or web address] documented as of this encounter Results * (ABNORMAL) Basic metabolic panel (11/04/2018 12:21 PM EST) SODIUM 143 133 - 146 mmol/L [facility] CHLORIDE 102 96 - 108 mmol/L [facility] POTASSIUM 4.0 3.3 - 5.1 mmol/L [facility] CO2 31 21 - 35 mmol/L [facility] BUN 13 6 - 19 mg/dL [facility] CREATININE 0.70 0.5 - 1.5 mg/dL [facility] GLUCOSE 129(H) 70 - 99 mg/dL [facility] CALCIUM 9.3 8.4 - 10.3 mg/dL [facility] EGFR 90 >59 mL/min/1.7 3m2 [facility] Comment:If patient is black, multiply result by 1.159. Estimated glomerular filtration rate calculated using the CKD-EPI equation. ANION GAP 14 10 - 20 mmol/L [facility] Blood 11/04/2018 12:2 1 PM EST 11/04/2018 12:23 PM EST Josette Juarez MD LAB BLOOD BKR ORDERABLES Fin al Result [facility] [address] [place] [address] documented in this encounter Visit Diagnoses Diagnosis Hypertension, unspecified type- Primary documented in this encounter Additional Health Concerns Infection Onset Date Last Indicated Resolved Time CoV-Presumed 08/27/2022 08/27/2022 09/17/2022 1:22 AM EST CoV-Risk Comment:Per Ambulatory Triage Form 10/22/2022 10/22/202211/02 1:24 AM EST documented as of this encounter Care Teams Balloon Dipper Relationship Specialty Start Date End Date Josette Juarez MD [address] [place] [address] 1 [place] [address] [email or web address] PCP - General Internal Medicine 09/20/17 12/24/20 Andreia Kincaid MD [address] [place] [address] [email or web address] PCP - General Family Medicine 12/25/20 09/17/22 Tamika Villalta, TONY [address] [place] [address] 7 [place] [address] [email or web address] PCP - General Family Medicine 09/18/22 Josette Juarez MD [address] [place] [address] [email or web address] Insurance Assigned Provider 06/22/20 04/19/21 Andreia Kincaid MD [address] [place] [address] [email or web address] Insurance Assigned Provider 04/19/21 10/17/22 Josette Juarez MD [address] [place] [address] [email or web address] Insurance Assigned Provider 11/21/22 01/16/23 Tamika Villalta CNP [address] [place] [address] 7 [place] [address] [email or web address] Insurance Assigned Provider 12/17/24 documented as of this encounter Additional Source Comments The information contained in this document represents components of the legal health record. It is not the complete legal health record.[facility]
--- OUTSIDE RECORDS SUMMARY | 2025-08-30 13:11 | XMS_ITS | Encounter Summary ---
Author Organization [facility] Address [address] [place] [address] Phone Care Team Providers Care Spinner Tender Name Role Phone Andreia Kincaid MD Primary Care Provider [phone] Andreia Kincaid MD Unavailable [phone] Tamika Villalta CNP Primary Care Provider + Josette Juarez MD Unavailable [phone] Tamika Villalta CNP Unavailable [phone] Encounter Details Date Type Department Care Team (Late st Contact Info) Description 10/09/2021 Procedure Pass [facility] - [address] [place] [address] Social History Tobacco Use Types Packs/Day Years [...] high school, GED, job training, learning the Canadian language, technical skills, or developing parenting skills)? [...] 09/11/2025 10:00 AM EST Office Visit [facility] [address] [place] [address] Jonathan Barone, DO [address] [place] [address] 09/26/2025 1:00 PM EST Office Visit [facility] [address] [place] [address] Jonathan Barone DO [address] [place] [address] Jazmyn Gabriel, PT [address] [place] [address] 09/28/2025 1:45 PM EST Office Visit [facility] [address] [place] [address] Jonathan Barone, DO [address] [place] [address] Jazmyn Gabriel, PT [address] [place] [address] 10/02/2025 10:00 AM EST Office Visit [facility] [address] [place] [address] Jonathan Barone, [address] [address] Jazmyn Gabriel, PT [address] [place] [address] 10/04/2025 12:15 PM EST Office Visit [facility] [address] [place] [address] Jonathan Barone, DO [address] [place] [address] Jazmyn Gabriel, PT [address] [place] [address] 10/09/2025 1:45 PM EST Office Visit [facility] [address] [place] [address] Jonathan Barone, DO [address] [place] [address] Jazmyn Gabriel, PT [address] [place] [address] [email or web address] 10/11/2025 12:15 PM EST Office Visit [facility] [address] [place] [address] Abisai Jonathan Shen, DO [address] [place] [address] Jazmyn Gabriel, PT [address] [place] [address] 10/16/2025 1:00 PM EST Office Visit [facility] [address] [place] [address] AbisaiJonathan, DO [address] [place] [address] Jazmyn Gabriel, PT [address] [place] [address] [email or web address] 10/18/2025 10:00 AM EST Office Visit [facility] [address] [place] [address] RamiroshondaJonathan, DO [address] [place] [address] [email or web address] Jazmyn Gabriel, PT [address] [place] [address] [email or web address] documented as of this encounter Visit Diagnoses Not on filedocumented in this encounter Additional Health Concerns Infection Onset Date Last Indicated Resolved Time CoV-Presumed 08/27/2022 08/27/2022 09/17/2022 1:22 AM EST CoV-Risk Comment:Per Ambulatory Triage Form 10/22/2022 10/22/202211/02 1:24 AM EST Assessment Noted Time PHQ-2 Depression Total Score: 2 01/27/20 22 7:43 AM EST documented as of this encounter Care Teams Spinner Tender Relationship Specialty Start Date End Date Andreia Kincaid MD [email or web address] PCP - General Family Medicine 12/25/20 09/17/22 Tamika Villalta CNP [address] [place] [address] [address] [place] [address] [email or web address] PCP - General Family Medicine 09/18/22 Andreia Kincaid MD [address] [place] [address] [email or web address] Insurance Assigned Provider 04/19/21 10/17/22 Josette Juarez MD [address] [place] [address] [email or web address] Insurance Assigned Provider 11/21/22 01/16/23 Tamika Villalta CNP [address] [place] [address] [address] [place] [address] [email or web address] Insurance Assigned Provider 12/17/24 documented as of this encounter Additional Source Comments The information contained in this document represents components of the legal health record. It is not the complete legal health record.[facility]
--- OUTSIDE RECORDS SUMMARY | 2025-08-30 13:11 | XMS_ITS | Encounter Summary ---
Author Organization [facility] Address [address] [place] [address] Phone Care Team Providers Care Asbestos Textile Supervisor Name Role Phone Josette Juarez MD Primary Care Provider Josette Juarez MD Unavailable Andreia Kincaid MD Primary Care Provider Andreia Kincaid MD Unavailable [phone] Tamika Villalta CNP Primary Care Provider + Josette Juarez MD Unavailable Tamika Villalta CNP Unavailable [phone] Encounter Details Date Type Department Care Team (Late st Contact Info) Description 02/03/2019 Ancillary Orders [facility], Ct Scan - [address] [address] Josette Juarez MD [address] [place] [address] Social History Tobacco Use Types Packs/Day Years [...] Description 09/11/2025 10:00 AM EST Office Visit [facility] [address] [place] [address] Jonathan Barone, DO [address] [place] [address] 09/26/2025 1:00 PM EST Office Visit [facility] [address] [place] [address] Jonathan Barone, DO [address] [place] [address] Jazmyn Gabriel, PT [address] [place] [address] 09/28/2025 1:45 PM EST Office Visit [facility] [address] [place] [address] Jonathan Barone, DO [address] [place] [address] Jazmyn Gabriel, PT [address] [place] [address] 10/02/2025 10:00 AM EST Office Visit [facility] [address] [place] [address] Jonathan Barone, DO [address] [place] [address] Jazmyn Gabriel, PT [address] [place] [address] 10/04/2025 12:15 PM EST Office Visit [facility] [address] [place] [address] Jonathan Barone, DO [address] [place] [address] [email or web address] Jazmyn Gabriel, PT [address] [place] [address] 10/09/2025 1:45 PM EST Office Visit [facility] [address] [place] [address] Kris Baronevipul Shen, DO [address] [place] [address] Jazmyn Gabriel, PT [address] [place] [address] 10/11/2025 12:15 PM EST Office Visit [facility] [address] [place] [address] Kris Baronevipul Shen, DO [address] [place] [address] [email or web address] Jazmyn Gabriel, PT [address] [place] [address] 10/16/2025 1:00 PM EST Office Visit [facility] [address] [place] [address] AbisaiJonathan, DO [address] [place] [address] [email or web address] Jazmyn Gabriel, PT [address] [place] [address] 10/18/2025 10:00 AM EST Office Visit [facility] [address] [place] [address] Jonathan Barone, DO [address] [place] [address] [email or web address] Wolfgangfay Jazmyn, PT [address] [place] [address] [email or web address] documented as of this encounter Visit Diagnoses Not on filedocumented in this encounter Additional Health Concerns Infection Onset Date Last Indicated Resolved Time CoV-Presumed 08/27/2022 08/27/2022 09/17/2022 1:22 AM EST CoV-Risk Comment:Per Ambulatory Triage Form 10/22/2022 10/22/202211/02 1:24 AM EST documented as of this encounter Care Teams Asbestos Textile Supervisor Relationship Specialty Start Date End Date Josette Juarez MD [address] [place] [address] 1 [place] [address] [email or web address] PCP - General Internal Medicine 09/20/17 12/24/20 Andreia Kincaid MD [address] [place] [address] [email or web address] PCP - General Family Medicine 12/25/20 09/17/22 Tamika Villalta CNP 234 [facility] [address] [place] [address] [email or web address] PCP - General Family Medicine 09/18/22 Josette Juarez MD [address] [place] [address] [email or web address] Insurance Assigned Provider 06/22/20 04/19/21 Andreia Kincaid MD [address] [place] [address] [email or web address] Insurance Assigned Provider 04/19/21 10/17/22 Josette Juarez MD [address] [place] [address] [email or web address] Insurance Assigned Provider 11/21/22 01/16/23 Tamika Villalta CNP [address] [place] [address] 7 [place] [address] [email or web address] Insurance Assigned Provider 12/17/24 documented as of this encounter Additional Source Comments The information contained in this document represents components of the legal health record. It is not the complete legal health record.[facility]
--- OUTSIDE RECORDS SUMMARY | 2025-08-30 13:11 | XMS_ITS | Encounter Summary ---
Author Organization [facility] Address [address] [place] [address] Phone Care Team Providers Care Locomotive Observer Name Role Phone Josette Juarez MD Primary Care Provider [phone] Josette Juarez MD Unavailable [phone] Andreia Kincaid MD Primary Care Provider [phone] Andreia Kincaid MD Unavailable [phone] Tamika Villalta CNP Primary Care Provider + Josette Juarez MD Unavailable [phone] Tamika Villalta CNP Unavailable [phone] Encounter Details Date Type Department Care Team (Late Contact Info) Description 10/09/2019 Ancillary Orders [facility], X-Ray - [address] [place] [address] Josette Juarez MD [address] [place] [address] Low back pain, unspecified back pain laterality, [...] Description 09/11/2025 10:00 AM EST Office Visit [facility] [address] [place] [address] [employer] Jonathan Shen, DO [address] [place] [address] 09/26/2025 1:00 PM EST Office Visit [facility] [address] [place] [address] Jonathan Barone, DO [address] [place] [address] Jazmyn Gabriel, PT 21 [place] [address] 09/28/2025 1:45 PM EST Office Visit [facility] [address] [place] [address] Jonathan Barone, DO [address] [place] [address] Jazmyn Gabriel, PT 21 [place] [address] 10/02/2025 10:00 AM EST Office Visit [facility] [address] [place] [address] Jonathan Barone, DO [address] [place] [address] Jazmyn Gabriel, PT 21 [place] [address] 10/04/2025 12:15 PM EST Office Visit [facility] [address] [place] [address] Jonathan Barone, DO [address] [place] [address] [email or web address] Jazmyn Gabriel, PT 21 [place] [address] 10/09/2025 1:45 PM EST Office Visit [facility] [address] [place] [address] Jonathan Barone, DO [address] [place] [address] Jazmyn Gabriel, PT 21 [place] [address] 10/11/2025 12:15 PM EST Office Visit [facility] [address] [place] [address] Jonathan Barone, DO [address] [place] [address] Jazmyn Gabriel, PT 21 [place] [address] 10/16/2025 1:00 PM EST Office Visit [facility] [address] [place] [address] Jonathan Barone, DO [address] [place] [address] Jazmyn Gabriel, PT 21 [place] [address] 10/18/2025 10:00 AM EST Office Visit [facility] [address] [place] [address] Jonathan Barone, DO [address] [place] [address] [email or web address] wagoner, PT 21 [place] [address] [email or web address] documented as of this encounter Results * XR Sacrum and Coccyx (10/09/2019 4:01 PM EST) Anatomical Region Laterality Modality L-spine Radiographic Debra ging 10/09/2019 6:49 PM EST Impressions 10/09/2019 6:52 PM EST Anterior dislocation of the third coccygeal segment. POS - [id number] Narrative 10/09/2019 6:52 PM EST EXAM: XR [...] of the third coccygeal segment. POS - [id number] us Josette Juarez MD IMG XR SPINE [...] documented as of this encounter Care Teams Locomotive Observer Relationship Specialty Start Date End Date Josette Juarez MD [address] [place] [address] 1 [place] [address] [email or web address] PCP - General Internal Medicine 09/20/17 12/24/20 Andreia Kincaid MD [address] [place] [address] [email or web address] PCP - General Family Medicine 12/25/20 09/17/22 Tamika Villalta, TONY [address] [place] [address] 7 [place] [address] [email or web address] PCP - General Family Medicine 09/18/22 Josette Juarez MD [address] [place] [address] [email or web address] Insurance Assigned Provider 06/22/20 04/19/21 Andreia Kincaid MD [address] [place] [address] [email or web address] Insurance Assigned Provider 04/19/21 10/17/22 Josette Juarez MD [address] [place] [address] [email or web address] Insurance Assigned Provider 11/21/22 01/16/23 Tamika Villalta, TONY [address] [place] [address] 7 [place] [address] Insurance Assigned Provider 12/17/24 documented as of this encounter Additional Source Comments The information contained in this document represents components of the legal health record. It is not the complete legal health record.[facility]
--- OUTSIDE RECORDS SUMMARY | 2025-08-30 13:11 | XMS_ITS | Encounter Summary ---
Author Organization [facility] Address [address] [place] [address] Phone Care Team Providers Care Curriculum Development Manager Name Role Phone Josette Juarez MD Primary Care Provider Josette Juarez MD Unavailable Andreia Kincaid MD Primary Care Provider Andreia Kincaid MD Unavailable [phone] Tamika Villalta CNP Primary Care Provider + Josette Juarez MD Unavailable [phone] Tamika Villalta CNP Unavailable [phone] Encounter Details Date Type Department Care Team (Late st Contact Info) Description 04/25/2019 Transcribe Orders [address] [place] [address] Josette Juarez MD [address] [place] [address] Numbness (Primary Dx) Social History Tobacco Use [...] Description 09/11/2025 10:00 AM EST Office Visit [facility] [address] [place] [address] Jonathan Barone, DO [address] [place] [address] 09/26/2025 1:00 PM EST Office Visit [facility] Physical Therapy [facility] [address] [place] [address] Jonathan Barone, DO [address] [place] [address] Jazmyn Gabriel, PT [address] [place] [address] 09/28/2025 1:45 PM EST Office Visit [facility] Physical Therapy [facility] [address] [place] [address] Jonathan Barone, DO [address] [place] [address] Jazmyn Gabriel, PT [address] [place] [address] 10/02/2025 10:00 AM EST Office Visit [facility] Physical Therapy [facility] [address] [place] [address] Jonathan Barone, DO [address] [place] [address] Jazmyn Gabriel, PT [address] [place] [address] 10/04/2025 12:15 PM EST Office Visit [facility] Physical Therapy [facility] 21 [place] [address] Jonathan Baronerose, DO [address] [place] [address] [email or web address] Jazmyn Gabriel, PT [address] [place] [address] 10/09/2025 1:45 PM EST Office Visit [facility] Physical Therapy [facility] [address] [place] [address] Abisai Jonathan Shen, DO [address] [place] [address] Jazmyn Gabriel, PT [address] [place] [address] 10/11/2025 12:15 PM EST Office Visit [facility] Physical Therapy [facility] [address] [place] [address] Abisai Jonathan Shen, DO [address] [place] [address] Jazymn Gabriel, PT [address] [place] [address] 10/16/2025 1:00 PM EST Office Visit [facility] Physical Therapy [facility] [address] [place] [address] AbisaiJonathan, DO [address] [place] [address] Jazmyn Gabriel, PT [address] [place] [address] 10/18/2025 10:00 AM EST Office Visit [facility] [address] [place] [address] Brett Baronejeremías Ac, DO [address] [place] [address] [email or web address] Harvey Jazmyn, PT [address] [place] [address] [email or web address] documented as of this encounter Results * TSH with reflex (04/25/2019 2:43 PM EDT) TSH 1.74 0.27 - 4.20 uIU/mL [facility] Blood 04/25/2019 2:43 PM EDT 04/25/2019 2:46 PM EDT Josette Juarez MD LAB BLOOD BKR ORDERABLES Chintan al Result [facility] [address] [place] [address] * LFTs (hepatic panel) (04/25/2019 2:43 PM EDT) ALKALINE PHOSPHATASE 68 39 - 117 U/L [facility] TOTAL BILIRUBIN 0.5 0.0 - 1.2 mg/dL [facility] DIRECT BILIRUBIN <0.2 0 - 0.3 mg/dL [facility] Bilirubin (Indirect) NOT CALCULATED 0 - 1.5 mg/dL [facility] AST 35 0 - 37 U/L [facility] ALT 34 0 - 40 U/L [facility] TOTAL PROTEIN 7.0 6.5 - 8.0 g/dL [facility] ALBUMIN 4.5 3.9 - 4.8 g/dL [facility] GLOBULIN 2.5 1 - 4.8 g/dL [facility] A/G Ratio 1.80 1.00 - 4.[address] [facility] Blood 04/25/2019 2:43 PM EDT 04/25/2019 2:46 PM EDT us Josette Juarez MD LAB BLOOD BKR ORDERABLES Fin al Result [address] [address] * Magnesium (04/25/2019 2:43 PM EDT) MAGNESIUM 1.9 1.6 - 2.6 mg/dL [facility] Blood 04/25/2019 2:43 PM EDT 04/25/2019 2:46 PM EDT Josette Juarez MD LAB BLOOD BKR ORDERABLES Fin al Result Performing Organization Address [facility] Co de Phone Number [address] [address] * Folate (04/25/2019 2:43 PM EDT) FOLIC ACID 12.4 4.2 - 19.9 ng/mL [facility] Blood 04/25/2019 2:43 PM EDT 04/25/2019 2:46 PM EDT Josette Juarez MD LAB BLOOD BKR ORDERABLES Fin al Result Performing Organization Address [facility] Co de Phone Number [address] [address] * Vitamin B12 (04/25/2019 2:43 PM EDT) VITAMIN B12 686 232 - 1,245 pg/mL [facility] Blood 04/25/2019 2:43 PM EDT 04/25/2019 2:46 PM EDT Josette Juarez MD LAB BLOOD BKR ORDERABLES Fin al Result Performing Organization Address [facility]/ZIP Co de Phone Number [address] [address] * (ABNORMAL) CBC and differential (04/25/2019 2:43 PM EDT) WBC 6.57 3.40 - 11.20 K/uL [facility] RBC 4.32 3.80 - 4.80 M/uL [facility] HGB 13.1 12.0 - 15.0 g/dL [facility] HCT 38.0 36.0 - 46.0 % [facility] PLT 332 130 - 400 K/uL [facility] MCV 88.0 79.0 - 98.[address] [facility] MCH 30.3 27.0 - 34.[address] [facility] MCHC 34.5 31.5 - 36.0 g/dL [facility] RDW 12.7 10.8 - 14.6 % [facility] MPV 9.3(L) 9.4 - 12.[address] [facility] NRBC 0.00 0.00 /[address] [facility] ABSOLUTE NRBC 0.00 0.00 K/uL [facility] DIFF METHOD Auto [facility] NEUTS 61.2 45.30 - 77.70 % [facility] LYMPHS 29.1 12.30 - 39.70 % [facility] MONOS 8.5 4.10 - 12.80 % [facility] EOS 0.5 0 - 7.2 % [facility] BASOS 0.5 0 - 2.80 % [facility] Granulocytes, immature (%) 0.2 0.0 - 0.9 % [facility] ABSOLUTE NEUTS 4.03 1.40 - 7.70 K/uL [facility] ABSOLUTE LYMPHS 1.91 0.60 - 3.20 K/uL [facility] ABSOLUTE MONOS 0.56 0.11 - 0.59 K/uL [facility] ABSOLUTE EOS 0.03 0.01 - 0.50 K/uL [facility] ABSOLUTE BASOS 0.03 0.00 - 0.08 K/uL [facility] Granulocytes, immature 0.01 0.00 - 0.05 K/uL [facility] Blood 04/25/2019 2:43 PM EDT 04/25/2019 2:46 PM EDT us Josette Juarez MD LAB BLOOD BKR ORDERABLES Fin al Result [address] [address] documented in this encounter Visit Diagnoses Diagnosis Numbness- Primary Disturbance of skin sensation documented in this encounter Additional Health Concerns Infection Onset Date Last Indicated Resolved Time CoV-Presumed 08/27/2022 08/27/2022 09/17/2022 1:22 AM EST CoV-Risk Comment:Per Ambulatory Triage Form 10/22/2022 10/22/202211/02 1:24 AM EST documented as of this encounter Care Teams Curriculum Development Manager Relationship Specialty Start Date End Date Josette Juarez MD [address] [place] [address] 1 [place] [address] [email or web address] PCP - General Internal Medicine 09/20/17 12/24/20 Andreia Kincaid MD [address] [place] [address] [email or web address] PCP - General Family Medicine 12/25/20 09/17/22 Tamika Villalta CNP [address] [place] [address] 7 [place] [address] [email or web address] PCP - General Family Medicine 09/18/22 Josette Juarez MD [address] [place] [address] [email or web address] Insurance Assigned Provider 06/22/20 04/19/21 Andreia Kincaid MD [address] [place] [address] [email or web address] Insurance Assigned Provider 04/19/21 10/17/22 Josette Juarez MD [address] [place] [address] [email or web address] Insurance Assigned Provider 11/21/22 01/16/23 Tamika Villalta, TONY [address] [place] [address], [address] [place] [address] [email or web address] Insurance Assigned Provider 12/17/24 documented as of this encounter Additional Source Comments The information contained in this document represents components of the legal health record. It is not the complete legal health record.[facility]
== END 2025-08-30 11:08 | disposition home or self-care (01) ==
LOC: HO.HOP 10:29
PROVIDERS: PCP Nurse Practitioner Primary Care; Visit Provider Clinical Nurse Specialist Psychiatric/Mental Health
DX: F33.1 Major depressive disorder, recurrent, moderate (principal); F41.1 Generalized anxiety disorder; F41.0 Panic disorder [episodic paroxysmal anxiety]
CPT/HCPCS: 99214

== ENCOUNTER → 2025-08-30 10:28 | Outpatient (BNVA) | payer MEDICARE, OTHER, SELFPAY | PROVIDERS: PCP Nurse Practitioner Primary Care; Visit Provider Clinical Nurse Specialist Psychiatric/Mental Health | DX: F33.1 Major depressive disorder, recurrent, moderate (principal); F41.1 Generalized anxiety disorder; F41.0 Panic disorder [episodic paroxysmal anxiety] | CPT/HCPCS: 99212 ==